=== PATIENT | male | born 1980 | race Caucasian/White ===

== ENCOUNTER 2016-08-11 19:24 | Emergency (ER) | payer OTHER ==
[~2016-08-11] VITALS: Ht 172.7 cm; Wt 64.4 kg
[~2016-08-11 19:24] MED LIST: CYM/30 PO; CYM/60 PO; LAMO100T16 PO; VST25HP PO
[2016-08-11] MEDS ORDERED: XYLOCAINE 1%/SOD BICARB 20 ML VIAL INFIL ONE ×2 (19:32→19:45)
--- NOTE | 2016-08-11 19:35 | EMERGENCY ROOM VISIT NOTE ---
History Report prepared by Massiel: Nelia Guzman Under the Supervision of: Dr. Niall Prado D.O. First contact with patient: 19:27 Stated Complaint: DEPRESSED, LACERATION TO L FOREARM, MENTAL HEALTH History of Present Illness The patient is a 35 year old male who presents to the Emergency Room for a mental health evaluation. The patient states that he is depressed and has a history of cutting himself. He reports that he was admitted to the hospital 1 month ago. He denies hearing any voices. Th patient notes that he has not been taking his Lamictal. Tonight he cut himself in the left arm just MECHANICAL INTERN. Source of History: patient Onset: just MECHANICAL INTERN Position: arm (left) Quality: other (laceration) Timing: constant Note: Left arm laceration, depression. Review of Systems See HPI for pertinent positives & negatives. A total of 10 systems reviewed and were otherwise negative. Past Medical & Surgical Medical Problems: (1) ANXIETY STATE NOS (2) Asthma (3) Auditory hallucinations (4) Depression (5) Dyspnea (6) Dyspnea (7) Exposure to chemical inhalation (8) Exposure to chemical inhalation (9) Seizure (10) Seizure disorder Family History Cancer FH: diabetes mellitus FH: hypertension FH: lupus FH: pneumonia FH: stroke High cholesterol Social History Smoking Status: Never Smoker Alcohol Use: occasionally Marital Status: single Housing Status: lives alone Occupation Status: disabled Current/Historical Medications Scheduled Duloxetine HCl (Cymbalta), 30 MG PO DAILY Duloxetine HCl (Cymbalta), 60 MG PO DAILY Lamotrigine (Lamictal), 200 MG PO QAM Allergies Coded Allergies: Amoxicillin (Verified Allergy, Severe, HIVES,SEIZURE ACTIVITY. N/V, ) Physical Exam Vital Signs Date Time Temp Pulse Resp B/P Pulse Ox O2 Delivery O2 Flow Rate FiO2 08/12/16 03:53 80 16 121/66 98 08/11/16 23:13 83 16 111/68 99 Room Air 08/11/16 21:00 89 18 98 Room Air 08/11/16 19:39 36.6 93 18 135/86 98 Room Air Physical Exam GENERAL: Patient is awake, alert, and somewhat anxious appearing but does not appear to be in pain. EYES: The conjunctivae are clear. The pupils are round and reactive. EARS, NOSE, MOUTH AND THROAT: The nose is without any evidence of any deformity. Mucous membranes are moist tongue is midline NECK: The neck is nontender and supple. RESPIRATORY: Normal respiratory effort is noted there is no evidence of wheezing rhonchi or rales CARDIOVASCULAR: Regular rate and rhythm noted there no murmurs rubs or gallops normal S1 normal S2 GASTROINTESTINAL: The abdomen is soft. Bowel sounds are present in all quadrants. Abdomen is nontender MUSCULOSKELETAL/EXTREMITIES: There is no evidence of gross deformity full range of motion is noted in the hips and shoulders SKIN: There is no obvious evidence of any rash. There are no petechiae, pallor or cyanosis noted. No edema noted, 3cm laceration noted on the ventral aspect of the left forearm, no active bleeding was noted. NEUROLOGIC: Patient is awake alert and oriented x3 strength is symmetric patellar reflexes are 2+ bilaterally PSYCH: Affect was very flat, patient makes poor eye contact. Admits to having suicidal ideation with plans to cut himself further. Medical Decision & Procedures Laboratory Results 08/11/16 20:33 Red Blood Count 5.06, Mean Corpuscular Volume 81.8, Mean Corpuscular Hemoglobin 29.2, Mean Corpuscular Hemoglobin Concent 35.7, Mean Platelet Volume 10.9, Neutrophils (%) (Auto) 54.2, Lymphocytes (%) (Auto) 38.1, Monocytes (%) (Auto) 6.5, Eosinophils (%) (Auto) 0.3, Basophils (%) (Auto) 0.7, Neutrophils # (Auto) 3.18, Lymphocytes # (Auto) 2.23, Monocytes # (Auto) 0.38, Eosinophils # (Auto) 0.02, Basophils # (Auto) 0.04 08/11/16 20:33 Test 08/11/16 20:33 08/11/16 21:47 White Blood Count 5.86 K/uL (4.8-10.8) Red Blood Count 5.06 M/uL (4.7-6.1) Hemoglobin 14.8 g/dL (14.0-18.0) Hematocrit 41.4 % (42-52) Mean Corpuscular Volume 81.8 fL (80-100) Mean Corpuscular Hemoglobin 29.2 pg (25-34) Mean Corpuscular Hemoglobin Concent 35.7 g/dl (32-36) Platelet Count 209 K/uL (130-400) Mean Platelet Volume 10.9 fL (7.4-10.4) Neutrophils (%) (Auto) 54.2 % Lymphocytes (%) (Auto) 38.1 % Monocytes (%) (Auto) 6.5 % Eosinophils (%) (Auto) 0.3 % Basophils (%) (Auto) 0.7 % Neutrophils # (Auto) 3.18 K/uL (1.4-6.5) Lymphocytes # (Auto) 2.23 K/uL (1.2-3.4) Monocytes # (Auto) 0.38 K/uL (0.11-0.59) Eosinophils # (Auto) 0.02 K/uL (0-0.5) Basophils # (Auto) 0.04 K/uL (0-0.2) RDW Standard Deviation 37.3 fL (36.4-46.3) RDW Coefficient of Variation 12.5 % (11.5-14.5) Immature Granulocyte % (Auto) 0.2 % Immature Granulocyte # (Auto) 0.01 K/uL (0.00-0.02) Anion Gap 11.0 mmol/L (3-11) Est Creatinine Clear Calc Drug Dose 92.1 ml/min Estimated GFR () 110.9 Estimated GFR (Non- 95.7 BUN/Creatinine Ratio 14.9 (10-20) Calcium Level 9.3 mg/dl (8.5-10.1) Total Bilirubin 0.8 mg/dl (0.2-1) Direct Bilirubin 0.1 mg/dl (0-0.2) Aspartate Amino Transf (AST/SGOT) 15 U/L (15-37) Alanine Aminotransferase (ALT/SGPT) 14 U/L (12-78) Alkaline Phosphatase 92 U/L (45-117) Total Protein 7.1 gm/dl (6.4-8.2) Albumin 4.1 gm/dl (3.4-5.0) Globulin 3.0 gm/dl (2.5-4.0) Albumin/Globulin Ratio 1.4 (0.9-2) Thyroid Stimulating Hormone (TSH) 1.590 uIu/ml (0.300-4.500) Ethyl Alcohol mg/dL < 3.0 mg/dl (0-3) Urine Color YELLOW Urine Appearance CLEAR (CLEAR) Urine pH 6.5 (4.5-7.5) Urine Specific [place] 1.000 (1.000-1.030) Urine Protein NEG (NEG) Urine Glucose (UA) NEG (NEG) Urine Ketones NEG (NEG) Urine Occult Blood NEG (NEG) Urine Nitrite NEG (NEG) Urine Bilirubin NEG (NEG) Urine Urobilinogen NEG (NEG) Urine Leukocyte Esterase NEG (NEG) Urine Opiates Screen NEG (NEG) Urine Methadone, Qualitative NEG (NEG) Urine Barbiturates NEG (NEG) Urine Phencyclidine (PCP) Level NEG (NEG) Ur Amphetamine/Methamphetamine NEG (NEG) MDMA (Ecstasy) Screen NEG (NEG) Urine Benzodiazepines Screen NEG (NEG) Urine Cocaine Metabolite NEG (NEG) Urine Marijuana (THC) NEG (NEG) Laboratory results per my review. Medications Administered Medications (Trade) Dose Ordered Sig/Darren Route Start Time Stop Time Status Last Admin Dose Admin Lorazepam (Ativan Tab) 1 mg NOW STAT SL 08/11/16 19:54 08/11/16 19:55 DC 08/11/16 20:12 1 MG Nicotine Polacrilex (Nicorette 2MG Gum) 1 piece PRN PRN MT 08/11/16 21:00 08/12/16 04:44 DC 08/12/16 02:01 1 PIECE Procedure Location: left forearm Total length: 3cm Complexity: low Verbal consent was obtained after the risks and benefits were explained, including but not limited to bleeding, scarring, infection, pain, and bone/joint /nerve damage. At this time, the risks of the procedure are less than the risks of NOT performing the procedure. A time out was taken and the correct patient and site identified. The skin was prepped with betadine. The target area was anesthetized with 5 ml of 1% lidocaine without epinephrine. Copious irrigation was performed using normal saline solution. The skin was re-prepped with betadine and a sterile field set. The wound was explored for foreign bodies and none found. Examination revealed no injury to deep structures such as tendons, bone, or significant blood vessels. Debridement was not performed. The wound edges were approximated using 9, 5-0 simple interrupted nylon sutures. 3 vertical mattress sutures were placed with 5-0 nylon sutures. Hemostasis and excellent approximation was achieved. Antibacterial ointment and a sterile dressing applied. Detailed wound care instructions and signs and symptoms of infection reviewed with the the patient. No complications and the patient tolerated the procedure well. ED Course 1926: The patient was evaluated in room A3. A complete history and physical examination were performed. 1931: Lidocaine HCl 5ml INFIL. 1953: Ativan Tab 1mg SL. 2099: Nicotine Polacrilex 1 piece PRN MT cravings. 2114: I reevaluated the patient. He is getting a bed search now. 2299: The patient was signed out to Dr. Keller. Medical Decision Differential diagnosis: Etiologies such as mood disorder, infection, hypoglycemia, electrolyte abnormalities, cardiac sources, intracerebral event, toxicologic, neurologic, as well as others were entertained. Nursing notes reviewed. The patient is a 35-year-old male who has a history of mental health disorder who presented to the emergency department for an evaluation of depression and self-harm. The patient cut his left forearm with a knife because he was feeling bad and wanted to hurt himself. He called the ambulance and wished to be evaluated for mental health admission. The patient was medically cleared in the emergency department. His laceration was repaired in the emergency department by myself. I discussed the patient's laboratory studies with him. I discussed his case with the [facility] delegate. They've agreed to evaluate the patient for possible inpatient placement. The patient is willing to be admitted and wishes to be admitted at this time. The patient states he ran out of his medications and did not have a chance to refill them. The patient was treated with Ativan in the emergency department. On subsequent reevaluation was feeling much better. Impression Primary Impression: Depression Additional Impressions: Suicidal ideation Laceration of forearm Self-harming behavior Scribe Attestation The scribe's documentation has been prepared under my direction and personally reviewed by me in its entirety. I confirm that the note above accurately reflects all work, treatment, procedures, and medical decision making performed by me. Departure Information Dispostion Still a Patient Referrals Walt Perez M.D. (PCP) Problem Qualifiers
[2016-08-11 19:39] VITALS: TEMP 36.6; Ht 172.7 cm; Wt 64.4 kg
[2016-08-11] MEDS ORDERED: LORAZEPAM 1 MG TAB SL STA (19:54)
[2016-08-11 20:53] LABS: BASO % 0.7 %; BASO ABS # 0.04 K/uL (0-0.2); COMPLETE YES; EOS % 0.3 %; HEMATOCRIT 41.4 % (42-52); IG% 0.2 %; LYMPH % 38.1 %; LYMPH ABS # 2.23 K/uL (1.2-3.4); MEAN CELL VOLUME 81.8 fL (80-100); MEAN CORPUSCULAR HEMOGLOBIN 29.2 pg (25-34); MEAN CORPUSCULAR HGB CONC 35.7 g/dl (32-36); MEAN PLATELET VOLUME 10.9 fL (7.4-10.4); MONO % 6.5 %; NEUT % 54.2 %; PLATELET COUNT 209 K/uL (130-400); RED BLOOD COUNT 5.06 M/uL (4.7-6.1); WHITE BLOOD COUNT 5.86 K/uL (4.8-10.8)
[2016-08-11] MEDS: NICOTINE POLACRILEX 2 MG GUM MT PRN (21:00)
[2016-08-11 21:19] LABS: BUN/CREATININE RATIO 14.9 (10-20); CALCIUM 9.3 mg/dl (8.5-10.1)
[2016-08-11 21:29] LABS: ALB/GLOB RATIO 1.4 (0.9-2); THYROID STIMULATING HORMONE 1.59 uIu/ml (0.300-4.500)
[2016-08-11 22:03] LABS: URINE APPEARANCE CLEAR (CLEAR); URINE BILIRUBIN NEG (NEG); URINE COLOR YELLOW; URINE NITRITE NEG (NEG); URINE PH 6.5 (4.5-7.5); UROBILINOGEN NEG (NEG)
[2016-08-11 22:06] LABS: MANUAL MICROSCOPIC REQUIRED? NO; REVIEW REQ? NO
[2016-08-11 22:20] LABS: BENZODIAZEPINE, URINE NEG (NEG); COCAINE,URINE NEG (NEG); PHENCYCLIDINE, URINE NEG (NEG)
--- NOTE | 2016-08-12 01:57 | EMERGENCY ROOM VISIT NOTE ---
ED Visit Note First contact with patient: 00:44 This case was signed out to me at change of shift awaiting a bed search. The patient has been accepted at [facility]. They will send staff here to pick him up. The patient will be transferred shortly. Paperwork was completed.
[2016-08-12] MEDS: NICOTINE POLACRILEX 2 MG GUM MT PRN (02:01)
[2016-08-12 03:53] VITALS: BP 121/66; PULSE 80; O2SAT 98
[2016-09-23] MEDS ORDERED: FLUO20CA36 PO (09:33)
[2016-09-23] MEDS ORDERED: ZYP10 PO (09:33)
[2017-04-25] MEDS ORDERED: LAMO200T38 PO (18:24)
== END 2016-08-12 03:54 ==
LOC: EDBD 19:24 → C.EDA 19:26
DX: F32.9 Major depressive disorder, single episode, unspecified (principal); R45.851 Suicidal ideations; S51.812A Laceration without foreign body of left forearm, initial encounter; X78.1XXA Intentional self-harm by knife, initial encounter; F41.1 Generalized anxiety disorder; J45.909 Unspecified asthma, uncomplicated; G40.909 Epilepsy, unspecified, not intractable, without status epilepticus; Z72.89 Other problems related to lifestyle; Z83.3 Family history of diabetes mellitus; Z82.49 Family history of ischemic heart disease and other diseases of the circulatory system; Z82.3 Family history of stroke; Z83.6 Family history of other diseases of the respiratory system; Z83.49 Family history of other endocrine, nutritional and metabolic diseases; Z84.0 Family history of diseases of the skin and subcutaneous tissue; Z79.899 Other long term (current) drug therapy

== ENCOUNTER 2016-08-27 01:38 | Emergency (ER) | payer OTHER ==
[~2016-08-27] VITALS: Ht 170.2 cm; Wt 65.0 kg
[~2016-08-27 01:38] MED LIST changes: -VST25HP PO
[2016-08-27 01:45] VITALS: Ht 170.2 cm; Wt 65.0 kg
--- NOTE | 2016-08-27 02:23 | EMERGENCY ROOM VISIT NOTE ---
History Report prepared by Massiel: Boogie Bowden Under the Supervision of: Dr. Claudia Keller D.O. First contact with patient: 01:41 Chief Complaint: MENTAL HEALTH EVALUATION Stated Complaint: MENTAL HEALTH EVALUATION History of Present Illness The patient is a 35 year old male who presents to the Emergency Room for a mental health evaluation. Per the ED nurse, the patient was discharged from [facility] a week ago. He was discharged with bipolar medication. However, when he tried to get his medication filled at the pharmacy, there was an issue with his health insurance, and he could not get the prescription filled. Three days ago, the patient also stopped taking his [place] medication. Tonight, he was out and about and started to feel unwell. He had thoughts of cutting himself again. Via the patient, he stopped taking his [place] medication because it makes him urinate frequently. He has been very stressed and frustrated lately. He has cut himself before, and he states that he did want to cut himself tonight. He is still taking his seizure medications. He also states that his alcohol use was yesterday, not tonight. He lives by himself and called [facility] to come to his house. They then called the EMS. He wishes to be admitted and feels safe in this room. He denies any abdominal pain. Source of History: patient Onset: tonight Position: other (global) Symptom Intensity: moderate Quality: other (mental health evaluation) Timing: constant Associated Symptoms: No abdominal pain Review of Systems See HPI for pertinent positives & negatives. A total of 10 systems reviewed and were otherwise negative. Past Medical & Surgical Medical Problems: (1) ANXIETY STATE NOS (2) Asthma (3) Auditory hallucinations (4) Depression (5) Dyspnea (6) Dyspnea (7) Exposure to chemical inhalation (8) Exposure to chemical inhalation (9) Seizure (10) Seizure disorder Family History Cancer FH: diabetes mellitus FH: hypertension FH: lupus FH: pneumonia FH: stroke High cholesterol Social History Smoking Status: Current Every Day Smoker Alcohol Use: occasionally Marital Status: single Housing Status: lives alone Occupation Status: disabled Current/Historical Medications Scheduled Lamotrigine (Lamictal), 200 MG PO QAM Allergies Coded Allergies: Amoxicillin (Verified Allergy, Severe, HIVES,SEIZURE ACTIVITY. N/V, ) Physical Exam Vital Signs Date Time Temp Pulse Resp B/P Pulse Ox O2 Delivery O2 Flow Rate FiO2 08/27/16 03:15 80 16 119/77 98 Room Air 08/27/16 01:45 36.7 99 16 140/90 97 Room Air Physical Exam HEENT: Head - normocephalic and atraumatic Pupils are equal, round, and reactive to light. Extraocular eye muscles are intact, and sclera are anicteric. Nose - moist nasal mucosa without discharge. Mouth - moist buccal mucosa. Oropharynx is nonerythematous and there is no tonsillar exudate or edema noted. Neck: Supple; no JVD, nuchal rigidity, cervical lymphadenopathy. Heart: Regular rate and rhythm. There is a normal S1 and S2 with no murmurs, clicks, or gallops appreciated. Lungs: Clear to auscultation bilaterally with no wheezes, rales, or rhonchi. Abdomen: Soft, completely nontender, nondistended, with good bowel sounds. There are no palpable pulsatile masses or hepatosplenomegaly. There is no guarding, rigidity, or rebound noted. Extremities: No evidence of cyanosis, clubbing, or edema. There are easily palpable peripheral pulses. Skin: warm and dry with good turgor and no rashes. Psych: Appears depressed with a flat affect. Having thoughts of cutting himself. Medical Decision & Procedures Laboratory Results 08/27/16 01:58 08/27/16 01:58 Test 08/27/16 01:58 08/27/16 02:19 Red Blood Count 4.93 M/uL (4.7-6.1) Mean Corpuscular Volume 83.8 fL (80-100) Mean Corpuscular Hemoglobin 29.2 pg (25-34) Mean Corpuscular Hemoglobin Concent 34.9 g/dl (32-36) RDW Standard Deviation 38.3 fL (36.4-46.3) RDW Coefficient of Variation 12.7 % (11.5-14.5) Mean Platelet Volume 10.2 fL (7.4-10.4) Anion Gap 10.0 mmol/L (3-11) Est Creatinine Clear Calc Drug Dose 116.2 ml/min Estimated GFR () 132.3 Estimated GFR (Non- 114.1 BUN/Creatinine Ratio 12.3 (10-20) Calcium Level 8.7 mg/dl (8.5-10.1) Total Bilirubin 0.4 mg/dl (0.2-1) Direct Bilirubin < 0.1 mg/dl (0-0.2) Aspartate Amino Transf (AST/SGOT) 11 U/L (15-37) Alanine Aminotransferase (ALT/SGPT) 21 U/L (12-78) Alkaline Phosphatase 84 U/L (45-117) Total Protein 6.7 gm/dl (6.4-8.2) Albumin 3.9 gm/dl (3.4-5.0) Thyroid Stimulating Hormone (TSH) 4.200 uIu/ml (0.300-4.500) Salicylates Level < 1.7 mg/dl (2.8-20) Acetaminophen Level < 2 ug/ml (10-30) [place] Level < 0.2 mMOL/L (0.6-1.2) Ethyl Alcohol mg/dL < 3.0 mg/dl (0-3) Urine Color YELLOW Urine Appearance CLEAR (CLEAR) Urine pH 6.0 (4.5-7.5) Urine Specific [place] 1.015 (1.000-1.030) Urine Protein NEG (NEG) Urine Glucose (UA) NEG (NEG) Urine Ketones NEG (NEG) Urine Occult Blood NEG (NEG) Urine Nitrite NEG (NEG) Urine Bilirubin NEG (NEG) Urine Urobilinogen NEG (NEG) Urine Leukocyte Esterase NEG (NEG) Urine Opiates Screen NEG (NEG) Urine Methadone, Qualitative NEG (NEG) Urine Barbiturates NEG (NEG) Urine Phencyclidine (PCP) Level NEG (NEG) Ur Amphetamine/Methamphetamine NEG (NEG) MDMA (Ecstasy) Screen NEG (NEG) Urine Benzodiazepines Screen NEG (NEG) Urine Cocaine Metabolite NEG (NEG) Urine Marijuana (THC) NEG (NEG) Laboratory results per my review. ED Course 0141: Past medical records reviewed. The patient was evaluated in room A8. A complete history and physical exam was performed. Labs were drawn as above. 0348: The patient is resting comfortably. He was felt to be medically cleared. I discussed the case with staff for mobile crisis. They will begin a bed search. 0538: The patient has been accepted to [facility]. He is willing to admit himself voluntarily. They will be sending transportation first thing in the morning. Medical Decision The patient is a 35 year old male who presents to the ED for a mental health evaluation. Differential diagnosis includes medication noncompliance, lithium toxicity, bipolar disorder, and self mutilation. Laboratory results showed: Normal WBC count, stable H&H, normal TSH and glucose , LFTs and renal function are normal, lithium level is less than 0.2, negative Tylenol alcohol and Aspirin, urine tox screen negative, urinalysis negative. The patient has a history of bipolar disorder. After recently being discharged from [facility] psychiatric unit, he did not fill the prescriptions as suggested. Also, approximately 3 days ago, he stopped taking his lithium. The patient began to have thoughts of self-harm and called [facility]. They evaluated him and sent him here for medical clearance. The patient is medically cleared and would like to admit himself voluntarily for further inpatient psychiatric care. He was accepted at [facility] Impression Primary Impression: Bipolar disorder Additional Impression: Noncompliance with medications Scribe Attestation The scribe's documentation has been prepared under my direction and personally reviewed by me in its entirety. I confirm that the note above accurately reflects all work, treatment, procedures, and medical decision making performed by me. Departure Information Dispostion Mental Health Acute Care Referrals Walt Perez M.D. (PCP) Patient Instructions My [facility] Problem Qualifiers
[2016-08-27 02:32] LABS: HEMATOCRIT 41.3 % (42-52); MEAN CELL VOLUME 83.8 fL (80-100); MEAN CORPUSCULAR HEMOGLOBIN 29.2 pg (25-34); MEAN CORPUSCULAR HGB CONC 34.9 g/dl (32-36); MEAN PLATELET VOLUME 10.2 fL (7.4-10.4); PLATELET COUNT 259 K/uL (130-400); RED BLOOD COUNT 4.93 M/uL (4.7-6.1); WHITE BLOOD COUNT 7.75 K/uL (4.8-10.8)
[2016-08-27 02:40] LABS: URINE APPEARANCE CLEAR (CLEAR); URINE BILIRUBIN NEG (NEG); URINE COLOR YELLOW; URINE NITRITE NEG (NEG); URINE SPECIFIC GRAVITY 1.015 (1.000-1.030); UROBILINOGEN NEG (NEG)
[2016-08-27 02:43] LABS: MANUAL MICROSCOPIC REQUIRED? NO; REVIEW REQ? NO
[2016-08-27 02:53] LABS: ALT/SGPT 21 U/L (12-78); AST/SGOT 11 U/L (15-37); BLOOD UREA NITROGEN 10 mg/dl (7-18); BUN/CREATININE RATIO 12.3 (10-20); CALCIUM 8.7 mg/dl (8.5-10.1); CARBON DIOXIDE 26 mmol/L (21-32); CHLORIDE 106 mmol/L (98-107); GLUCOSE 97 mg/dl (70-99); POTASSIUM 3.6 mmol/L (3.5-5.1); SODIUM 142 mmol/L (136-145)
[2016-08-27 02:57] LABS: ACETAMINOPHEN < 2 ug/ml (10-30); LITHIUM < 0.2 mMOL/L (0.6-1.2)
[2016-08-27 03:01] LABS: BENZODIAZEPINE, URINE NEG (NEG); COCAINE,URINE NEG (NEG); PHENCYCLIDINE, URINE NEG (NEG)
[2016-08-27 03:02] LABS: ALKALINE PHOSPHATASE 84 U/L (45-117)
[2016-08-27 07:10] VITALS: TEMP 36.6
[2016-08-27] MEDS ORDERED: NICOTINE POLACRILEX 2 MG GUM MT PRN (07:30)
[2016-08-27 08:27] VITALS: BP 119/77; PULSE 70; O2SAT 97
[2016-09-23] MEDS ORDERED: ZYP10 PO (09:33)
[2016-09-23] MEDS ORDERED: FLUO20CA36 PO (09:33)
[2017-04-25] MEDS ORDERED: LAMO200T38 PO (18:24)
== END 2016-08-27 08:28 ==
LOC: EDBD 01:38 → C.EDA 01:40
DX: F31.9 Bipolar disorder, unspecified (principal); Z91.14 Patient's other noncompliance with medication regimen; F41.9 Anxiety disorder, unspecified; J45.909 Unspecified asthma, uncomplicated; G40.909 Epilepsy, unspecified, not intractable, without status epilepticus; Z83.3 Family history of diabetes mellitus; Z82.49 Family history of ischemic heart disease and other diseases of the circulatory system; Z82.3 Family history of stroke; F17.210 Nicotine dependence, cigarettes, uncomplicated; Z79.899 Other long term (current) drug therapy

== ENCOUNTER 2016-09-17 16:48 | Inpatient (IN) | payer OTHER ==
[~2016-09-17] VITALS: Ht 170.2 cm; Wt 63.9 kg
[~2016-09-17 16:48] MED LIST changes: -CYM/30 PO; -CYM/60 PO
[2016-09-17] MEDS ORDERED: NICOTINE POLACRILEX 2 MG GUM MT PRN (17:15)
[2016-09-17 17:20] LABS: URINE APPEARANCE CLEAR (CLEAR); URINE BILIRUBIN NEG (NEG); URINE COLOR YELLOW; URINE NITRITE NEG (NEG); URINE SPECIFIC GRAVITY 1.001 (1.000-1.030); UROBILINOGEN NEG (NEG); ZZUR CULT IF INDIC CLEAN CATCH NO
--- NOTE | 2016-09-17 17:24 | EMERGENCY ROOM VISIT NOTE ---
History Report prepared by Massiel: Bautista Feldman Under the Supervision of: Dr. Mark Peace M.D. First contact with patient: 17:03 Chief Complaint: MENTAL HEALTH EVALUATION Stated Complaint: SUICIDAL THOUGHTS History of Present Illness The patient is a 35 year old male who presents to the Emergency Room with complaints of persistent suicidal thoughts for the past few days. The patient has a history of bipolar disorder, depression, and anxiety. He notes that he has not tried to hurt himself over the past few days, but he has a history of this in the past. He notes that he is on Lamictal and other medications which he has been taking. He has not taking his anxiety medication because this has been pretty well controlled on its own. He presented to the ED for medical clearance. He has a bed in [address] [place] [address] which was set up by [facility] prior to arrival. He notes that he was recently admitted in [place] for similar symptoms. He denies any recent events that have been stressing him out more than usual. Source of History: patient Onset: past few days Position: other (global) Timing: other (persistent) Note: Denies: trying to hurt himself recently, new/ worse stressors. Review of Systems See HPI for pertinent positives & negatives. A total of 10 systems reviewed and were otherwise negative. Past Medical & Surgical Medical Problems: (1) ANXIETY STATE NOS (2) Asthma (3) Auditory hallucinations (4) Depression (5) Dyspnea (6) Dyspnea (7) Exposure to chemical inhalation (8) Exposure to chemical inhalation (9) Seizure (10) Seizure disorder Family History Cancer FH: diabetes mellitus FH: hypertension FH: lupus FH: pneumonia FH: stroke High cholesterol Social History Smoking Status: Never Smoker Alcohol Use: occasionally Marital Status: single Housing Status: lives alone Occupation Status: disabled Current/Historical Medications Scheduled Fluoxetine HCl (Fluoxetine HCl), 20 MG PO DAILY Lamotrigine (Lamictal), 200 MG PO QAM Olanzapine (Olanzapine), 10 MG PO DAILY Propranolol (Inderal), 20 MG PO BID Trazodone Hcl (Desyrel), 50 MG PO HS Allergies Coded Allergies: Amoxicillin (Verified Allergy, Severe, HIVES,SEIZURE ACTIVITY. N/V, ) Bacitracin (Unverified Adverse Reaction, Mild, unknown, 09/17/16) Neomycin (Unverified Adverse Reaction, Mild, unknown, 09/17/16) Polymyxin B (Unverified Adverse Reaction, Mild, unknown, 09/17/16) Physical Exam Vital Signs Date Time Temp Pulse Resp B/P Pulse Ox O2 Delivery O2 Flow Rate FiO2 09/17/16 16:53 36.8 81 18 118/83 97 Room Air Physical Exam GENERAL: Patient is anxious appearing, in minimal distress. HEENT: No acute trauma, normocephalic atraumatic, mucous membranes moist, no nasal congestion, no scleral icterus. NECK: No stridor, no adenopathy, no meningismus, trachea is midline. LUNGS: No dyspnea. Clear to auscultation and equal bilaterally. No wheeze, no rhonchi. HEART: Regular rate and rhythm. No murmurs, rubs, gallops appreciated. ABDOMEN: Soft, nontender, bowel sounds positive, no masses appreciated, no peritonitis. BACK: No midline tenderness, no CVA tenderness EXTREMITIES: Normal motion all extremities, no cyanosis, no edema. NEUROLOGIC: Alert and oriented, no acute motor or sensory deficits, no focal weakness, cranial nerves grossly intact. SKIN: No rash, no jaundice, no diaphoresis. Tattoos on bilateral forearms and neck. PSYCH: Admits suicidal ideation with plan, denies hallucinations or homicidal ideation. Admits depression. Medical Decision & Procedures Laboratory Results 09/17/16 17:15 Red Blood Count 5.34, Mean Corpuscular Volume 83.9, Mean Corpuscular Hemoglobin 29.4, Mean Corpuscular Hemoglobin Concent 35.0, Mean Platelet Volume 10.5, Neutrophils (%) (Auto) 49.9, Lymphocytes (%) (Auto) 40.7, Monocytes (%) (Auto) 7.8, Eosinophils (%) (Auto) 0.7, Basophils (%) (Auto) 0.9, Neutrophils # (Auto) 2.67, Lymphocytes # (Auto) 2.18, Monocytes # (Auto) 0.42, Eosinophils # (Auto) 0.04, Basophils # (Auto) 0.05 09/17/16 17:15 Test 09/17/16 17:00 09/17/16 17:15 Urine Color YELLOW Urine Appearance CLEAR (CLEAR) Urine pH 6.0 (4.5-7.5) Urine Specific Orgas 1.001 (1.000-1.030) Urine Protein NEG (NEG) Urine Glucose (UA) NEG (NEG) Urine Ketones NEG (NEG) Urine Occult Blood NEG (NEG) Urine Nitrite NEG (NEG) Urine Bilirubin NEG (NEG) Urine Urobilinogen NEG (NEG) Urine Leukocyte Esterase NEG (NEG) Urine Opiates Screen NEG (NEG) Urine Methadone, Qualitative NEG (NEG) Urine Barbiturates NEG (NEG) Urine Phencyclidine (PCP) Level NEG (NEG) Ur Amphetamine/Methamphetamine NEG (NEG) MDMA (Ecstasy) Screen NEG (NEG) Urine Benzodiazepines Screen NEG (NEG) Urine Cocaine Metabolite NEG (NEG) Urine Marijuana (THC) NEG (NEG) White Blood Count 5.36 K/uL (4.8-10.8) Red Blood Count 5.34 M/uL (4.7-6.1) Hemoglobin 15.7 g/dL (14.0-18.0) Hematocrit 44.8 % (42-52) Mean Corpuscular Volume 83.9 fL (80-100) Mean Corpuscular Hemoglobin 29.4 pg (25-34) Mean Corpuscular Hemoglobin Concent 35.0 g/dl (32-36) Platelet Count 222 K/uL (130-400) Mean Platelet Volume 10.5 fL (7.4-10.4) Neutrophils (%) (Auto) 49.9 % Lymphocytes (%) (Auto) 40.7 % Monocytes (%) (Auto) 7.8 % Eosinophils (%) (Auto) 0.7 % Basophils (%) (Auto) 0.9 % Neutrophils # (Auto) 2.67 K/uL (1.4-6.5) Lymphocytes # (Auto) 2.18 K/uL (1.2-3.4) Monocytes # (Auto) 0.42 K/uL (0.11-0.59) Eosinophils # (Auto) 0.04 K/uL (0-0.5) Basophils # (Auto) 0.05 K/uL (0-0.2) RDW Standard Deviation 38.3 fL (36.4-46.3) RDW Coefficient of Variation 12.7 % (11.5-14.5) Immature Granulocyte % (Auto) 0.0 % Immature Granulocyte # (Auto) 0.00 K/uL (0.00-0.02) Anion Gap 7.0 mmol/L (3-11) Est Creatinine Clear Calc Drug Dose 84.0 ml/min Estimated GFR () 98.9 Estimated GFR (Non- 85.3 BUN/Creatinine Ratio 12.4 (10-20) Calcium Level 9.2 mg/dl (8.5-10.1) Total Bilirubin 1.1 mg/dl (0.2-1) Aspartate Amino Transf (AST/SGOT) 9 U/L (15-37) Alanine Aminotransferase (ALT/SGPT) 16 U/L (12-78) Alkaline Phosphatase 93 U/L (45-117) Total Protein 7.4 gm/dl (6.4-8.2) Albumin 4.5 gm/dl (3.4-5.0) Globulin 2.9 gm/dl (2.5-4.0) Albumin/Globulin Ratio 1.6 (0.9-2) Thyroid Stimulating Hormone (TSH) 1.750 uIu/ml (0.300-4.500) Salicylates Level < 1.7 mg/dl (2.8-20) Acetaminophen Level < 2 ug/ml (10-30) Ethyl Alcohol mg/dL < 3.0 mg/dl (0-3) Laboratory results as reviewed by me. Medications Administered Medications (Trade) Dose Ordered Sig/Darren Route Start Time Stop Time Status Last Admin Dose Admin Nicotine Polacrilex (Nicorette 2MG Gum) 1 piece Q1H PRN MT 09/17/16 17:15 09/17/16 19:55 DC 09/17/16 17:07 1 PIECE ED Course 1720: The patient was evaluated in room A6. A complete history and physical exam was performed. 1821: At this time, [address] [place] [address] evaluated the patient and accepted him. Medical Decision Differential: Mood Disorder, Overdose, Infectious, Electrolyte Abnormality, Cardiac, Hepatic, Endocrine, Toxicologic, Neurologic, amongst other pathologies entertained. 35 yr old male arrives stating he wishes to kill himself by stabbing. He has mildly bumped Bili with normal other labs, no abdominal pain, no jaundice and previous Bili in similar range thus I feel it is not medically issue currently. He is medically clear and no intoxicated. Admitted to [address] [place] [address] for further treatment. Impression Primary Impression: Suicidal ideation Scribe Attestation The scribe's documentation has been prepared under my direction and personally reviewed by me in its entirety. I confirm that the note above accurately reflects all work, treatment, procedures, and medical decision making performed by me. Departure Information [facility] ([address] [place] [address]) Referrals Walt Perez M.D. (PCP)
[2016-09-17 17:31] LABS: MANUAL MICROSCOPIC REQUIRED? NO; REVIEW REQ? NO
[2016-09-17 17:32] LABS: BASO % 0.9 %; BASO ABS # 0.05 K/uL (0-0.2); COMPLETE YES; EOS % 0.7 %; HEMATOCRIT 44.8 % (42-52); LYMPH % 40.7 %; LYMPH ABS # 2.18 K/uL (1.2-3.4); MEAN CELL VOLUME 83.9 fL (80-100); MEAN CORPUSCULAR HEMOGLOBIN 29.4 pg (25-34); MEAN PLATELET VOLUME 10.5 fL (7.4-10.4); MONO % 7.8 %; NEUT % 49.9 %; PLATELET COUNT 222 K/uL (130-400); RED BLOOD COUNT 5.34 M/uL (4.7-6.1); WHITE BLOOD COUNT 5.36 K/uL (4.8-10.8)
[2016-09-17 17:39] LABS: BENZODIAZEPINE, URINE NEG (NEG); COCAINE,URINE NEG (NEG); PHENCYCLIDINE, URINE NEG (NEG)
[2016-09-17 17:59] LABS: BUN/CREATININE RATIO 12.4 (10-20); CALCIUM 9.2 mg/dl (8.5-10.1); CREATININE 1.1 mg/dl (0.60-1.40); POTASSIUM 4.1 mmol/L (3.5-5.1)
[2016-09-17 18:03] LABS: ACETAMINOPHEN < 2 ug/ml (10-30)
[2016-09-17 18:09] LABS: ALB/GLOB RATIO 1.6 (0.9-2); THYROID STIMULATING HORMONE 1.75 uIu/ml (0.300-4.500)
[2016-09-17] MEDS ORDERED: ZYP10 PO (18:24)
[2016-09-17] MEDS ORDERED: FLUO20CA36 PO (18:24)
[2016-09-17] MEDS ORDERED: TRAZ1TAB5 PO (18:24)
[2016-09-17] MEDS ORDERED: PROP20TA67 PO (18:24)
[2016-09-17] MEDS ORDERED: NURSING VERBAL MED ORDER ONE (19:15)
[2016-09-17 19:32] VITALS: O2SAT 97
[2016-09-17 19:56] VITALS: BP 113/78; PULSE 79; TEMP 37.3; Ht 170.2 cm; Wt 63.9 kg
[2016-09-17] MEDS ORDERED: SODIUM CHLORIDE 0.65% NA SOLN 45 ML (OCEAN) PRN (20:00)
[2016-09-17] MEDS ORDERED: BISMUTH SUBSALICYLATE PER ML OMNICELL CHARGE PO PRN (20:00)
[2016-09-17] MEDS ORDERED: ALUMINUM/MAGNESIUM SUSP 30 ML UDC PO PRN (20:00)
[2016-09-17] MEDS ORDERED: hydrOXYzine HCL 25 MG TAB PO PRN ×2 (20:00)
[2016-09-17] MEDS ORDERED: MAGNESIUM HYDROXIDE SUSP 30 ML UDC PO PRN (20:00)
[2016-09-17] MEDS ORDERED: ACETAMINOPHEN 325 MG TAB PO PRN (20:00)
[2016-09-17] MEDS: TRAZODONE HCL 50 MG TAB PO SCH (21:19)
[2016-09-17] MEDS: OLANZAPINE 10 MG TAB PO SCH (21:19)
[2016-09-17] MEDS: NICOTINE POLACRILEX 2 MG GUM MT PRN (21:22)
[2016-09-18 06:55] VITALS: BP_SYST 97; BP_DIAS 62; BP_DIAS 64; PULSE 76; TEMP 36.3
[2016-09-18] MEDS ORDERED: PNEUMOCOCCAL ADMINISTRATION CHARGE ONE (08:00)
[2016-09-18] MEDS ORDERED: PNEUMOCOCCAL POLYSACCHARIDES 25 MCG/0.5 ML VIAL/SYR IM. ONE (08:00)
[2016-09-18] MEDS ORDERED: FLUOXETINE HCL 20 MG CAP PO SCH (09:00)
[2016-09-18] MEDS: NICOTINE POLACRILEX 2 MG GUM MT PRN ×4 (09:59→20:31)
[2016-09-18] MEDS ORDERED: FLUOXETINE HCL 20 MG CAP PO ONE (11:45)
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
[2016-09-18] MEDS: OLANZAPINE 10 MG TAB PO SCH (21:05)
[2016-09-18] MEDS: TRAZODONE HCL 50 MG TAB PO SCH (21:05)
[2016-09-19 07:08] VITALS: BP_SYST 100; BP_SYST 104; BP_DIAS 66; BP_DIAS 68; PULSE 71; PULSE 82; TEMP 36.8
[2016-09-19 07:54] LABS: CHOLESTEROL/HDL RATIO 3.9
[2016-09-19] MEDS: FLUOXETINE HCL 20 MG CAP PO SCH (08:43)
[2016-09-19] MEDS: NICOTINE POLACRILEX 2 MG GUM MT PRN ×5 (09:00→21:38)
--- NOTE | 2016-09-19 10:48 | Psychiatric Progress Notes ---
Progress Note Date of Service Sep 19, 2016. Interval History 35 yo male from [place], admitted voluntarily 09/18/16 with severe depression and suicidality. The patient denied specific stressors, but said that he was bored, and has been having thoughts to stab himself. Chief Complaint "OK". Subjective Patient was seen & assessed interval progress reviewed with Treatment Team. The patient says that he is doing "OK" today, but is still having "a little bit " of suicidal thinking. I review the information received from his correctional case manager Zachery Neri, including their considering a penitentiary state hospitalization in view of patient's frequent inpatient stays. Boni does not want to go to the replaced by [facility]. He says that his stress is that he doesn't like his apartment, "I don't feel safe there". He lives across from a bar and its noisy at night. He says that he needs to move and has been looking into an apartment at [facility] and needs to walk there to spanish moss picker an application. He is currently on a month to month lease and could move given the right notice. He says that he is sleeping too much with the trazodone. He denies aud/vis hallucinations. Review of Systems Constitutional: + fatigue ENT: No dental problems, No hearing loss, No nasal symptoms, No problem reported, No sore throat, No tinnitus, No trouble swallowing, No unusual epistaxis Respiratory: No cough, No dyspnea at rest, No dyspnea on exertion, No hemoptysis, No problem reported, No shortness of breath, No sputum, No wheezing Cardiovascular: No PND, No chest pain, No claudication, No edema, No orthopnea , No palpitations, No problem reported Abdomen: No GI bleeding, No constipation, No diarrhea, No nausea, No pain, No problem reported, No vomiting Musculoskeletal: No calf pain, No joint pain, No muscle pain, No problem reported, No swelling Neurologic: No balance problems, No memory loss, No numbness/tingling, No paralysis, No problem reported, No vertigo, No weakness Psychiatric: + depression symptoms (with SI) Sleep Information Total Hours of Sleep: 6.50 Meal Information Percent of Breakfast Consumed: 100 Percent of Lunch Consumed: 10 Percent of Dinner Consumed: 100 Mental Status Exam During interview pt is: alert and oriented, cooperative Appearance: appropriately dressed, appropriately groomed Eye contact is: good Motor behavior is: steady gait & station, no abnormal motor movements Speech: normal in rate, rhythm & volume Affect: flat Mood is: depressed Thought process: goal directed Thought content: reality based without delusions Suicidal thought are: present, Plan: denied, Intent: denied Homicidal thoughts are: denied Hallucinations: denies auditory, denies visual Cognition: memory grossly intact, attention grossly intact Intelligence estimated to be: average Insight: impaired Judgement: impaired Impression Adjusting well to the unit, with fewer SI. reimbursement manager indicates that he is spending a lot of time inpatient and they have begun to talk about the state hospital. They have also placed him on the wait list for the [facility], but there are multiple people in line in front of him. We will call the [facility] to explore, in the event he can be moved up on the list based on his frequent failures to live alone. Will make trazodone prn since he is complaining of AM tiredness. Continue current meds. Continued Inpatient Care Requires inpatient care due to the severity of his condition and the risk for self harm if discharged. Plan (1) Schizoaffective disorder 09/19 - Prozac increased to 40 mg. yesterday - Will make trazodone prn - Q 15 min checks for safety - Encourage participation in group and individual counseling - Coordinate care with current providers - reimbursement manager Zachery He has place Boni on the [facility] wait list. Explore possibility of moving patient up on the list - Assist the patient to learn and utilize healthy coping strategies (2) Seizure disorder 09/19 - Continue home dose of lamictal (3) Alcohol abuse 09/19 - Encourage patient to abstain Discharge / Aftercare Planning Psychiatrist: Name: Dr. Rutledge Mud Temperer: Name: Zachery eH Visit Code E&M Code: 85141 Inventory Assets Strengths: Good outpatient support Needs: To avoid alcohol Risk Factors Assessment Male: Yes : Yes /single/: Yes Higher / Fall in social status: No Access to guns: No Health problems: Yes Mental Health Diagnoses: Yes Substance use disorders: Yes Previous attempt: Yes Previous psychiatric stay: Yes Smoker: Yes (chews tobacco) Protective Factors Assessment Temple beliefs: No : No Responsible for young children: No Employed: No Stable relationships: No Supportive family: No Good rapport with provider: Yes Data Vital Signs Last 24 Hrs: Date Time Temp Pulse Resp B/P Pulse Ox O2 Delivery O2 Flow Rate FiO2 09/19/16 07:08 36.8 82 16 104/66 71 100/68 Meds Administered Last 24 Hrs: Meds Administered (Past 24Hrs) Medications (Trade) Dose Ordered Sig/Darren Route Start Time Stop Time Status Last Admin Dose Admin Nicotine Polacrilex (Nicorette 2MG Gum) 1 piece Q1H PRN MT 09/17/16 17:15 09/17/16 19:55 DC 09/17/16 17:07 1 PIECE Lamotrigine (Lamictal Tab) 200 mg DAILY PO 09/18/16 09:00 10/18/16 08:59 09/19/16 08:42 200 MG Olanzapine (Zyprexa Tab) 10 mg HS PO 09/17/16 22:00 10/17/16 21:59 09/18/16 21:05 10 MG Trazodone HCl (Desyrel Tab) 50 mg HS PO 09/17/16 22:00 10/17/16 21:59 09/18/16 21:05 50 MG Fluoxetine HCl (Prozac Cap) 20 mg DAILY PO 09/18/16 09:00 09/18/16 11:22 DC 09/18/16 08:50 20 MG Nicotine Polacrilex (Nicorette 2MG Gum) 1-2 PEICES Q 2 HRS PRN ... Q2HWA PRN MT 09/17/16 20:00 10/17/16 19:59 09/19/16 09:00 2 PIECE Fluoxetine HCl (Prozac Cap) 40 mg QAM PO 09/19/16 09:00 10/19/16 08:59 09/19/16 08:43 40 MG Fluoxetine HCl (Prozac Cap) 20 mg 1145 ONCE PO 09/18/16 11:45 09/18/16 11:46 DC 09/18/16 12:25 20 MG Lab Results Last 24 Hrs: Last 24 Hours Test 09/19/16 07:00 Fasting Glucose 84 mg/dl Triglycerides Level 71 mg/dl Cholesterol Level 190 mg/dl HDL Cholesterol 49 mg/dl LDL Cholesterol, Calculated 127 mg/dl VLDL Cholesterol, Calculated 14 mg/dl Cholesterol/HDL Ratio 3.9 Problem Qualifiers (1) Schizoaffective disorder: Schizoaffective disorder type: bipolar Qualified Codes: F25.0 - Schizoaffective disorder, bipolar type
[2016-09-19] MEDS: OLANZAPINE 10 MG TAB PO SCH (21:36)
[2016-09-19] MEDS ORDERED: TRAZODONE HCL 50 MG TAB PO PRN (22:00)
[2016-09-20 07:10] VITALS: BP_SYST 102; BP_SYST 115; BP_DIAS 71; BP_DIAS 72; PULSE 82; PULSE 85; TEMP 36.6
[2016-09-20] MEDS: FLUOXETINE HCL 20 MG CAP PO SCH (09:08)
[2016-09-20] MEDS: NICOTINE POLACRILEX 2 MG GUM MT PRN ×5 (09:11→21:13)
--- NOTE | 2016-09-20 11:30 | Psychiatric Progress Notes ---
Progress Note Date of Service Sep 20, 2016. Interval History 35 yo male from [place], admitted voluntarily 09/18/16 with severe depression and suicidality. The patient denied specific stressors, but said that he was bored, and has been having thoughts to stab himself. Chief Complaint "some suicidal thoughts yesterday". Subjective Patient was seen & assessed interval progress reviewed with Treatment Team. Confirmed patient does have a history of MR. He appears flat and concrete in staff interactions, attended a few groups during day. Reiterated his SI was related to boredom and nonspecific angst about his apartment. He is requesting an increase in Zyprexa stating that it helps him stay calm/less racing or paranoid thoughts at night. Denies paranoia here. Review of Systems Psych: denies symptoms other than stated above Constitutional: describes dry mouth and nasal congestion/sinus pressure Cardiovascular: denied GI: denied Neurologic: denied Remainder of 10 body systems also reviewed and denied other than noted above. Sleep Information Total Hours of Sleep: 8.00 Meal Information Percent of Breakfast Consumed: 25 Percent of Lunch Consumed: 100 Percent of Dinner Consumed: 100 Mental Status Exam During interview pt is: alert and oriented, cooperative Appearance: appropriately dressed, appropriately groomed Eye contact is: good Motor behavior is: steady gait & station, no abnormal motor movements Speech: normal in rate, rhythm & volume Affect: flat Mood is: depressed Thought process: goal directed Thought content: reality based without delusions Suicidal thought are: denied, Plan: denied, Intent: denied Homicidal thoughts are: denied Hallucinations: denies auditory, denies visual Cognition: memory grossly intact, attention grossly intact Intelligence estimated to be: average Insight: impaired Judgement: impaired Impression 09/19--Adjusting well to the unit, with fewer SI. telephonic case manager indicates that he is spending a lot of time inpatient and they have begun to talk about [facility]. They have also placed him on the wait list for the CRR, but there are multiple people in line in front of him. We will call the CRR to explore, in the event he can be moved up on the list based on his frequent failures to live alone. Will make trazodone prn since he is complaining of AM tiredness. Continue current meds. Continued Inpatient Care Requires inpatient care due to the severity of his condition and the risk for self harm if discharged. Plan (1) Schizoaffective disorder 09/19 - Prozac increased to 40 mg. yesterday - Will make trazodone prn - Q 15 min checks for safety - Encourage participation in group and individual counseling - Coordinate care with current providers - telephonic case manager Zachery He has place Boni on the CRR wait list. Explore possibility of moving patient up on the list - Assist the patient to learn and utilize healthy coping strategies 09/20 --titrate Zyprexa to 15 mg po qhs with hopes to avoid trazodone. (2) Seizure disorder 09/19 - Continue home dose of lamictal (3) Alcohol abuse 09/19 - Encourage patient to abstain Discharge / Aftercare Planning Psychiatrist: Name: Dr. Rutledge Hopper Filler: Name: Zachery He Visit Code E&M Code: 67738 Inventory Assets Strengths: Good outpatient support Needs: To avoid alcohol Risk Factors Assessment Male: Yes : Yes /single/: Yes Higher / Fall in social status: No Access to guns: No Health problems: Yes Mental Health Diagnoses: Yes Substance use disorders: Yes Previous attempt: Yes Previous psychiatric stay: Yes Smoker: Yes (chews tobacco) Protective Factors Assessment Scientologist beliefs: No : No Responsible for young children: No Employed: No Stable relationships: No Supportive family: No Good rapport with provider: Yes Data Vital Signs Last 24 Hrs: Date Time Temp Pulse Resp B/P Pulse Ox O2 Delivery O2 Flow Rate FiO2 09/20/16 07:10 36.6 82 16 115/72 85 102/71 Meds Administered Last 24 Hrs: Meds Administered (Past 24Hrs) Medications (Trade) Dose Ordered Sig/Darren Route Start Time Stop Time Status Last Admin Dose Admin Fluoxetine HCl (Prozac Cap) 40 mg QAM PO 09/19/16 09:00 10/19/16 08:59 09/20/16 09:08 40 MG Fluoxetine HCl (Prozac Cap) 20 mg 1145 ONCE PO 09/18/16 11:45 09/18/16 11:46 DC 09/18/16 12:25 20 MG Problem Qualifiers (1) Schizoaffective disorder: Schizoaffective disorder type: bipolar Qualified Codes: F25.0 - Schizoaffective disorder, bipolar type
[2016-09-20] MEDS ORDERED: PSEUDOEPHEDRINE HCL 30 MG TAB PO PRN (11:45)
[2016-09-20] MEDS: OLANZAPINE 10 MG TAB PO SCH (21:12)
[2016-09-21 06:46] VITALS: BP_SYST 120; BP_SYST 123; BP_DIAS 72; BP_DIAS 83; PULSE 65; PULSE 72; TEMP 36.7
[2016-09-21] MEDS: FLUOXETINE HCL 20 MG CAP PO SCH (09:01)
[2016-09-21] MEDS: NICOTINE POLACRILEX 2 MG GUM MT PRN ×4 (09:01→21:09)
--- NOTE | 2016-09-21 11:44 | Psychiatric Progress Notes ---
Progress Note Date of Service Sep 21, 2016. Interval History 35 yo male from [place], admitted voluntarily 09/18/16 with severe depression and suicidality. The patient denied specific stressors, but said that he was bored, and has been having thoughts to stab himself. Chief Complaint "I got concern about my safety at home at times". Subjective Patient was seen & assessed interval progress reviewed with nurses. Pt shared how his medication adjustment that has occurred since admitted has been helping him. He feels less tired in the morning then previous did. he denied paranoid thinking in the hospital while describing paranoid thinking prior to the admission. He is interested in CRR placement and thinks that would be quite helpful for him. He is aware that he is further up on the wait list then was previous indicated. He is concerned about being prematurely discharged but is feeling that as he feels better at the unit he is getting closer to feeling ready. He is wondering about discharge on Friday if he continues to feeling improved. He denied s/e to his mediations. He is denying Suicidal ideation today. He endorsed nasal congestion and discomfort by his sinuses. He stated that he has not used the saline nasal spray as of yet. Sleep Information Total Hours of Sleep: 5.50 Meal Information Percent of Breakfast Consumed: 100 Percent of Lunch Consumed: 50 Percent of Dinner Consumed: 100 Mental Status Exam During interview pt is: alert and oriented, cooperative Appearance: appropriately dressed, appropriately groomed Eye contact is: good Motor behavior is: steady gait & station, no abnormal motor movements Speech: normal in rate, rhythm & volume Affect: flat Mood is: depressed Thought process: goal directed Thought content: reality based without delusions Suicidal thought are: denied, Plan: denied, Intent: denied Homicidal thoughts are: denied Hallucinations: denies auditory, denies visual Cognition: memory grossly intact, attention grossly intact Intelligence estimated to be: average Insight: impaired Judgement: impaired Impression 09/19--Adjusting well to the unit, with fewer SI. plastic manager indicates that he is spending a lot of time inpatient and they have begun to talk about the state hospital. They have also placed him on the wait list for the CRR, but there are multiple people in line in front of him. We will call the CRR to explore, in the event he can be moved up on the list based on his frequent failures to live alone. Will make trazodone prn since he is complaining of AM tiredness. Continue current meds. Continued Inpatient Care Requires inpatient care due to the severity of his condition and the risk for self harm if discharged. Plan (1) Schizoaffective disorder 09/19 - Prozac increased to 40 mg. yesterday - Will make trazodone prn - Q 15 min checks for safety - Encourage participation in group and individual counseling - Coordinate care with current providers - plastic manager Zachery He has place Boni on the CRR wait list. Explore possibility of moving patient up on the list - Assist the patient to learn and utilize healthy coping strategies 09/20 --titrate Zyprexa to 15 mg po qhs with hopes to avoid trazodone. 09/21 -do not need trazodone last night and not as fatigued in the morning (2) Seizure disorder 09/19 - Continue home dose of lamictal (3) Alcohol abuse 09/19 - Encourage patient to abstain Discharge / Aftercare Planning Primary Care Physician: Name: Dr. Perez Psychiatrist: Name: Dr. Farfan Deputy Court Clerk: Name: Zachery He Visit Code E&M Code: 62643 Inventory Assets Strengths: Good outpatient support Needs: To avoid alcohol Risk Factors Assessment Male: Yes : Yes /single/: Yes Higher / Fall in social status: No Access to guns: No Health problems: Yes Mental Health Diagnoses: Yes Substance use disorders: Yes Previous attempt: Yes Previous psychiatric stay: Yes Smoker: Yes (chews tobacco) Protective Factors Assessment Voodoo beliefs: No : No Responsible for young children: No Employed: No Stable relationships: No Supportive family: No Good rapport with provider: Yes Data Vital Signs Last 24 Hrs: Date Time Temp Pulse Resp B/P Pulse Ox O2 Delivery O2 Flow Rate FiO2 09/21/16 06:46 36.7 72 17 120/83 65 123/72 Meds Administered Last 24 Hrs: Meds Administered (Past 24Hrs) Medications (Trade) Dose Ordered Sig/Darren Route Start Time Stop Time Status Last Admin Dose Admin Olanzapine (Zyprexa Tab) 15 mg HS PO 09/20/16 22:00 10/20/16 21:59 09/20/16 21:12 15 MG Problem Qualifiers (1) Schizoaffective disorder: Schizoaffective disorder type: bipolar Qualified Codes: F25.0 - Schizoaffective disorder, bipolar type
[2016-09-21] MEDS: OLANZAPINE 10 MG TAB PO SCH (21:09)
[2016-09-21] MEDS: IBUPROFEN 600 MG TAB PO PRN (22:33)
[2016-09-22 06:54] VITALS: BP_SYST 121; BP_SYST 123; BP_DIAS 81; BP_DIAS 85; PULSE 82; PULSE 92; TEMP 36.3
[2016-09-22] MEDS: NICOTINE POLACRILEX 2 MG GUM MT PRN ×5 (08:49→21:08)
[2016-09-22] MEDS: FLUOXETINE HCL 20 MG CAP PO SCH (09:11)
--- NOTE | 2016-09-22 10:36 | Psychiatric Progress Notes ---
Progress Note Date of Service Sep 22, 2016. Interval History 35 yo male from [place], admitted voluntarily 09/18/16 with severe depression and suicidality. The patient denied specific stressors, but said that he was bored, and has been having thoughts to stab himself. Chief Complaint "feeling better". Subjective Patient was seen & assessed interval progress reviewed with nursing. Pt states how feeling better and then wonders if he meds could use adjustment since he is finding his concentration is not as good as would want it to be. he complains of ongoing nasal congestion and some sinus congestion and wondering about "z-pack." Pt slept fine last night. He is noted to be pleasant with peers , attending groups and participating. He denied any SI. He has some fatigue in the mornings including this morning but stated it was less then earlier in the hospital course and less am fatigue then prior to admission. He denied HI, AH or VH. Review of Systems Constitutional: + fatigue, No chills, No fever, No problem reported, No sweats , No weakness, No weight loss ENT: + nasal symptoms, + problem reported (some discomfort by maxillary sinuses ) Respiratory: No cough, No dyspnea at rest, No dyspnea on exertion, No hemoptysis, No problem reported, No shortness of breath, No sputum, No wheezing Cardiovascular: No PND, No chest pain, No claudication, No edema, No orthopnea , No palpitations, No problem reported Abdomen: No GI bleeding, No constipation, No diarrhea, No nausea, No pain, No problem reported, No vomiting Neurologic: No balance problems, No memory loss, No numbness/tingling, No paralysis, No problem reported, No vertigo, No weakness Psychiatric: + problem reported (as per hpi denied other ) Sleep Information Total Hours of Sleep: 6.25 Meal Information Percent of Breakfast Consumed: 100 Percent of Lunch Consumed: 25 Percent of Dinner Consumed: 100 Mental Status Exam During interview pt is: alert and oriented, cooperative Appearance: appropriately dressed, appropriately groomed Eye contact is: good Motor behavior is: steady gait & station, no abnormal motor movements Speech: normal in rate, rhythm & volume Affect: blunted Mood is: depressed Thought process: goal directed Thought content: reality based without delusions Suicidal thought are: denied, Plan: denied, Intent: denied Homicidal thoughts are: denied Hallucinations: denies auditory, denies visual Cognition: memory grossly intact, attention grossly intact Intelligence estimated to be: average Insight: impaired Judgement: impaired Impression 09/19--Adjusting well to the unit, with fewer SI. auto leasing manager indicates that he is spending a lot of time inpatient and they have begun to talk about the state hospital. They have also placed him on the wait list for the CRR, but there are multiple people in line in front of him. We will call the CRR to explore, in the event he can be moved up on the list based on his frequent failures to live alone. Will make trazodone prn since he is complaining of AM tiredness. Continue current meds. Continued Inpatient Care Requires inpatient care due to the severity of his condition and the risk for self harm if discharged. Plan (1) Schizoaffective disorder 09/19 - Prozac increased to 40 mg. yesterday - Will make trazodone prn - Q 15 min checks for safety - Encourage participation in group and individual counseling - Coordinate care with current providers - auto leasing manager Zachery He has place Boni on the CRR wait list. Explore possibility of moving patient up on the list - Assist the patient to learn and utilize healthy coping strategies 09/20 --titrate Zyprexa to 15 mg po qhs with hopes to avoid trazodone. 09/21 -do not need trazodone last night and not as fatigued in the morning (2) Seizure disorder 09/19 - Continue home dose of lamictal (3) Alcohol abuse 09/19 - Encourage patient to abstain Discharge / Aftercare Planning Primary Care Physician: Name: Dr. Perez Psychiatrist: Name: Dr. Farfan Vessel Manager: Name: Zachery He Visit Code E&M Code: 39101 Inventory Assets Strengths: Good outpatient support Needs: To avoid alcohol Risk Factors Assessment Male: Yes : Yes /single/: Yes Higher / Fall in social status: No Access to guns: No Health problems: Yes Mental Health Diagnoses: Yes Substance use disorders: Yes Previous attempt: Yes Previous psychiatric stay: Yes Smoker: Yes (chews tobacco) Protective Factors Assessment Mormon beliefs: No : No Responsible for young children: No Employed: No Stable relationships: No Supportive family: No Good rapport with provider: Yes Data Vital Signs Last 24 Hrs: Date Time Temp Pulse Resp B/P Pulse Ox O2 Delivery O2 Flow Rate FiO2 09/22/16 06:54 36.3 82 17 121/81 92 123/85 Meds Administered Last 24 Hrs: Meds Administered (Past 24Hrs) Medications (Trade) Dose Ordered Sig/Darren Route Start Time Stop Time Status Last Admin Dose Admin Olanzapine (Zyprexa Tab) 15 mg HS PO 09/20/16 22:00 10/20/16 21:59 09/21/16 21:09 15 MG Ibuprofen (Motrin Tab) 600 mg QID PRN PO 09/20/16 12:00 10/20/16 11:59 09/21/16 22:33 600 MG Problem Qualifiers (1) Schizoaffective disorder: Schizoaffective disorder type: bipolar Qualified Codes: F25.0 - Schizoaffective disorder, bipolar type
[2016-09-22] MEDS: IBUPROFEN 600 MG TAB PO PRN ×2 (11:45→16:21)
[2016-09-22 13:30] LABS: SYNTHETIC CANNABINOIDS QL URIN NEGATIVE (Negative)
[2016-09-22] MEDS: OLANZAPINE 10 MG TAB PO SCH (21:08)
[2016-09-23 06:49] VITALS: BP_SYST 115; BP_SYST 121; BP_DIAS 76; BP_DIAS 87; PULSE 86; PULSE 92; TEMP 36.5
[2016-09-23] MEDS: FLUOXETINE HCL 20 MG CAP PO SCH (09:01)
[2016-09-23] MEDS: NICOTINE POLACRILEX 2 MG GUM MT PRN (09:02)
[2016-09-23] MEDS ORDERED: ZYP10 PO (09:33)
[2016-09-23] MEDS ORDERED: FLUO20CA36 PO (09:33)
--- NOTE | 2016-09-23 09:42 | Discharge Instructions ---
Discharge Information Report Includes Report will include the: Discharge Instructions & Summary Admission Admission Date / Time: Sep 17, 2016 at 19:17 Reason for Admission: Major Depression Recurrent Discharge Discharge Diagnosis / Problem: Schizoaffective disorder, bipolar type Condition at Discharge: Fair Discharge Goals Goal(s): Improve function, Improve disease control, Learn about illness, Therapeutic intervention Activity Recommendations Activity Limitations: resume your previous activity . Instructions / Follow-Up Instructions / Follow-Up . SPECIAL CARE INSTRUCTIONS: 1. Follow through with your scheduled aftercare appointments. If unable to keep an appointment, please call to reschedule. 2. Take your medication only as prescribed. Medication should not be changed or stopped without the approval of your doctor. In the event of worsening symptoms or concerns about side effects, contact your doctor immediately. 3. Utilize new healthy coping skills, anger management skills, and stress management skills learned during your hospitalization. Journal feelings and process them with a support person. Identify stressors or situations that may result in relapse, deterioration or inappropriate behaviors and develop a plan to deal with those issues. 4. If your coping skills are ineffective and you are in crisis, contact your outpatient providers for direction. If unable to reach your providers, please call the CAN HELP LINE AT or go to the closest Emergency Room. 5. Avoid alcohol and un-prescribed drugs. 6. You have been provided with the Mental Health Advance Directives Pamphlet for your review. AFTERCARE APPOINTMENTS: * Please call your insurance company prior to your scheduled appointment to confirm your aftercare providers are covered. Take your insurance information to your appointments. . Discharge / Aftercare Planning Primary Care Physician: Name: Dr. Perez Psychiatrist: Name: Dr. Farfan Furniture Polisher: Name: Zachery He . Follow-Up Care Plan for Follow-Up Care: see above Current Hospital Diet Patient's current hospital diet: Regular Diet Discharge Diet Recommended Diet: Regular Diet Procedures Procedures Performed: No Pending Studies Pending Studies at Discharge: No Medical Emergencies . Who to Call and When: Medical Emergencies: For questions or emergencies related to your hospital stay, please contact the Inpatient Behavioral Health Unit at [phone]. A room designer is on-call 17/02 for the Behavioral Health Unit for emergencies At any time you feel your situation is an emergency, you may also call 911 immediately. . Non-Emergent Contact Non-Emergency issues call your: Psychiatrist, Furniture Polisher Advance Directives Existing Advance Directive: No Do You Have an Existing Mental: No Existing Living Will: No Existing Power of Head Lineman: No Advance Directives Info Given: To Pt/S.O. Discharge Summary Admission HPI Per the Admitting provider: Please see admission H&P. Admission Exam Per the Admitting provider: Please see admission H&P. Hospital Course (1) Schizoaffective disorder 09/19 - Prozac increased to 40 mg. yesterday - Will make trazodone prn - Q 15 min checks for safety - Encourage participation in group and individual counseling - Coordinate care with current providers - manager environmental services Zachery He has place Boni on the CRR wait list. Explore possibility of moving patient up on the list - Assist the patient to learn and utilize healthy coping strategies 09/20 Increase olanzapine to 15 mg po qhs with hopes to avoid trazodone. 09/21 - Did not need trazodone last night and not as fatigued in the morning. Will discontinue it. (2) Seizure disorder 09/19 - Continue home dose of lamictal (3) Alcohol abuse 09/19 - Encourage patient to abstain Risk Factors Assessment Male: Yes : Yes /single/: Yes Higher / Fall in social status: No Access to guns: No Health problems: Yes Mental Health Diagnoses: Yes Substance use disorders: Yes Previous attempt: Yes Previous psychiatric stay: Yes Smoker: Yes (chews tobacco) Protective Factors Assessment Druze beliefs: No : No Responsible for young children: No Employed: No Stable relationships: No Supportive family: No Good rapport with provider: Yes Absence of risk factors above: Yes (the patient's medications were adjusted to target mood and sleep. His mood and suicidal thoughts improved. He participated in groups, and his affect improved. His case worker was contacted and ways to increase outpatient supports were explored. He was noted to be taking medications as prescribed, was eating and sleeping well, and consistently denied thoughts of harming himself. He is requesting discharge, and as he is no longer at acute risk of harm to himself, can be managed as an outpatient at this time.) Day of Discharge Assessment Hospital course: On admission the patient's fluoxetine was increased to target depression, and later his olanzapine was increased. Propranolol was discontinued due to low blood pressure on admission. Trazodone was discontinued as it was causing morning sedation. His outpatient case worker, Zachery He, was contacted and reported that the patient has had frequent inpatient stays recently. When the patient was asked about this, he said he did not like his apartment, and has been looking at other apartments, and is also on the CRR wait list. He stated that he was bored at home, which contributed to his suicidal thoughts and wanting to be hospitalized. He reported racing and paranoid thoughts at night, so olanzapine was increased. He denied paranoia in the hospital. His landlady , Cassie, was contacted. He lives above her salon, and frequently visits her shop, where she gives him tasks to do. [facility] service unit was contacted, and confirmed that the patient is on the wait list for both CRR's, but there is no immediate opening. The patient took his medications without difficulty in the hospital, was eating and sleeping well, and attended to his ADLs. Day of discharge assessment: Patient reports that his mood is "good." He denies feeling paranoid, denies hallucinations, thoughts of harming himself, or thoughts of harming anyone else. He would like to go home, and states he plans to follow-up with his outpatient providers and with skills. He thinks his medication changes are helping, and denies side effects. He reports good appetite and sleep. Well nourished, well developed WM appearing stated age. Casually dressed and adequately groomed. Calm and cooperative. Seated in NAD, with fair eye contact and no abnormal movements. Speech is normal rate, volume, and tone. Mood is "good," and affect is stable and congruent. Thoughts are linear, logical and goal directed. The patient denied suicidal and homicidal ideation and was able to safety plan. No paranoia, delusions, or hallucinations, and did not appear to be responding to internal stimuli. Cognition is concrete, below average intelligence. Alert and oriented to person, place and time. Insight and and judgment are fair. Laboratory Refer to printed laboratory reports Total Time Total Time Spent (min): Greater than 30 minutes Total Time Included: examination of the patient, discharge planning, medication reconciliation Tobacco Cessation at Discharge FDA approved Prescription: non-smoker Problem Qualifiers (1) Schizoaffective disorder: Schizoaffective disorder type: bipolar Qualified Codes: F25.0 - Schizoaffective disorder, bipolar type
[2017-04-25] MEDS ORDERED: LAMO200T38 PO (18:24)
== END 2016-09-23 10:23 | disposition home or self-care (01) | DRG 885 ==
LOC: ENRESERVTM → ENRESERVDT → C.EDB 16:48 → C.MHU 19:17
PROVIDERS: ADMIT Psychiatry & Neurology Psychiatry; ATTEND Psychiatry & Neurology Psychiatry
DX: F25.0 Schizoaffective disorder, bipolar type (principal); F32.2 Major depressive disorder, single episode, severe without psychotic features; R45.851 Suicidal ideations; G40.909 Epilepsy, unspecified, not intractable, without status epilepticus; F17.220 Nicotine dependence, chewing tobacco, uncomplicated; Z81.8 Family history of other mental and behavioral disorders; Z81.1 Family history of alcohol abuse and dependence; Z82.49 Family history of ischemic heart disease and other diseases of the circulatory system; F10.10 Alcohol abuse, uncomplicated; Z83.3 Family history of diabetes mellitus; Z82.3 Family history of stroke; J45.909 Unspecified asthma, uncomplicated

== ENCOUNTER 2016-10-05 15:52 | Inpatient (IN) | payer OTHER ==
[~2016-10-05] VITALS: Ht 170.2 cm; Wt 66.0 kg
[~2016-10-05 15:52] MED LIST changes: +FLUO20CA36 PO; -LAMO100T16 PO; +ZYP10 PO
--- NOTE | 2016-10-05 16:12 | EMERGENCY ROOM VISIT NOTE ---
History Report prepared by Massiel: Martine Mar Under the Supervision of: Dr. Eriberto Sotelo M.D. First contact with patient: 15:57 Chief Complaint: MENTAL HEALTH EVALUATION Stated Complaint: MENTAL HEALTH EVAL History of Present Illness The patient is a 36 year old male who presents to the Emergency Room for a mental health evaluation due to worsening depression since last night. The patient admits that he has suicidal thoughts. He thought about harming himself last night with a knife, but did not make an attempt. He has a history of psychiatric problems, including bipolar. He was admitted to [address] [place] [address] on September 17 for inpatient psychiatric care and was doing well until yesterday. He has been compliant with his psychiatric medications and has not missed a dose. He has not been feeling manic - he feels that he has had less energy than usual. He denies taking aspirin, Tylenol, or any extra medications. He has been sleeping alright recently. He notes some weight gain. Denies chest pain, shortness of breath, abdominal pain, or other physical complaints. Denies homicidal ideation. He follows with a psychiatrist. Source of History: patient Onset: yesterday Position: other (psych) Quality: other (depression) Timing: worsening Associated Symptoms: No SOB, No chest pain Note: Other symptoms: suicidal thoughts Review of Systems See HPI for pertinent positives & negatives. A total of 10 systems reviewed and were otherwise negative. Past Medical & Surgical Medical Problems: (1) ANXIETY STATE NOS (2) Asthma (3) Auditory hallucinations (4) Depression (5) Dyspnea (6) Dyspnea (7) Exposure to chemical inhalation (8) Exposure to chemical inhalation (9) Schizoaffective disorder (10) Seizure (11) Seizure disorder Social History Problems: (1) Alcohol abuse Old medical records were reviewed. Nurse's notes were reviewed and I agree with. Family History Cancer FH: diabetes mellitus FH: hypertension FH: lupus FH: pneumonia FH: stroke High cholesterol Social History Smoking Status: Current Every Day Smoker Alcohol Use: occasionally Marital Status: single Housing Status: lives alone Occupation Status: disabled Current/Historical Medications Scheduled Fluoxetine (Prozac), 40 MG PO DAILY Lamotrigine (Lamictal), 200 MG PO QAM Olanzapine (Olanzapine), 15 MG PO DAILY Allergies Coded Allergies: Amoxicillin (Verified Allergy, Severe, HIVES,SEIZURE ACTIVITY. N/V, ) Bacitracin (Verified Adverse Reaction, Mild, unknown, 10/05/16) Neomycin (Verified Adverse Reaction, Mild, unknown, 10/05/16) Polymyxin B (Verified Adverse Reaction, Mild, unknown, 10/05/16) Physical Exam Vital Signs Date Time Temp Pulse Resp B/P Pulse Ox O2 Delivery O2 Flow Rate FiO2 10/05/16 18:10 86 18 122/86 98 10/05/16 15:56 36.4 80 18 129/87 98 Room Air Physical Exam General: Non-ill appearing young male. Well developed well nourished in no acute distress, breathing comfortably on room air. Normal speech HEENT: Normal cephalic atraumatic. Pupils are equal round and reactive to light. Extraocular movements are intact. Oropharynx is pink with moist mucous membranes. No swelling of the mouth lips or tongue. Neck: Supple with a midline trachea. No meningeal signs or stiffness, no JVD or bruits. No Stridor. Chest: Clear to auscultation bilaterally. No wheezes or rhonchi. No increased work of breathing. Heart: regular rate and rhythm. Abdomen: Soft nontender, nondistended without rebound guarding or rigidity. Extremities: No cyanosis clubbing or edema. No calf tenderness or assymetry Spine/Back. Non tender to palpation. No CVA tenderness Skin: Good turgor without rashes. Neurologic exam: Cranial nerves two through 12 are intact. Motor and sensation are intact and symmetrical throughout. Psych: Normal thought process and affect. Complains of suicidal ideation. Denies homicidal ideation. Medical Decision & Procedures Laboratory Results 10/05/16 16:37 Red Blood Count 5.00, Mean Corpuscular Volume 81.8, Mean Corpuscular Hemoglobin 28.8, Mean Corpuscular Hemoglobin Concent 35.2, Mean Platelet Volume 9.5, Neutrophils (%) (Auto) 54.0, Lymphocytes (%) (Auto) 34.1, Monocytes (%) (Auto) 10.8, Eosinophils (%) (Auto) 0.0, Basophils (%) (Auto) 0.5, Neutrophils # (Auto ) 3.34, Lymphocytes # (Auto) 2.11, Monocytes # (Auto) 0.67, Eosinophils # (Auto ) 0.00, Basophils # (Auto) 0.03 10/05/16 16:37 Test 10/05/16 16:05 10/05/16 16:37 Urine Opiates Screen NEG (NEG) Urine Methadone, Qualitative NEG (NEG) Urine Barbiturates NEG (NEG) Urine Phencyclidine (PCP) Level NEG (NEG) Ur Amphetamine/Methamphetamine NEG (NEG) MDMA (Ecstasy) Screen NEG (NEG) Urine Benzodiazepines Screen NEG (NEG) Urine Cocaine Metabolite NEG (NEG) Urine Marijuana (THC) NEG (NEG) White Blood Count 6.19 K/uL (4.8-10.8) Red Blood Count 5.00 M/uL (4.7-6.1) Hemoglobin 14.4 g/dL (14.0-18.0) Hematocrit 40.9 % (42-52) Mean Corpuscular Volume 81.8 fL (80-100) Mean Corpuscular Hemoglobin 28.8 pg (25-34) Mean Corpuscular Hemoglobin Concent 35.2 g/dl (32-36) Platelet Count 218 K/uL (130-400) Mean Platelet Volume 9.5 fL (7.4-10.4) Neutrophils (%) (Auto) 54.0 % Lymphocytes (%) (Auto) 34.1 % Monocytes (%) (Auto) 10.8 % Eosinophils (%) (Auto) 0.0 % Basophils (%) (Auto) 0.5 % Neutrophils # (Auto) 3.34 K/uL (1.4-6.5) Lymphocytes # (Auto) 2.11 K/uL (1.2-3.4) Monocytes # (Auto) 0.67 K/uL (0.11-0.59) Eosinophils # (Auto) 0.00 K/uL (0-0.5) Basophils # (Auto) 0.03 K/uL (0-0.2) RDW Standard Deviation 38.0 fL (36.4-46.3) RDW Coefficient of Variation 12.8 % (11.5-14.5) Immature Granulocyte % (Auto) 0.6 % Immature Granulocyte # (Auto) 0.04 K/uL (0.00-0.02) Anion Gap 9.0 mmol/L (3-11) Est Creatinine Clear Calc Drug Dose 112.7 ml/min Estimated GFR () 129.4 Estimated GFR (Non- 111.6 BUN/Creatinine Ratio 8.9 (10-20) Calcium Level 9.0 mg/dl (8.5-10.1) Total Bilirubin 0.3 mg/dl (0.2-1) Direct Bilirubin < 0.1 mg/dl (0-0.2) Aspartate Amino Transf (AST/SGOT) 28 U/L (15-37) Alanine Aminotransferase (ALT/SGPT) 48 U/L (12-78) Alkaline Phosphatase 89 U/L (45-117) Total Protein 7.0 gm/dl (6.4-8.2) Albumin 3.9 gm/dl (3.4-5.0) Lipase 186 U/L (73-393) Salicylates Level < 1.7 mg/dl (2.8-20) Acetaminophen Level < 2 ug/ml (10-30) Ethyl Alcohol mg/dL < 3.0 mg/dl (0-3) Laboratory studies as stated above per my review. Medications Administered Medications (Trade) Dose Ordered Sig/Darren Route Start Time Stop Time Status Last Admin Dose Admin Nicotine Polacrilex (Nicorette 2MG Gum) 1 piece NOW ONCE MT 10/05/16 16:15 10/05/16 16:16 DC 10/05/16 16:17 1 PIECE ED Course 1600: Per psychiatric pillowcase cutter, the patient has been accepted at [address] [place] [address] and needs to be medically cleared. 1602: Past medical records reviewed. The patient was evaluated in room A7, and a complete history and physical examination were performed. 1615: Ordered Nicotine Polacrilex 1 piece MT. 1731: The patient is being taken up to [address] [place] [address]. Medical Decision Differential diagnosis includes depression, anxiety, bipolar, toxicologic process, electrolyte or metabolic abnormality. This patient comes in as described above. He was placed in room A6. He is here for treatment and evaluation of depression with suicidal ideations. She is cooperative. Apparently [facility] has accepted the patient and he was sent to the ER for medical clearance and he was recently admitted to [facility]. Blood work was obtained. He has no electrolyte or metabolic abnormalities. He has nothing to suggest acute toxicologic or infectious process. He was medically cleared and seen by [facility] They are going to admit him voluntarily for further inpatient treatment and evaluation. Impression Primary Impression: Depression Additional Impression: Suicidal ideation Scribe Attestation The scribe's documentation has been prepared under my direction and personally reviewed by me in its entirety. I confirm that the note above accurately reflects all work, treatment, procedures, and medical decision making performed by me. Departure Information Dispostion Mental Health Acute Care Referrals Walt Perez M.D. (PCP) Patient Instructions My [facility] Problem Qualifiers
[2016-10-05] MEDS ORDERED: NICOTINE POLACRILEX 2 MG GUM MT ONE (16:15)
[2016-10-05] MEDS ORDERED: ZYP15 PO (16:21)
[2016-10-05] MEDS ORDERED: TRAZ1TAB5 PO (16:21)
[2016-10-05] MEDS ORDERED: FLUO40CA8 PO (16:27)
[2016-10-05 16:52] LABS: BASO % 0.5 %; BASO ABS # 0.03 K/uL (0-0.2); COMPLETE YES; HEMATOCRIT 40.9 % (42-52); IG% 0.6 %; LYMPH % 34.1 %; LYMPH ABS # 2.11 K/uL (1.2-3.4); MEAN CELL VOLUME 81.8 fL (80-100); MEAN CORPUSCULAR HEMOGLOBIN 28.8 pg (25-34); MEAN CORPUSCULAR HGB CONC 35.2 g/dl (32-36); MEAN PLATELET VOLUME 9.5 fL (7.4-10.4); MONO % 10.8 %; PLATELET COUNT 218 K/uL (130-400); WHITE BLOOD COUNT 6.19 K/uL (4.8-10.8)
[2016-10-05 16:54] LABS: BENZODIAZEPINE, URINE NEG (NEG); COCAINE,URINE NEG (NEG); PHENCYCLIDINE, URINE NEG (NEG)
[2016-10-05 17:18] LABS: ALT/SGPT 48 U/L (12-78); BLOOD UREA NITROGEN 7 mg/dl (7-18); BUN/CREATININE RATIO 8.9 (10-20); CARBON DIOXIDE 27 mmol/L (21-32); CHLORIDE 105 mmol/L (98-107); CREATININE 0.83 mg/dl (0.60-1.40); GLUCOSE 90 mg/dl (70-99); POTASSIUM 3.9 mmol/L (3.5-5.1); SODIUM 141 mmol/L (136-145)
[2016-10-05 17:21] LABS: ALKALINE PHOSPHATASE 89 U/L (45-117); AST/SGOT 28 U/L (15-37)
[2016-10-05 17:22] LABS: ACETAMINOPHEN < 2 ug/ml (10-30)
[2016-10-05 18:10] VITALS: O2SAT 98
[2016-10-05] MEDS ORDERED: NURSING VERBAL MED ORDER ONE (18:15)
[2016-10-05 18:40] VITALS: BP 122/86; PULSE 86; TEMP 36.4; Ht 170.2 cm; Wt 66.0 kg
[2016-10-05] MEDS ORDERED: ALUMINUM/MAGNESIUM SUSP 30 ML UDC PO PRN (18:45)
[2016-10-05] MEDS ORDERED: BISMUTH SUBSALICYLATE PER ML OMNICELL CHARGE PO PRN (18:45)
[2016-10-05] MEDS ORDERED: ACETAMINOPHEN 325 MG TAB PO PRN (18:45)
[2016-10-05] MEDS ORDERED: MAGNESIUM HYDROXIDE SUSP 30 ML UDC PO PRN (18:45)
[2016-10-05] MEDS ORDERED: SODIUM CHLORIDE 0.65% NA SOLN 45 ML (OCEAN) PRN (18:45)
[2016-10-05] MEDS ORDERED: hydrOXYzine HCL 25 MG TAB PO PRN (18:45)
[2016-10-05] MEDS: NICOTINE POLACRILEX 2 MG GUM MT PRN ×2 (19:22→22:00)
[2016-10-05] MEDS: OLANZAPINE 5 MG TAB PO SCH (21:55)
[2016-10-06 06:57] VITALS: BP_SYST 102; BP_SYST 123; BP_DIAS 71; BP_DIAS 88; PULSE 91; PULSE 92; TEMP 36.6
[2016-10-06] MEDS ORDERED: FLUOXETINE HCL 20 MG CAP PO SCH (09:00)
[2016-10-06] MEDS: NICOTINE POLACRILEX 2 MG GUM MT PRN ×5 (09:56→21:58)
[2016-10-06] MEDS ORDERED: FLUOXETINE HCL 20 MG CAP PO ONE (12:45)
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
[2016-10-06] MEDS: OLANZAPINE 5 MG TAB PO SCH (22:05)
[2016-10-07 06:50] VITALS: BP_SYST 108; BP_SYST 109; BP_DIAS 72; BP_DIAS 73; PULSE 100; PULSE 98; TEMP 36.4
[2016-10-07] MEDS: FLUOXETINE HCL 20 MG CAP PO SCH (08:21)
[2016-10-07] MEDS: NICOTINE POLACRILEX 2 MG GUM MT PRN ×5 (08:35→21:05)
--- NOTE | 2016-10-07 12:01 | Psychiatric Progress Notes ---
Progress Note Date of Service Oct 07, 2016. Interval History 36-year-old gentleman who is well known to the psychiatry service, recently discharged from the behavioral health unit on 09/23/2016 following an approximate 1 week hospitalization for schizoaffective disorder with suicidal ideation. He presents as a referral from [facility] for SI. Chief Complaint "Had a headache, feeling better". Subjective Patient was seen & assessed interval progress reviewed with Treatment Team. Staff report he has been withdrawn, appearing flat and depressed. He is not going to groups. He was seen in his room today, during group therapy which he is missing. He says he had a headache and nausea this morning, so went back to bed, but is now feeling better. Mood is "ok," and he denies SI here, but continues to report he doesn't feel safe outside the hospital, saying he is "paranoid," thinking that "people are gonna get me." He denies that any specific people are out to get him, but says he doesn't feel safe "walking long distance" because he worries someone will try to hurt him. He also mentions concerns about people in the bar across the street from where he lives. He reports good sleep last night, and is eating some of each meal. Sleep Information Total Hours of Sleep: 8.00 Meal Information Percent of Breakfast Consumed: 75 Percent of Lunch Consumed: 50 Percent of Dinner Consumed: 100 Mental Status Exam During interview pt is: alert and oriented, cooperative Appearance: appropriately dressed Eye contact is: fair Motor behavior is: no abnormal motor movements Speech: other (minimal) Affect: depressed, constricted Mood is: depressed Thought process: concrete Thought content: paranoid Suicidal thought are: denied Homicidal thoughts are: denied Hallucinations: denies auditory, denies visual Intelligence estimated to be: below average Insight: impaired Judgement: impaired Impression RISK ASSESSMENT: Factors increasing risks include gender, race, single, chronic mental illness, substance use, prior suicide attempts and hospitalizations. Protectively, he is help seeking and appears to be compliant with treatment recommendations. ASSESSMENT: This is a 36-year-old gentleman with a history of schizoaffective disorder who was readmitted within 1 month of recent hospitalization for the same, again expressing suicidal ideation with a plan to stab himself with a knife and impulses to cut. He has many outpatient resources in place. He apparently is on a wait list for CRR placement which is certainly a limited resource in this state. At his last psychiatric hospitalization Prozac and olanzapine were increased slightly. He is not demonstrating obvious symptoms of hypomania or dorothy and may benefit from further titration of both the mood stabilizer for impulse control and mood stability as well as the antidepressant. DIAGNOSES: 1. Schizoaffective disorder, bipolar type, depressed, severe, without psychosis. 2. Alcohol abuse by history. 3. Seizure disorder. 4. Learning disability. Plan (1) Schizoaffective disorder 10/06 - increase Prozac from 40 to 60 mg daily, watching for any evidence of excessive activation or increased mood cycling. - We will increase Lamictal by 50 mg at bedtime with a plan to titrate to target dose of 200 in the morning and 100 at bedtime over the next few weeks for additional mood stabilization and impulse control. We did review the risks and benefits and he was agreeable to this dose escalation. I also reviewed the need for regular compliance and risk for Levy-Vicente syndrome with lapses in compliance. - Will coordinate with his outpatient providers. It sounds that he is in transition to a new provider at [place] for psychiatric outpatient care. Zachery He is his case packer and sealer and sounds to be a good resource. (2) Suicidal ideation q. 15 minute safety checks and participate in the therapeutic milieu and individual and group programming as appropriate. (3) Seizure disorder Treated with Lamictal. Dose escalating as above for additional mood benefit. (4) Alcohol abuse recently minimal and reports only 2 beers in the past month. Abstinence from alcohol is encouraged. Discharge / Aftercare Planning Primary Care Physician: Name: Dr Hankins Psychiatrist: Name: Leena Kelly with [facility] Photographic Reproduction Technician: Name: Zachery He Visit Code E&M Code: 13739 Data Vital Signs Last 24 Hrs: Date Time Temp Pulse Resp B/P Pulse Ox O2 Delivery O2 Flow Rate FiO2 10/07/16 06:50 36.4 98 16 108/72 100 109/73 Meds Administered Last 24 Hrs: Meds Administered (Past 24Hrs) Medications (Trade) Dose Ordered Sig/Darren Route Start Time Stop Time Status Last Admin Dose Admin Nicotine Polacrilex (Nicorette 2MG Gum) 1 piece NOW ONCE MT 10/05/16 16:15 10/05/16 16:16 DC 10/05/16 16:17 1 PIECE Acetaminophen (Tylenol Tab) 650 mg Q4H PRN PO 10/05/16 18:45 11/04/16 18:44 10/07/16 10:25 650 MG Fluoxetine HCl (Prozac Cap) 40 mg DAILY PO 10/06/16 09:00 10/06/16 12:43 DC 10/06/16 09:47 40 MG Lamotrigine (Lamictal Tab) 200 mg DAILY PO 10/06/16 09:00 11/05/16 08:59 10/07/16 08:20 200 MG Olanzapine (Zyprexa Tab) 15 mg HS PO 10/05/16 22:00 11/04/16 21:59 10/06/16 22:05 15 MG Nicotine Polacrilex (Nicorette 2MG Gum) 1-2 PIECES Q2H PRN MT 10/05/16 18:45 11/04/16 18:44 10/07/16 08:35 2 PIECE Fluoxetine HCl (Prozac Cap) 60 mg DAILY PO 10/07/16 09:00 11/06/16 08:59 10/07/16 08:21 60 MG Lamotrigine (Lamictal Tab) 50 mg HS PO 10/06/16 22:00 11/05/16 21:59 10/06/16 22:05 50 MG Fluoxetine HCl (Prozac Cap) 20 mg NOW ONCE PO 10/06/16 12:45 10/06/16 13:17 DC 10/06/16 13:38 20 MG
[2016-10-07] MEDS: OLANZAPINE 5 MG TAB PO SCH (22:02)
[2016-10-08 06:51] VITALS: BP_SYST 108; BP_SYST 111; BP_DIAS 76; BP_DIAS 82; PULSE 98; PULSE 99; TEMP 36.6
[2016-10-08] MEDS: FLUOXETINE HCL 20 MG CAP PO SCH (08:34)
[2016-10-08] MEDS: NICOTINE POLACRILEX 2 MG GUM MT PRN ×5 (09:06→20:59)
--- NOTE | 2016-10-08 10:47 | Psychiatric Progress Notes ---
Progress Note Date of Service Oct 08, 2016. Interval History 36-year-old gentleman who is well known to the psychiatry service, recently discharged from the behavioral health unit on 09/23/2016 following an approximate 1 week hospitalization for schizoaffective disorder with suicidal ideation. He presents as a [facility] from [facility]. Chief Complaint "Sleepy.". Subjective Patient was seen & assessed interval progress reviewed with Treatment Team. The patient says that he has been struggling to stay awake and wonders if its his meds. He missed several groups yesterday as he was sleeping. He reports improved mood, today rated 7/10, and no SI today, but did have some last night. He says that he stopped looking at other apartments because he is [facility] the [facility], and is hopeful to get in there soon, although says that he is 10th on the list. . He says that he was no better after he was discharged last time , and that his depression has continued. He denies aud/vis hallucinations and denies side effects to meds. Review of Systems Constitutional: + fatigue ENT: No dental problems, No hearing loss, No nasal symptoms, No problem reported, No sore throat, No tinnitus, No trouble swallowing, No unusual epistaxis Respiratory: No cough, No dyspnea at rest, No dyspnea on exertion, No hemoptysis, No problem reported, No shortness of breath, No sputum, No wheezing Cardiovascular: No PND, No chest pain, No claudication, No edema, No orthopnea , No palpitations, No problem reported Abdomen: No GI bleeding, No constipation, No diarrhea, No nausea, No pain, No problem reported, No vomiting Musculoskeletal: No calf pain, No joint pain, No muscle pain, No problem reported, No swelling Neurologic: No balance problems, No memory loss, No numbness/tingling, No paralysis, No problem reported, No vertigo, No weakness Psychiatric: + anxiety, + depression symptoms Integumentary: No bleeding, No color change, No itch, No new/changing skin lesions, No problem reported, No rash Sleep Information Total Hours of Sleep: 6.50 Meal Information Percent of Breakfast Consumed: 50 Percent of Lunch Consumed: 100 Percent of Dinner Consumed: 100 Mental Status Exam During interview pt is: alert and oriented, cooperative Appearance: appropriately dressed (many visible tattoos on neck and arms) Eye contact is: good Motor behavior is: steady gait & station, no abnormal motor movements Speech: normal in rate, rhythm & volume, other (minimal) Affect: depressed, flat, constricted Mood is: depressed Thought process: goal directed, concrete Thought content: reality based without delusions Suicidal thought are: denied Homicidal thoughts are: denied Hallucinations: denies auditory, denies visual Intelligence estimated to be: below average Insight: impaired Judgement: impaired Impression Patient reports slightly improved mood but still with SI last night. He cannot identify any specific stressors or triggers to SI, simply saying that his depression never got better. He has had multiple hospitalizations over the last several months, and is clearly not thriving living independently and with good OP support. There is no telling how long it will take to get him into the [facility], but this would be the best disposition given his many hospitalizations. Will continue current meds. manager of patient, Zachery He, will meet with the patient tomorrow. Plan (1) Schizoaffective disorder 10/06 - increase Prozac from 40 to 60 mg daily, watching for any evidence of excessive activation or increased mood cycling. - We will increase Lamictal by 50 mg at bedtime with a plan to titrate to target dose of 200 in the morning and 100 at bedtime over the next few weeks for additional mood stabilization and impulse control. We did review the risks and benefits and he was agreeable to this dose escalation. I also reviewed the need for regular compliance and risk for Levy-Vicente syndrome with lapses in compliance. - Will coordinate with his outpatient providers. It sounds that he is in transition to a new provider at [facility] for psychiatric outpatient care. Zachery He is his major case detective and sounds to be a good resource. 10/08 - Continue current meds - Meeting with major case detective tomorrow (2) Suicidal ideation q. 15 minute safety checks and participate in the therapeutic milieu and individual and group programming as appropriate. (3) Seizure disorder Treated with Lamictal. Dose escalating as above for additional mood benefit. (4) Alcohol abuse recently minimal and reports only 2 beers in the past month. Abstinence from alcohol is encouraged. Discharge / Aftercare Planning Primary Care Physician: Name: Dr Hankins Psychiatrist: Name: Leena Kelly with [facility] Weight Yardage Checker: Name: Zachery He Visit Code E&M Code: 17408 Risk Factors Assessment Male: Yes : Yes /single/: Yes Higher / Fall in social status: No Access to guns: No Health problems: No Mental Health Diagnoses: Yes Substance use disorders: Yes Previous psychiatric stay: Yes Smoker: Yes Protective Factors Assessment : No Responsible for young children: No Employed: No Stable relationships: No Supportive family: No Data Vital Signs Last 24 Hrs: Date Time Temp Pulse Resp B/P Pulse Ox O2 Delivery O2 Flow Rate FiO2 10/08/16 06:51 36.6 98 16 111/76 99 108/82 Meds Administered Last 24 Hrs: Meds Administered (Past 24Hrs) Medications (Trade) Dose Ordered Sig/Darren Route Start Time Stop Time Status Last Admin Dose Admin Fluoxetine HCl (Prozac Cap) 60 mg DAILY PO 10/07/16 09:00 11/06/16 08:59 10/08/16 08:34 60 MG Lamotrigine (Lamictal Tab) 50 mg HS PO 10/06/16 22:00 11/05/16 21:59 10/07/16 22:02 50 MG Fluoxetine HCl (Prozac Cap) 20 mg NOW ONCE PO 10/06/16 12:45 10/06/16 13:17 DC 10/06/16 13:38 20 MG Lab Results Last 24 Hrs: Test 10/05/16 16:05 10/05/16 16:37 Range/Units Urine Opiates Screen NEG NEG Urine Methadone, Qualitative NEG NEG Urine Barbiturates NEG NEG Urine Phencyclidine (PCP) Level NEG NEG Ur Amphetamine/Methamphetamine NEG NEG MDMA (Ecstasy) Screen NEG NEG Urine Benzodiazepines Screen NEG NEG Urine Cocaine Metabolite NEG NEG Urine Marijuana (THC) NEG NEG White Blood Count 6.19 4.8-10.8 K/uL Red Blood Count 5.00 4.7-6.1 M/uL Hemoglobin 14.4 14.0-18.0 g/dL Hematocrit 40.9 42-52 % Mean Corpuscular Volume 81.8 80-100 fL Mean Corpuscular Hemoglobin 28.8 25-34 pg Mean Corpuscular Hemoglobin Concent 35.2 32-36 g/dl Platelet Count 218 130-400 K/uL Mean Platelet Volume 9.5 7.4-10.4 fL Neutrophils (%) (Auto) 54.0 % Lymphocytes (%) (Auto) 34.1 % Monocytes (%) (Auto) 10.8 % Eosinophils (%) (Auto) 0.0 % Basophils (%) (Auto) 0.5 % Neutrophils # (Auto) 3.34 1.4-6.5 K/uL Lymphocytes # (Auto) 2.11 1.2-3.4 K/uL Monocytes # (Auto) 0.67 0.11-0.59 K/uL Eosinophils # (Auto) 0.00 0-0.5 K/uL Basophils # (Auto) 0.03 0-0.2 K/uL RDW Standard Deviation 38.0 36.4-46.3 fL RDW Coefficient of Variation 12.8 11.5-14.5 % Immature Granulocyte % (Auto) 0.6 % Immature Granulocyte # (Auto) 0.04 0.00-0.02 K/uL Sodium Level 141 136-145 mmol/L Potassium Level 3.9 3.5-5.1 mmol/L Chloride Level 105 98-107 mmol/L Carbon Dioxide Level 27 21-32 mmol/L Anion Gap 9.0 3-11 mmol/L Blood Urea Nitrogen 7 7-18 mg/dl Creatinine 0.83 0.60-1.40 mg/dl Est Creatinine Clear Calc Drug Dose 112.7 ml/min Estimated GFR () 129.4 Estimated GFR (Non- 111.6 BUN/Creatinine Ratio 8.9 10-20 Random Glucose 90 70-99 mg/dl Calcium Level 9.0 8.5-10.1 mg/dl Total Bilirubin 0.3 0.2-1 mg/dl Direct Bilirubin < 0.1 0-0.2 mg/dl Aspartate Amino Transf (AST/SGOT) 28 15-37 U/L Alanine Aminotransferase (ALT/SGPT) 48 12-78 U/L Alkaline Phosphatase 89 45-117 U/L Total Protein 7.0 6.4-8.2 gm/dl Albumin 3.9 3.4-5.0 gm/dl Lipase 186 73-393 U/L Salicylates Level < 1.7 2.8-20 mg/dl Acetaminophen Level < 2 10-30 ug/ml Ethyl Alcohol mg/dL < 3.0 0-3 mg/dl
[2016-10-08] MEDS ORDERED: NURSING VERBAL MED ORDER ONE (20:45)
[2016-10-08] MEDS: NICOTINE 21 MG/24 HR TDSY TD SCH (20:59)
[2016-10-08] MEDS: OLANZAPINE 5 MG TAB PO SCH (20:59)
[2016-10-09 06:43] VITALS: BP_SYST 110; BP_SYST 113; BP_DIAS 74; BP_DIAS 76; PULSE 93; PULSE 98; TEMP 36.6
[2016-10-09] MEDS: NICOTINE 21 MG/24 HR TDSY TD SCH (08:31)
[2016-10-09] MEDS: FLUOXETINE HCL 20 MG CAP PO SCH (08:31)
[2016-10-09] MEDS: NICOTINE POLACRILEX 2 MG GUM MT PRN ×5 (08:33→21:06)
--- NOTE | 2016-10-09 11:31 | Psychiatric Progress Notes ---
Progress Note Date of Service Oct 09, 2016. Interval History 36-year-old gentleman who is well known to the psychiatry service, recently discharged from the behavioral health unit on 09/23/2016 following an approximate 1 week hospitalization for schizoaffective disorder with suicidal ideation. He presents as a referral from [facility]. Chief Complaint "Good.". Subjective Patient was seen & assessed interval progress reviewed with Treatment Team. Boni says that he is feeling less tired during the day, although still lays down a lot between groups. His mood has been "good" and without SI so far today. We discuss his safety plan which includes talking to the Psych Rehab workers and his friend if he is feeling depressed or suicidal. POLICE ARTIST he had been talking with the Psych Rehab workers, but not his friend. He denies aud/vis hallucinations. Nursing describes him as flat and in his room a lot. Review of Systems Constitutional: + fatigue ENT: No dental problems, No hearing loss, No nasal symptoms, No problem reported, No sore throat, No tinnitus, No trouble swallowing, No unusual epistaxis Respiratory: No cough, No dyspnea at rest, No dyspnea on exertion, No hemoptysis, No problem reported, No shortness of breath, No sputum, No wheezing Cardiovascular: No PND, No chest pain, No claudication, No edema, No orthopnea , No palpitations, No problem reported Abdomen: No GI bleeding, No constipation, No diarrhea, No nausea, No pain, No problem reported, No vomiting Musculoskeletal: No calf pain, No joint pain, No muscle pain, No problem reported, No swelling Neurologic: No balance problems, No memory loss, No numbness/tingling, No paralysis, No problem reported, No vertigo Psychiatric: + depression symptoms (improving) Integumentary: No bleeding, No color change, No itch, No new/changing skin lesions, No problem reported, No rash Sleep Information Total Hours of Sleep: 6.00 Meal Information Percent of Breakfast Consumed: 100 Percent of Lunch Consumed: 100 Percent of Dinner Consumed: 95 Mental Status Exam During interview pt is: alert and oriented, cooperative Appearance: appropriately dressed (many visible tattoos on neck and arms) Eye contact is: good Motor behavior is: steady gait & station, no abnormal motor movements Speech: normal in rate, rhythm & volume, other (minimal) Affect: depressed, blunted Mood is: depressed Thought process: goal directed, concrete Thought content: reality based without delusions Suicidal thought are: denied Homicidal thoughts are: denied Hallucinations: denies auditory, denies visual Intelligence estimated to be: below average Insight: impaired Judgement: impaired Impression Boni continues to improve under the structure and support of the milieu. He has demonstrated over multiple hospitalizations that he is not thriving living alone in his apartment, and is able to maintain better stability when around other people. He is wait listed for the [facility], with uncertain timeline. assistant store manager sales Zachery He may be able to meet with him today, and his Skills Canceling And Cutting Control Clerk is scheduled to take him to hi [facility] appt on Friday. He has no transportation home, and so will contact his Skills Canceling And Cutting Control Clerk to see if she would be able to cigar packer and picker from the hospital on Friday, take to his appt, and transport home afterward. Plan (1) Schizoaffective disorder 10/06 - increase Prozac from 40 to 60 mg daily, watching for any evidence of excessive activation or increased mood cycling. - We will increase Lamictal by 50 mg at bedtime with a plan to titrate to target dose of 200 in the morning and 100 at bedtime over the next few weeks for additional mood stabilization and impulse control. We did review the risks and benefits and he was agreeable to this dose escalation. I also reviewed the need for regular compliance and risk for Levy-Vicente syndrome with lapses in compliance. - Will coordinate with his outpatient providers. It sounds that he is in transition to a new provider at [facility] for psychiatric outpatient care. Zachery He is his mattress spring encaser and sounds to be a good resource. 10/08 - Continue current meds - Meeting with mattress spring encaser tomorrow (2) Suicidal ideation q. 15 minute safety checks and participate in the therapeutic milieu and individual and group programming as appropriate. (3) Seizure disorder Treated with Lamictal. Dose escalating as above for additional mood benefit. (4) Alcohol abuse recently minimal and reports only 2 beers in the past month. Abstinence from alcohol is encouraged. (5) Intellectual disability 10/09/16 IQ reported to be 68 Discharge / Aftercare Planning Primary Care Physician: Name: Dr English Psychiatrist: Name: CASSIE Dunn Canceling And Cutting Control Clerk: Name: Zachery He Partial or Psych Rehab: Name: [facility] Visit Code E&M Code: 25196 Risk Factors Assessment Male: Yes : Yes /single/: Yes Higher / Fall in social status: No Access to guns: No Health problems: No Mental Health Diagnoses: Yes Substance use disorders: Yes Previous psychiatric stay: Yes Smoker: Yes Protective Factors Assessment : No Responsible for young children: No Employed: No Stable relationships: No Supportive family: No Data Vital Signs Last 24 Hrs: Date Time Temp Pulse Resp B/P Pulse Ox O2 Delivery O2 Flow Rate FiO2 10/09/16 06:43 36.6 93 16 110/76 98 113/74 Meds Administered Last 24 Hrs: Meds Administered (Past 24Hrs) Medications (Trade) Dose Ordered Sig/Darren Route Start Time Stop Time Status Last Admin Dose Admin Nicotine (Nicoderm Cq 21MG Patch) 1 patch QAM TD 10/08/16 21:00 11/07/16 20:59 10/09/16 08:31 1 PATCH Lab Results Last 24 Hrs: 10/05/16 16:37 Red Blood Count 5.00, Mean Corpuscular Volume 81.8, Mean Corpuscular Hemoglobin 28.8, Mean Corpuscular Hemoglobin Concent 35.2, Mean Platelet Volume 9.5, Neutrophils (%) (Auto) 54.0, Lymphocytes (%) (Auto) 34.1, Monocytes (%) (Auto) 10.8, Eosinophils (%) (Auto) 0.0, Basophils (%) (Auto) 0.5, Neutrophils # (Auto ) 3.34, Lymphocytes # (Auto) 2.11, Monocytes # (Auto) 0.67, Eosinophils # (Auto ) 0.00, Basophils # (Auto) 0.03 10/05/16 16:37 Test 10/05/16 16:05 10/05/16 16:37 Urine Opiates Screen NEG (NEG) Urine Methadone, Qualitative NEG (NEG) Urine Barbiturates NEG (NEG) Urine Phencyclidine (PCP) Level NEG (NEG) Ur Amphetamine/Methamphetamine NEG (NEG) MDMA (Ecstasy) Screen NEG (NEG) Urine Benzodiazepines Screen NEG (NEG) Urine Cocaine Metabolite NEG (NEG) Urine Marijuana (THC) NEG (NEG) White Blood Count 6.19 K/uL (4.8-10.8) Red Blood Count 5.00 M/uL (4.7-6.1) Hemoglobin 14.4 g/dL (14.0-18.0) Hematocrit 40.9 % (42-52) Mean Corpuscular Volume 81.8 fL (80-100) Mean Corpuscular Hemoglobin 28.8 pg (25-34) Mean Corpuscular Hemoglobin Concent 35.2 g/dl (32-36) Platelet Count 218 K/uL (130-400) Mean Platelet Volume 9.5 fL (7.4-10.4) Neutrophils (%) (Auto) 54.0 % Lymphocytes (%) (Auto) 34.1 % Monocytes (%) (Auto) 10.8 % Eosinophils (%) (Auto) 0.0 % Basophils (%) (Auto) 0.5 % Neutrophils # (Auto) 3.34 K/uL (1.4-6.5) Lymphocytes # (Auto) 2.11 K/uL (1.2-3.4) Monocytes # (Auto) 0.67 K/uL (0.11-0.59) Eosinophils # (Auto) 0.00 K/uL (0-0.5) Basophils # (Auto) 0.03 K/uL (0-0.2) RDW Standard Deviation 38.0 fL (36.4-46.3) RDW Coefficient of Variation 12.8 % (11.5-14.5) Immature Granulocyte % (Auto) 0.6 % Immature Granulocyte # (Auto) 0.04 K/uL (0.00-0.02) Anion Gap 9.0 mmol/L (3-11) Est Creatinine Clear Calc Drug Dose 112.7 ml/min Estimated GFR () 129.4 Estimated GFR (Non- 111.6 BUN/Creatinine Ratio 8.9 (10-20) Calcium Level 9.0 mg/dl (8.5-10.1) Total Bilirubin 0.3 mg/dl (0.2-1) Direct Bilirubin < 0.1 mg/dl (0-0.2) Aspartate Amino Transf (AST/SGOT) 28 U/L (15-37) Alanine Aminotransferase (ALT/SGPT) 48 U/L (12-78) Alkaline Phosphatase 89 U/L (45-117) Total Protein 7.0 gm/dl (6.4-8.2) Albumin 3.9 gm/dl (3.4-5.0) Lipase 186 U/L (73-393) Salicylates Level < 1.7 mg/dl (2.8-20) Acetaminophen Level < 2 ug/ml (10-30) Ethyl Alcohol mg/dL < 3.0 mg/dl (0-3)
[2016-10-09] MEDS: OLANZAPINE 5 MG TAB PO SCH (21:05)
[2016-10-09] MEDS: hydrOXYzine HCL 25 MG TAB PO PRN ×2 (21:07→22:55)
[2016-10-10 06:40] VITALS: BP_SYST 109; BP_SYST 114; BP_DIAS 64; BP_DIAS 73; PULSE 81; PULSE 88; TEMP 36.4
[2016-10-10] MEDS: FLUOXETINE HCL 20 MG CAP PO SCH (08:28)
[2016-10-10] MEDS: NICOTINE 21 MG/24 HR TDSY TD SCH (08:28)
[2016-10-10] MEDS: NICOTINE POLACRILEX 2 MG GUM MT PRN ×5 (08:41→21:59)
--- NOTE | 2016-10-10 13:11 | Psychiatric Progress Notes ---
Progress Note Date of Service Oct 10, 2016. Interval History 36-year-old gentleman who is well known to the psychiatry service, recently discharged from the behavioral health unit on 09/23/2016 following an approximate 1 week hospitalization for schizoaffective disorder with suicidal ideation. He presents as a referral from [facility]. Chief Complaint "Good". Subjective Patient was seen & assessed interval progress reviewed. The patient states his mood is "good, still tired." He denies SI. He is trying to stay out of bed during the day, and although he still feels tired, is not napping. He reports good sleep at night, good appetite, and denies side effects to meds. He denies SI. He is going to groups and thinks talking helps. He thinks his biggest issue is "trying to stay out of the hospital." Sleep Information Total Hours of Sleep: 6.75 Meal Information Percent of Breakfast Consumed: 100 Percent of Lunch Consumed: 100 Percent of Dinner Consumed: 50 Mental Status Exam During interview pt is: alert and oriented, cooperative Appearance: appropriately dressed Eye contact is: good Motor behavior is: steady gait & station, no abnormal motor movements Speech: normal in rate, rhythm & volume, other (minimal) Affect: blunted Mood is: other ("good") Thought process: goal directed, concrete Thought content: reality based without delusions Suicidal thought are: denied Homicidal thoughts are: denied Hallucinations: denies auditory, denies visual Intelligence estimated to be: below average Insight: impaired Judgement: impaired Impression Boni continues to improve in the structure and support of the milieu. He has demonstrated over multiple hospitalizations that he is not thriving living alone in his apartment, and is able to maintain better stability when around other people. He is wait listed for the [facility], with uncertain timeline. airport manager Zachery He has been involved. Plan (1) Schizoaffective disorder 10/06 - increase Prozac from 40 to 60 mg daily, watching for any evidence of excessive activation or increased mood cycling. - We will increase Lamictal by 50 mg at bedtime with a plan to titrate to target dose of 200 in the morning and 100 at bedtime over the next few weeks for additional mood stabilization and impulse control. We did review the risks and benefits and he was agreeable to this dose escalation. I also reviewed the need for regular compliance and risk for Levy-Vicente syndrome with lapses in compliance. - Will coordinate with his outpatient providers. It sounds that he is in transition to a new provider at [facility] for psychiatric outpatient care. Zachery He is his case planner and sounds to be a good resource. 10/08 - Continue current meds - Meeting with case planner tomorrow 10/09 - Recommend maximization of outpatient services, and move to the [facility] once a bed opens. (2) Suicidal ideation q. 15 minute safety checks and participate in the therapeutic milieu and individual and group programming as appropriate. (3) Seizure disorder Treated with Lamictal. Dose escalating as above for additional mood benefit. (4) Alcohol abuse recently minimal and reports only 2 beers in the past month. Abstinence from alcohol is encouraged. (5) Intellectual disability 10/09/16 IQ reported to be 68 Discharge / Aftercare Planning Primary Care Physician: Name: Dr English Psychiatrist: Name: CASSIE Dunn Date of Appointment: Oct 31, 2016 Time of Appointment: 9:45 Commercial Teller: Name: Zachery He Phone Number: [phone] or Psych Rehab: Name: [facility] Appointment Notes: return M-F as before Visit Code E&M Code: 46329 Risk Factors Assessment Male: Yes : Yes /single/: Yes Higher / Fall in social status: No Access to guns: No Health problems: No Mental Health Diagnoses: Yes Substance use disorders: Yes Previous psychiatric stay: Yes Smoker: Yes Protective Factors Assessment : No Responsible for young children: No Employed: No Stable relationships: No Supportive family: No Data Vital Signs Last 24 Hrs: Date Time Temp Pulse Resp B/P Pulse Ox O2 Delivery O2 Flow Rate FiO2 10/10/16 06:40 36.4 81 14 114/73 88 109/64 Meds Administered Last 24 Hrs: Meds Administered (Past 24Hrs) Medications (Trade) Dose Ordered Sig/Darren Route Start Time Stop Time Status Last Admin Dose Admin Nicotine (Nicoderm Cq 21MG Patch) 1 patch QAM TD 10/08/16 21:00 11/07/16 20:59 10/10/16 08:28 1 PATCH
[2016-10-10] MEDS: OLANZAPINE 5 MG TAB PO SCH (21:11)
[2016-10-10] MEDS: hydrOXYzine HCL 25 MG TAB PO PRN (22:48)
[2016-10-11 06:47] VITALS: BP_SYST 117; BP_SYST 118; BP_DIAS 73; BP_DIAS 75; PULSE 90; PULSE 93; TEMP 36.6
[2016-10-11] MEDS: FLUOXETINE HCL 20 MG CAP PO SCH (08:27)
[2016-10-11] MEDS: NICOTINE 21 MG/24 HR TDSY TD SCH (08:27)
[2016-10-11] MEDS: NICOTINE POLACRILEX 2 MG GUM MT PRN (08:37)
[2016-10-11] MEDS ORDERED: LMC25 PO (09:09)
[2016-10-11] MEDS ORDERED: FLUO40CA8 PO (09:09)
[2016-10-11] MEDS ORDERED: FLUO20CA36 PO (09:09)
--- NOTE | 2016-10-11 09:41 | Discharge Instructions ---
Discharge Information Report Includes Report will include the: Discharge Instructions & Summary Admission Admission Date / Time: Oct 05, 2016 at 18:15 Reason for Admission: Dx Major Depressive Dis Recurrent Discharge Discharge Diagnosis / Problem: Schizoaffective disorder Condition at Discharge: Good Discharge Goals Goal(s): Decrease discomfort, Improve disease control, Prevent Disease Progression Activity Recommendations Activity Limitations: resume your previous activity . Instructions / Follow-Up Instructions / Follow-Up . SPECIAL CARE INSTRUCTIONS: 1. Follow through with your scheduled aftercare appointments. If unable to keep an appointment, please call to reschedule. 2. Take your medication only as prescribed. Medication should not be changed or stopped without the approval of your doctor. In the event of worsening symptoms or concerns about side effects, contact your doctor immediately. 3. Utilize new healthy coping skills, anger management skills, and stress management skills learned during your hospitalization. Journal feelings and process them with a support person. Identify stressors or situations that may result in relapse, deterioration or inappropriate behaviors and develop a plan to deal with those issues. 4. If your coping skills are ineffective and you are in crisis, contact your outpatient providers for direction. If unable to reach your providers, please call the CAN HELP LINE AT or go to the closest Emergency Room. 5. Avoid alcohol and un-prescribed drugs. 6. You have been provided with the Mental Health Advance Directives Pamphlet for your review. AFTERCARE APPOINTMENTS: * Please call your insurance company prior to your scheduled appointment to confirm your aftercare providers are covered. Take your insurance information to your appointments. . Discharge / Aftercare Planning Primary Care Physician: Name: Dr English Psychiatrist: Name: CASSIE Dunn Date of Appointment: Oct 31, 2016 Time of Appointment: 9:45 Regional Engagement Consultant: Name: Zachery He Phone Number: [phone] or Psych Rehab: Name: [facility] Appointment Comments: return M-F as before . Follow-Up Care Plan for Follow-Up Care: The patient has prompt follow up with psychiatric providers Current Hospital Diet Patient's current hospital diet: Regular Diet Discharge Diet Recommended Diet: Regular Diet Procedures Procedures Performed: No Pending Studies Pending Studies at Discharge: No Medical Emergencies . Who to Call and When: Medical Emergencies: For questions or emergencies related to your hospital stay, please contact the Inpatient Behavioral Health Unit at [phone]. A animal pathology teacher is on-call 17/02 for the Behavioral Health Unit for emergencies At any time you feel your situation is an emergency, you may also call 911 immediately. . Non-Emergent Contact Non-Emergency issues call your: Psychiatrist, Therapist, Regional Engagement Consultant Advance Directives Existing Advance Directive: No Do You Have an Existing Mental: No Existing Living Will: No Existing Power of Accelerator Technician: No Advance Directives Info Given: To Pt/S.O. Discharge Summary Admission HPI Per the Admitting provider: Please see attached H&P Hospital Course (1) Schizoaffective disorder 10/06 - increase Prozac from 40 to 60 mg daily, watching for any evidence of excessive activation or increased mood cycling. - We will increase Lamictal by 50 mg at bedtime with a plan to titrate to target dose of 200 in the morning and 100 at bedtime over the next few weeks for additional mood stabilization and impulse control. We did review the risks and benefits and he was agreeable to this dose escalation. I also reviewed the need for regular compliance and risk for Levy-Vicente syndrome with lapses in compliance. - Will coordinate with his outpatient providers. It sounds that he is in transition to a new provider at [facility] for psychiatric outpatient care. Zachery He is his correctional casework specialist and sounds to be a good resource. 10/08 - Continue current meds - Meeting with correctional casework specialist tomorrow 10/09 - Recommend maximization of outpatient services, and move to the [facility] once a bed opens. (2) Suicidal ideation q. 15 minute safety checks and participate in the therapeutic milieu and individual and group programming as appropriate. (3) Seizure disorder Treated with Lamictal. Dose escalating as above for additional mood benefit. (4) Alcohol abuse recently minimal and reports only 2 beers in the past month. Abstinence from alcohol is encouraged. (5) Intellectual disability 10/09/16 IQ reported to be 68 Risk Factors Assessment Male: Yes : Yes /single/: Yes Higher / Fall in social status: No Access to guns: No Health problems: No Mental Health Diagnoses: Yes Substance use disorders: Yes Previous psychiatric stay: Yes Smoker: Yes Protective Factors Assessment : No Responsible for young children: No Employed: No Stable relationships: No Supportive family: No Day of Discharge Assessment COURSE OF HOSPITALIZATION: During the patient's 6 day stay, Lamictal was increased to 15 mg at bedtime dose in addition to his 200 mg a.m., to target mood stabilization. Prozac was also increased from 40 mg to 60 mg daily. He tolerated these changes without side effect. The patient had continued to have suicidal thoughts through the first portion of his stay but these abated by discharge. The focus of his depression remained that he was unhappy with his living situation. He feels lonely at home, lives across from a bar and does not necessarily feel safe. His correctional casework specialist, Zachery He, has placed him on the [facility] wait list and we are hopeful that he will get a bed soon. He is looking forward to this. We did further clarify his diagnoses during this hospitalization as he does have intellectual disabilities with a documented IQ of 68. He was a good group participant although remained somewhat concrete in his participation. He was scheduled to see Leena GRISSOM at [facility] on October 11 however somehow that appointment got canceled. It was rescheduled for the following week. He will return to [facility] and continue with his correctional casework specialist. DAY OF DISCHARGE ASSESSMENT: Today the patient is requesting discharge. He feels ready to go home, and denies any suicidal or homicidal thinking. He remains hopeful to get a bed at the [facility] and will work with his outpatient team toward this goal. Today he is casually and appropriately dressed and groomed. Gait and station are within normal limits. Eye contact is good. Affect is restricted. Speech is of normal rate volume and tone. Thoughts are organized, goal directed, and without evidence of thought disorder. Recent and remote memory are intact per conversation. Intelligence is estimated to be below average. Insight and judgment are improved over admission. Laboratory 10/05/16 16:37 Red Blood Count 5.00, Mean Corpuscular Volume 81.8, Mean Corpuscular Hemoglobin 28.8, Mean Corpuscular Hemoglobin Concent 35.2, Mean Platelet Volume 9.5, Neutrophils (%) (Auto) 54.0, Lymphocytes (%) (Auto) 34.1, Monocytes (%) (Auto) 10.8, Eosinophils (%) (Auto) 0.0, Basophils (%) (Auto) 0.5, Neutrophils # (Auto ) 3.34, Lymphocytes # (Auto) 2.11, Monocytes # (Auto) 0.67, Eosinophils # (Auto ) 0.00, Basophils # (Auto) 0.03 10/05/16 16:37 Test 10/05/16 16:05 10/05/16 16:37 Urine Opiates Screen NEG (NEG) Urine Methadone, Qualitative NEG (NEG) Urine Barbiturates NEG (NEG) Urine Phencyclidine (PCP) Level NEG (NEG) Ur Amphetamine/Methamphetamine NEG (NEG) MDMA (Ecstasy) Screen NEG (NEG) Urine Benzodiazepines Screen NEG (NEG) Urine Cocaine Metabolite NEG (NEG) Urine Marijuana (THC) NEG (NEG) White Blood Count 6.19 K/uL (4.8-10.8) Red Blood Count 5.00 M/uL (4.7-6.1) Hemoglobin 14.4 g/dL (14.0-18.0) Hematocrit 40.9 % (42-52) Mean Corpuscular Volume 81.8 fL (80-100) Mean Corpuscular Hemoglobin 28.8 pg (25-34) Mean Corpuscular Hemoglobin Concent 35.2 g/dl (32-36) Platelet Count 218 K/uL (130-400) Mean Platelet Volume 9.5 fL (7.4-10.4) Neutrophils (%) (Auto) 54.0 % Lymphocytes (%) (Auto) 34.1 % Monocytes (%) (Auto) 10.8 % Eosinophils (%) (Auto) 0.0 % Basophils (%) (Auto) 0.5 % Neutrophils # (Auto) 3.34 K/uL (1.4-6.5) Lymphocytes # (Auto) 2.11 K/uL (1.2-3.4) Monocytes # (Auto) 0.67 K/uL (0.11-0.59) Eosinophils # (Auto) 0.00 K/uL (0-0.5) Basophils # (Auto) 0.03 K/uL (0-0.2) RDW Standard Deviation 38.0 fL (36.4-46.3) RDW Coefficient of Variation 12.8 % (11.5-14.5) Immature Granulocyte % (Auto) 0.6 % Immature Granulocyte # (Auto) 0.04 K/uL (0.00-0.02) Anion Gap 9.0 mmol/L (3-11) Est Creatinine Clear Calc Drug Dose 112.7 ml/min Estimated GFR () 129.4 Estimated GFR (Non- 111.6 BUN/Creatinine Ratio 8.9 (10-20) Calcium Level 9.0 mg/dl (8.5-10.1) Total Bilirubin 0.3 mg/dl (0.2-1) Direct Bilirubin < 0.1 mg/dl (0-0.2) Aspartate Amino Transf (AST/SGOT) 28 U/L (15-37) Alanine Aminotransferase (ALT/SGPT) 48 U/L (12-78) Alkaline Phosphatase 89 U/L (45-117) Total Protein 7.0 gm/dl (6.4-8.2) Albumin 3.9 gm/dl (3.4-5.0) Lipase 186 U/L (73-393) Salicylates Level < 1.7 mg/dl (2.8-20) Acetaminophen Level < 2 ug/ml (10-30) Ethyl Alcohol mg/dL < 3.0 mg/dl (0-3) Total Time Total Time Spent (min): Greater than 30 minutes Total Time Included: examination of the patient, discharge planning, medication reconciliation, communication with other providers Tobacco Cessation at Discharge FDA approved Prescription: patient refused
[2016-10-11] MEDS ORDERED: ONDA4TAB46 PO (19:18)
[2017-04-25] MEDS ORDERED: LAMO200T38 PO (18:24)
== END 2016-10-11 09:47 | disposition home or self-care (01) | DRG 885 ==
LOC: EDBD 15:52 → C.EDA 15:53 → C.MHU 18:15
PROVIDERS: ADMIT Student in an Organized Health Care Education/Training Program; ATTEND Student in an Organized Health Care Education/Training Program
DX: F25.9 Schizoaffective disorder, unspecified (principal); R45.851 Suicidal ideations; F70 Mild intellectual disabilities; F10.10 Alcohol abuse, uncomplicated; G40.909 Epilepsy, unspecified, not intractable, without status epilepticus; Z79.899 Other long term (current) drug therapy; F17.220 Nicotine dependence, chewing tobacco, uncomplicated; Z81.8 Family history of other mental and behavioral disorders

== ENCOUNTER 2016-10-11 15:39 | Emergency (ER) | payer OTHER ==
[~2016-10-11] VITALS: Ht 170.2 cm; Wt 69.3 kg
[~2016-10-11 15:39] MED LIST changes: +FLUO40CA8 PO; +LMC25 PO; -ZYP10 PO; +ZYP15 PO
[2016-10-11 15:51] VITALS: TEMP 36.8; Ht 170.2 cm; Wt 69.3 kg
[2016-10-11] MEDS ORDERED: OPTIRAY 320 IV PRN (16:45)
[2016-10-11 16:46] LABS: BASO % 0.6 %; BASO ABS # 0.03 K/uL (0-0.2); COMPLETE YES; HEMATOCRIT 43.3 % (42-52); IG% 0.4 %; LYMPH % 27.4 %; LYMPH ABS # 1.48 K/uL (1.2-3.4); MEAN CELL VOLUME 82.8 fL (80-100); MEAN CORPUSCULAR HEMOGLOBIN 29.8 pg (25-34); MEAN PLATELET VOLUME 9.8 fL (7.4-10.4); MONO % 7.2 %; NEUT % 64.4 %; PLATELET COUNT 242 K/uL (130-400); RED BLOOD COUNT 5.23 M/uL (4.7-6.1); WHITE BLOOD COUNT 5.41 K/uL (4.8-10.8)
[2016-10-11 16:53] LABS: URINE APPEARANCE CLEAR (CLEAR); URINE BILIRUBIN NEG (NEG); URINE COLOR YELLOW; URINE EPITHELIAL CELL AUTO 0-5 /lpf (0-5); URINE NITRITE NEG (NEG); URINE SPECIFIC GRAVITY 1.002 (1.000-1.030); UROBILINOGEN NEG (NEG); ZZUR CULT IF INDIC CLEAN CATCH NO
[2016-10-11 16:54] LABS: MANUAL MICROSCOPIC REQUIRED? NO; REVIEW REQ? NO
--- NOTE | 2016-10-11 16:59 | DIAGNOSTIC IMAGING REPORT ---
CHEST ONE VIEW PORTABLE CLINICAL HISTORY: cp dyspnea COMPARISON STUDY: 10/22/2015 FINDINGS: The bones soft tissues and hemidiaphragms are normal. The cardiomediastinal silhouette is normal. The lungs are clear. The pulmonary vasculature is normal. IMPRESSION: Negative chest. Electronically signed by: Zhen Alfredo M.D. 10/11/2016 4:58 PM Dictated Date/Time: 10/11/2016 4:57 PM
[2016-10-11 17:01] LABS: ALT/SGPT 29 U/L (12-78); BLOOD UREA NITROGEN 14 mg/dl (7-18); BUN/CREATININE RATIO 14.1 (10-20); CALCIUM 9.9 mg/dl (8.5-10.1); CARBON DIOXIDE 30 mmol/L (21-32); CHLORIDE 102 mmol/L (98-107); CREATININE 0.97 mg/dl (0.60-1.40); GLUCOSE 100 mg/dl (70-99); POTASSIUM 3.9 mmol/L (3.5-5.1); SODIUM 139 mmol/L (136-145)
[2016-10-11 17:06] LABS: ALKALINE PHOSPHATASE 103 U/L (45-117); AST/SGOT 13 U/L (15-37)
--- NOTE | 2016-10-11 17:51 | DIAGNOSTIC IMAGING REPORT ---
ABDOMEN AND PELVIS CT WITH IV CONTRAST CT DOSE: 310.67 mGy.cm HISTORY: Pain abd pain TECHNIQUE: Multiaxial CT images of the abdomen and pelvis were performed following the use of intravenous contrast. COMPARISON STUDY: 04/08/2012 FINDINGS: Lung bases are clear. Liver is uniform. Gallbladder is negative for distention. Anchors is unremarkable. Spleen enhances uniformly. Kidneys negative for hydronephrosis. Bowel pattern is nonobstructive. The appendix is normal. Bladder is midline. IMPRESSION: No acute process of the abdomen or pelvis Electronically signed by: Zhen Alfredo M.D. 10/11/2016 5:49 PM Dictated Date/Time: 10/11/2016 5:47 PM
[2016-10-11] MEDS ORDERED: ONDA4TAB46 PO (19:18)
[2016-10-11 19:31] VITALS: BP 141/90; PULSE 98; O2SAT 99
--- NOTE | 2016-10-11 20:06 | EMERGENCY ROOM VISIT NOTE ---
History Report prepared by Massiel: Ariadna Lopez Under the Supervision of: Dr. Gaston Clarke D.O. First contact with patient: 16:06 Chief Complaint: NAUSEA Stated Complaint: NAUSEA/SHAKES, [facility] Nursing Triage Summary: Patient arrived by ambulance [facility] with c/o nausea and dizziness with some chest pain earlier today. Per [facility] states that he was here for thoughts of self harm. Patient currently denies any thoughts of self harm at present time. History of Present Illness The patient is a 36 year old male who presents to the Emergency Room with complaints of an episode of shaking of his arms earlier today. He has a history of seizure for which he is on Lamictal and believed that he might have had a seizure. He experienced shaking of both arms, but not the legs. He reports that he can remember the occurrence which he states lasted about 10 minutes. He also experienced a sharp pain in his chest at 1430 today which lasted for about 1 second. He is currently experiencing nausea. He reports that he is constipated and his last bowel movement was yesterday. He is not experiencing any gas. He denies any shortness of breath, abdominal pain or dysuria. He denies any history of abdominal surgeries. He denies having any hallucinations or thoughts of harming himself or others. Source of History: patient Onset: earlier today Position: arm (bilateral) Quality: other (shaking) Timing: other (episodic) Associated Symptoms: + chest pain, + nausea, No SOB, No abdominal pain, No urinary symptoms Note: Pt reports constipation. Review of Systems See HPI for pertinent positives & negatives. A total of 10 systems reviewed and were otherwise negative. Past Medical & Surgical Medical Problems: (1) ANXIETY STATE NOS (2) Asthma (3) Auditory hallucinations (4) Depression (5) Dyspnea (6) Dyspnea (7) Exposure to chemical inhalation (8) Exposure to chemical inhalation (9) Intellectual disability (10) Schizoaffective disorder (11) Seizure (12) Seizure disorder Social History Problems: (1) Alcohol abuse (2) Alcohol abuse Family History Cancer FH: diabetes mellitus FH: hypertension FH: lupus FH: pneumonia FH: stroke High cholesterol Social History Smoking Status: Former Smoker Alcohol Use: occasionally Marital Status: single Housing Status: lives alone Occupation Status: disabled Current/Historical Medications Scheduled Fluoxetine (Prozac), 40 MG PO DAILY Fluoxetine HCl (Fluoxetine HCl), 20 MG PO DAILY Lamotrigine (Lamictal), 200 MG PO QAM Lamotrigine (Lamotrigine), 50 MG PO HS Olanzapine (Olanzapine), 15 MG PO DAILY Scheduled PRN Ondansetron Hcl (Zofran), 4 MG PO TID PRN for Nausea Allergies Coded Allergies: Amoxicillin (Verified Allergy, Severe, HIVES,SEIZURE ACTIVITY. N/V, ) Bacitracin (Verified Adverse Reaction, Mild, unknown, 10/11/16) Neomycin (Verified Adverse Reaction, Mild, unknown, 10/11/16) Polymyxin B (Verified Adverse Reaction, Mild, unknown, 10/11/16) Physical Exam Vital Signs Date Time Temp Pulse Resp B/P Pulse Ox O2 Delivery O2 Flow Rate FiO2 10/11/16 19:31 98 18 141/90 99 10/11/16 17:45 92 18 132/83 99 Room Air 10/11/16 16:23 96 128/80 96 144/92 100 156/90 10/11/16 15:55 97 10/11/16 15:51 36.8 102 20 156/90 96 Room Air Physical Exam GENERAL: Sitting up in bed with flat affect, no distress, non-toxic EYE EXAM: normal conjunctiva OROPHARYNX: no exudate, no erythema, lips, buccal mucosa, and tongue normal and mucous membranes are moist NECK: supple, no nuchal rigidity, no adenopathy, non-tender LUNGS: Clear to auscultation. Normal chest wall mechanics HEART: no murmurs, S1 normal and S2 normal ABDOMEN: mild fullness to the lower abdomen, abdomen soft, non-tender, normo- active bowel sounds, no masses, no rebound or guarding. BACK: Back is symmetrical on inspection and there is no deformity, no midline tenderness, no CVA tenderness. SKIN: no rashes and no bruising UPPER EXTREMITIES: upper extremities are grossly normal. LOWER EXTREMITIES: No pitting edema. NEURO EXAM: Normal sensorium, cranial nerves II-XII grossly intact, normal speech, no gross weakness of arms, no gross weakness of legs. PSYCH: flat affect, denies suicidal or homicidal ideations. Medical Decision & Procedures ER Provider Diagnostic Interpretation: Xray results per the radiologist and my interpretation. Other results have been interpreted by the radiologist and reviewed by me. ABDOMEN AND PELVIS CT WITH IV CONTRAST CT DOSE: 310.67 mGy.cm HISTORY: Pain abd pain TECHNIQUE: Multiaxial CT images of the abdomen and pelvis were performed following the use of intravenous contrast. COMPARISON STUDY: 04/08/2012 FINDINGS: Lung bases are clear. Liver is uniform. Gallbladder is negative for distention. Anchors is unremarkable. Spleen enhances uniformly. Kidneys negative for hydronephrosis. Bowel pattern is nonobstructive. The appendix is normal. Bladder is midline. IMPRESSION: No acute process of the abdomen or pelvis Electronically signed by: Zhen Alfredo M.D. 10/11/2016 5:49 PM Dictated Date/Time: 10/11/2016 5:47 PM CHEST ONE VIEW PORTABLE CLINICAL HISTORY: cp dyspnea COMPARISON STUDY: 10/22/2015 FINDINGS: The bones soft tissues and hemidiaphragms are normal. The cardiomediastinal silhouette is normal. The lungs are clear. The pulmonary vasculature is normal. IMPRESSION: Negative chest. Electronically signed by: Zhen Alfredo M.D. 10/11/2016 4:58 PM Dictated Date/Time: 10/11/2016 4:57 PM Laboratory Results 10/11/16 16:28 Red Blood Count 5.23, Mean Corpuscular Volume 82.8, Mean Corpuscular Hemoglobin 29.8, Mean Corpuscular Hemoglobin Concent 36.0, Mean Platelet Volume 9.8, Neutrophils (%) (Auto) 64.4, Lymphocytes (%) (Auto) 27.4, Monocytes (%) (Auto) 7.2, Eosinophils (%) (Auto) 0.0, Basophils (%) (Auto) 0.6, Neutrophils # (Auto) 3.49, Lymphocytes # (Auto) 1.48, Monocytes # (Auto) 0.39, Eosinophils # (Auto) 0.00, Basophils # (Auto) 0.03 10/11/16 16:28 Test 10/11/16 16:28 10/11/16 18:27 White Blood Count 5.41 K/uL (4.8-10.8) Red Blood Count 5.23 M/uL (4.7-6.1) Hemoglobin 15.6 g/dL (14.0-18.0) Hematocrit 43.3 % (42-52) Mean Corpuscular Volume 82.8 fL (80-100) Mean Corpuscular Hemoglobin 29.8 pg (25-34) Mean Corpuscular Hemoglobin Concent 36.0 g/dl (32-36) Platelet Count 242 K/uL (130-400) Mean Platelet Volume 9.8 fL (7.4-10.4) Neutrophils (%) (Auto) 64.4 % Lymphocytes (%) (Auto) 27.4 % Monocytes (%) (Auto) 7.2 % Eosinophils (%) (Auto) 0.0 % Basophils (%) (Auto) 0.6 % Neutrophils # (Auto) 3.49 K/uL (1.4-6.5) Lymphocytes # (Auto) 1.48 K/uL (1.2-3.4) Monocytes # (Auto) 0.39 K/uL (0.11-0.59) Eosinophils # (Auto) 0.00 K/uL (0-0.5) Basophils # (Auto) 0.03 K/uL (0-0.2) RDW Standard Deviation 38.0 fL (36.4-46.3) RDW Coefficient of Variation 12.8 % (11.5-14.5) Immature Granulocyte % (Auto) 0.4 % Immature Granulocyte # (Auto) 0.02 K/uL (0.00-0.02) D-Dimer < 190 ug/L FEU (0-500) Urine Color YELLOW Urine Appearance CLEAR (CLEAR) Urine pH 7.0 (4.5-7.5) Urine Specific [place] 1.002 (1.000-1.030) Urine Protein NEG (NEG) Urine Glucose (UA) NEG (NEG) Urine Ketones NEG (NEG) Urine Occult Blood NEG (NEG) Urine Nitrite NEG (NEG) Urine Bilirubin NEG (NEG) Urine Urobilinogen NEG (NEG) Urine Leukocyte Esterase NEG (NEG) Urine WBC (Auto) 0 /hpf (0-5) Urine RBC (Auto) 0-4 /hpf (0-4) Urine Hyaline Casts (Auto) 0 /lpf (0-5) Urine Epithelial Cells (Auto) 0-5 /lpf (0-5) Urine Bacteria (Auto) NEG (NEG) Anion Gap 7.0 mmol/L (3-11) Est Creatinine Clear Calc Drug Dose 96.6 ml/min Estimated GFR () 114.3 Estimated GFR (Non- 98.6 BUN/Creatinine Ratio 14.1 (10-20) Calcium Level 9.9 mg/dl (8.5-10.1) Total Bilirubin 0.5 mg/dl (0.2-1) Direct Bilirubin < 0.1 mg/dl (0-0.2) Aspartate Amino Transf (AST/SGOT) 13 U/L (15-37) Alanine Aminotransferase (ALT/SGPT) 29 U/L (12-78) Alkaline Phosphatase 103 U/L (45-117) Total Protein 8.5 gm/dl (6.4-8.2) Albumin 5.0 gm/dl (3.4-5.0) Lipase 158 U/L (73-393) Troponin I < 0.015 ng/ml (0-0.045) Laboratory results per my review. ECG Indication: nausea Rate (beats per minute): 97 Rhythm: sinus rhythm Findings: no ectopy, other (normal axis) ED Course ED COURSE: Vital signs were reviewed and showed tachycardia. The patients medical record was reviewed The above diagnostic studies were performed and reviewed. ED treatments and interventions as stated above. 1614: The patient was evaluated in room A10. A complete history and physical examination was performed. 1817: I reevaluated the patient. He is resting comfortably. I updated him on the results. 1921: Upon reevaluation, the patient is doing well.I discussed my findings with the patient and he understands and agrees with the treatment plan. Based on the patients age, coexisting illnesses, exam and lab findings the decision to treat as an outpatient was made. The patient remained stable while under my care. The patient appeared well at the time of discharge. Medical Decision Differential diagnoses includes but is not limited to acute coronary syndrome, myocardial infarction, pericarditis, pulmonary embolus, aortic dissection, pneumonia, pneumothorax, musculoskeletal, shingles, esophageal. Patient is a 28-year-old male who was recently admitted and discharged from [facility]. He presents today for nausea associated with shaking of his upper extremities. He remembers shaking and was upper extremities. He does have a seizure disorder was concerned that he may have possibly had a seizure. He is also concerned nausea. He denies any abdominal pain. Patient put neurologically intact on my exam. CBC along with BMP, LFTs, bilirubin and lipase are unremarkable. Troponins were negative 2. EKG was unremarkable. Chest pain was only present for 1 second. His d-dimer was negative. UA was unremarkable. Based on his symptoms he was updated bedside and is discharged following denying any suicidal or homicidal ideations to follow-up with his primary care doctor. Impression Primary Impression: Nausea Additional Impressions: Precordial chest pain Tremors of nervous system Scribe Attestation The scribe's documentation has been prepared under my direction and personally reviewed by me in its entirety. I confirm that the note above accurately reflects all work, treatment, procedures, and medical decision making performed by me. Departure Information Dispostion Home / Self-Care Prescriptions Ondansetron Hcl (ZOFRAN) 4 Mg Tab 4 MG PO TID Y for Nausea, #20 TAB Prov: Gaston Clarke, 10/11/16 Referrals Walt Perez M.D. (PCP) Forms HOME CARE DOCUMENTATION FORM, IMPORTANT VISIT INFORMATION Patient Instructions Chest Pain - [facility], ED Nausea Vomiting, My [facility] Additional Instructions Please follow up with your primary care doctor with in the next 24 hours. Any worsening of your symptoms, please return to the ED immediately. This includes recurrence of chest pain, passing out, shortness of breath, persistent nausea vomiting, or any other concerning signs or symptoms from your standpoint. Please take Zofran as needed for nausea. Problem Qualifiers
[2017-04-25] MEDS ORDERED: LAMO200T38 PO (18:24)
== END 2016-10-11 19:31 | disposition home or self-care (01) ==
LOC: EDBD 15:39 → C.EDA 15:41
DX: R07.2 Precordial pain (principal); R25.1 Tremor, unspecified; R11.0 Nausea; G40.909 Epilepsy, unspecified, not intractable, without status epilepticus; J45.909 Unspecified asthma, uncomplicated; F41.9 Anxiety disorder, unspecified; F32.9 Major depressive disorder, single episode, unspecified; F20.9 Schizophrenia, unspecified; F79 Unspecified intellectual disabilities; Z87.891 Personal history of nicotine dependence; Z79.899 Other long term (current) drug therapy; Z88.1 Allergy status to other antibiotic agents; Z88.8 Allergy status to other drugs, medicaments and biological substances; Z80.9 Family history of malignant neoplasm, unspecified; Z83.3 Family history of diabetes mellitus; Z82.3 Family history of stroke

== ENCOUNTER 2016-10-15 22:22 | Emergency (ER) | payer OTHER ==
[~2016-10-15] VITALS: Ht 170.2 cm; Wt 69.0 kg
[~2016-10-15 22:22] MED LIST changes: +ONDA4TAB46 PO
[2016-10-15 22:42] VITALS: TEMP 36.8; Ht 170.2 cm; Wt 69.0 kg
[2016-10-15] MEDS ORDERED: FLUO20CA35 PO (22:43)
[2016-10-15] MEDS ORDERED: ONDA4TAB46 PO (22:43)
[2016-10-15] MEDS ORDERED: FLUO40CA8 PO (22:43)
[2016-10-15 22:50] LABS: BASO % 0.6 %; BASO ABS # 0.04 K/uL (0-0.2); COMPLETE YES; HEMATOCRIT 42.1 % (42-52); IG% 0.4 %; LYMPH % 40.2 %; LYMPH ABS # 2.84 K/uL (1.2-3.4); MEAN CELL VOLUME 83.2 fL (80-100); MEAN CORPUSCULAR HEMOGLOBIN 29.4 pg (25-34); MEAN CORPUSCULAR HGB CONC 35.4 g/dl (32-36); MEAN PLATELET VOLUME 10.1 fL (7.4-10.4); MONO % 9.5 %; NEUT % 49.3 %; PLATELET COUNT 259 K/uL (130-400); RED BLOOD COUNT 5.06 M/uL (4.7-6.1); WHITE BLOOD COUNT 7.06 K/uL (4.8-10.8)
[2016-10-15 22:59] LABS: URINE APPEARANCE CLEAR (CLEAR); URINE BILIRUBIN NEG (NEG); URINE COLOR YELLOW; URINE NITRITE NEG (NEG); URINE SPECIFIC GRAVITY 1.026 (1.000-1.030); UROBILINOGEN NEG (NEG); ZZUR CULT IF INDIC CLEAN CATCH NO
[2016-10-15 23:07] LABS: MANUAL MICROSCOPIC REQUIRED? NO; REVIEW REQ? NO
[2016-10-15 23:16] LABS: ACETAMINOPHEN < 2 ug/ml (10-30); BUN/CREATININE RATIO 11.9 (10-20); CALCIUM 9.4 mg/dl (8.5-10.1)
[2016-10-15 23:22] LABS: BENZODIAZEPINE, URINE NEG (NEG); COCAINE,URINE NEG (NEG); PHENCYCLIDINE, URINE NEG (NEG)
[2016-10-15 23:26] LABS: ALB/GLOB RATIO 1.3 (0.9-2); THYROID STIMULATING HORMONE 8.39 uIu/ml (0.300-4.500)
--- NOTE | 2016-10-15 23:49 | EMERGENCY ROOM VISIT NOTE ---
History Report prepared by Massiel: Gaston Reyes Under the Supervision of: Dr. Gaston Clarke D.O. First contact with patient: 22:53 Chief Complaint: MENTAL HEALTH EVALUATION Stated Complaint: MENTAL HEALTH EVAL History of Present Illness The patient is a 36 year old male who presents to the Emergency Room with complaints of persistent suicidal thoughts beginning tonight. She states that she has been struggling with depression lately. He states that he has a plan to kill himself by cutting his wrists. The patient has attempted suicide before in the past. His suicide attempt occurred 5 years ago. He was evaluated by [facility] in the field and was recommended to present to the ED. The patient states that he feels depressed about money issues, but that things are starting to look up now. He denies any actual attempts to harm himself today. Nothing improves his symptoms. Pt denies headache, change in vision, fevers, chest pain , shortness of breath, nausea, vomiting, diarrhea, pain with urination, and melena. Source of History: patient Onset: Tonight Quality: other (suicidal thoughts) Timing: other (persistent) Modifying Factors (Relieving): other (none) Review of Systems See HPI for pertinent positives & negatives. A total of 10 systems reviewed and were otherwise negative. Past Medical & Surgical Medical Problems: (1) ANXIETY STATE NOS (2) Asthma (3) Auditory hallucinations (4) Depression (5) Dyspnea (6) Dyspnea (7) Exposure to chemical inhalation (8) Exposure to chemical inhalation (9) Intellectual disability (10) Schizoaffective disorder (11) Seizure (12) Seizure disorder Social History Problems: (1) Alcohol abuse (2) Alcohol abuse Family History Cancer FH: diabetes mellitus FH: hypertension FH: lupus FH: pneumonia FH: stroke High cholesterol Social History Smoking Status: Never Smoker Alcohol Use: occasionally Marital Status: single Housing Status: lives alone Occupation Status: disabled Current/Historical Medications Scheduled Fluoxetine (Prozac), 20 MG PO DAILY Fluoxetine (Prozac), 40 MG PO DAILY Lamotrigine (Lamictal), 200 MG PO QAM Lamotrigine (Lamictal), 50 MG PO HS Olanzapine (Olanzapine), 15 MG PO DAILY Scheduled PRN Ondansetron Hcl (Zofran), 4 MG PO TID PRN for Nausea or Vomiting Allergies Coded Allergies: Amoxicillin (Verified Allergy, Severe, HIVES,SEIZURE ACTIVITY. N/V, ) Bacitracin (Verified Adverse Reaction, Mild, unknown, 10/15/16) Neomycin (Verified Adverse Reaction, Mild, unknown, 10/15/16) Polymyxin B (Verified Adverse Reaction, Mild, unknown, 10/15/16) Physical Exam Vital Signs Date Time Temp Pulse Resp B/P Pulse Ox O2 Delivery O2 Flow Rate FiO2 10/15/16 22:42 36.8 91 18 141/89 98 Room Air Physical Exam GENERAL: sitting up in bed, disheveled, no acute distress, nontoxic EYE EXAM: normal conjunctiva OROPHARYNX: no exudate, no erythema, lips, buccal mucosa, and tongue normal and mucous membranes are dry. Cracked lower lip. NECK: supple, no nuchal rigidity, no adenopathy, non-tender LUNGS: Clear to auscultation. Normal chest wall mechanics HEART: no murmurs, S1 normal and S2 normal ABDOMEN: abdomen soft, non-tender, normo-active bowel sounds, no masses, no rebound or guarding. BACK: Back is symmetrical on inspection and there is no deformity, no midline tenderness, no CVA tenderness. SKIN: no rashes and no bruising UPPER EXTREMITIES: upper extremities are grossly normal. LOWER EXTREMITIES: No pitting edema. NEURO EXAM: Normal sensorium, cranial nerves II-XII grossly intact, normal speech, no gross weakness of arms, no gross weakness of legs. PSYCH: Admits to suicidal ideations with a plan to cut wrist. Denies auditory or visual hallucinations Medical Decision & Procedures Laboratory Results 10/15/16 22:31 Red Blood Count 5.06, Mean Corpuscular Volume 83.2, Mean Corpuscular Hemoglobin 29.4, Mean Corpuscular Hemoglobin Concent 35.4, Mean Platelet Volume 10.1, Neutrophils (%) (Auto) 49.3, Lymphocytes (%) (Auto) 40.2, Monocytes (%) (Auto) 9.5, Eosinophils (%) (Auto) 0.0, Basophils (%) (Auto) 0.6, Neutrophils # (Auto) 3.48, Lymphocytes # (Auto) 2.84, Monocytes # (Auto) 0.67, Eosinophils # (Auto) 0.00, Basophils # (Auto) 0.04 10/15/16 22:31 Test 10/15/16 22:31 10/15/16 22:35 White Blood Count 7.06 K/uL (4.8-10.8) Red Blood Count 5.06 M/uL (4.7-6.1) Hemoglobin 14.9 g/dL (14.0-18.0) Hematocrit 42.1 % (42-52) Mean Corpuscular Volume 83.2 fL (80-100) Mean Corpuscular Hemoglobin 29.4 pg (25-34) Mean Corpuscular Hemoglobin Concent 35.4 g/dl (32-36) Platelet Count 259 K/uL (130-400) Mean Platelet Volume 10.1 fL (7.4-10.4) Neutrophils (%) (Auto) 49.3 % Lymphocytes (%) (Auto) 40.2 % Monocytes (%) (Auto) 9.5 % Eosinophils (%) (Auto) 0.0 % Basophils (%) (Auto) 0.6 % Neutrophils # (Auto) 3.48 K/uL (1.4-6.5) Lymphocytes # (Auto) 2.84 K/uL (1.2-3.4) Monocytes # (Auto) 0.67 K/uL (0.11-0.59) Eosinophils # (Auto) 0.00 K/uL (0-0.5) Basophils # (Auto) 0.04 K/uL (0-0.2) RDW Standard Deviation 38.5 fL (36.4-46.3) RDW Coefficient of Variation 12.9 % (11.5-14.5) Immature Granulocyte % (Auto) 0.4 % Immature Granulocyte # (Auto) 0.03 K/uL (0.00-0.02) Anion Gap 4.0 mmol/L (3-11) Est Creatinine Clear Calc Drug Dose 93.7 ml/min Estimated GFR () 110.2 Estimated GFR (Non- 95.1 BUN/Creatinine Ratio 11.9 (10-20) Calcium Level 9.4 mg/dl (8.5-10.1) Total Bilirubin 0.3 mg/dl (0.2-1) Aspartate Amino Transf (AST/SGOT) 14 U/L (15-37) Alanine Aminotransferase (ALT/SGPT) 24 U/L (12-78) Alkaline Phosphatase 98 U/L (45-117) Total Protein 7.5 gm/dl (6.4-8.2) Albumin 4.2 gm/dl (3.4-5.0) Globulin 3.3 gm/dl (2.5-4.0) Albumin/Globulin Ratio 1.3 (0.9-2) Thyroid Stimulating Hormone (TSH) 8.390 uIu/ml (0.300-4.500) Salicylates Level < 1.7 mg/dl (2.8-20) Acetaminophen Level < 2 ug/ml (10-30) Ethyl Alcohol mg/dL < 3.0 mg/dl (0-3) Urine Color YELLOW Urine Appearance CLEAR (CLEAR) Urine pH 6.0 (4.5-7.5) Urine Specific [place] 1.026 (1.000-1.030) Urine Protein NEG (NEG) Urine Glucose (UA) NEG (NEG) Urine Ketones NEG (NEG) Urine Occult Blood NEG (NEG) Urine Nitrite NEG (NEG) Urine Bilirubin NEG (NEG) Urine Urobilinogen NEG (NEG) Urine Leukocyte Esterase NEG (NEG) Urine Opiates Screen NEG (NEG) Urine Methadone, Qualitative NEG (NEG) Urine Barbiturates NEG (NEG) Urine Phencyclidine (PCP) Level NEG (NEG) Ur Amphetamine/Methamphetamine NEG (NEG) MDMA (Ecstasy) Screen NEG (NEG) Urine Benzodiazepines Screen NEG (NEG) Urine Cocaine Metabolite NEG (NEG) Urine Marijuana (THC) NEG (NEG) Laboratory results per my review. Medications Administered Medications (Trade) Dose Ordered Sig/Darren Route Start Time Stop Time Status Last Admin Dose Admin Nicotine Polacrilex (Nicorette 2MG Gum) 1 piece PRN PRN MT 10/15/16 23:45 11/14/16 23:44 10/15/16 23:52 1 PIECE ED Course ED COURSE: Vital signs were reviewed and appeared normal. The patients medical record was reviewed The above diagnostic studies were performed and reviewed. ED treatments and interventions as stated above. 2300: The patient was evaluated in room A8. A complete history and physical examination was performed. 2345: Ordered Nicorette 2 mg Gum 1 piece MT. 0044: I spoke with the sales representative facility services from [facility]. They believe that the patient should likely receive inpatient care. There is currently a bed-search underway for the patient. 0230: Upon reevaluation, the patient is resting comfortably. I discussed my findings with the patient. The patient was signed out to Dr. Sotelo at the change of shift. Medical Decision Differential diagnosis: Etiologies such as mood disorder, infection, hypoglycemia, electrolyte abnormalities, cardiac sources, intracerebral event, toxicologic, neurologic, as well as others were entertained. Patient is a 28-year-old male with a history of bipolar who presents the ER for depression with suicidal ideations with a plan to cut his wrists. He notes that this started tonight. He has had this before in the past. It started secondary to money issues. Patient currently has no other complaints at this time. CBC along with BMP, LFTs, bilirubin, salicylates and acetaminophen are all negative. Urine tox was negative. Alcohol was negative. TSH is slightly elevated. Patient was initially evaluated by [facility] in the field who recommended admission. He is currently medically cleared. He is agreeable to come in on a 201. Patient was signed out to Dr. Sotelo awaiting a bed search at 2:30 AM. Impression Primary Impression: Mood disorder Additional Impression: Suicidal ideation Scribe Attestation The scribe's documentation has been prepared under my direction and personally reviewed by me in its entirety. I confirm that the note above accurately reflects all work, treatment, procedures, and medical decision making performed by me. Departure Information Dispostion Still a Patient (Signed out to Dr. Sotelo) Referrals Walt Perez M.D. (PCP) Patient Instructions My [facility] Problem Qualifiers
[2016-10-15] MEDS: NICOTINE POLACRILEX 2 MG GUM MT PRN (23:52)
[2016-10-16] MEDS: NICOTINE POLACRILEX 2 MG GUM MT PRN ×2 (03:11→09:01)
--- NOTE | 2016-10-16 04:24 | EMERGENCY ROOM VISIT NOTE ---
ED Visit Note This patient was signed out to be Dr. Clarke at shift change. The patient had been medically cleared and was voluntarily awaiting psychiatric placement. The patient was seen by the [facility] mental health worker. The patient is resting comfortably when I checked him. He was seen and will be sent [facility] voluntarily for further inpatient treatment and evaluation.
[2016-10-16 07:47] VITALS: BP 122/79; PULSE 79; O2SAT 99
[2016-10-21 17:40] LABS: SYNTHETIC CANNABINOIDS QL URIN NEGATIVE (Negative)
[2017-04-25] MEDS ORDERED: LAMO200T38 PO (18:24)
== END 2016-10-16 09:03 ==
LOC: EDBD 22:22 → C.EDA 22:24
DX: F39 Unspecified mood [affective] disorder (principal); R45.851 Suicidal ideations; Z91.5 Personal history of self-harm; J45.909 Unspecified asthma, uncomplicated; G40.909 Epilepsy, unspecified, not intractable, without status epilepticus; Z83.3 Family history of diabetes mellitus; Z82.49 Family history of ischemic heart disease and other diseases of the circulatory system; Z82.3 Family history of stroke; Z83.49 Family history of other endocrine, nutritional and metabolic diseases; Z83.6 Family history of other diseases of the respiratory system; Z84.89 Family history of other specified conditions; Z79.899 Other long term (current) drug therapy

== ENCOUNTER 2016-11-03 01:10 | Emergency (ER) | payer OTHER ==
[~2016-11-03] VITALS: Ht 167.6 cm; Wt 69.1 kg
[~2016-11-03 01:10] MED LIST changes: +FLUO20CA35 PO; -FLUO20CA36 PO; -LMC25 PO
[2016-11-03 01:11] VITALS: Ht 167.6 cm; Wt 69.1 kg
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
[2016-11-03 01:51] LABS: HEMATOCRIT 41.9 % (42-52); MEAN CELL VOLUME 83.6 fL (80-100); MEAN CORPUSCULAR HEMOGLOBIN 29.5 pg (25-34); MEAN CORPUSCULAR HGB CONC 35.3 g/dl (32-36); MEAN PLATELET VOLUME 9.8 fL (7.4-10.4); PLATELET COUNT 237 K/uL (130-400); RED BLOOD COUNT 5.01 M/uL (4.7-6.1); WHITE BLOOD COUNT 7.27 K/uL (4.8-10.8)
[2016-11-03 02:08] LABS: ALT/SGPT 30 U/L (12-78); AST/SGOT 12 U/L (15-37); BLOOD UREA NITROGEN 15 mg/dl (7-18); BUN/CREATININE RATIO 15.4 (10-20); CALCIUM 8.9 mg/dl (8.5-10.1); CARBON DIOXIDE 30 mmol/L (21-32); CHLORIDE 104 mmol/L (98-107); CREATININE 0.96 mg/dl (0.60-1.40); GLUCOSE 104 mg/dl (70-99); SODIUM 139 mmol/L (136-145)
[2016-11-03 02:14] LABS: ACETAMINOPHEN < 2 ug/ml (10-30)
[2016-11-03 02:17] LABS: URINE APPEARANCE CLEAR (CLEAR); URINE BILIRUBIN NEG (NEG); URINE COLOR DK YELLOW; URINE NITRITE NEG (NEG); URINE PH 5.5 (4.5-7.5); URINE SPECIFIC GRAVITY 1.034 (1.000-1.030); UROBILINOGEN NEG (NEG)
[2016-11-03 02:19] LABS: ALKALINE PHOSPHATASE 91 U/L (45-117)
[2016-11-03 02:24] LABS: MANUAL MICROSCOPIC REQUIRED? NO; REVIEW REQ? NO
[2016-11-03 02:46] LABS: BENZODIAZEPINE, URINE NEG (NEG); COCAINE,URINE NEG (NEG); PHENCYCLIDINE, URINE NEG (NEG)
[2016-11-03] MEDS ORDERED: NICOTINE POLACRILEX 2 MG GUM ONE ×3 (03:04→09:59)
[2016-11-03] MEDS ORDERED: OLANZAPINE 10 MG TAB PO ONE (09:15)
[2016-11-03] MEDS ORDERED: FLUOXETINE HCL 20 MG CAP PO ONE (09:15)
[2016-11-03 10:28] VITALS: BP 122/75; PULSE 96; O2SAT 99
[2017-02-20] MEDS ORDERED: TRAZ-120 PO (21:59)
[2017-04-25] MEDS ORDERED: LAMO200T38 PO (18:24)
== END 2016-11-03 10:20 ==
LOC: EDBD 01:10 → C.EDA 01:11
DX: Z00.8 Encounter for other general examination (principal); R45.851 Suicidal ideations; F20.9 Schizophrenia, unspecified; F41.9 Anxiety disorder, unspecified; G40.909 Epilepsy, unspecified, not intractable, without status epilepticus

== ENCOUNTER 2017-02-20 21:45 | Emergency (ER) | payer OTHER ==
[~2017-02-20] VITALS: Ht 170.2 cm; Wt 75.0 kg
[2017-02-20 21:45] VITALS: TEMP 36.7; Ht 170.2 cm; Wt 75.0 kg
[2017-02-20] MEDS ORDERED: TRAZ1TAB5 PO (21:59)
[2017-02-20 22:12] LABS: URINE APPEARANCE CLEAR (CLEAR); URINE BILIRUBIN NEG (NEG); URINE COLOR YELLOW; URINE NITRITE NEG (NEG); URINE PH 6.5 (4.5-7.5); URINE SPECIFIC GRAVITY 1.024 (1.000-1.030); UROBILINOGEN NEG (NEG); ZZUR CULT IF INDIC CLEAN CATCH NO
[2017-02-20 22:16] LABS: MANUAL MICROSCOPIC REQUIRED? NO; REVIEW REQ? NO
[2017-02-20 22:26] LABS: BASO % 0.3 %; BASO ABS # 0.02 K/uL (0-0.2); COMPLETE YES; HEMATOCRIT 41.8 % (42-52); IG% 0.2 %; LYMPH % 41.7 %; LYMPH ABS # 2.68 K/uL (1.2-3.4); MEAN CELL VOLUME 82.9 fL (80-100); MEAN CORPUSCULAR HEMOGLOBIN 29.2 pg (25-34); MEAN CORPUSCULAR HGB CONC 35.2 g/dl (32-36); MEAN PLATELET VOLUME 10.1 fL (7.4-10.4); MONO % 7.2 %; NEUT % 50.6 %; PLATELET COUNT 239 K/uL (130-400); RED BLOOD COUNT 5.04 M/uL (4.7-6.1); WHITE BLOOD COUNT 6.42 K/uL (4.8-10.8)
[2017-02-20 22:43] LABS: BENZODIAZEPINE, URINE NEG (NEG); COCAINE,URINE NEG (NEG); PHENCYCLIDINE, URINE NEG (NEG)
[2017-02-20 22:54] LABS: ALT/SGPT 64 U/L (12-78); BLOOD UREA NITROGEN 16 mg/dl (7-18); BUN/CREATININE RATIO 14.9 (10-20); CALCIUM 9.4 mg/dl (8.5-10.1); CARBON DIOXIDE 30 mmol/L (21-32); CHLORIDE 104 mmol/L (98-107); GLUCOSE 93 mg/dl (70-99); POTASSIUM 4.2 mmol/L (3.5-5.1); SODIUM 139 mmol/L (136-145)
[2017-02-20 23:00] LABS: ACETAMINOPHEN < 2 ug/ml (10-30)
[2017-02-20 23:05] LABS: ALKALINE PHOSPHATASE 98 U/L (45-117); AST/SGOT 50 U/L (15-37)
--- NOTE | 2017-02-20 23:29 | EMERGENCY ROOM VISIT NOTE ---
History Report prepared by Massiel: Nelia Guzman Under the Supervision of: Dr. Patricia Barrow M.D. First contact with patient: 21:52 Chief Complaint: MENTAL HEALTH EVALUATION Stated Complaint: MENTAL HEALTH History of Present Illness The patient is a 36 year old male who presents to the Emergency Room for a mental health evaluation after having constant suicidal thoughts beginning 4 days ago. The patient states that he has a history of depression and suicide attempt. He reports that he wants to cut his wrists and hang himself and he notes that these thoughts have been brought on by "life in general". He complains of some abdominal pain. The patient denies any suicide attempt and notes that the staff at his facility would make it difficult to hurt himself. He states that he has not taken any extra pills today. Source of History: patient Onset: 4 days ago Position: other (mental health) Quality: other (suicidal ideation) Timing: constant Note: Pt denies taking extra pills and suicide attempt. Review of Systems See HPI for pertinent positives & negatives. A total of 10 systems reviewed and were otherwise negative. Past Medical & Surgical Medical Problems: (1) ANXIETY STATE NOS (2) Asthma (3) Auditory hallucinations (4) Depression (5) Dyspnea (6) Dyspnea (7) Exposure to chemical inhalation (8) Exposure to chemical inhalation (9) Intellectual disability (10) Schizoaffective disorder (11) Seizure (12) Seizure disorder Social History Problems: (1) Alcohol abuse (2) Alcohol abuse Family History Cancer FH: diabetes mellitus FH: hypertension FH: lupus FH: pneumonia FH: stroke High cholesterol Social History Smoking Status: Never Smoker Smokeless Tobacco Use: No Alcohol Use: occasionally Drug Use: marijuana Marital Status: single Housing Status: lives alone Occupation Status: disabled Current/Historical Medications Scheduled Lamotrigine (Lamictal), 200 MG PO QAM Lamotrigine (Lamictal), 25 MG PO HS Olanzapine (Olanzapine), 5 MG PO QAM Trazodone Hcl (Desyrel), 50 MG PO HS Allergies Coded Allergies: Amoxicillin (Verified Allergy, Severe, HIVES,SEIZURE ACTIVITY. N/V, ) Bacitracin (Verified Adverse Reaction, Mild, unknown, 02/20/17) Neomycin (Verified Adverse Reaction, Mild, unknown, 02/20/17) Polymyxin B (Verified Adverse Reaction, Mild, unknown, 02/20/17) Physical Exam Vital Signs Date Time Temp Pulse Resp B/P (MAP) Pulse Ox O2 Delivery O2 Flow Rate FiO2 02/21/17 09:59 102 16 121/84 97 02/21/17 09:58 102 16 121/84 97 02/21/17 02:01 76 16 126/78 97 Room Air 02/20/17 23:54 81 16 125/76 98 Room Air 02/20/17 22:42 79 18 122/76 98 Room Air 02/20/17 21:45 36.7 80 18 124/87 95 Room Air Physical Exam Vital signs reviewed. General: Well-appearing male, in no significant distress. HEENT: No scleral icterus, PERRLA, neck supple. Atraumatic. Cardiovascular: Regular rate and rhythm, no extra sounds. Pulmonary: Clear to auscultation bilaterally, normal work of breathing. Abdomen: Soft, nontender, nondistended, positive bowel sounds. Musculoskeletal: Atraumatic, no peripheral edema. Neurologic: Patient awake alert and oriented x 3 Skin: Warm, dry, no rash Psych: Positive suicidal ideation negative homicidal ideation. Medical Decision & Procedures Laboratory Results 02/20/17 22:17 Red Blood Count 5.04, Mean Corpuscular Volume 82.9, Mean Corpuscular Hemoglobin 29.2, Mean Corpuscular Hemoglobin Concent 35.2, Mean Platelet Volume 10.1, Neutrophils (%) (Auto) 50.6, Lymphocytes (%) (Auto) 41.7, Monocytes (%) (Auto) 7.2, Eosinophils (%) (Auto) 0.0, Basophils (%) (Auto) 0.3, Neutrophils # (Auto) 3.25, Lymphocytes # (Auto) 2.68, Monocytes # (Auto) 0.46, Eosinophils # (Auto) 0.00, Basophils # (Auto) 0.02 02/20/17 22:17 Test 02/20/17 21:55 02/20/17 22:17 Urine Color YELLOW Urine Appearance CLEAR (CLEAR) Urine pH 6.5 (4.5-7.5) Urine Specific [place] 1.024 (1.000-1.030) Urine Protein NEG (NEG) Urine Glucose (UA) NEG (NEG) Urine Ketones NEG (NEG) Urine Occult Blood NEG (NEG) Urine Nitrite NEG (NEG) Urine Bilirubin NEG (NEG) Urine Urobilinogen NEG (NEG) Urine Leukocyte Esterase NEG (NEG) Urine Opiates Screen NEG (NEG) Urine Methadone, Qualitative NEG (NEG) Urine Barbiturates NEG (NEG) Urine Phencyclidine (PCP) Level NEG (NEG) Ur Amphetamine/Methamphetamine NEG (NEG) MDMA (Ecstasy) Screen NEG (NEG) Urine Benzodiazepines Screen NEG (NEG) Urine Cocaine Metabolite NEG (NEG) Urine Marijuana (THC) NEG (NEG) White Blood Count 6.42 K/uL (4.8-10.8) Red Blood Count 5.04 M/uL (4.7-6.1) Hemoglobin 14.7 g/dL (14.0-18.0) Hematocrit 41.8 % (42-52) Mean Corpuscular Volume 82.9 fL (80-100) Mean Corpuscular Hemoglobin 29.2 pg (25-34) Mean Corpuscular Hemoglobin Concent 35.2 g/dl (32-36) Platelet Count 239 K/uL (130-400) Mean Platelet Volume 10.1 fL (7.4-10.4) Neutrophils (%) (Auto) 50.6 % Lymphocytes (%) (Auto) 41.7 % Monocytes (%) (Auto) 7.2 % Eosinophils (%) (Auto) 0.0 % Basophils (%) (Auto) 0.3 % Neutrophils # (Auto) 3.25 K/uL (1.4-6.5) Lymphocytes # (Auto) 2.68 K/uL (1.2-3.4) Monocytes # (Auto) 0.46 K/uL (0.11-0.59) Eosinophils # (Auto) 0.00 K/uL (0-0.5) Basophils # (Auto) 0.02 K/uL (0-0.2) RDW Standard Deviation 37.3 fL (36.4-46.3) RDW Coefficient of Variation 12.4 % (11.5-14.5) Immature Granulocyte % (Auto) 0.2 % Immature Granulocyte # (Auto) 0.01 K/uL (0.00-0.02) Anion Gap 5.0 mmol/L (3-11) Est Creatinine Clear Calc Drug Dose 85.1 ml/min Estimated GFR () 98.2 Estimated GFR (Non- 84.7 BUN/Creatinine Ratio 14.9 (10-20) Calcium Level 9.4 mg/dl (8.5-10.1) Total Bilirubin 0.3 mg/dl (0.2-1) Direct Bilirubin < 0.1 mg/dl (0-0.2) Aspartate Amino Transf (AST/SGOT) 50 U/L (15-37) Alanine Aminotransferase (ALT/SGPT) 64 U/L (12-78) Alkaline Phosphatase 98 U/L (45-117) Total Protein 7.4 gm/dl (6.4-8.2) Albumin 3.9 gm/dl (3.4-5.0) Thyroid Stimulating Hormone (TSH) 5.600 uIu/ml (0.300-4.500) Salicylates Level < 1.7 mg/dl (2.8-20) Acetaminophen Level < 2 ug/ml (10-30) Ethyl Alcohol mg/dL < 3.0 mg/dl (0-3) Laboratory results per my review. Medications Administered Medications (Trade) Dose Ordered Sig/Darren Route Start Time Stop Time Status Last Admin Dose Admin Nicotine Polacrilex (Nicorette 2MG Gum) 1 piece PRN PRN MT 02/21/17 00:00 02/21/17 10:59 DC 02/21/17 07:32 1 PIECE Lamotrigine (Lamictal Tab) 200 mg QAM PO 02/21/17 09:00 02/21/17 10:59 DC 02/21/17 07:02 200 MG Olanzapine (Zyprexa Tab) 5 mg QAM PO 02/21/17 09:00 02/21/17 10:59 DC 02/21/17 07:02 5 MG ED Course 2152: Past medical records reviewed. The patient was evaluated in room A7. A complete history and physical examination was performed. 0000: Nicotine Polacrilex 1 piece PRN MT Anxiety/Agitation. 0130: The patient was signed out to Dr. Marks at change of shift. Medical Decision Differential diagnosis: Etiologies such as mood disorder, infection, hypoglycemia, electrolyte abnormalities, cardiac sources, intracerebral event, toxicologic, neurologic, as well as others were entertained. This pt was evaluated and appeared to be in no distress. Patient was medically cleared and mental health was consulted. He was given Nicorette gum at his request. Bed search is currently underway. Case was signed out to Dr. Marks at the change of shift. Please see his notes for further details. Medication Reconcilliation Current Medication List: was personally reviewed by me Blood Pressure Screening Patient's blood pressure: Normal blood pressure Blood pressure disposition: Did not require urgent referral Impression Primary Impression: Suicidal ideation Scribe Attestation The scribe's documentation has been prepared under my direction and personally reviewed by me in its entirety. I confirm that the note above accurately reflects all work, treatment, procedures, and medical decision making performed by me. Departure Information Dispostion Still a Patient Referrals Walt Perez M.D. (PCP) Forms HOME CARE DOCUMENTATION FORM, IMPORTANT VISIT INFORMATION Patient Instructions My [facility]
[2017-02-20] MEDS: NICOTINE POLACRILEX 2 MG GUM MT PRN (23:54)
[2017-02-21] MEDS: NICOTINE POLACRILEX 2 MG GUM MT PRN ×3 (02:02→07:32)
--- NOTE | 2017-02-21 04:44 | EMERGENCY ROOM VISIT NOTE ---
ED Visit Note Pt remained in stable condition throughout night; accepted at [facility] at 10am Problem List Medical Problems: (1) ANXIETY STATE NOS Status: Chronic (2) Asthma Status: Chronic (3) Auditory hallucinations Status: Resolved (4) Depression Status: Chronic (5) Dyspnea Status: Resolved (6) Dyspnea Status: Resolved (7) Exposure to chemical inhalation Status: Resolved (8) Exposure to chemical inhalation Status: Resolved (9) Intellectual disability Status: Chronic (10) Schizoaffective disorder Status: Chronic (11) Seizure Status: Chronic (12) Seizure disorder Status: Chronic Current/Historical Medications Scheduled Lamotrigine (Lamictal), 200 MG PO QAM Lamotrigine (Lamictal), 25 MG PO HS Olanzapine (Olanzapine), 5 MG PO QAM Trazodone Hcl (Desyrel), 50 MG PO HS Allergies Coded Allergies: Amoxicillin (Verified Allergy, Severe, HIVES,SEIZURE ACTIVITY. N/V, ) Bacitracin (Verified Adverse Reaction, Mild, unknown, 02/20/17) Neomycin (Verified Adverse Reaction, Mild, unknown, 02/20/17) Polymyxin B (Verified Adverse Reaction, Mild, unknown, 02/20/17) Vital Signs Date Time Temp Pulse Resp B/P (MAP) Pulse Ox O2 Delivery O2 Flow Rate FiO2 02/21/17 02:01 76 16 126/78 97 Room Air 02/20/17 23:54 81 16 125/76 98 Room Air 02/20/17 22:42 79 18 122/76 98 Room Air 02/20/17 21:45 36.7 80 18 124/87 95 Room Air Laboratory Results 02/20/17 22:17 Red Blood Count 5.04, Mean Corpuscular Volume 82.9, Mean Corpuscular Hemoglobin 29.2, Mean Corpuscular Hemoglobin Concent 35.2, Mean Platelet Volume 10.1, Neutrophils (%) (Auto) 50.6, Lymphocytes (%) (Auto) 41.7, Monocytes (%) (Auto) 7.2, Eosinophils (%) (Auto) 0.0, Basophils (%) (Auto) 0.3, Neutrophils # (Auto) 3.25, Lymphocytes # (Auto) 2.68, Monocytes # (Auto) 0.46, Eosinophils # (Auto) 0.00, Basophils # (Auto) 0.02 02/20/17 22:17 Test 02/20/17 21:55 02/20/17 22:17 Urine Color YELLOW Urine Appearance CLEAR (CLEAR) Urine pH 6.5 (4.5-7.5) Urine Specific [place] 1.024 (1.000-1.030) Urine Protein NEG (NEG) Urine Glucose (UA) NEG (NEG) Urine Ketones NEG (NEG) Urine Occult Blood NEG (NEG) Urine Nitrite NEG (NEG) Urine Bilirubin NEG (NEG) Urine Urobilinogen NEG (NEG) Urine Leukocyte Esterase NEG (NEG) Urine Opiates Screen NEG (NEG) Urine Methadone, Qualitative NEG (NEG) Urine Barbiturates NEG (NEG) Urine Phencyclidine (PCP) Level NEG (NEG) Ur Amphetamine/Methamphetamine NEG (NEG) MDMA (Ecstasy) Screen NEG (NEG) Urine Benzodiazepines Screen NEG (NEG) Urine Cocaine Metabolite NEG (NEG) Urine Marijuana (THC) NEG (NEG) White Blood Count 6.42 K/uL (4.8-10.8) Red Blood Count 5.04 M/uL (4.7-6.1) Hemoglobin 14.7 g/dL (14.0-18.0) Hematocrit 41.8 % (42-52) Mean Corpuscular Volume 82.9 fL (80-100) Mean Corpuscular Hemoglobin 29.2 pg (25-34) Mean Corpuscular Hemoglobin Concent 35.2 g/dl (32-36) Platelet Count 239 K/uL (130-400) Mean Platelet Volume 10.1 fL (7.4-10.4) Neutrophils (%) (Auto) 50.6 % Lymphocytes (%) (Auto) 41.7 % Monocytes (%) (Auto) 7.2 % Eosinophils (%) (Auto) 0.0 % Basophils (%) (Auto) 0.3 % Neutrophils # (Auto) 3.25 K/uL (1.4-6.5) Lymphocytes # (Auto) 2.68 K/uL (1.2-3.4) Monocytes # (Auto) 0.46 K/uL (0.11-0.59) Eosinophils # (Auto) 0.00 K/uL (0-0.5) Basophils # (Auto) 0.02 K/uL (0-0.2) RDW Standard Deviation 37.3 fL (36.4-46.3) RDW Coefficient of Variation 12.4 % (11.5-14.5) Immature Granulocyte % (Auto) 0.2 % Immature Granulocyte # (Auto) 0.01 K/uL (0.00-0.02) Anion Gap 5.0 mmol/L (3-11) Est Creatinine Clear Calc Drug Dose 85.1 ml/min Estimated GFR () 98.2 Estimated GFR (Non- 84.7 BUN/Creatinine Ratio 14.9 (10-20) Calcium Level 9.4 mg/dl (8.5-10.1) Total Bilirubin 0.3 mg/dl (0.2-1) Direct Bilirubin < 0.1 mg/dl (0-0.2) Aspartate Amino Transf (AST/SGOT) 50 U/L (15-37) Alanine Aminotransferase (ALT/SGPT) 64 U/L (12-78) Alkaline Phosphatase 98 U/L (45-117) Total Protein 7.4 gm/dl (6.4-8.2) Albumin 3.9 gm/dl (3.4-5.0) Thyroid Stimulating Hormone (TSH) 5.600 uIu/ml (0.300-4.500) Salicylates Level < 1.7 mg/dl (2.8-20) Acetaminophen Level < 2 ug/ml (10-30) Ethyl Alcohol mg/dL < 3.0 mg/dl (0-3) Medications Administered Medications (Trade) Dose Ordered Sig/Darren Route Start Time Stop Time Status Last Admin Dose Admin Nicotine Polacrilex (Nicorette 2MG Gum) 1 piece PRN PRN MT 02/21/17 00:00 03/23/17 00:00 02/21/17 02:02 1 PIECE Departure Information Impression Primary Impression: Suicidal ideation Dispostion Still a Patient Referrals Walt Perez M.D. Forms HOME CARE DOCUMENTATION FORM, IMPORTANT VISIT INFORMATION Patient Instructions [facility]
--- NOTE | 2017-02-21 07:00 | EMERGENCY ROOM VISIT NOTE ---
ED Visit Note First contact with patient: 06:27 Patient is a 28-year-old male signed out to me by Dr. Marks awaiting transport to the [facility]. He's been accepted. He is resting comfortably at 6:50 PM. Patient has no other complaints. Patient will be transferred to the [facility].
[2017-02-21] MEDS ORDERED: OLANZAPINE 5 MG TAB PO SCH (09:00)
[2017-02-21 09:59] VITALS: BP 121/84; PULSE 102; O2SAT 97
[2017-04-25] MEDS ORDERED: LAMO200T38 PO (18:24)
== END 2017-02-21 09:59 ==
LOC: EDBD 21:45 → C.EDA 21:50
DX: R45.851 Suicidal ideations (principal); G40.909 Epilepsy, unspecified, not intractable, without status epilepticus; J45.909 Unspecified asthma, uncomplicated; F32.9 Major depressive disorder, single episode, unspecified; F20.9 Schizophrenia, unspecified; Z79.899 Other long term (current) drug therapy; Z88.1 Allergy status to other antibiotic agents; Z88.8 Allergy status to other drugs, medicaments and biological substances; Z80.9 Family history of malignant neoplasm, unspecified; Z83.3 Family history of diabetes mellitus; Z82.49 Family history of ischemic heart disease and other diseases of the circulatory system; Z82.3 Family history of stroke

== ENCOUNTER 2017-04-25 19:05 | Emergency (ER) | payer OTHER ==
[~2017-04-25] VITALS: Ht 170.2 cm; Wt 68.2 kg
[~2017-04-25 19:05] MED LIST changes: -FLUO20CA35 PO; -FLUO40CA8 PO; +LAMO200T38 PO; -ONDA4TAB46 PO; +TRAZ1TAB5 PO; -ZYP15 PO
[2017-04-25 19:08] VITALS: TEMP 36.7; Ht 170.2 cm; Wt 68.2 kg
[2017-04-25] MEDS ORDERED: QUET1TAB10 PO (19:25)
[2017-04-25] MEDS ORDERED: PROP20TA67 PO (19:26)
--- NOTE | 2017-04-25 19:30 | EMERGENCY ROOM VISIT NOTE ---
History Report prepared by Massiel: Tammy Dawson Under the Supervision of: Dr. Andrew Toussaint M.D. First contact with patient: 19:18 Chief Complaint: MENTAL HEALTH EVALUATION Stated Complaint: DEPRESSION, MILD ANGER ISSUES, HARD TIME SLEEPING History of Present Illness The patient is a 36 year old male who presents to the Emergency Room with complaints of a mental health evaluation today. The patient states that he feels depressed, fatigued and that he has mild anger issues. He denies suicidal and homicidal ideation. The patient reports that he has been hospitalized in the past for these feelings, and that the last time he was hospitalized his symptoms were worse. The patient states that his symptoms have been worsening over the last 3 days. . He reports that he started taking a new medication 2 weeks ago which he believes is causing his symptoms. He denies nausea, vomiting , headaches, fever, chills, and dizziness Source of History: patient Onset: today Position: other (global) Quality: other (mental health evaluation) Timing: worsening Associated Symptoms: No fevers, No chills, No headache, No nausea, No vomiting Review of Systems See HPI for pertinent positives and negatives. A total of ten systems were reviewed and were otherwise negative. Past Medical & Surgical Medical Problems: (1) ANXIETY STATE NOS (2) Asthma (3) Auditory hallucinations (4) Depression (5) Dyspnea (6) Dyspnea (7) Exposure to chemical inhalation (8) Exposure to chemical inhalation (9) Intellectual disability (10) Schizoaffective disorder (11) Seizure (12) Seizure disorder Social History Problems: (1) Alcohol abuse (2) Alcohol abuse Family History Cancer FH: diabetes mellitus FH: hypertension FH: lupus FH: pneumonia FH: stroke High cholesterol Social History Smoking Status: Never Smoker Alcohol Use: occasionally Drug Use: marijuana Marital Status: single Housing Status: lives alone Occupation Status: disabled Current/Historical Medications Scheduled Lamotrigine (Lamictal), 200 MG PO QAM Lamotrigine (Lamictal), 25 MG PO HS Propranolol (Inderal), 20 MG PO BID Quetiapine Fumarate (Seroquel), 200 MG PO DAILY Allergies Coded Allergies: Amoxicillin (Verified Allergy, Severe, HIVES,SEIZURE ACTIVITY. N/V, ) Bacitracin (Verified Adverse Reaction, Mild, unknown, 02/20/17) Neomycin (Verified Adverse Reaction, Mild, unknown, 02/20/17) Polymyxin B (Verified Adverse Reaction, Mild, unknown, 02/20/17) Physical Exam Vital Signs Date Time Temp Pulse Resp B/P (MAP) Pulse Ox O2 Delivery O2 Flow Rate FiO2 04/25/17 20:52 90 18 132/89 99 04/25/17 19:08 36.7 89 18 126/93 99 Room Air Physical Exam GENERAL: Awake, alert, well-appearing, in no distress. Flat affect. HENT: Normocephalic, atraumatic. Oropharynx unremarkable. Dry mucous membranes. EYES: Normal conjunctiva. Sclera non-icteric. NECK: Supple. No nuchal rigidity. FROM. No JVD. RESPIRATORY: Clear to auscultation. CARDIAC: Regular rate, normal rhythm. Extremities warm and well perfused. Pulses equal. ABDOMEN: Soft, non-distended. No tenderness to palpation. No rebound or guarding. No masses. RECTAL: Deferred. MUSCULOSKELETAL: Chest examination reveals no tenderness. The back is symmetrical on inspection without obvious abnormality. There is no CVA tenderness to palpation. No joint edema. LOWER EXTREMITIES: Calves are equal size bilaterally and non-tender. No edema. No discoloration. NEURO: Normal sensorium. No sensory or motor deficits noted. PSYCH: Denies SI, HI. Reports depression and generalized aggressive thoughts. SKIN: No rash or jaundice noted. Medical Decision & Procedures Laboratory Results 04/25/17 19:53 Red Blood Count 5.25, Mean Corpuscular Volume 83.8, Mean Corpuscular Hemoglobin 29.0, Mean Corpuscular Hemoglobin Concent 34.5, Mean Platelet Volume 11.2, Neutrophils (%) (Auto) 61.6, Lymphocytes (%) (Auto) 31.8, Monocytes (%) (Auto) 5.7, Eosinophils (%) (Auto) 0.2, Basophils (%) (Auto) 0.5, Neutrophils # (Auto) 3.49, Lymphocytes # (Auto) 1.80, Monocytes # (Auto) 0.32, Eosinophils # (Auto) 0.01, Basophils # (Auto) 0.03 04/25/17 19:53 Test 04/25/17 19:40 04/25/17 19:53 Urine Color YELLOW Urine Appearance CLEAR (CLEAR) Urine pH 7.0 (4.5-7.5) Urine Specific [place] 1.010 (1.000-1.030) Urine Protein NEG (NEG) Urine Glucose (UA) NEG (NEG) Urine Ketones NEG (NEG) Urine Occult Blood NEG (NEG) Urine Nitrite NEG (NEG) Urine Bilirubin NEG (NEG) Urine Urobilinogen NEG (NEG) Urine Leukocyte Esterase NEG (NEG) Urine Opiates Screen NEG (NEG) Urine Methadone, Qualitative NEG (NEG) Urine Barbiturates NEG (NEG) Urine Phencyclidine (PCP) Level NEG (NEG) Ur Amphetamine/Methamphetamine NEG (NEG) MDMA (Ecstasy) Screen NEG (NEG) Urine Benzodiazepines Screen NEG (NEG) Urine Cocaine Metabolite NEG (NEG) Urine Marijuana (THC) NEG (NEG) White Blood Count 5.66 K/uL (4.8-10.8) Red Blood Count 5.25 M/uL (4.7-6.1) Hemoglobin 15.2 g/dL (14.0-18.0) Hematocrit 44.0 % (42-52) Mean Corpuscular Volume 83.8 fL (80-100) Mean Corpuscular Hemoglobin 29.0 pg (25-34) Mean Corpuscular Hemoglobin Concent 34.5 g/dl (32-36) Platelet Count 192 K/uL (130-400) Mean Platelet Volume 11.2 fL (7.4-10.4) Neutrophils (%) (Auto) 61.6 % Lymphocytes (%) (Auto) 31.8 % Monocytes (%) (Auto) 5.7 % Eosinophils (%) (Auto) 0.2 % Basophils (%) (Auto) 0.5 % Neutrophils # (Auto) 3.49 K/uL (1.4-6.5) Lymphocytes # (Auto) 1.80 K/uL (1.2-3.4) Monocytes # (Auto) 0.32 K/uL (0.11-0.59) Eosinophils # (Auto) 0.01 K/uL (0-0.5) Basophils # (Auto) 0.03 K/uL (0-0.2) RDW Standard Deviation 37.6 fL (36.4-46.3) RDW Coefficient of Variation 12.5 % (11.5-14.5) Immature Granulocyte % (Auto) 0.2 % Immature Granulocyte # (Auto) 0.01 K/uL (0.00-0.02) Anion Gap 4.0 mmol/L (3-11) Est Creatinine Clear Calc Drug Dose 85.1 ml/min Estimated GFR () 98.2 Estimated GFR (Non- 84.7 BUN/Creatinine Ratio 10.8 (10-20) Calcium Level 9.3 mg/dl (8.5-10.1) Total Bilirubin 0.7 mg/dl (0.2-1) Direct Bilirubin 0.1 mg/dl (0-0.2) Aspartate Amino Transf (AST/SGOT) 9 U/L (15-37) Alanine Aminotransferase (ALT/SGPT) 14 U/L (12-78) Alkaline Phosphatase 114 U/L (45-117) Total Protein 7.6 gm/dl (6.4-8.2) Albumin 4.4 gm/dl (3.4-5.0) Globulin 3.2 gm/dl (2.5-4.0) Albumin/Globulin Ratio 1.4 (0.9-2) Thyroid Stimulating Hormone (TSH) 0.987 uIu/ml (0.300-4.500) Ethyl Alcohol mg/dL < 3.0 mg/dl (0-3) Laboratory results reviewed by id ED Course 1922: The patient was evaluated in room A7. A complete history and physical exam was performed. 1999: I checked on the patient. 2044: I reevaluated the patient. Discussed results and discharge instructions: He verbalized understanding and agreement. The patient is ready for discharge. Medical Decision I reviewed the patient's past medical history, medications, and the nursing notes as described above. Differentials include: worsening depression, aggression, psychosis, electrolyte abnormality, and dehydration. The patient is a 36-year-old gentleman with a past medical history of anxiety and depression resist emergency department with worsening depression and aggressive thoughts although denies SI or HI per history of present illness. Arrival patient is in no acute distress, afebrile with stable vital signs. Patient has a flat affect but otherwise denies SI or HI. Exam otherwise unremarkable. Patient is medically cleared and evaluated by psychiatric liaison who confirms that the patient has substantial community resources, including living in a intermediate with psychiatric support. Thus, considering there are no concerns for self harm to self or others it is reasonable to discharge the patient with close follow-up with his providers. Medication Reconcilliation Current Medication List: was personally reviewed by me Blood Pressure Screening Patient's blood pressure: Normal blood pressure Impression Primary Impression: Depression Additional Impression: Aggression Scribe Attestation The scribe's documentation has been prepared under my direction and personally reviewed by me in its entirety. I confirm that the note above accurately reflects all work, treatment, procedures, and medical decision making performed by me. Departure Information Dispostion Home / Self-Care Referrals No Doctor, Assigned (PCP) Forms HOME CARE DOCUMENTATION FORM, IMPORTANT VISIT INFORMATION Patient Instructions Depression Help Tips, My [facility] Additional Instructions Please follow up with your psychiatrist on Friday for re-evaluation. Our psychiatry team did not think he needed admission at this time given you have ample community resources. Your exam and lab results did not show signs of an emergent condition at this time. Return to the emergency department for worsening symptoms as described in the accompanying instructions. Problem Qualifiers
[2017-04-25 20:04] LABS: MANUAL MICROSCOPIC REQUIRED? NO; REVIEW REQ? NO; URINE APPEARANCE CLEAR (CLEAR); URINE BILIRUBIN NEG (NEG); URINE COLOR YELLOW; URINE NITRITE NEG (NEG); UROBILINOGEN NEG (NEG)
[2017-04-25 20:12] LABS: BASO % 0.5 %; BASO ABS # 0.03 K/uL (0-0.2); COMPLETE YES; EOS % 0.2 %; IG% 0.2 %; LYMPH % 31.8 %; MEAN CELL VOLUME 83.8 fL (80-100); MEAN CORPUSCULAR HGB CONC 34.5 g/dl (32-36); MEAN PLATELET VOLUME 11.2 fL (7.4-10.4); MONO % 5.7 %; NEUT % 61.6 %; PLATELET COUNT 192 K/uL (130-400); RED BLOOD COUNT 5.25 M/uL (4.7-6.1); WHITE BLOOD COUNT 5.66 K/uL (4.8-10.8)
[2017-04-25 20:32] LABS: BENZODIAZEPINE, URINE NEG (NEG); COCAINE,URINE NEG (NEG); PHENCYCLIDINE, URINE NEG (NEG)
[2017-04-25 20:34] LABS: BUN/CREATININE RATIO 10.8 (10-20); CALCIUM 9.3 mg/dl (8.5-10.1); CREATININE 1.1 mg/dl (0.60-1.40)
[2017-04-25 20:44] LABS: ALB/GLOB RATIO 1.4 (0.9-2); THYROID STIMULATING HORMONE 0.987 uIu/ml (0.300-4.500)
[2017-04-25 20:52] VITALS: BP 132/89; PULSE 90; O2SAT 99
[2017-04-25] MEDS ORDERED: ZYP5 PO (21:59)
[2017-04-25] MEDS ORDERED: LAMO25TA PO (22:43)
== END 2017-04-25 20:53 | disposition home or self-care (01) ==
LOC: C.EDB 19:07 → C.EDA 20:53
DX: F32.9 Major depressive disorder, single episode, unspecified (principal); F91.8 Other conduct disorders; F41.9 Anxiety disorder, unspecified; J45.909 Unspecified asthma, uncomplicated; F79 Unspecified intellectual disabilities; F25.9 Schizoaffective disorder, unspecified; G40.909 Epilepsy, unspecified, not intractable, without status epilepticus; F10.10 Alcohol abuse, uncomplicated; F12.90 Cannabis use, unspecified, uncomplicated; Z83.3 Family history of diabetes mellitus; Z82.49 Family history of ischemic heart disease and other diseases of the circulatory system; Z82.3 Family history of stroke; Z83.49 Family history of other endocrine, nutritional and metabolic diseases

== ENCOUNTER 2017-05-08 18:22 | Emergency (ER) | payer OTHER ==
[~2017-05-08] VITALS: Ht 172.7 cm; Wt 65.8 kg
[~2017-05-08 18:22] MED LIST changes: +LAMO25TA PO; +PROP20TA67 PO; +QUET1TAB10 PO; -TRAZ1TAB5 PO
[2017-05-08 18:23] VITALS: TEMP 36.3; Ht 172.7 cm; Wt 65.8 kg
[2017-05-08] MEDS ORDERED: PROPRANOLOL HCL 10 MG TAB PO ONE (18:45)
[2017-05-08 19:02] LABS: MANUAL MICROSCOPIC REQUIRED? NO; REVIEW REQ? NO; URINE APPEARANCE CLEAR (CLEAR); URINE COLOR DK YELLOW; URINE NITRITE NEG (NEG); URINE SPECIFIC GRAVITY 1.029 (1.000-1.030); UROBILINOGEN NEG (NEG)
[2017-05-08 19:03] LABS: URINE BILIRUBIN NEG (NEG)
[2017-05-08 19:04] LABS: BASO % 0.6 %; BASO ABS # 0.03 K/uL (0-0.2); COMPLETE YES; HEMATOCRIT 44.1 % (42-52); LYMPH % 37.5 %; MEAN CELL VOLUME 83.2 fL (80-100); MEAN CORPUSCULAR HEMOGLOBIN 29.1 pg (25-34); MEAN CORPUSCULAR HGB CONC 34.9 g/dl (32-36); MONO % 7.3 %; NEUT % 54.6 %; PLATELET COUNT 168 K/uL (130-400); WHITE BLOOD COUNT 5.07 K/uL (4.8-10.8)
[2017-05-08 19:23] LABS: BUN/CREATININE RATIO 11.2 (10-20); CALCIUM 9.2 mg/dl (8.5-10.1)
[2017-05-08 19:34] LABS: THYROID STIMULATING HORMONE 1.97 uIu/ml (0.300-4.500)
[2017-05-08 19:55] LABS: BENZODIAZEPINE, URINE NEG (NEG); COCAINE,URINE NEG (NEG); PHENCYCLIDINE, URINE NEG (NEG)
--- NOTE | 2017-05-08 23:16 | EMERGENCY ROOM VISIT NOTE ---
History Report prepared by Massiel: Boogie Bowden Under the Supervision of: Dr. Gaston Clarke D.O. First contact with patient: 18:28 Chief Complaint: MENTAL HEALTH EVALUATION Stated Complaint: SUICIDAL,DEPRESSION History of Present Illness The patient is a 36 year old male who presents to the Emergency Room for a mental health evaluation. He has a past medical history of anxiety and depression. He states that recently he has been feeling unstable. He is currently on Propranolol, but notes that he does not want to take it anymore. He says he just wants to "be normal again." He has been having suicidal thoughts without a plan. He states that he "just wants to ." He did take his morning dose of medication, but not his evening. He denies any physical symptoms. She denies any headaches, chest pain, shortness breath, nausea vomiting and diarrhea. Source of History: patient Onset: recently Position: other (Mental Health) Symptom Intensity: moderate Quality: other (SI) Timing: constant Note: He denies any physical symptoms. He denies any plan. Review of Systems See HPI for pertinent positives & negatives. A total of 10 systems reviewed and were otherwise negative. Past Medical & Surgical Medical Problems: (1) ANXIETY STATE NOS (2) Asthma (3) Auditory hallucinations (4) Depression (5) Dyspnea (6) Dyspnea (7) Exposure to chemical inhalation (8) Exposure to chemical inhalation (9) Intellectual disability (10) Schizoaffective disorder (11) Seizure (12) Seizure disorder Social History Problems: (1) Alcohol abuse (2) Alcohol abuse Family History Cancer FH: diabetes mellitus FH: hypertension FH: lupus FH: pneumonia FH: stroke High cholesterol Social History Smoking Status: Never Smoker Alcohol Use: occasionally Drug Use: marijuana Marital Status: single Housing Status: lives alone Occupation Status: disabled Current/Historical Medications Scheduled Lamotrigine (Lamictal), 200 MG PO QAM Lamotrigine (Lamictal), 25 MG PO HS Propranolol (Inderal), 20 MG PO BID Allergies Coded Allergies: Amoxicillin (Verified Allergy, Severe, HIVES,SEIZURE ACTIVITY. N/V, ) Bacitracin (Verified Adverse Reaction, Mild, unknown, 05/08/17) Neomycin (Verified Adverse Reaction, Mild, unknown, 05/08/17) Polymyxin B (Verified Adverse Reaction, Mild, unknown, 05/08/17) Physical Exam Vital Signs Date Time Temp Pulse Resp B/P (MAP) Pulse Ox O2 Delivery O2 Flow Rate FiO2 05/08/17 21:49 78 18 114/64 100 Room Air 05/08/17 18:23 36.3 88 18 134/87 98 Room Air Physical Exam GENERAL: Sitting up in bed, alert, cachectic appearing, malnourished, no distress, non-toxic EYE EXAM: normal conjunctiva OROPHARYNX: no exudate, no erythema, lips, buccal mucosa, and tongue normal and mucous membranes are moist NECK: supple, no nuchal rigidity, no adenopathy, non-tender LUNGS: Clear to auscultation. Normal chest wall mechanics HEART: no murmurs, S1 normal and S2 normal ABDOMEN: abdomen soft, non-tender, normo-active bowel sounds, no masses, no rebound or guarding. BACK: Back is symmetrical on inspection and there is no deformity, no midline tenderness, no CVA tenderness. SKIN: no rashes and no bruising UPPER EXTREMITIES: upper extremities are grossly normal. LOWER EXTREMITIES: No pitting edema. NEURO EXAM: Normal sensorium, cranial nerves II-XII grossly intact, normal speech, no gross weakness of arms, no gross weakness of legs. PSYCH EXAM: Depressed affect. Admits wanting to and having thoughts of killing himself. Medical Decision & Procedures Laboratory Results 05/08/17 18:42 Red Blood Count 5.30, Mean Corpuscular Volume 83.2, Mean Corpuscular Hemoglobin 29.1, Mean Corpuscular Hemoglobin Concent 34.9, Mean Platelet Volume 12.0, Neutrophils (%) (Auto) 54.6, Lymphocytes (%) (Auto) 37.5, Monocytes (%) (Auto) 7.3, Eosinophils (%) (Auto) 0.0, Basophils (%) (Auto) 0.6, Neutrophils # (Auto) 2.77, Lymphocytes # (Auto) 1.90, Monocytes # (Auto) 0.37, Eosinophils # (Auto) 0.00, Basophils # (Auto) 0.03 05/08/17 18:42 Test 05/08/17 18:36 05/08/17 18:42 05/08/17 19:20 Urine Color DK YELLOW Urine Appearance CLEAR (CLEAR) Urine pH 6.0 (4.5-7.5) Urine Specific [place] 1.029 (1.000-1.030) Urine Protein 1+ (NEG) Urine Glucose (UA) NEG (NEG) Urine Ketones TRACE (NEG) Urine Occult Blood NEG (NEG) Urine Nitrite NEG (NEG) Urine Bilirubin NEG (NEG) Urine Urobilinogen NEG (NEG) Urine Leukocyte Esterase NEG (NEG) Urine WBC (Auto) 1-5 /hpf (0-5) Urine RBC (Auto) 0-4 /hpf (0-4) Urine Hyaline Casts (Auto) 5-10 /lpf (0-5) Urine Epithelial Cells (Auto) 10-20 /lpf (0-5) Urine Bacteria (Auto) NEG (NEG) White Blood Count 5.07 K/uL (4.8-10.8) Red Blood Count 5.30 M/uL (4.7-6.1) Hemoglobin 15.4 g/dL (14.0-18.0) Hematocrit 44.1 % (42-52) Mean Corpuscular Volume 83.2 fL (80-100) Mean Corpuscular Hemoglobin 29.1 pg (25-34) Mean Corpuscular Hemoglobin Concent 34.9 g/dl (32-36) Platelet Count 168 K/uL (130-400) Mean Platelet Volume 12.0 fL (7.4-10.4) Neutrophils (%) (Auto) 54.6 % Lymphocytes (%) (Auto) 37.5 % Monocytes (%) (Auto) 7.3 % Eosinophils (%) (Auto) 0.0 % Basophils (%) (Auto) 0.6 % Neutrophils # (Auto) 2.77 K/uL (1.4-6.5) Lymphocytes # (Auto) 1.90 K/uL (1.2-3.4) Monocytes # (Auto) 0.37 K/uL (0.11-0.59) Eosinophils # (Auto) 0.00 K/uL (0-0.5) Basophils # (Auto) 0.03 K/uL (0-0.2) RDW Standard Deviation 37.9 fL (36.4-46.3) RDW Coefficient of Variation 12.7 % (11.5-14.5) Immature Granulocyte % (Auto) 0.0 % Immature Granulocyte # (Auto) 0.00 K/uL (0.00-0.02) Anion Gap 4.0 mmol/L (3-11) Est Creatinine Clear Calc Drug Dose 93.2 ml/min Estimated GFR () 110.2 Estimated GFR (Non- 95.1 BUN/Creatinine Ratio 11.2 (10-20) Calcium Level 9.2 mg/dl (8.5-10.1) Total Bilirubin 0.8 mg/dl (0.2-1) Direct Bilirubin 0.2 mg/dl (0-0.2) Aspartate Amino Transf (AST/SGOT) 11 U/L (15-37) Alanine Aminotransferase (ALT/SGPT) 18 U/L (12-78) Alkaline Phosphatase 108 U/L (45-117) Total Protein 7.4 gm/dl (6.4-8.2) Albumin 4.4 gm/dl (3.4-5.0) Thyroid Stimulating Hormone (TSH) 1.970 uIu/ml (0.300-4.500) Ethyl Alcohol mg/dL < 3.0 mg/dl (0-3) Urine Opiates Screen NEG (NEG) Urine Methadone, Qualitative NEG (NEG) Urine Barbiturates NEG (NEG) Urine Phencyclidine (PCP) Level NEG (NEG) Ur Amphetamine/Methamphetamine NEG (NEG) MDMA (Ecstasy) Screen NEG (NEG) Urine Benzodiazepines Screen NEG (NEG) Urine Cocaine Metabolite NEG (NEG) Urine Marijuana (THC) NEG (NEG) Laboratory results per my review. Medications Administered Medications (Trade) Dose Ordered Sig/Darren Route Start Time Stop Time Status Last Admin Dose Admin Propranolol HCl (Inderal Tab) 20 mg NOW ONCE PO 05/08/17 18:45 05/08/17 18:46 DC 05/08/17 18:55 20 MG ED Course ED COURSE: Vital signs were reviewed and showed normal vitals. The patients medical record was reviewed The above diagnostic studies were performed and reviewed. ED treatments and interventions as stated above. 1827: The patient was evaluated in room A7. A complete history and physical examination was performed. 1844: Ordered Inderal Tab 20 mg PO 5: I updated the patient at this time. His placement is pending. 0: The patient was signed out to Dr. Keller at the change in shifts. Medical Decision Differential diagnosis: Etiologies such as mood disorder, infection, hypoglycemia, electrolyte abnormalities, cardiac sources, intracerebral event, toxicologic, neurologic, as well as others were entertained. Patient is a 36-year-old male who presents to the ER as he no longer wants to live and wants to . He does not currently have a plan on how he would kill himself but is having suicidal thoughts. He stopped taking his propranolol earlier today because he did not want to take it anymore. CBC all BMP, LFTs, bilirubin and TSH were unremarkable. Tox including alcohol and UA were unremarkable. Patient resting comfortably in the ER. He did take his propranolol as it is previously prescribed. He is agreeable to come in on 201. Feel this is very reasonable as he is having thoughts of wanting to end his life and has no desire left to live. He does have a history of depression and schizoaffective disorder. He also has a history of seizures and was agreeable to taking his Lamictal as he requested it tonight. Patient will be evaluated by our 3 S. liaison. Patient was signed out to Dr. Keller awaiting evaluation. Medication Reconcilliation Current Medication List: was personally reviewed by me Blood Pressure Screening Patient's blood pressure: Normal blood pressure Blood pressure disposition: Did not require urgent referral Impression Primary Impression: Suicidal ideation Additional Impression: Mood disorder Scribe Attestation The scribe's documentation has been prepared under my direction and personally reviewed by me in its entirety. I confirm that the note above accurately reflects all work, treatment, procedures, and medical decision making performed by me. Departure Information Dispostion Still a Patient Referrals No Doctor, Assigned (PCP) Forms HOME CARE DOCUMENTATION FORM, IMPORTANT VISIT INFORMATION Patient Instructions My [facility] Problem Qualifiers
[2017-05-08] MEDS ORDERED: NICOTINE POLACRILEX 2 MG GUM ONE (23:19)
[2017-05-09] MEDS: NICOTINE POLACRILEX 2 MG GUM MT PRN ×2 (00:01→01:42)
[2017-05-09 01:43] VITALS: BP 134/88; PULSE 73; O2SAT 99
--- NOTE | 2017-05-09 01:48 | EMERGENCY ROOM VISIT NOTE ---
ED Visit Note First contact with patient: 01:43 This patient was signed out to me at change of shift awaiting inpatient voluntary admission to a psychiatric facility. The patient has been accepted at the [facility] and will be transported there shortly. He is signing himself in voluntarily.
== END 2017-05-09 02:25 ==
LOC: C.EDB 18:23 → C.EDA 05-09 02:25
DX: R45.851 Suicidal ideations (principal); F39 Unspecified mood [affective] disorder; J45.909 Unspecified asthma, uncomplicated; G40.909 Epilepsy, unspecified, not intractable, without status epilepticus; Z83.3 Family history of diabetes mellitus; Z82.49 Family history of ischemic heart disease and other diseases of the circulatory system; Z82.3 Family history of stroke; Z83.49 Family history of other endocrine, nutritional and metabolic diseases; Z83.6 Family history of other diseases of the respiratory system; Z82.69 Family history of other diseases of the musculoskeletal system and connective tissue; Z79.899 Other long term (current) drug therapy

== ENCOUNTER → 2017-06-18 | Outpatient (CLI) | payer OTHER ==
[~2017-06-18] MED LIST changes: -QUET1TAB10 PO
[2017-06-18 16:38] LABS: BASO % 0.4 %; BASO ABS # 0.02 K/uL (0-0.2); COMPLETE YES; EOS % 0.2 %; HEMATOCRIT 41.5 % (42-52); LYMPH % 40.3 %; LYMPH ABS # 1.92 K/uL (1.2-3.4); MEAN CELL VOLUME 83.5 fL (80-100); MEAN CORPUSCULAR HEMOGLOBIN 28.2 pg (25-34); MEAN CORPUSCULAR HGB CONC 33.7 g/dl (32-36); MEAN PLATELET VOLUME 11.6 fL (7.4-10.4); MONO % 7.3 %; NEUT % 51.8 %; PLATELET COUNT 200 K/uL (130-400); RED BLOOD COUNT 4.97 M/uL (4.7-6.1); WHITE BLOOD COUNT 4.77 K/uL (4.8-10.8)
[2017-06-18 16:56] LABS: ALT/SGPT 15 U/L (12-78); BLOOD UREA NITROGEN 12 mg/dl (7-18); BUN/CREATININE RATIO 11.5 (10-20); CALCIUM 9.1 mg/dl (8.5-10.1); CARBON DIOXIDE 27 mmol/L (21-32); CHLORIDE 106 mmol/L (98-107); CREATININE 1.08 mg/dl (0.60-1.40); GLUCOSE 122 mg/dl (70-99); SODIUM 139 mmol/L (136-145)
[2017-06-18 16:59] LABS: ALB/GLOB RATIO 1.5 (0.9-2); ALKALINE PHOSPHATASE 92 U/L (45-117); AST/SGOT 8 U/L (15-37)
== END | disposition home or self-care (01) ==
LOC: C.LAB 15:12
PROVIDERS: ATTEND Physician Assistant
DX: Z79.899 Other long term (current) drug therapy (principal)

== ENCOUNTER 2017-06-26 12:47 | Emergency (ER) | payer OTHER ==
[~2017-06-26] VITALS: Ht 167.6 cm; Wt 63.6 kg
[2017-06-26 12:54] VITALS: TEMP 36.3; Ht 167.6 cm; Wt 63.6 kg
[2017-06-26] MEDS ORDERED: NICOTINE POLACRILEX 2 MG GUM MT STA (13:16)
[2017-06-26 13:23] LABS: URINE APPEARANCE CLEAR (CLEAR); URINE BILIRUBIN NEG (NEG); URINE COLOR YELLOW; URINE NITRITE NEG (NEG); URINE SPECIFIC GRAVITY 1.009 (1.000-1.030); UROBILINOGEN NEG (NEG); ZZUR CULT IF INDIC CLEAN CATCH NO
--- NOTE | 2017-06-26 13:24 | EMERGENCY ROOM VISIT NOTE ---
History Report prepared by Massiel: Meredith Bowden Under the Supervision of: Dr. Odell Cardona M.D. First contact with patient: 13:08 Chief Complaint: MENTAL HEALTH EVALUATION Stated Complaint: HAVING THOUGHTS OF WANTING TO , MED CHANGE History of Present Illness The patient is a 36 year old male who presents to the Emergency Room for a mental health evaluation. He has a history of suicidal ideations in the past with associated self cutting. Since yesterday, he has had thoughts of wanting to harm himself by cutting and is seeking help. When he was an inpatient at [place] last month, he had a medication change. His new medication was supposed to help him gain weight, but he has been experiencing weight loss instead. This has caused him a moderate amount of stress, which brought on these feelings. He denies any history of trying to hurt himself in any other way. He notes that he saw a primary care physician this morning for his abdominal pains and weight loss. He denies any homicidal ideation or hallucinations. Source of History: patient Onset: Yesterday Position: other (Mental Health) Symptom Intensity: moderate Quality: other (SI) Timing: constant Note: He has a suicidal ideation with a plan to self-cut. He denies any homicidal ideation or hallucinations. Review of Systems See HPI for pertinent positives & negatives. A total of 10 systems reviewed and were otherwise negative. Past Medical & Surgical Medical Problems: (1) ANXIETY STATE NOS (2) Asthma (3) Auditory hallucinations (4) Depression (5) Dyspnea (6) Dyspnea (7) Exposure to chemical inhalation (8) Exposure to chemical inhalation (9) Intellectual disability (10) Schizoaffective disorder (11) Seizure (12) Seizure disorder Social History Problems: (1) Alcohol abuse (2) Alcohol abuse Family History Cancer FH: diabetes mellitus FH: hypertension FH: lupus FH: pneumonia FH: stroke High cholesterol Social History Smoking Status: Never Smoker Alcohol Use: occasionally Drug Use: marijuana Marital Status: single Housing Status: lives alone Occupation Status: disabled Current/Historical Medications Scheduled Lamotrigine (Lamictal), 200 MG PO QAM Lamotrigine (Lamictal), 25 MG PO HS Perphenazine (Trilafon), 4 MG PO BID Propranolol (Inderal), 20 MG PO BID Allergies Coded Allergies: Amoxicillin (Verified Allergy, Severe, HIVES,SEIZURE ACTIVITY. N/V, ) Bacitracin (Verified Adverse Reaction, Mild, unknown, 06/26/17) Neomycin (Verified Adverse Reaction, Mild, unknown, 06/26/17) Polymyxin B (Verified Adverse Reaction, Mild, unknown, 06/26/17) Physical Exam Vital Signs Date Time Temp Pulse Resp B/P (MAP) Pulse Ox O2 Delivery O2 Flow Rate FiO2 06/26/17 14:27 83 14 129/81 100 Room Air 06/26/17 12:54 36.3 85 18 139/84 99 Room Air Physical Exam GENERAL: Patient is in no acute distress. HEENT: No acute trauma, normocephalic atraumatic, mucous membranes dry, no nasal congestion, no scleral icterus. NECK: No stridor, no adenopathy, no meningismus, trachea is midline. LUNGS: Clear to auscultation bilaterally, no wheeze, no rhonchi, breath sounds equal. HEART: Without murmurs gallops or rubs, regular rate and rhythm. ABDOMEN: Soft, nontender, bowel sounds positive, no hernias, no peritonitis. EXTREMITIES: No cyanosis or edema, full range of motion of all the joints without pain or difficulty, no signs for acute trauma. NEUROLOGIC: Oriented x 3, no acute motor or sensory deficits, no focal weakness. SKIN: No rash, no jaundice, no diaphoresis. PSYCHOLOGIC: Cooperative and voluntary. Admits to suicidal ideation and the urge to self-cut. Medical Decision & Procedures Laboratory Results 06/26/17 13:41 06/26/17 13:41 Test 06/26/17 13:08 06/26/17 13:41 Urine Color YELLOW Urine Appearance CLEAR (CLEAR) Urine pH 6.0 (4.5-7.5) Urine Specific [place] 1.009 (1.000-1.030) Urine Protein NEG (NEG) Urine Glucose (UA) NEG (NEG) Urine Ketones NEG (NEG) Urine Occult Blood NEG (NEG) Urine Nitrite NEG (NEG) Urine Bilirubin NEG (NEG) Urine Urobilinogen NEG (NEG) Urine Leukocyte Esterase NEG (NEG) Urine Opiates Screen NEG (NEG) Urine Methadone, Qualitative NEG (NEG) Urine Barbiturates NEG (NEG) Urine Phencyclidine (PCP) Level NEG (NEG) Ur Amphetamine/Methamphetamine NEG (NEG) MDMA (Ecstasy) Screen NEG (NEG) Urine Benzodiazepines Screen NEG (NEG) Urine Cocaine Metabolite NEG (NEG) Urine Marijuana (THC) NEG (NEG) Red Blood Count 5.10 M/uL (4.7-6.1) Mean Corpuscular Volume 85.3 fL (80-100) Mean Corpuscular Hemoglobin 29.4 pg (25-34) Mean Corpuscular Hemoglobin Concent 34.5 g/dl (32-36) RDW Standard Deviation 39.2 fL (36.4-46.3) RDW Coefficient of Variation 12.7 % (11.5-14.5) Mean Platelet Volume 11.1 fL (7.4-10.4) Anion Gap 7.0 mmol/L (3-11) Est Creatinine Clear Calc Drug Dose 85.8 ml/min Estimated GFR () 103.9 Estimated GFR (Non- 89.6 BUN/Creatinine Ratio 10.6 (10-20) Calcium Level 9.8 mg/dl (8.5-10.1) Total Bilirubin 0.8 mg/dl (0.2-1) Aspartate Amino Transf (AST/SGOT) 12 U/L (15-37) Alanine Aminotransferase (ALT/SGPT) 20 U/L (12-78) Alkaline Phosphatase 104 U/L (45-117) Total Protein 7.9 gm/dl (6.4-8.2) Albumin 4.6 gm/dl (3.4-5.0) Globulin 3.3 gm/dl (2.5-4.0) Albumin/Globulin Ratio 1.4 (0.9-2) Thyroid Stimulating Hormone (TSH) 1.980 uIu/ml (0.300-4.500) Salicylates Level < 1.7 mg/dl (2.8-20) Acetaminophen Level < 2 ug/ml (10-30) Ethyl Alcohol mg/dL < 3.0 mg/dl (0-3) Laboratory results reviewed by me. Medications Administered Medications (Trade) Dose Ordered Sig/Darren Route Start Time Stop Time Status Last Admin Dose Admin Nicotine Polacrilex (Nicorette 2MG Gum) 1 piece NOW STAT MT 06/26/17 13:16 06/26/17 13:21 DC 06/26/17 13:47 1 PIECE ED Course 1308: The patient was evaluated in room A7. A complete history and physical exam was performed. 1316: Ordered Nicotine Polacrilex 1 piece MT 1458: Reevaluated the patient. He does not meet criteria for further inpatient mental health treatment. He currently has a supervised living situation and will be followed up closely by his patient case coordinator. Discussed results and discharge instructions: He verbalized understanding and agreement. The patient is ready for discharge. Medical Decision Differential diagnosis includes but is not limited to drug and alcohol abuse, medication noncompliance, suicidal ideation, thyroid disorder, and electrolyte abnormality. There is no leukocytosis or concerning anemia. No significant electrolyte abnormality, kidney failure or hepatitis. The patient appears to be in a euthyroid state. Urinalysis does not show infection. Urine tox is unremarkable. Aspirin, Tylenol and alcohol levels are undetectable. The patient presents with some suicidal ideation. He states that he does not really have access to knives as he is in a assisted. He does have thoughts though about wanting to cut himself. The patient was felt medically clear. He was seen by psychiatry case management. The patient's personal patient case coordinator was also involved. At this point, the patient does not meet criteria for an inpatient psychiatric stay. It was felt that this could be managed as an outpatient through the assisted. The patient was agreeable. He was discharged and encouraged to return if feeling worse. Medication Reconcilliation Current Medication List: was personally reviewed by me Blood Pressure Screening Patient's blood pressure: Elevated blood pressure Blood pressure disposition: Elevated BP felt to be situational Impression Primary Impression: Suicidal ideation Scribe Attestation The scribe's documentation has been prepared under my direction and personally reviewed by me in its entirety. I confirm that the note above accurately reflects all work, treatment, procedures, and medical decision making performed by me. Departure Information Dispostion Home / Self-Care Referrals Aranza Go M.D. Forms HOME CARE DOCUMENTATION FORM, IMPORTANT VISIT INFORMATION Patient Instructions My [facility] Additional Instructions all meds the same for now return for worsening symptoms or if feeling more suicidal follow the instructions of the staff at your [facility]
[2017-06-26 13:29] LABS: MANUAL MICROSCOPIC REQUIRED? NO; REVIEW REQ? NO
[2017-06-26 14:03] LABS: BENZODIAZEPINE, URINE NEG (NEG); COCAINE,URINE NEG (NEG); PHENCYCLIDINE, URINE NEG (NEG)
[2017-06-26 14:07] LABS: HEMATOCRIT 43.5 % (42-52); MEAN CELL VOLUME 85.3 fL (80-100); MEAN CORPUSCULAR HEMOGLOBIN 29.4 pg (25-34); MEAN CORPUSCULAR HGB CONC 34.5 g/dl (32-36); MEAN PLATELET VOLUME 11.1 fL (7.4-10.4); PLATELET COUNT 192 K/uL (130-400); WHITE BLOOD COUNT 5.12 K/uL (4.8-10.8)
[2017-06-26] MEDS ORDERED: PERP4TAB37 PO (14:12)
[2017-06-26 14:25] LABS: BUN/CREATININE RATIO 10.6 (10-20); CALCIUM 9.8 mg/dl (8.5-10.1); CREATININE 1.05 mg/dl (0.60-1.40); POTASSIUM 4.7 mmol/L (3.5-5.1)
[2017-06-26 14:27] VITALS: BP 129/81; PULSE 83; O2SAT 100
[2017-06-26 14:30] LABS: ACETAMINOPHEN < 2 ug/ml (10-30)
[2017-06-26 14:36] LABS: ALB/GLOB RATIO 1.4 (0.9-2); THYROID STIMULATING HORMONE 1.98 uIu/ml (0.300-4.500)
== END 2017-06-26 15:08 | disposition home or self-care (01) ==
LOC: C.EDB 12:49 → C.EDA 15:08
DX: R45.851 Suicidal ideations (principal); F41.9 Anxiety disorder, unspecified; F32.9 Major depressive disorder, single episode, unspecified; J45.909 Unspecified asthma, uncomplicated; F79 Unspecified intellectual disabilities; F25.9 Schizoaffective disorder, unspecified; G40.909 Epilepsy, unspecified, not intractable, without status epilepticus; F10.10 Alcohol abuse, uncomplicated; F12.10 Cannabis abuse, uncomplicated; Z91.5 Personal history of self-harm; Z83.3 Family history of diabetes mellitus; Z82.49 Family history of ischemic heart disease and other diseases of the circulatory system; Z83.49 Family history of other endocrine, nutritional and metabolic diseases; Z82.3 Family history of stroke

== ENCOUNTER → 2017-09-19 | Outpatient (CLI) | payer OTHER ==
[~2017-09-19] MED LIST changes: +LAMO200T35 PO; -LAMO200T38 PO; +PERP4TAB37 PO
[2017-09-19 12:25] LABS: BASO % 0.6 %; BASO ABS # 0.03 K/uL (0-0.2); EOS % 0.4 %; EOS ABS # 0.02 K/uL (0-0.5); HEMATOCRIT 42.9 % (42-52); HEMOGLOBIN 14.8 g/dL (14.0-18.0); IG# 0.01 K/uL (0.00-0.02); LYMPH % 39.4 %; LYMPH ABS # 1.95 K/uL (1.2-3.4); MEAN CELL VOLUME 84.8 fL (80-100); MEAN CORPUSCULAR HEMOGLOBIN 29.2 pg (25-34); MEAN CORPUSCULAR HGB CONC 34.5 g/dl (32-36); MEAN PLATELET VOLUME 10.9 fL (7.4-10.4); MONO % 8.3 %; MONO ABS # 0.41 K/uL (0.11-0.59); NEUT % 51.1 %; NEUT ABS # 2.53 K/uL (1.4-6.5); PLATELET COUNT 216 K/uL (130-400); RED CELL DISTRIBUTION WIDTH CV 12.6 % (11.5-14.5); RED CELL DISTRIBUTION WIDTH SD 37.8 fL (36.4-46.3); WHITE BLOOD COUNT 4.95 K/uL (4.8-10.8)
[2017-09-19 12:57] LABS: HEMOGLOBIN A1C 5.1 % (4.5-5.6)
[2017-09-19 13:00] LABS: ALBUMIN 4.2 gm/dl (3.4-5.0); ALT/SGPT 17 U/L (12-78); AST/SGOT 10 U/L (15-37); BLOOD UREA NITROGEN 14 mg/dl (7-18); CALCIUM 9.3 mg/dl (8.5-10.1); CARBON DIOXIDE 30 mmol/L (21-32); CREATININE 1.03 mg/dl (0.60-1.40); GLUCOSE 107 mg/dl (70-99); POTASSIUM 4.4 mmol/L (3.5-5.1); SODIUM 137 mmol/L (136-145)
[2017-09-19 13:08] LABS: ALKALINE PHOSPHATASE 93 U/L (45-117); CHOLESTEROL 173 mg/dl (0-200); LDL CHOLESTEROL CALCULATED 109 mg/dl; TOTAL PROTEIN 7.3 gm/dl (6.4-8.2)
== END | disposition home or self-care (01) ==
LOC: C.LAB 11:51
PROVIDERS: ATTEND Physician Assistant
DX: Z51.81 Encounter for therapeutic drug level monitoring (principal); Z79.899 Other long term (current) drug therapy

== ENCOUNTER 2017-11-12 13:11 | Emergency (ER) | payer OTHER ==
[~2017-11-12] VITALS: Ht 170.2 cm; Wt 60.0 kg
[2017-11-12 13:25] VITALS: TEMP 36.5; Ht 170.2 cm; Wt 60.0 kg
--- NOTE | 2017-11-12 13:30 | EMERGENCY ROOM VISIT NOTE ---
History Report prepared by Massiel: Vj Hines Under the Supervision of: Dr. Odell Cardona M.D. First contact with patient: 13:20 History of Present Illness The patient is a 37 year old male with a history of schizo-affective disorder, depression, and anxiety who presents to the Emergency Room with complaints of worsening depression over the past 3 days. He has a history of cutting himself, and today he cut himself with a pocket knife on the left forearm. The patient states that his depression "fluctuates", and there have not been any recent stressors that would have caused this worsening depression. He says that he takes medications for depression, and has been taking them as he should be. The patient notes that he has been hospitalized for mental health in the past, and he wants to be kept in the hospital currently for his worsening depression. He says that he is not homicidal or truly suicidal, and denies hearing voices. He states that he does want to hurt himself however. The patient notes that his tetanus shot is up-to-date. He adds that his disease case manager rn suggested that he come here today. Source of History: patient, nursing staff Onset: Over past 3 days Position: other (global) Symptom Intensity: cut himself on left forearm Quality: other (depression) Timing: worsening Note: Associated symptoms: Denies true suicidality or homicidal ideations. No recent stressors. Review of Systems See HPI for pertinent positives & negatives. A total of 10 systems reviewed and were otherwise negative. Past Medical & Surgical Medical Problems: (1) ANXIETY STATE NOS (2) Asthma (3) Auditory hallucinations (4) Depression (5) Dyspnea (6) Dyspnea (7) Exposure to chemical inhalation (8) Exposure to chemical inhalation (9) Intellectual disability (10) Schizoaffective disorder (11) Seizure (12) Seizure disorder Social History Problems: (1) Alcohol abuse (2) Alcohol abuse Family History Cancer FH: diabetes mellitus FH: hypertension FH: lupus FH: pneumonia FH: stroke High cholesterol Social History Smoking Status: Never Smoker Alcohol Use: occasionally Drug Use: marijuana Marital Status: single Housing Status: lives alone Occupation Status: disabled Current/Historical Medications Scheduled Lamotrigine (Lamictal), 200 MG PO QAM Lamotrigine (Lamictal), 25 MG PO HS Perphenazine (Trilafon), 8 MG PO QAM Propranolol (Inderal), 10 MG PO BID Allergies Coded Allergies: Amoxicillin (Verified Allergy, Severe, HIVES,SEIZURE ACTIVITY. N/V, ) Bacitracin (Verified Adverse Reaction, Mild, unknown, 06/26/17) Neomycin (Verified Adverse Reaction, Mild, unknown, 06/26/17) Polymyxin B (Verified Adverse Reaction, Mild, unknown, 06/26/17) Physical Exam Vital Signs Date Time Temp Pulse Resp B/P (MAP) Pulse Ox O2 Delivery O2 Flow Rate FiO2 11/12/17 18:30 82 14 111/73 100 Room Air 11/12/17 15:33 70 14 118/88 99 Room Air 11/12/17 14:58 63 20 111/78 98 11/12/17 13:25 36.5 84 20 129/88 100 Room Air Physical Exam GENERAL: Patient is in no acute distress. HEENT: No acute trauma, normocephalic atraumatic, mucous membranes moist, no nasal congestion, no scleral icterus. NECK: No stridor, no adenopathy, no meningismus, trachea is midline. LUNGS: Clear to auscultation bilaterally, no wheeze, no rhonchi, breath sounds equal. HEART: Without murmurs gallops or rubs, regular rate and rhythm. ABDOMEN: Soft, nontender, bowel sounds positive, no hernias, no peritonitis. EXTREMITIES: No edema. Several superficial laceration to the left volar wrist. No signs of infection. No suturing required. NEUROLOGIC: Oriented x 3, no acute motor or sensory deficits, no focal weakness. SKIN: No rash, no jaundice, no diaphoresis. PSYCH: Flat affect. Denies suicidal ideation, but admits to wanting to hurt himself. He is voluntary. Medical Decision & Procedures Laboratory Results 11/12/17 13:54 11/12/17 13:54 Test 11/12/17 13:34 11/12/17 13:54 Urine Color YELLOW Urine Appearance CLEAR (CLEAR) Urine pH 6.0 (4.5-7.5) Urine Specific Kenneth >= 1.030 (1.000-1.030) Urine Protein NEG (NEG) Urine Glucose (UA) NEG (NEG) Urine Ketones NEG (NEG) Urine Occult Blood NEG (NEG) Urine Nitrite NEG (NEG) Urine Bilirubin NEG (NEG) Urine Urobilinogen NEG (NEG) Urine Leukocyte Esterase NEG (NEG) Urine Opiates Screen NEG (NEG) Urine Methadone, Qualitative NEG (NEG) Urine Barbiturates NEG (NEG) Urine Phencyclidine (PCP) Level NEG (NEG) Ur Amphetamine/Methamphetamine NEG (NEG) MDMA (Ecstasy) Screen NEG (NEG) Urine Benzodiazepines Screen NEG (NEG) Urine Cocaine Metabolite NEG (NEG) Urine Marijuana (THC) NEG (NEG) Red Blood Count 5.08 M/uL (4.7-6.1) Mean Corpuscular Volume 84.3 fL (80-100) Mean Corpuscular Hemoglobin 29.5 pg (25-34) Mean Corpuscular Hemoglobin Concent 35.0 g/dl (32-36) RDW Standard Deviation 37.9 fL (36.4-46.3) RDW Coefficient of Variation 12.3 % (11.5-14.5) Mean Platelet Volume 10.6 fL (7.4-10.4) Anion Gap 3.0 mmol/L (3-11) Est Creatinine Clear Calc Drug Dose 77.9 ml/min Estimated GFR () 99.7 Estimated GFR (Non- 86.0 BUN/Creatinine Ratio 8.1 (10-20) Calcium Level 9.2 mg/dl (8.5-10.1) Total Bilirubin 0.8 mg/dl (0.2-1) Aspartate Amino Transf (AST/SGOT) 9 U/L (15-37) Alanine Aminotransferase (ALT/SGPT) 15 U/L (12-78) Alkaline Phosphatase 94 U/L (45-117) Total Protein 7.2 gm/dl (6.4-8.2) Albumin 4.2 gm/dl (3.4-5.0) Globulin 3.0 gm/dl (2.5-4.0) Albumin/Globulin Ratio 1.4 (0.9-2) Thyroid Stimulating Hormone (TSH) 1.110 uIu/ml (0.300-4.500) Salicylates Level < 1.7 mg/dl (2.8-20) Acetaminophen Level < 2 ug/ml (10-30) Ethyl Alcohol mg/dL < 3.0 mg/dl (0-3) Laboratory results reviewed by me. Medications Administered Medications (Trade) Dose Ordered Sig/Darren Route Start Time Stop Time Status Last Admin Dose Admin Nicotine (Nicoderm Cq 21MG Patch) 1 patch NOW STAT EXT 11/12/17 14:40 11/12/17 14:41 DC 11/12/17 14:59 1 PATCH Nicotine Polacrilex (Nicorette 2MG Gum) 1 piece STK-MED ONCE .ROUTE 11/12/17 16:20 11/12/17 16:21 DC 11/12/17 16:22 1 PIECE ED Course 1322: The patient was evaluated in room A6. A complete history and physical exam was performed. 1750: I was notified by the psych disease case manager rn that the patient is going to the [facility]. The patient is agreeable with this plan. Medical Decision Differential diagnosis includes but is not limited to medication noncompliance, alcohol or drug abuse, thyroid disorder, electrolyte imbalance, suicidal ideation. There is no leukocytosis or concerning anemia. No significant electrolyte abnormality, kidney failure or hepatitis. The patient appears to be in a euthyroid state. Urinalysis does not show infection. Urine tox in is negative. Aspirin and Tylenol levels are undetectable, alcohol level is undetectable. The patient presents with self cutting. He does feel depressed. He wants to harm himself but is not truly suicidal. The patient was felt medically clear, he was seen by psychiatry case management. The patient is being transferred to the [facility] for an inpatient voluntary stay. The paperwork for transfer was signed. The patient has been cooperative during his stay. He required a nicotine patch and some nicotine gum. Medication Reconcilliation Current Medication List: was personally reviewed by me Blood Pressure Screening Patient's blood pressure: Normal blood pressure Impression Primary Impression: Depression Additional Impression: Self-mutilation Scribe Attestation The scribe's documentation has been prepared under my direction and personally reviewed by me in its entirety. I confirm that the note above accurately reflects all work, treatment, procedures, and medical decision making performed by me. Departure Information Dispostion Mental Health Acute Care (to [facility]) Referrals Aranza Go M.D. (PCP) Problem Qualifiers Primary Impression: Depression Depression Type: unspecified Qualified Codes: F32.9 - Major depressive disorder, single episode, unspecified
[2017-11-12 14:07] LABS: HEMATOCRIT 42.8 % (42-52); MEAN CELL VOLUME 84.3 fL (80-100); MEAN CORPUSCULAR HEMOGLOBIN 29.5 pg (25-34); MEAN PLATELET VOLUME 10.6 fL (7.4-10.4); PLATELET COUNT 182 K/uL (130-400); RED CELL DISTRIBUTION WIDTH CV 12.3 % (11.5-14.5); RED CELL DISTRIBUTION WIDTH SD 37.9 fL (36.4-46.3); WHITE BLOOD COUNT 4.78 K/uL (4.8-10.8)
[2017-11-12 14:28] LABS: ALBUMIN 4.2 gm/dl (3.4-5.0); CALCIUM 9.2 mg/dl (8.5-10.1); CREATININE 1.08 mg/dl (0.60-1.40); POTASSIUM 4.1 mmol/L (3.5-5.1)
[2017-11-12 14:38] LABS: TOTAL PROTEIN 7.2 gm/dl (6.4-8.2)
[2017-11-12] MEDS ORDERED: NICOTINE 21 MG/24 HR TDSY EXT STA (14:40)
[2017-11-12] MEDS ORDERED: NICOTINE POLACRILEX 2 MG GUM ONE (16:20)
[2017-11-12 18:30] VITALS: BP 111/73; PULSE 82; O2SAT 100
== END 2017-11-12 18:40 ==
LOC: EDBD 13:11 → C.EDA 13:12
DX: F32.9 Major depressive disorder, single episode, unspecified (principal); Z91.5 Personal history of self-harm; J45.909 Unspecified asthma, uncomplicated; Z88.1 Allergy status to other antibiotic agents; Z88.8 Allergy status to other drugs, medicaments and biological substances

== ENCOUNTER 2017-11-29 23:12 | Emergency (ER) | payer OTHER ==
[~2017-11-29] VITALS: Ht 167.6 cm; Wt 61.0 kg
[2017-11-29 23:17] VITALS: TEMP 36.6; Ht 167.6 cm; Wt 61.0 kg
[2017-11-29] MEDS ORDERED: LIDOCAINE/EPINEPHRINE 1% 20 ML VIAL INFIL ONE (23:45)
--- NOTE | 2017-11-29 23:47 | EMERGENCY ROOM VISIT NOTE ---
History Report prepared by Massiel: Manolo Schmidt Under the Supervision of: Dr. Mark Peace M.D. First contact with patient: 23:36 Chief Complaint: MENTAL HEALTH EVALUATION Stated Complaint: LACERATION TO LEFT FOREARM History of Present Illness The patient is a 37 year old male who presents to the Emergency Room with complaints of a cut to the left forearm that occurred prior to arrival. The patient states he just got out of the [facility] five days ago. He reports she was feeling suicidal today at home, cut his forearm with a knife, and came into the ED. The patient notes he currently is not suicidal, but he cannot guarantee he will remain this way if he goes home. He states he is not taking his medication as prescribed. The patient reports he lives in an apartment by himself. He notes he did not eat today because he forgot to. The patient states his tetanus shot is up to date. He denies alcohol use, drug use, homicidal ideation, and hallucinations. Source of History: patient Onset: [employer] Position: arm (left forearm) Quality: other (cut) Note: Associated symptoms: suicidal ideations at the time of the cut Denies: HI, current SI, hallucinations, alcohol use, drug use Review of Systems See HPI for pertinent positives & negatives. A total of 10 systems reviewed and were otherwise negative. Past Medical & Surgical Medical Problems: (1) ANXIETY STATE NOS (2) Asthma (3) Auditory hallucinations (4) Depression (5) Dyspnea (6) Dyspnea (7) Exposure to chemical inhalation (8) Exposure to chemical inhalation (9) Intellectual disability (10) Schizoaffective disorder (11) Seizure (12) Seizure disorder Social History Problems: (1) Alcohol abuse (2) Alcohol abuse Family History Cancer FH: diabetes mellitus FH: hypertension FH: lupus FH: pneumonia FH: stroke High cholesterol Social History Smoking Status: Never Smoker Alcohol Use: occasionally Drug Use: marijuana Marital Status: single Housing Status: lives alone Occupation Status: disabled Current/Historical Medications Scheduled Lamotrigine (Lamictal), 200 MG PO QAM Lamotrigine (Lamictal), 25 MG PO HS Perphenazine (Trilafon), 8 MG PO QAM Propranolol (Inderal), 10 MG PO BID Allergies Coded Allergies: Amoxicillin (Verified Allergy, Severe, HIVES,SEIZURE ACTIVITY. N/V, 11/29/17 ) Bacitracin (Verified Adverse Reaction, Mild, unknown, 11/29/17) Neomycin (Verified Adverse Reaction, Mild, unknown, 11/29/17) Polymyxin B (Verified Adverse Reaction, Mild, unknown, 11/29/17) Physical Exam Vital Signs Date Time Temp Pulse Resp B/P (MAP) Pulse Ox O2 Delivery O2 Flow Rate FiO2 11/30/17 01:01 82 17 127/82 98 Room Air 11/29/17 23:17 36.6 106 18 127/88 97 Room Air Physical Exam GENERAL: Patient is depressed appearing and in minimal distress. Mildly anxious. EYES: No scleral icterus, unremarkable pupils. ENT: Mucous membranes moist, no nasal congestion. NECK: No masses appreciated, no meningismus, trachea is midline. RESPIRATORY: No dyspnea. Clear to auscultation and equal bilaterally. No wheeze , no rhonchi. CARDIOVASCULAR: Regular rate and rhythm. No murmurs, rubs, gallops appreciated. GASTROINTESTINAL: Abdomen soft, nontender, no peritonitis. Bowel sounds positive. No masses appreciated. BACK: No midline tenderness, no CVA tenderness EXTREMITIES: Normal motion all extremities, no cyanosis, no edema. 4cm horizontal laceration to the mid-forearm down to the fascia. No deep tissue injury. NVI distally. Movement intact. NEUROLOGIC: Alert and oriented, no acute motor or sensory deficits, no focal weakness, cranial nerves grossly intact. SKIN: No rash, no jaundice, no diaphoresis. Heavily tattooed. PSYCH: Admits to SI. Denies HI, hallucinations. Flat affect. Depressed appearing. Medical Decision & Procedures Laboratory Results 11/29/17 23:52 Red Blood Count 4.43, Mean Corpuscular Volume 83.7, Mean Corpuscular Hemoglobin 29.6, Mean Corpuscular Hemoglobin Concent 35.3, Mean Platelet Volume 10.1, Neutrophils (%) (Auto) 58.9, Lymphocytes (%) (Auto) 31.8, Monocytes (%) (Auto) 8.0, Eosinophils (%) (Auto) 0.8, Basophils (%) (Auto) 0.3, Neutrophils # (Auto) 3.67, Lymphocytes # (Auto) 1.98, Monocytes # (Auto) 0.50, Eosinophils # (Auto) 0.05, Basophils # (Auto) 0.02 11/29/17 23:52 Test 11/29/17 23:30 11/29/17 23:52 Urine Color DK YELLOW Urine Appearance CLEAR (CLEAR) Urine pH 5.5 (4.5-7.5) Urine Specific [place] 1.032 (1.000-1.030) Urine Protein NEG (NEG) Urine Glucose (UA) NEG (NEG) Urine Ketones NEG (NEG) Urine Occult Blood NEG (NEG) Urine Nitrite NEG (NEG) Urine Bilirubin NEG (NEG) Urine Urobilinogen NEG (NEG) Urine Leukocyte Esterase NEG (NEG) Urine Opiates Screen NEG (NEG) Urine Methadone, Qualitative NEG (NEG) Urine Barbiturates NEG (NEG) Urine Phencyclidine (PCP) Level NEG (NEG) Ur Amphetamine/Methamphetamine NEG (NEG) MDMA (Ecstasy) Screen NEG (NEG) Urine Benzodiazepines Screen NEG (NEG) Urine Cocaine Metabolite NEG (NEG) Urine Marijuana (THC) NEG (NEG) White Blood Count 6.23 K/uL (4.8-10.8) Red Blood Count 4.43 M/uL (4.7-6.1) Hemoglobin 13.1 g/dL (14.0-18.0) Hematocrit 37.1 % (42-52) Mean Corpuscular Volume 83.7 fL (80-100) Mean Corpuscular Hemoglobin 29.6 pg (25-34) Mean Corpuscular Hemoglobin Concent 35.3 g/dl (32-36) Platelet Count 194 K/uL (130-400) Mean Platelet Volume 10.1 fL (7.4-10.4) Neutrophils (%) (Auto) 58.9 % Lymphocytes (%) (Auto) 31.8 % Monocytes (%) (Auto) 8.0 % Eosinophils (%) (Auto) 0.8 % Basophils (%) (Auto) 0.3 % Neutrophils # (Auto) 3.67 K/uL (1.4-6.5) Lymphocytes # (Auto) 1.98 K/uL (1.2-3.4) Monocytes # (Auto) 0.50 K/uL (0.11-0.59) Eosinophils # (Auto) 0.05 K/uL (0-0.5) Basophils # (Auto) 0.02 K/uL (0-0.2) RDW Standard Deviation 37.7 fL (36.4-46.3) RDW Coefficient of Variation 12.3 % (11.5-14.5) Immature Granulocyte % (Auto) 0.2 % Immature Granulocyte # (Auto) 0.01 K/uL (0.00-0.02) Anion Gap 4.0 mmol/L (3-11) Est Creatinine Clear Calc Drug Dose 87.3 ml/min Estimated GFR () 112.1 Estimated GFR (Non- 96.7 BUN/Creatinine Ratio 10.9 (10-20) Calcium Level 8.6 mg/dl (8.5-10.1) Total Bilirubin 0.6 mg/dl (0.2-1) Aspartate Amino Transf (AST/SGOT) 12 U/L (15-37) Alanine Aminotransferase (ALT/SGPT) 19 U/L (12-78) Alkaline Phosphatase 85 U/L (45-117) Total Protein 7.0 gm/dl (6.4-8.2) Albumin 3.8 gm/dl (3.4-5.0) Globulin 3.2 gm/dl (2.5-4.0) Albumin/Globulin Ratio 1.2 (0.9-2) Thyroid Stimulating Hormone (TSH) 3.360 uIu/ml (0.300-4.500) Salicylates Level < 1.7 mg/dl (2.8-20) Acetaminophen Level < 2 ug/ml (10-30) Ethyl Alcohol mg/dL < 3.0 mg/dl (0-3) Laboratory results as reviewed by me. Medications Administered Medications (Trade) Dose Ordered Sig/Darren Route Start Time Stop Time Status Last Admin Dose Admin Nicotine Polacrilex (Nicorette 2MG Gum) 1 piece Q1H PRN MT 11/30/17 00:30 11/30/17 03:32 DC 11/30/17 01:47 1 PIECE Potassium Chloride (Klor-Con M10) 20 meq STK-MED ONCE .ROUTE 11/30/17 02:16 11/30/17 02:17 DC 11/30/17 02:26 20 MEQ Procedure Location: Left forearm Total length: 4cm Complexity: Simple Verbal consent was obtained after the risks and benefits were explained, including but not limited to bleeding, scarring, infection, pain, and bone/joint /nerve damage. At this time, the risks of the procedure are less than the risks of NOT performing the procedure. A time out was taken and the correct patient and site identified. The skin was prepped with betadine. The target area was anesthetized with 3 ml of 1% lidocaine without epinephrine. Copious irrigation was performed using betadine and normal saline. The skin was re-prepped with betadine and a sterile field set. The wound was explored for foreign bodies and none found. Examination revealed no injury to deep structures such as tendons, bone, or significant blood vessels. Debridement was not performed. The wound edges were approximated using 10, 4-0 simple interrupted nylon sutures. Hemostasis and excellent approximation was achieved. Antibacterial ointment and a sterile dressing applied. Detailed wound care instructions and signs and symptoms of infection reviewed with the patient. No complications and the patient tolerated the procedure well. ED Course 2339: The patient was evaluated in room A06. A complete history and physical exam was performed. 0034: I reevaluated the patient and performed a laceration repair. Please refer to the procedure note for more information. 0055: The psychiatric counseling case manager is attempting to make referrals. 0114: The patient was accepted at [facility]. 0217: [facility] requested the patient receive potassium before transfer. Medical Decision Differential: Mood Disorder, Overdose, Infectious, Electrolyte Abnormality, Cardiac, Hepatic, Endocrine, Toxicologic, Neurologic, amongst other pathologies entertained. Well known 37 yr old male with long history of psychiatric illness arrives with worsening thoughts of harm to self with self-inflicted laceration left forearm. No deep structures nor neuro vascular injured. Sutured by me. Wound care explained and need for sutures out in 7-10 days explained. Patient makes clear he can no contract for safety and feels he is at high risk of harming self if he goes home. Medically clear. Accepted to [place] and will be transferred there for further treatment. Medication Reconcilliation Current Medication List: was personally reviewed by me Blood Pressure Screening Patient's blood pressure: Normal blood pressure Blood pressure disposition: Did not require urgent referral Impression Primary Impression: Suicidal ideation Additional Impressions: Self-mutilation Deliberate self-cutting Scribe Attestation The scribe's documentation has been prepared under my direction and personally reviewed by me in its entirety. I confirm that the note above accurately reflects all work, treatment, procedures, and medical decision making performed by me. Departure Information Dispostion Mental Health Acute Care Referrals Jamel Louis M.D. (PCP) Patient Instructions My [facility] Problem Qualifiers
[2017-11-30 00:12] LABS: BASO % 0.3 %; BASO ABS # 0.02 K/uL (0-0.2); EOS % 0.8 %; EOS ABS # 0.05 K/uL (0-0.5); HEMATOCRIT 37.1 % (42-52); HEMOGLOBIN 13.1 g/dL (14.0-18.0); IG# 0.01 K/uL (0.00-0.02); LYMPH % 31.8 %; LYMPH ABS # 1.98 K/uL (1.2-3.4); MEAN CELL VOLUME 83.7 fL (80-100); MEAN CORPUSCULAR HEMOGLOBIN 29.6 pg (25-34); MEAN CORPUSCULAR HGB CONC 35.3 g/dl (32-36); MEAN PLATELET VOLUME 10.1 fL (7.4-10.4); NEUT % 58.9 %; NEUT ABS # 3.67 K/uL (1.4-6.5); PLATELET COUNT 194 K/uL (130-400); RED CELL DISTRIBUTION WIDTH CV 12.3 % (11.5-14.5); RED CELL DISTRIBUTION WIDTH SD 37.7 fL (36.4-46.3); WHITE BLOOD COUNT 6.23 K/uL (4.8-10.8)
[2017-11-30 00:30] LABS: ALBUMIN 3.8 gm/dl (3.4-5.0); CALCIUM 8.6 mg/dl (8.5-10.1); CREATININE 0.98 mg/dl (0.60-1.40); POTASSIUM 3.2 mmol/L (3.5-5.1)
[2017-11-30] MEDS: NICOTINE POLACRILEX 2 MG GUM MT PRN ×2 (00:31→01:47)
[2017-11-30 01:01] VITALS: BP 127/82; PULSE 82; O2SAT 98
[2017-11-30] MEDS ORDERED: POTASSIUM CHLORIDE 20 MEQ TABCR PO STA (02:13)
[2017-11-30] MEDS ORDERED: POTASSIUM CHLORIDE 10 MEQ TABCR ONE (02:16)
== END 2017-11-30 03:19 ==
LOC: C.EDB 23:14 → C.EDA 11-30 03:19
DX: S51.812A Laceration without foreign body of left forearm, initial encounter (principal); R45.851 Suicidal ideations; G40.909 Epilepsy, unspecified, not intractable, without status epilepticus; J45.909 Unspecified asthma, uncomplicated; Z79.899 Other long term (current) drug therapy; Z88.1 Allergy status to other antibiotic agents; Z88.8 Allergy status to other drugs, medicaments and biological substances; X78.1XXA Intentional self-harm by knife, initial encounter

== ENCOUNTER 2019-10-09 00:34 | Inpatient (IN) ==
[2019-10-09 01:03] LABS: Appearance Urine Clear (Clear); Bilirubin Urine Negative (Negative); Blood Urine Negative (Negative); Color Urine Yellow; Glucose Urine UA Negative (Negative); Ketones Urine Negative (Negative); Leukocyte Esterase Urine Negative (Negative); Nitrite Urine Negative (Negative); Protein Urine Negative (Negative); Specific Gravity Urine 1.031 (1.000-1.030); Urobilinogen Urine Negative (Negative); pH Urine 5.5 (4.5-7.5)
[2019-10-09 01:21] LABS: Amphetamines+Metham, Urine Neg (Neg); Barbiturates, Urine Neg (Neg); Benzodiazepine, Urine Neg (Neg); Cocaine, Urine Neg (Neg); MDMA (Ecstacy), Urine Neg (Neg); Methadone, Urine Neg (Neg); Opiate, Urine Neg (Neg); Phencyclidine, Urine Neg (Neg)
[2019-10-09 01:34] LABS: Basophils # (auto) 0.03 K/uL (0-0.2); Basophils % (auto) 0.5 %; Eosinophils # (auto) 0.05 K/uL (0-0.5); Eosinophils % (auto) 0.9 %; Hematocrit (blood only) 40.6 % (42-52); Hemoglobin 13.7 g/dL (14.0-18.0); Immature Granulocytes # (auto) 0.02 K/uL (0.00-0.02); Immature Granulocytes % (auto) 0.3 %; Lymphocytes % (auto) 39.2 %; Mean Corpuscular Hemoglobin 29.7 pg (25-34); Mean Corpuscular Hgb Conc 33.7 g/dL (32-36); Mean Corpuscular Volume 88.1 fL (80-100); Mean Platelet Volume 10.8 fL (7.4-10.4); Monocytes % (auto) 6.8 %; Neutrophils # (auto) 3.06 K/uL (1.4-6.5); Neutrophils % (auto) 52.3 %; Platelet Count 201 K/uL (130-400); RDW Coefficient of Variation 12.7 % (11.5-14.5); RDW Standard Deviation 40.6 fL (36.4-46.3); Red Blood Count 4.61 M/uL (4.7-6.1); White Blood Count 5.86 K/uL (4.8-10.8)
--- NOTE | 2019-10-09 01:39 | Emergency Department Note ---
ED Provider Note NAME: ALBAN DHILLON AGE: 39 SEX: M ARRIVES VIA: Walk-In INFORMANT: [Patient] ED PROVIDER(S): [Claudia Keller, ] CHIEF COMPLAINT: Thoughts of self-harm IMPRESSION: Suicidal PLAN: Disposition: [Admitted to [facility].] Condition: [Good] MEDICAL DECISION MAKING: This is a 39-year-old male patient with a history of schizoaffective disorder and depression who presents to the emergency department of thoughts of wanting to cut himself. The patient has recently become homeless and is living at the senior care. He has had increased thoughts of wanting to cut himself. He shared these thoughts with friends and they encouraged him to seek treatment. The patient was medically cleared here in the emergency department. He was evalu ated by the ED psychiatric therapeutic case manager. He explained that he gave his pocket knife away to a friend for safekeeping because he was afraid that he was going to use it to cut himself. The patient was evaluated by staff from [facility]. and he was accepted onto their unit. Triage Nursing notes reviewed and agree them. [Prior medical records reviewed Vital Signs: reviewed and were unremarkable Differential diagnosis: Mood disorder, thought disorder, suicidal ideation, thoughts of self-harm, Diagnostics interpreted by me: ECG: [none] Cardiac Monitoring: [none] Laboratory studies: [See below] Consultation(s): ED psychiatric therapeutic case manager HPI:This is a 39 year old male patient who presents to the emergency department tonight having thoughts of wanting to cut himself. The patient states that he feels hopeless. He states that "he is about to crack." He describes feeling very depressed because he recently became homeless. He was living with a friend but was told that he had to leave because he was not on the lease. He gave his knife to a friend because he was afraid that he was going to use it to cut himself. He is currently living in a senior care. He complains of a headache for which she is requesting ibuprofen. He has recently increased his use of marijuana to self medicate. ROS: See above HPI for pertinent positives & negatives. A total of [10] systems reviewed and were otherwise negative. PAST MEDICAL HISTORY:[See Below] PAST SURGICAL HISTORY:[See Below] FAMILY HISTORY:[See Below] SOCIAL HISTORY:[See Below] HOME MEDICATIONS:[See Below] ALLERGIES:[See Below] VITALS:[See Below] PHYSICAL EXAMINATION: HEENT: Head - normocephalic and atraumatic Pupils are equal, round, and reactive to light. Extraocular eye muscles are intact, and sclera are anicteric. Nose - moist nasal mucosa without discharge. Mouth - moist buccal mucosa. Oropharynx is nonerythematous and there is no tonsillar exudate or edema noted. Neck: Supple; no cervical lymphadenopathy Heart: Regular rate and rhythm. There is a normal S1 and S2 with no murmurs, clicks, or gallops appreciated. Lungs: Clear to auscultation bilaterally with no wheezes, rales, or rhonchi. Abdomen: Soft, completely nontender, nondistended, with good bowel sounds. There are no palpable pulsatile masses or hepatosplenomegaly. There is no guarding, rigidity, or rebound noted. Extremities: No evidence of cyanosis, clubbing, or edema. There are easily pal pable peripheral pulses. Skin: Multiple tattoos; no obvious signs of self-mutilation Psych: The patient appears to be depressed. He has an extremely flat affect. He does describe thoughts of wanting to cut himself. ED COURSE: 1:22 the patient was evaluated in room A5. A complete history and physical was performed. Labs were drawn as above. 1:35 the patient was evaluated by the ED psychiatric therapeutic case manager. 2:45: The patient was thought to be medically cleared 3:05: a referral was made to [facility]. Procedures: [none] Impression & Plan Thoughts of self harm Past Med/Surg History Social History Preferred Language: Bolivian Communication Ability: Effective Visual Impairment: No Limitations Hearing Ability: Normal Beliefs That Will Affect Care: None marital status: Single Current Living Situation: Alone current occupational status: disabled Feels Safe at Home: Yes Smoking Status: Never smoker Tobacco Type: smokeless tobacco ; Hx Alcohol Use: Yes Hx Substance Use: No Childhood Exposure to Second-Hand Smoke: Yes Dental Care, Regularly: No Physical Activity Frequency: Daily Seatbelt Use: always Sunscreen Use: No Results & Data Vital Signs Vital Signs - 24 hr 10/09/19 00:38 10/09/19 03:36 Temperature 36.4 C L Temperature Source Oral Pulse Rate 91 H Pulse Rate [Finger] 75 Respiratory Rate 18 18 Respiratory Depth Normal Blood Pressure 132/86 Blood Pressure [Left Arm] 116/71 Blood Pressure Mean 101 Blood Pressure Mean [Left Arm] 86 Pulse Oximetry 100 98 Oxygen Delivery Method Room Air Room Air Sepsis Recent Fever Within 48 Hours No Sepsis New/Unexplained Change in Mental Status No Sepsis Action Taken by Nursing No Action Required Laboratory Data Result diagrams: 10/09/19 01:17 10/09/19 01:17 Lab Results 10/09/19 10/09/19 10/09/19 Range/Units 00:55 00:55 01:17 WBC 5.86 (4.8-10.8) K/uL RBC 4.61 L (4.7-6.1) M/uL Hgb 13.7 L (14.0-18.0) g/dL Hct 40.6 L (42-52) % MCV 88.1 (80-100) fL MCH 29.7 (25-34) pg MCHC 33.7 (32-36) g/dL RDW Std Deviation 40.6 (36.4-46.3) fL RDW Coeff of Izzy 12.7 (11.5-14.5) % Plt Count 201 (130-400) K/uL MPV 10.8 H (7.4-10.4) fL Immature Gran % (Auto) 0.3 % Neut % (Auto) 52.3 % Lymph % (Auto) 39.2 % [place] % (Auto) 6.8 % Eos % (Auto) 0.9 % Baso % (Auto) 0.5 % Immature Gran # (Auto) 0.02 (0.00-0.02) K/uL Neut # (Auto) 3.06 (1.4-6.5) K/uL Lymph # (Auto) 2.30 (1.2-3.4) K/uL [place] # (Auto) 0.40 (0.11-0.59) K/uL Eos # (Auto) 0.05 (0-0.5) K/uL Baso # (Auto) 0.03 (0-0.2) K/uL Sodium (136-145) mmol/L Potassium (3.5-5.1) mmol/L Chloride (98-107) mmol/L Carbon Dioxide (21-32) mmol/L Anion Gap (3-11) BUN (7-18) mg/dl Creatinine (0.6-1.4) mg/dl Est Cr Clr Drug Dosing ml/min Est GFR ( Amer) Est GFR (Non-Af Amer) BUN/Creatinine Ratio (10-20) Glucose (70-99) mg/dl Calcium (8.5-10.1) mg/dl Total Bilirubin (0.2-1) mg/dl AST (15-37) U/L ALT (12-78) U/L Alkaline Phosphatase (45-117) U/L Total Protein (6.4-8.2) gm/dl Albumin (3.4-5.0) gm/dl Globulin (2.5-4.0) gm/dl Albumin/Globulin Ratio (0.9-2) TSH (0.300-4.500) uIu/ml Urine Color Yellow Urine Appearance Clear (Clear) Urine pH 5.5 (4.5-7.5) Ur Specific [place] 1.031 H (1.000-1.030) Urine Protein Negative (Negative) Urine Glucose (UA) Negative (Negative) Urine Ketones Negative (Negative) Urine Blood Negative (Negative) Urine Nitrite Negative (Negative) Urine Bilirubin Negative (Negative) Urine Urobilinogen Negative (Negative) Ur Leukocyte Esterase Negative (Negative) Salicylates (2.8-20) mg/dl Urine Opiates Screen Neg (Neg) Ur Methadone, Qual Neg (Neg) Acetaminophen (10-30) ug/ml Urine Barbiturates Neg (Neg) Ur Phencyclidine (PCP) Neg (Neg) U Amphetamin/Meth Scrn Neg (Neg) MDMA (Ecstasy) Screen Neg (Neg) U Benzodiazepines Scrn Neg (Neg) Ur Cocaine Metabolite Neg (Neg) U Marijuana (THC) Screen Neg (Neg) Ethyl Alcohol mg/dL (0-3) mg/dl 10/09/19 10/09/19 10/09/19 Range/Units 01:17 01:17 01:17 WBC (4.8-10.8) K/uL RBC (4.7-6.1) M/uL Hgb (14.0-18.0) g/dL Hct (42-52) % MCV (80-100) fL MCH (25-34) pg MCHC (32-36) g/dL RDW Std Deviation (36.4-46.3) fL RDW Coeff of Izzy (11.5-14.5) % Plt Count (130-400) K/uL MPV (7.4-10.4) fL Immature Gran % (Auto) % Neut % (Auto) % Lymph % (Auto) % [place] % (Auto) % Eos % (Auto) % Baso % (Auto) % Immature Gran # (Auto) (0.00-0.02) K/uL Neut # (Auto) (1.4-6.5) K/uL Lymph # (Auto) (1.2-3.4) K/uL [place] # (Auto) (0.11-0.59) K/uL Eos # (Auto) (0-0.5) K/uL Baso # (Auto) (0-0.2) K/uL Sodium 140 (136-145) mmol/L Potassium 3.6 (3.5-5.1) mmol/L Chloride 106 (98-107) mmol/L Carbon Dioxide 31 (21-32) mmol/L Anion Gap 3.0 (3-11) BUN 18 (7-18) mg/dl Creatinine 0.92 (0.6-1.4) mg/dl Est Cr Clr Drug Dosing 84.0 ml/min Est GFR ( Amer) 119.3 Est GFR (Non-Af Amer) 102.9 BUN/Creatinine Ratio 20.1 H (10-20) Glucose 71 (70-99) mg/dl Calcium 9.0 (8.5-10.1) mg/dl Total Bilirubin 0.7 (0.2-1) mg/dl AST 7 L (15-37) U/L ALT 20 (12-78) U/L Alkaline Phosphatase 67 (45-117) U/L Total Protein 6.8 (6.4-8.2) gm/dl Albumin 4.1 (3.4-5.0) gm/dl Globulin 2.7 (2.5-4.0) gm/dl Albumin/Globulin Ratio 1.5 (0.9-2) TSH 2.520 (0.300-4.500) uIu/ml Urine Color Urine Appearance (Clear) Urine pH (4.5-7.5) Ur Specific [place] (1.000-1.030) Urine Protein (Negative) Urine Glucose (UA) (Negative) Urine Ketones (Negative) Urine Blood (Negative) Urine Nitrite (Negative) Urine Bilirubin (Negative) Urine Urobilinogen (Negative) Ur Leukocyte Esterase (Negative) Salicylates < 1.7 L (2.8-20) mg/dl Urine Opiates Screen (Neg) Ur Methadone, Qual (Neg) Acetaminophen < 2 L (10-30) ug/ml Urine Barbiturates (Neg) Ur Phencyclidine (PCP) (Neg) U Amphetamin/Meth Scrn (Neg) MDMA (Ecstasy) Screen (Neg) U Benzodiazepines Scrn (Neg) Ur Cocaine Metabolite (Neg) U Marijuana (THC) Screen (Neg) Ethyl Alcohol mg/dL < 3.0 (0-3) mg/dl Administered Medications Discontinued Medications Ibuprofen (Motrin) 600 mg PO NOW STA Stop: 10/09/19 01:46 Last Admin: 10/09/19 02:01 Dose: 600 mg Documented by: [id number] Nicotine Polacrilex (Nicorette 2mg) Confirm Administered Dose 1 piece MT .STK- MED ONE Stop: 10/09/19 02:10 Last Admin: 10/09/19 02:12 Dose: 1 piece Documented by: [id number] Nicotine Polacrilex (Nicorette 2mg) Confirm Administered Dose 1 piece MT .STK- MED ONE Stop: 10/09/19 04:01 Last Admin: 10/09/19 04:02 Dose: 1 piece Documented by: [id number] Discharge Plan Visit Data *Final* Discharge Date/Time: 10/09/19 04:24 Chief Complaint: Mental Health Evaluation Stated Complaint: MHE ED Provider: Claudia Keller Discharge Problem: Thoughts of self harm Patient Disposition: Admitted As Inpatient Discharge Instructions Interventions: ED Discharge Assessment Last Done: 10/09/19 04:24
[2019-10-09] MEDS ORDERED: IBUPROFEN 600 MG TAB PO STA (01:45)
[2019-10-09 01:54] LABS: Albumin Level 4.1 gm/dl (3.4-5.0); BUN Creatinine Ratio 20.1 (10-20); Est GFR (African American) 119.3; Est GFR (Non-African American) 102.9; Potassium 3.6 mmol/L (3.5-5.1)
[2019-10-09 02:04] LABS: Albumin Globulin Ratio 1.5 (0.9-2); Bilirubin,Total 0.7 mg/dl (0.2-1); Globulin 2.7 gm/dl (2.5-4.0); Thyroid Stimulating Hormone 2.52 uIu/ml (0.300-4.500); Total Protein 6.8 gm/dl (6.4-8.2)
[2019-10-09] MEDS ORDERED: NICOTINE POLACRILEX 2 MG GUM MT ONE ×2 (02:09→04:00)
[2019-10-09 02:19] LABS: Acetaminophen < 2 ug/ml (10-30); Salicylate < 1.7 mg/dl (2.8-20)
[2019-10-09] MEDS ORDERED: MAGNESIUM HYDROXIDE SUSP 30 ML UDC PO PRN (04:59)
[2019-10-09] MEDS ORDERED: ALUMINUM/MAGNESIUM SUSP 30 ML UDC PO PRN (04:59)
[2019-10-09] MEDS ORDERED: BISMUTH SUBSALICYLATE PER ML OMNICELL CHARGE PO PRN (04:59)
[2019-10-09] MEDS ORDERED: SODIUM CHLORIDE 0.65% NA SOLN 45 ML (OCEAN) PRN ×2 (04:59→15:45)
[2019-10-09] MEDS ORDERED: ACETAMINOPHEN 325 MG TAB PO PRN (04:59)
[2019-10-09] MEDS: lamoTRIgine 100 MG TAB PO SCH (08:54)
[2019-10-09] MEDS: NICOTINE POLACRILEX 2 MG GUM MT PRN ×3 (15:52→20:13)
--- NOTE | 2019-10-09 17:39 | Psychiatric Consultation ---
Date of Consultation October 09, 2019 Impression / Recommendations Impression schizoaaffecitve d/o and Intecullual disability excerbation of symptoms tied to acute homelessness q15 minute safety checks maintained lamictal 200mg am consider med adjsutment if approapite but reports stability prior to recent homelessness boost supplments added ot diet nicootinue gum added given daily heavy chewing of tobacco ocean nasal spray for nasal congestion family meeting with gf and/or peers support pt not open to psychotherapy referral coordinate with Leena Kelly Pa-C explore housing options (1) Schizoaffective disorder: Schizoaffective disorder type: unspecified Qualified Code(s): F25.9 - Schizoaffective disorder, unspecified Risk Factors Assessment Male: Yes Do You Have Access To A Gun?: No Mental Health Diagnoses: Yes Psych History Chief Complaint "I had thoughts about killing myself with being homeless". History of Present Illness 39 yr old male with schizoaffective disorder and intellecutal disability well known to [facility]. insurance underwriter sales saw him on admission in January 2018. pt reprots one additional admission after that in Spring 2018. Pt has past h/o mutiple admisiso n years past though. Pt was doing quite well per his reprot but became homeles 2 days ago as was living with a peer but not truly on the lease and had to leave that living arragneemnt 2 days ago. He has stayed at a intermediate the one night and has been having SI and thoughts of self cutting to deal with his emotiona tension. HE was also considering cutting his wrist in a suicide attempt and instead gave his knife to people at [facility] and they helped him get to the ER by Taxi. He reprots that his gf is talking to him about exploring options for finding a place to stay in [place]. He has limited money beeween now and the 3rd having spent money on a game system thinking he did not need the money for rent. He chew tobacco about 3 cans a day. He is underwt and limited eating and this is chronic concern and has a provider he sees to try to help him wiht his nutrition. he is open to boost supplementation. He did not eat brekfast nor lunch today per pt but was seen eating crackers immediately after this assessment. He takes lamictal 200mg each morning rx'd by Leena Enrique Pa-C his psychiatric med management provider. He has been on this medicaiton for many years as was dx'd with a sz' disorder with last sz in 1997. He denied manic symptoms or AH or VH or paranoid thinking. pt drinks alcohol a few times a year. he uses cannabis a few times a month. Past Psychiatric History Current Psychiatric Diagnosis: Schizoaffective; Intellectual Disability Outpatient Services: Leena Kelly at [facility] for med management no therapist does have patient case coordinator and peer support Previous Psych Admissions: many over the years, past 2 were 01/2018 at [facility] and Spring 2018 [place] Do You Have Access To A Gun?: No History of Previous Suicide Attempt: No Describe Attempts in the Past: denies prior attempts Past Medication Trials: paxil prozac, zoloft remeron, celexa, cymbalta, seroquel, abilify, zyprexa, risperdal, among others Allergies Allergy/AdvReac Type Severity Reaction Status Date / Time amoxicillin Allergy Severe HIVES,SEIZURE Verified 10/09/19 01:37 ACTIVITY. N/V guaifenesin [From Entex [place]] Allergy Unknown Verified 10/09/19 01:37 phenylephrine [From Entex LA] Allergy Unknown Verified 10/09/19 01:37 phenylpropanolamine Allergy Unknown Verified 10/09/19 01:37 [From Entex LA] bacitracin AdvReac Mild ITCHY Verified 10/09/19 01:37 neomycin AdvReac Mild ITCHY Verified 10/09/19 01:37 polymyxin B AdvReac Mild ITCHY Verified 10/09/19 01:37 Home Medications Home Medications Medication Instructions Recorded Confirmed Type lamotrigine [Lamictal] 200 mg PO DAILY 01/22/19 10/09/19 History sildenafil 25 mg PO DIRECTED PRN MDD 1 tab 10/09/19 10/09/19 History Personal History Living Arrangements: Homeless Beliefs That Will Affect Care: None Additional Comments: gf with notable psychiatric condition who lives with her mother and her child, Patient History Medical History Asthma (Chronic) Depression (Chronic) Intellectual disability (Chronic) Schizoaffective disorder (Chronic) Seizure disorder (Chronic) Surgical History No pertinent past surgical history Family History Father Pancreatic cancer Other Cancer Diabetes Hypertension Stroke Denies family history of Ovarian cancer Prostate cancer Myocardial infarction Breast cancer Social History Preferred Language: Frisian Communication Ability: Effective Visual Impairment: No Limitations Hearing Ability: Normal Beliefs That Will Affect Care: None marital status: Single Current Living Situation: Alone current occupational status: disabled Feels Safe at Home: Yes Smoking Status: Never smoker Tobacco Type: smokeless tobacco ; Hx Alcohol Use: Yes Hx Substance Use: No Childhood Exposure to Second-Hand Smoke: Yes Dental Care, Regularly: No Physical Activity Frequency: Daily Seatbelt Use: always Sunscreen Use: No Physical Exam Vital Signs (Past 24 Hours): Last Vital Signs Temp 36.5 C 10/09/19 05:02 Pulse 80 10/09/19 05:02 Resp 16 10/09/19 05:02 BP 124/76 10/09/19 05:02 Pulse Ox 98 10/09/19 03:36 Review of Systems Constitutional: no fever and no body aches limited sleep once became homeless so slept during today, in general denied fatigue or insomnia Ear, Nose, Mouth, Throat: + nasal congestion and + sinus pain/pressure z pack for 5 days about 2 weeks with symptoms not fully resolved Respiratory: no cough and no dyspnea Cardiovascular: no chest pain and no palpitations Gastrointestinal: no abdominal pain, no heartburn, no vomiting and no change in stools Genitourinary (Male): + erectile dysfunction Musculoskeletal: no problem reported Integumentary: no rash h/o sz d/o last sz 1997 Psychiatric: as per Subjective / HPI low wt chronic , nl tsh, (and h/o nl free t4) Results & Data (PSY) Medications Administered Lamotrigine (Lamictal) 200 mg PO QAM LEONIE Stop: 11/08/19 08:59 Last Admin: 10/09/19 08:54 Dose: 200 mg Documented by: [id number] Nicotine Polacrilex (Nicorette 2mg) 2 piece MT PRN PRN PRN Reason: nicotine craving Stop: 11/08/19 15:45 Last Admin: 10/09/19 15:52 Dose: 2 piece Documented by: [id number] Sodium Chloride ([place] Nasal) 2 sprays NA PRN PRN PRN Reason: Nasal Congestion Stop: 11/08/19 15:44 Last Admin: 10/09/19 16:05 Dose: 2 sprays Documented by: [id number] Coding Diagnoses Schizoaffective disorder F25.9 Schizoaffective disorder type: unspecified
[2019-10-10] MEDS: lamoTRIgine 100 MG TAB PO SCH (08:41)
[2019-10-10] MEDS: NICOTINE POLACRILEX 2 MG GUM MT PRN ×5 (09:00→19:26)
[2019-10-10] MEDS ORDERED: FLUOXETINE HCL 10 MG CAP PO STA (12:13)
--- NOTE | 2019-10-10 15:14 | History & Physical ---
Date of Service October 09, 2019 documentation done on October 09 2019 but title of documentation was accidently psych consult and changed to psych h and p and it cleared out the data entered, had copied data as was concerned this might happened and pasted into correct sections Impression / Recommendations Impression schizoaffective disorder in context of pt with intellectual disorder who is on lamictal for his schizoaffective d/o and for his sz d/o who reprots being stable till neewly homeless few days ago. has a gf and peer support and case maangement and outpt psychiatric provider, not open to psychotherapy appts, and having finicial limitations (1) Schizoaffective disorder: 10/08 q15 minute safety checks with admission to on 201 commitment continue outpt Lamictal dose at 200mg daily pt not open to adjustment to medication or additional antidepressant medication at this time pt not open to psychotherapy referall at this time inpt therapy group and individual miluei therapy coordination with outpt provider family meeting perhaps with gf or with peer support addressing homelessness and his plans for finding a place to live Schizoaffective disorder type: unspecified Qualified Code(s): F25.9 - Schizoaffective disorder, unspecified Present on Admission?: Yes Risk Factors Assessment Male: Yes : Yes Do You Have Access To A Gun?: No Health Problems: Yes Mental Health Diagnoses: Yes Previous Psychiatric Hospitalization: Yes Smoker: No Protective Factors Assessment : No Responsible for Young Children: No Employed: No Psychiatric History Identifying Data ALBAN DHILLON is a 39-year-old M who is currently homeless wihh a h/o schizoaffective disorder and ID,and was admitted on 10/09/19 04:19 on a 201 volu ntary commitment for SI with plans of cutting his wrist Chief Complaint Results & Data (PSY) Medications Administered Lamotrigine (Lamictal) 200 mg PO QAM LEON[facility] Stop: 11/08/19 08:59 Last Admin: 10/09/19 08:54 Dose: 200 mg Documented by: [id number] Nicotine Polacrilex (Nicorette 2mg) 2 piece MT PRN PRN PRN Reason: nicotine craving Stop: 11/08/19 15:45 Last Admin: 10/09/19 15:52 Dose: 2 piece Documented by: [id number] Sodium Chloride ([place] Nasal) 2 sprays NA PRN PRN PRN Reason: Nasal Congestion Stop: 11/08/19 15:44 Last Admin: 10/09/19 16:05 Dose: 2 sprays Documented by: [id number] History of Present Illness 39 yr old male with schizoaffective disorder and intellectual disability well known to [facility]. keno writer / runner saw him on admission in January 2018. pt reports one additional admission after that in Spring 2018. Pt has past h/o multiple admission years past though. Pt was doing quite well per his report but became homeless 2 days ago as was living with a peer but not truly on the lease and had to leave that living arrangement 2 days ago. He has stayed at a fpc the one night and has been having SI and thoughts of self cutting to deal with his emotional tension. HE was also considering cutting his wrist in a suicide attempt and instead gave his knife to people at the [facility] and they helped him get to the ER by Taxi. He reports that his gf is talking to him about exploring options for finding a place to stay in [place]. He has limited money between now and the 3rd having spent money on a game system thinking he did not need the money for rent. He chew tobacco about 3 cans a day. He is under wt and limited eating and this is chronic concern and has a provider he sees to try to help him with his nutrition. he is open to boost supplementation. He did not eat breakfast nor lunch today per pt but was seen eating crackers immediately after this assessment. He takes Lamictal 200mg each morning rx'd by Leena Enrique Pa-C his psychiatric med management provider. He has been on this medication for many years as was dx'd with a sz' disorder with last sz in 1997. He denied manic symptoms or AH or VH or paranoid thinking. pt drinks alcohol a few times a year. he uses cannabis a few times a month. Past Psychiatric History Previous Psych History: Current Psychiatric Diagnosis: Schizoaffective; Intellectual Disability Outpatient Services: Leena Kelly at [facility] for med management no therapist does have case operator and peer support Previous Psych Admissions: many over the years, past 2 were 01/2018 at [facility] and Spring 2018 [place] Do You Have Access To A Gun?: No History of Previous Suicide Attempt: No Describe Attempts in the Past: denies prior attempts Past Medication Trials: paxil prozac, zoloft remeron, celexa, cymbalta, seroquel, abilify, zyprexa, risperdal, among others Allergies Current Psychiatric Diagnosis: Schizoaffective; Intellectual Disability Do You Have Access To A Gun?: No History of Previous Suicide Attempt: No Describe Attempts in the Past: denies prior attempts Past Head Trauma/Neuro History History of Concussion/Seizure: Yes last sz 1997 takes lamictal to help prevent sz Allergies Allergy/AdvReac Type Severity Reaction Status Date / Time amoxicillin Allergy Severe HIVES,SEIZURE Verified 10/09/19 01:37 ACTIVITY. N/V guaifenesin [From Entex LA] Allergy Unknown Verified 10/09/19 01:37 phenylephrine [From Entex LA] Allergy Unknown Verified 10/09/19 01:37 phenylpropanolamine Allergy Unknown Verified 10/09/19 01:37 [From Entex LA] bacitracin AdvReac Mild ITCHY Verified 10/09/19 01:37 neomycin AdvReac Mild ITCHY Verified 10/09/19 01:37 polymyxin B AdvReac Mild ITCHY Verified 10/09/19 01:37 Home Medications Home Medications Medication Instructions Recorded Confirmed Type lamotrigine [Lamictal] 200 mg PO DAILY 01/22/19 10/09/19 History sildenafil 25 mg PO DIRECTED PRN MDD 1 tab 10/09/19 10/09/19 History Family History Family History of: Doesn't Know Family Mental Health History Comment: Father Pancreatic cancer Other Cancer Diabetes Hypertension Stroke Denies family history of Ovarian cancer Prostate cancer Myocardial infarction Breast cancer Alcohol History Hx of Alcohol Use Over the Past 12 Months: No AUDIT Total Score: 0 Smoking Use Have You Smoked or Used Tobacco Products in the Last 30 Days: Yes tobacco type: smokeless tobacco Smoking Status: Never smoker Substance History Hx of Prescription Med Misuse Over the Past 12 Months: No Hx of Over the Counter Med Misuse Over the Past 12 Months: No Hx of Inhalent Misuse Over the Past 12 Months: No Hx of Organic Substance Use Over the Past 12 Months: Yes (Marijuana - occassional - last use 4 days ago) Hx of Illegal Substances/Street Drug Use Over Past 12 Months: No Problems as a Result of Past Substance Use: None Identified Personal History Living Arrangements: Homeless Employment Status: Disabled Beliefs That Will Affect Care: None Current Legal Problems: No Patient History Medical History Asthma (Chronic) Depression (Chronic) Intellectual disability (Chronic) Schizoaffective disorder (Chronic) Seizure disorder (Chronic) Surgical History No pertinent past surgical history Family History Father Pancreatic cancer Other Cancer Diabetes Hypertension Stroke Denies family history of Ovarian cancer Prostate cancer Myocardial infarction Breast cancer Social History Preferred Language: American Communication Ability: Effective Visual Impairment: No Limitations Hearing Ability: Normal Beliefs That Will Affect Care: None marital status: Single Current Living Situation: Alone current occupational status: disabled Feels Safe at Home: Yes Smoking Status: Never smoker Tobacco Type: smokeless tobacco ; Hx Alcohol Use: Yes Hx Substance Use: No Childhood Exposure to Second-Hand Smoke: Yes Dental Care, Regularly: No Physical Activity Frequency: Daily Seatbelt Use: always Sunscreen Use: No Review of Systems Review of Systems: Review of Systems Constitutional: no fever and no body aches limited sleep once became homeless so slept during today, in general denied fatigue or insomnia Ear, Nose, Mouth, Throat: + nasal congestion and + sinus pain/pressure z pack for 5 days about 2 weeks with symptoms not fully resolved Respiratory: no cough and no dyspnea Cardiovascular: no chest pain and no palpitations Gastrointestinal: no abdominal pain, no heartburn, no vomiting and no change in stools Genitourinary (Male): + erectile dysfunction Musculoskeletal: no problem reported Integumentary: no rash h/o sz d/o last 1997 Psychiatric: as per Subjective / HPI low wt chronic , nl tsh, (and h/o nl free t4) Physical Exam Mental Examination: A physical exam was performed in the ER prior to admission to the unit by Dr Keller. I accept that physical as correct/medical clearance for the inpatient physical exam. Psychiatric: Orientation: alert and oriented x 3 Apperance: appropriately dressed and appropriately groomed Eye Contact: good eye contact Motor Behavior: steady gait and station and no abnormal motor movements Speech: normal rate/rhythm/volume of speech Affect: + constricted affect Mood: + depressed mood Thought Process: goal directed thought process, linear/logical thought process and clear/coherent thought process Thought Content: reality based without delusions Suicidal Thoughts: + reports suicidal thoughts and + reports suicidal plan Homicidal Thoughts: denies homicidal thoughts Hallucinations: no auditory hallucinations and no visual hallucinations Cognition: recent memory grossly intact, remote memory grossly intact, attention grossly intact and language grossly intact Estimated Intelligence: + below average estimated intelligence Insight: + fair insight Judgement: + fair judgement Vital Signs (Past 24 Hours): Last Vital Signs Temp 36.6 C 10/10/19 06:35 Pulse 84 10/10/19 06:36 Resp 18 10/10/19 06:35 BP 92/60 L 10/10/19 06:36 Pulse Ox 98 10/09/19 03:36 Results & Data ([facility]) Current Inpatient Medications Current Inpatient Medications: Current Inpatient Medications Acetaminophen (Tylenol) 650 mg PO Q4H PRN PRN Reason: Headache or Minor Fever Stop: 11/08/19 04:58 Al Hydrox/Mg Hydrox/Simethicone (Maalox) 30 ml PO Q4H PRN PRN Reason: GI Upset Stop: 11/08/19 04:58 Bismuth Subsalicylate (Kaopectate) 15 ml PO PRN PRN PRN Reason: Loose Stool Stop: 11/08/19 04:58 Fluoxetine HCl (Prozac) 20 mg PO QAM [facility] Stop: 11/10/19 08:59 Hydroxyzine HCl (Vistaril) 50 mg PO HSZ PRN PRN Reason: Insomnia Stop: 11/08/19 04:58 Hydroxyzine HCl (Vistaril) 25 mg PO Q4H PRN PRN Reason: Anxiety Stop: 11/08/19 04:58 Lamotrigine (Lamictal) 200 mg PO QAM [facility] Stop: 11/08/19 08:59 Last Admin: 10/10/19 08:41 Dose: 200 mg Documented by: Magnesium Hydroxide (Milk Of Magnesia) 30 ml PO DAILY PRN PRN Reason: Constipation Stop: 11/08/19 04:58 Nicotine Polacrilex (Nicorette 2mg) 2 piece MT PRN PRN PRN Reason: nicotine craving Stop: 11/08/19 15:45 Last Admin: 10/10/19 14:09 Dose: 2 piece Documented by: Sodium Chloride ([place] Nasal) 2 sprays NA PRN PRN PRN Reason: Nasal Congestion Stop: 11/08/19 15:44 Last Admin: 10/09/19 16:05 Dose: 2 sprays Documented by:
--- NOTE | 2019-10-10 15:28 | Psychiatric Progress Note ---
Date of Service October 10, 2019 Impression / Recommendations Impression schizoaffective disorder in context of pt with intellectual disorder who is on lamictal for his schizoaffective d/o and for his sz d/o who reprots being stable till neewly homeless few days ago. has a gf and peer support and case maangement and outpt psychiatric provider, not open to psychotherapy appts, and having finicial limitations (1) Schizoaffective disorder: 10/08 q15 minute safety checks with admission to on 201 commitment continue outpt Lamictal dose at 200mg daily pt not open to adjustment to medication or additional antidepressant medication at this time pt not open to psychotherapy referral at this time inpt therapy group and individual milieu therapy coordination with outpt provider family meeting perhaps with gf or with peer support addressing homelessness and his plans for finding a place to live 10/09 added Prozac 10mg dose for today, increasing to 20mg daily dose as of 10/10 aiming for family meeting with peer support coordinating with outpt provider Leena Kelly. Risk Factors Assessment Male: Yes : Yes Do You Have Access To A Gun?: No Health Problems: Yes Mental Health Diagnoses: Yes Previous Psychiatric Hospitalization: Yes Smoker: No Protective Factors Assessment : No Responsible for Young Children: No Employed: No Interval History Chief Complaint "[]". Review of Systems Sleep Information Total Hours of Sleep: 5.5 Sleep Comments: watched TV and talked with peers prior to going to bed around midnight Meal Information Percent Meal Consumed - Breakfast: 100 Percent Meal Consumed - Lunch: 100 Percent Meal Consumed - Dinner: 5 Nutrition Comment: 100 percent-2 bananas with peanut butter and other drinks/foods for evening snacks Subjective Subjective Patient was seen & assessed and interval progress reviewed with nrusing and social work. Pt seeking to resume an antidepressant medication out of realizing that depression is something he tends to deal with and that he is likely to worsen in his presentation if not on such a medication. He denied SI and reports his mood is fine today. He shared how he tolerated prozac in past trials and would stop it a month or so into taking it due to feeling that did not need it anymore and prehaps that is from it being helpful. He is feeling okay about staying in a detention till able to find housing with aims to find housing in [place] once he obtains he next disability check. Physical Exam Psychiatric Orientation: alert and oriented x 3 Apperance: appropriately dressed and appropriately groomed Eye Contact: good eye contact Motor Behavior: steady gait and station and no abnormal motor movements Speech: normal rate/rhythm/volume of speech Affect: + constricted affect Mood: no depressed mood and no anxious mood Thought Process: goal directed thought process, linear/logical thought process and clear/coherent thought process Thought Content: reality based without delusions Suicidal Thoughts: denies suicidal thoughts and denies suicidal plan Homicidal Thoughts: denies homicidal thoughts Hallucinations: no auditory hallucinations and no visual hallucinations Cognition: recent memory grossly intact, remote memory grossly intact, attention grossly intact and language grossly intact Estimated Intelligence: + below average estimated intelligence Insight: + fair insight Judgement: + fair judgement Vital Signs (Past 24 Hours) Last Vital Signs Temp 36.6 C 10/10/19 06:35 Pulse 84 10/10/19 06:36 Resp 18 10/10/19 06:35 BP 92/60 L 10/10/19 06:36 Pulse Ox 98 10/09/19 03:36 Results & Data ([facility]) Current Inpatient Medications Current Inpatient Medications: Current Inpatient Medications Acetaminophen (Tylenol) 650 mg PO Q4H PRN PRN Reason: Headache or Minor Fever Stop: 11/08/19 04:58 Al Hydrox/Mg Hydrox/Simethicone (Maalox) 30 ml PO Q4H PRN PRN Reason: GI Upset Stop: 11/08/19 04:58 Bismuth Subsalicylate (Kaopectate) 15 ml PO PRN PRN PRN Reason: Loose Stool Stop: 11/08/19 04:58 Fluoxetine HCl (Prozac) 20 mg PO QAM LEONIE Stop: 11/10/19 08:59 Hydroxyzine HCl (Vistaril) 50 mg PO HSZ PRN PRN Reason: Insomnia Stop: 11/08/19 04:58 Hydroxyzine HCl (Vistaril) 25 mg PO Q4H PRN PRN Reason: Anxiety Stop: 11/08/19 04:58 Lamotrigine (Lamictal) 200 mg PO QAM LEONIE Stop: 11/08/19 08:59 Last Admin: 10/10/19 08:41 Dose: 200 mg Documented by: Magnesium Hydroxide (Milk Of Magnesia) 30 ml PO DAILY PRN PRN Reason: Constipation Stop: 11/08/19 04:58 Nicotine Polacrilex (Nicorette 2mg) 2 piece MT PRN PRN PRN Reason: nicotine craving Stop: 11/08/19 15:45 Last Admin: 10/10/19 14:09 Dose: 2 piece Documented by: Sodium Chloride ([place] Nasal) 2 sprays NA PRN PRN PRN Reason: Nasal Congestion Stop: 11/08/19 15:44 Last Admin: 10/09/19 16:05 Dose: 2 sprays Documented by: Mental Health & Subst Abuse Tx Therapist Name of Therapist: None - "I dont' want one" Six Pack Loader Operator Name of Six Pack Loader Operator: Zhen John (1) Schizoaffective disorder Schizoaffective disorder type: unspecified Qualified Code(s): F25.9 - Schizoaffective disorder, unspecified
[2019-10-11] MEDS: lamoTRIgine 100 MG TAB PO SCH (08:15)
[2019-10-11] MEDS: FLUOXETINE HCL 20 MG CAP PO SCH (08:15)
[2019-10-11] MEDS: NICOTINE POLACRILEX 2 MG GUM MT PRN ×5 (08:16→19:50)
--- NOTE | 2019-10-11 10:15 | Psychiatric Progress Note ---
Date of Service October 11, 2019 Impression / Recommendations Impression 39-year-old male admitted voluntarily for inpatient psychiatric treatment on 10/09/2019 after experiencing a acute stress of losing his housing option. Patient had spent several days at a homeless senior living, where his anxiety increased to the point of developing suicidal ideation and thoughts to self-harm by cutting. Patient has a reported history of schizoaffective disorder and an intellectual disability. He was admitted with home regimen of lamotrigine 200mg qHS. Due to reported anxiety and depressive symptoms, patient requested retrial of fluoxetine - which was previously favorable. He is being maintained on 20mg daily without incident at this time. Pt is working with social work and is supported by his girlfriend to explore alterative housing options. He is requesting discharge tomorrow after a family meeting with his girlfriend. He requires ongoing inpatient psychiatric treatment until discharge and safety planning can be completed and outpatient psychiatric appointments can be confirmed. (1) Schizoaffective disorder: 10/08 q15 minute safety checks with admission to on 201 commitment continue outpt Lamictal dose at 200mg daily pt not open to adjustment to medication or additional antidepressant medication at this time pt not open to psychotherapy referral at this time inpt therapy group and individual milieu therapy coordination with outpt provider family meeting perhaps with gf or with peer support addressing homelessness and his plans for finding a place to live 10/09 added Prozac 10mg dose for today, increasing to 20mg daily dose as of 10/10 aiming for family meeting with peer support coordinating with outpt provider Leena Kelly. 10/10 - Continue fluoxetine 20mg qAM - patient remains on lamotrigine 200mg daily - Coordinate with outpatient psychiatric supports - Pt interested in having a meeting with his girlfriend prior to discharge tomorrow - Working with girlfriend on possible housing options, short-term plan is to return to [facility] - Denies SI presently, feels discharge tomorrow may be appropriate Risk Factors Assessment Male: Yes : Yes Do You Have Access To A Gun?: No Health Problems: Yes Mental Health Diagnoses: Yes Previous Psychiatric Hospitalization: Yes Smoker: No Protective Factors Assessment : No Responsible for Young Children: No Employed: No Interval History Identifying Information ALBAN DHILLON is a 39-year-old M who is currently homeless with a h/o schizoaffective disorder and ID,and was admitted on 10/09/19 04:19 on a 201 voluntary commitment for SI with plans of cutting his wrist. Chief Complaint "Stressed, depression, I wanted to cut." Review of Systems Notes Constitutional: denied Cardiovascular: denied Respiratory: denied Gastrointestinal: denied Neurological: denied Psychiatric: denies symptoms other than stated above Total of at least 10 systems reviewed, pertinent positives as above and in HPI. Sleep Information Total Hours of Sleep: 7.25 Sleep Comments: pt on q-15 minute checks Meal Information Percent Meal Consumed - Breakfast: 100 Percent Meal Consumed - Lunch: 100 Percent Meal Consumed - Dinner: 10 Nutrition Comment: 100 percent-2 bananas with peanut butter and other drinks/foods for evening snacks Subjective Subjective Patient was seen & assessed and interval progress reviewed with treatment team. Staff reports the patient has been actively exploring his discharge and housing options. He has been in contact with his girlfriend, and is hopeful she will be able to participate in a support meeting tomorrow. Patient states she is also available to provide transportation should he be discharged tomorrow, which is his request at this time. Patient was seen today to assess progress since admission. When asked what brought him to the emergency room, the patient states he was "stressed, depression, I wanted to cut." Patient does state that when his urges to self-harm for started, he requested that one of the volunteers at [facility] hold onto his pocket knife until he could contract for safety. Patient states that these urges escalated to the point he no longer felt safe outside of the hospital. Patient states that since his admission, he has not continued to experience suicidal ideation or urges to self-harm. He continues to be concerned about his long-term housing options, but is agreeable with returning to [facility], until other options can be arranged. Patient states that his girlfriend has also been looking into possibilities for him, and he is appreciative of her support. Patient continues to feel ready for discharge tomorrow, stating this is his only opportunity to coordinate with outpatient supports and receive a ride. Patient denies having any additional treatment goals at this time. He denies any needs or concerns presently. Physical Exam Psychiatric Orientation: alert, oriented x 3 and cooperative Apperance: appropriately dressed, appropriately groomed (Bald head, level of hygiene appearing adequate) and appeared stated age Eye Contact: good eye contact Motor Behavior: steady gait and station and no abnormal motor movements Speech: normal rate/rhythm/volume of speech Affect: + blunted affect (Appearing subdued, not overtly depressed) Mood: no depressed mood ("I feel pretty good") and no anxious mood Thought Process: goal directed thought process and + concrete thought process Thought Content: reality based without delusions; no hopelessness Suicidal Thoughts: denies suicidal thoughts, denies suicidal plan and denies suicidal intent Homicidal Thoughts: denies homicidal thoughts Hallucinations: no auditory hallucinations and no visual hallucinations Cognition: attention grossly intact and language grossly intact Insight: + limited insight Judgement: + limited judgement Vital Signs (Past 24 Hours) Last Vital Signs Temp 36.3 C L 10/11/19 06:44 Pulse 77 10/11/19 06:44 Resp 18 10/11/19 06:44 BP 108/69 10/11/19 06:44 Pulse Ox 98 10/09/19 03:36 Results & Data ([facility]) Current Inpatient Medications Current Inpatient Medications: Current Inpatient Medications Acetaminophen (Tylenol) 650 mg PO Q4H PRN PRN Reason: Headache or Minor Fever Stop: 11/08/19 04:58 Al Hydrox/Mg Hydrox/Simethicone (Maalox) 30 ml PO Q4H PRN PRN Reason: GI Upset Stop: 11/08/19 04:58 Bismuth Subsalicylate (Kaopectate) 15 ml PO PRN PRN PRN Reason: Loose Stool Stop: 11/08/19 04:58 Fluoxetine HCl (Prozac) 20 mg PO QAM [facility] Stop: 11/10/19 08:59 Last Admin: 10/11/19 08:15 Dose: 20 mg Documented by: Hydroxyzine HCl (Vistaril) 50 mg PO HSZ PRN PRN Reason: Insomnia Stop: 11/08/19 04:58 Hydroxyzine HCl (Vistaril) 25 mg PO Q4H PRN PRN Reason: Anxiety Stop: 11/08/19 04:58 Lamotrigine (Lamictal) 200 mg PO QAM LEONIE Stop: 11/08/19 08:59 Last Admin: 10/11/19 08:15 Dose: 200 mg Documented by: Magnesium Hydroxide (Milk Of Magnesia) 30 ml PO DAILY PRN PRN Reason: Constipation Stop: 11/08/19 04:58 Nicotine Polacrilex (Nicorette 2mg) 2 piece MT PRN PRN PRN Reason: nicotine craving Stop: 11/08/19 15:45 Last Admin: 10/11/19 08:16 Dose: 2 piece Documented by: Sodium Chloride ([place] Nasal) 2 sprays NA PRN PRN PRN Reason: Nasal Congestion Stop: 11/08/19 15:44 Last Admin: 10/09/19 16:05 Dose: 2 sprays Documented by: Mental Health & Subst Abuse Tx Therapist Name of Therapist: None - "I dont' want one" Reclamation Kettle Tender Name of Reclamation Kettle Tender: Zhen John (1) Schizoaffective disorder Schizoaffective disorder type: unspecified Qualified Code(s): F25.9 - Schizoaffective disorder, unspecified
[2019-10-12] MEDS: lamoTRIgine 100 MG TAB PO SCH (07:39)
[2019-10-12] MEDS: FLUOXETINE HCL 20 MG CAP PO SCH (07:40)
[2019-10-12] MEDS: NICOTINE POLACRILEX 2 MG GUM MT PRN ×2 (07:40→10:38)
--- NOTE | 2019-10-12 09:54 | Discharge Summary ---
Date of Service October 12, 2019 History of Present Illness 39 yr old male with schizoaffective disorder and intellectual disability well known to [facility]. designer writer saw him on admission in January 2018. pt reports one additional admission after that in Spring 2018. Pt has past h/o multiple admission years past though. Pt was doing quite well per his report but became homeless 2 days ago as was living with a peer but not truly on the lease and had to leave that living arrangement 2 days ago. He has stayed at a nursing home the one night and has been having SI and thoughts of self cutting to deal with his emotional tension. HE was also considering cutting his wrist in a suicide attempt and instead gave his knife to people at the [facility] was at and they helped him get to the ER by Taxi. He reports that his gf is talking to him about exploring options for finding a place to stay in [place]. He has limited money between now and the 3rd having spent money on a game system thinking he did not need the money for rent. He chew tobacco about 3 cans a day. He is under wt and limited eating and this is chronic concern and has a provider he sees to try to help him with his nutrition. he is open to boost supplementation. He did not eat breakfast nor lunch today per pt but was seen eating crackers immediately after this assessment. He takes Lamictal 200mg each morning rx'd by Leena Enrique Pa-C his psychiatric med management provider. He has been on this medication for many years as was dx'd with a sz' disorder with last sz in 1997. He denied manic symptoms or AH or VH or paranoid thinking. pt drinks alcohol a few times a year. he uses cannabis a few times a month. Physical Exam Psychiatric Orientation: alert and cooperative Apperance: appropriately dressed, appropriately groomed and appeared stated age Thin, casually dressed Eye Contact: good eye contact Motor Behavior: steady gait and station and no abnormal motor movements Speech: normal rate/rhythm/volume of speech Affect: + blunted affect Mood: no depressed mood and no anxious mood "Good." Thought Process: goal directed thought process, linear/logical thought process and + concrete thought process Thought Content: reality based without delusions Suicidal Thoughts: denies suicidal thoughts Homicidal Thoughts: denies homicidal thoughts Hallucinations: no auditory hallucinations and no visual hallucinations Cognition: recent memory grossly intact, attention grossly intact and language grossly intact Insight: + fair insight Judgement: + fair judgement Vital Signs (Past 24 Hours) Last Vital Signs Temp 36.3 C L 10/12/19 06:44 Pulse 81 10/12/19 06:44 Resp 18 10/12/19 06:44 BP 108/73 10/12/19 06:44 Pulse Ox 98 10/09/19 03:36 Principal Diagnosis Schizoaffective disorder unspecified Intellectual disability Psychiatric Data The patient was hospitalized for 3 days. On admission, he refused any medication adjustments, and was continued on his home dose of lamotrigine (for seizure disorder and schizoaffective disorder). He also refused recommendations for outpatient therapy, which was recommended as his primary stressors are psychosocial in nature. He later agreed to a trial of an antidepressant and was started on fluoxetine to target mood symptoms, as he reported previous good response to the medication and said he had stopped it in the past because he was feeling better. He attended and participated in groups and therapy, and felt it was helpful to process his stressors and talk to others. He was able to work on healthy coping skills, and requested a meeting to be held with his girlfriend, which was scheduled for the day of discharge. His housing options were dis cussed, and he made a plan to stay in the [facility] while working on permanent housing in [place]. He was observed to have good sleep and appetite, was performing ADLs independently, and was socializing with peers. He reported improved mood and resolution of suicidal thoughts/thoughts to cut himself. He continued to decline recommendations for a psychotherapist, but reported good support from multiple service providers in the community, including his girlfriend, ID wrapper caser, PA at [place], and irrigation installation specialist. Day of Discharge Assessment Staff report patient has been attending and participating in groups, interacting appropriately with staff and peers, and has been pleasant and appropriate. He rated his mood 10/10, and described it as "great," stating he was excited about being discharged from the hospital and spending time with friends. On my assessment, patient reports mood has improved and is "good." He denies SI and HI, AVH and paranoia. He reports improved appetite and good sleep. He denies safety concerns and is able to review his safety plan, and reports good support from his girlfriend, peer support, and wrapper caser. He denies side effects to the fluoxetine. Transition of Care Transition Of Care Record: was reviewed with the patient Advance Directives Advance Directives Information Provided: Yes Advance Directives: No Mental Health Advance Directive: No Advance Directives on File: No Living Will: No Power of Arts Manager: No Advance Directives Reason:: Declines as Mental Health Visit. Risk Factors Assessment Risk factors were mitigated by admission to the inpatient unit, use of medications to target mood symptoms, review of recommendations for increased outpatient services (psychotherapy) which patient declined, involving him in groups and therapy, working on healthy coping skills and discharge safety plan, processing stressors and exploring housing options, and a family meeting with his girlfriend whom he identifies as a primary support. He has demonstrated im provement in mood, reports resolution of thoughts to harm himself, has not engaged in self-injurious behavior here, is performing ADLs independently, eating and sleeping well, and interacting appropriately with peers. He is making plans for the future and affect is improved. He is requesting discharge, and is he is no longer at acute risk of harm to himself, can be managed as an outpatient at this time. Male: Yes : Yes Do You Have Access To A Gun?: No Health Problems: Yes Mental Health Diagnoses: Yes Substance Use Disorders: No Previous Attempt: No Family History of Suicide: No Previous Psychiatric Hospitalization: Yes Hopelessness: No Smoker: No Protective Factors Assessment : No Responsible for Young Children: No Employed: No Stable Relationships: Yes Good Rapport with Provider: Yes Tobacco Cessation at Discharge Tobacco Cessation Medication Prescribed at Discharge: Not Applicable/Non-Smoker Total Time Total Time Spent: Greater Than 30 Minutes Total Time Includes: Examination of the patient, Discharge Planning and Medicat ion Reconciliation Discharge Data Lab Results 10/09/19 10/09/19 10/09/19 00:55 00:55 01:17 WBC 5.86 RBC 4.61 L Hgb 13.7 L Hct 40.6 L MCV 88.1 MCH 29.7 MCHC 33.7 RDW Std Deviation 40.6 RDW Coeff of Izzy 12.7 Plt Count 201 MPV 10.8 H Immature Gran % (Auto) 0.3 Neut % (Auto) 52.3 Lymph % (Auto) 39.2 [place] % (Auto) 6.8 Eos % (Auto) 0.9 Baso % (Auto) 0.5 Immature Gran # (Auto) 0.02 Neut # (Auto) 3.06 Lymph # (Auto) 2.30 [place] # (Auto) 0.40 Eos # (Auto) 0.05 Baso # (Auto) 0.03 Sodium Potassium Chloride Carbon Dioxide Anion Gap BUN Creatinine Est Cr Clr Drug Dosing Est GFR ( Amer) Est GFR (Non-Af Amer) BUN/Creatinine Ratio Glucose Calcium Total Bilirubin AST ALT Alkaline Phosphatase Total Protein Albumin Globulin Albumin/Globulin Ratio TSH Urine Color Yellow Urine Appearance Clear Urine pH 5.5 Ur Specific [place] 1.031 H Urine Protein Negative Urine Glucose (UA) Negative Urine Ketones Negative Urine Blood Negative Urine Nitrite Negative Urine Bilirubin Negative Urine Urobilinogen Negative Ur Leukocyte Esterase Negative Salicylates Urine Opiates Screen Neg Ur Methadone, Qual Neg Acetaminophen Urine Barbiturates Neg Ur Phencyclidine (PCP) Neg U Amphetamin/Meth Scrn Neg MDMA (Ecstasy) Screen Neg U Benzodiazepines Scrn Neg Ur Cocaine Metabolite Neg U Marijuana (THC) Screen Neg Ethyl Alcohol mg/dL 10/09/19 10/09/19 10/09/19 01:17 01:17 01:17 WBC RBC Hgb Hct MCV MCH MCHC RDW Std Deviation RDW Coeff of Izzy Plt Count MPV Immature Gran % (Auto) Neut % (Auto) Lymph % (Auto) [place] % (Auto) Eos % (Auto) Baso % (Auto) Immature Gran # (Auto) Neut # (Auto) Lymph # (Auto) [place] # (Auto) Eos # (Auto) Baso # (Auto) Sodium 140 Potassium 3.6 Chloride 106 Carbon Dioxide 31 Anion Gap 3.0 BUN 18 Creatinine 0.92 Est Cr Clr Drug Dosing 84.0 Est GFR ( Amer) 119.3 Est GFR (Non-Af Amer) 102.9 BUN/Creatinine Ratio 20.1 H Glucose 71 Calcium 9.0 Total Bilirubin 0.7 AST 7 L ALT 20 Alkaline Phosphatase 67 Total Protein 6.8 Albumin 4.1 Globulin 2.7 Albumin/Globulin Ratio 1.5 TSH 2.520 Urine Color Urine Appearance Urine pH Ur Specific [place] Urine Protein Urine Glucose (UA) Urine Ketones Urine Blood Urine Nitrite Urine Bilirubin Urine Urobilinogen Ur Leukocyte Esterase Salicylates < 1.7 L Urine Opiates Screen Ur Methadone, Qual Acetaminophen < 2 L Urine Barbiturates Ur Phencyclidine (PCP) U Amphetamin/Meth Scrn MDMA (Ecstasy) Screen U Benzodiazepines Scrn Ur Cocaine Metabolite U Marijuana (THC) Screen Ethyl Alcohol mg/dL < 3.0 Hospital Course (1) Schizoaffective disorder: 10/08 q15 minute safety checks with admission to on 201 commitment continue outpt Lamictal dose at 200mg daily pt not open to adjustment to medication or additional antidepressant medication at this time pt not open to psychotherapy referral at this time inpt therapy group and individual milieu therapy coordination with outpt provider family meeting perhaps with gf or with peer support addressing homelessness and his plans for finding a place to live 10/09 added Prozac 10mg dose for today, increasing to 20mg daily dose as of 10/10 aiming for family meeting with peer support coordinating with outpt provider Leena Kelly. 10/10 - Continue fluoxetine 20mg qAM - patient remains on lamotrigine 200mg daily - Coordinate with outpatient psychiatric supports - Pt interested in having a meeting with his girlfriend prior to discharge tomorrow - Working with girlfriend on possible housing options, short-term plan is to [facility] to [facility] - Denies SI presently, feels discharge tomorrow may be appropriate (2) Seizure disorder: Home dose of lamotrigine continued. Follow-up with outpatient physician. (3) Intellectual disability: Per past records, IQ was reported to be 68. Mental Health & Subst Abuse Tx Psychiatrist Name of Psychiatrist: Jalen Kelly Psychiatrist's Psychiatric Appointment Comment: [address] [place] [address] Therapist Name of Therapist: . Director Of Veterans Affairs Name of Director Of Veterans Affairs: BSU ID Director Of Veterans Affairs - Zhen John Phone Number for Director Of Veterans Affairs: [phone] Case Management Appointment Comment: Phone follow ups - please call as needed Post Discharge Appointments Smoking Cessation Counseling Tobacco Cessation Medication Prescribed at Discharge: Not Applicable/Non-Smoker Contact Information Discharge Discharge Address: [address] [address], [place] [address] Contact Information Comment: [facility] as needed Discharge Plan Discharge Items Patient Disposition: Home - Self-Care Reason For Visit: SCHIZOAFFECTIVE D/O Discharge Diagnosis: Schizoaffective disorder unspecified Activity: Per Instructions section Non-emergency contact: Primary Care Provider, Psychiatrist and Evidence Custodian Call non-emergency contact if: you have any medication questions and your symptoms worsen Follow-up/Referrals: Marguerite Sosa CRNP [Primary Care Provider] - Diet: Regular Addtl Attending Provider Instructions: SPECIAL CARE INSTRUCTIONS: 1. Follow through with your scheduled aftercare appointments. If unable to keep an appointment, please call to reschedule. 2. Take your medication only as prescribed. Medication should not be changed or stopped without the approval of your doctor. In the event of worsening symptoms or concerns about side effects, contact your doctor immediately. 3. Utilize new healthy coping skills, anger management skills, and stress management skills learned during your hospitalization. Journal feelings and process them with a support person. Identify stressors or situations that may result in relapse, deterioration or inappropriate behaviors and develop a plan to deal with those issues. 4. If your coping skills are ineffective and you are in crisis, contact your outpatient providers for direction. If unable to reach your providers, please call the CAN HELP LINE AT or go to the closest Emergency Room. 5. Avoid alcohol and un-prescribed drugs. 6. You have been provided with the Mental Health Advance Directives Pamphlet for your review. AFTERCARE APPOINTMENTS: * Please call your insurance company prior to your scheduled appointment to confirm your aftercare providers are covered. Take your insurance information to your appointments. WHO TO CALL AND WHEN: Medical Emergencies: For questions or emergencies related to your hospital stay, please contact the Inpatient Behavioral Health Unit at [phone]. A ancient art curator is on-call 17/02 for the Behavioral Health Unit for emergencies At any time you feel your situation is an emergency, you may also call 911 immediately. Your Doctors Instructions noted above were prepared by provider Scarlett Tomlinson MD. Pending Studies at Discharge: No Stand-Alone Forms: My [facility] [employer], Smoking Cessation, Suicide Prevention Resources Medications and DC Order Prescriptions: New fluoxetine 20 mg Capsule 20 mg PO QAM Qty: 30 RF: 0 Continued sildenafil 25 mg Tablet 25 mg PO DIRECTED MDD 1 tab PRN (Reason: Erectile Dysfunction) RF: 0 lamotrigine [Lamictal] 200 mg Tablet 200 mg PO DAILY RF: 0 Discharge Orders: Discharge Order (Routine); Ordered 10/12/19 Ordered By: Scarlett Tomlinson Admission Data Admit Date/Time: 10/09/19 04:19 Attending Provider: Rui Callejas I. Admit Provider: Rui Callejas I. Primary Care Provider: Marguerite Sosa Other Interventions: DIANA Interdisciplinary Discharge Planning Last Done: 10/11/19 15:08 Coding Level of Care Code 34812 D/C day mgmt > 30 min Diagnoses Schizoaffective disorder F25.9 Schizoaffective disorder type: unspecified Seizure disorder G40.909 Intellectual disability F79
== END 2019-10-12 12:20 | disposition home or self-care (01) | DRG 885 ==
LOC: ED 00:34 → 3S 04:19

== ENCOUNTER 2020-01-10 16:39 | Inpatient (IN) ==
--- NOTE | 2020-01-10 17:24 | Emergency Department Note ---
Impression & Plan Lower abdominal pain, Suicidal ideation, Paranoia ED Provider Note NAME: ALBAN DHILLON AGE: 39 SEX: M : 1980 ARRIVES VIA: Walk-In INFORMANT: [Patient][staff] ED PROVIDER(S): [Odell Cardona MD] CHIEF COMPLAINT: Suicidality HISTORY OF PRESENT ILLNESS: The patient is a 39-year-old male who presents to the ER with suicidal thoughts since yesterday. He is planning on cutting himself. The patient states that he has had increasing paranoia as well. Patient is paranoid that people are following him. The patient states he has not yet tried to harm himself. The patient was at [facility] earlier, he was referred to the ER for psychiatric placement. The patient is voluntary. The patient is taking all his medications as prescribed. He has not had cough, cold or congestion. He has had about 3 days or so of some lower abdominal pain, he states that he is actually set up for an outpatient CT scan for the pain. The pain is moderate in severity and worse with palpation. The pain is constant and bilateral. No pain radiation. There has been no fever though. No urinary complaints, no diarrhea, no vomiting. He does think eating sometimes makes the pain worse. REVIEW OF SYSTEMS: See HPI for pertinent positives and negatives. A total of ten systems were reviewed and were otherwise negative. PMHx/PSHx: See Below SOCIAL HISTORY: See Below. PHYSICAL EXAM: GENERAL: Patient is in no acute distress. HEENT: No acute trauma, normocephalic atraumatic, mucous membranes moist, no nasal congestion, no scleral icterus. NECK: No stridor, no adenopathy, no meningismus, trachea is midline. LUNGS: Clear to auscultation bilaterally, no wheeze, no rhonchi, breath sounds equal. HEART: Without murmurs gallops or rubs, regular rate and rhythm. ABDOMEN: Soft, mildly tender in the lower abdomen bilaterally--slightly worse on the right, bowel sounds positive, no hernias, no peritonitis. EXTREMITIES: No cyanosis or edema, full range of motion of all the joints without pain or difficulty, no signs for acute trauma. NEUROLOGIC: Oriented x 3, no acute motor or sensory deficits, no focal weakness. SKIN: No rash, no jaundice, no diaphoresis. Psych: The patient is cooperative, he admits to paranoia and thoughts of self cutting. He is voluntary. DIFFERENTIAL DIAGNOSIS: Mood disorder, infection, hypoglycemia, electrolyte abnormalities, cardiac sources, diverticulitis, appendicitis, intracerebral event, toxicologic, trauma, neurologic, as well as other pathologies. EMERGENCY DEPARTMENT COURSE/PROCEDURES: MEDICAL DECISION MAKING: There is no leukocytosis or concerning anemia. No significant electrolyte abnormality or kidney failure. No evidence for hepatitis. No evidence for pancreatitis. The patient appeared to be in a euthyroid state. Urinalysis did not show any evidence for infection. Aspirin, Tylenol and alcohol levels were undetectable. Urine tox was negative. Abdominal and pelvis CT does not show any evidence for appendicitis or diverticulitis. The CT was read as unremarkable. The patient presents with suicidal ideation and some paranoia. In addition, he complained of some lower abdominal pain. Work-up here is reassuring and benign. The patient was felt medically clear for a psychiatric evaluation. The patient was seen by psychiatry case management. He has been accepted at our [facility] psychiatric facility, [facility] [address]. He is soon to be transferred upstairs. He was given some nicotine gum during his stay, he has been cooperative. Past Med/Surg History Medical History Asthma (Chronic) Depression (Chronic) Intellectual disability (Chronic) Schizoaffective disorder (Chronic) Surgical History History of tonsillectomy and adenoidectomy Hx of inguinal hernia repair Family History Father Pancreatic cancer Mother , passed in her 60's Lupus Sister Lupus Other Cancer Diabetes Hypertension Stroke Denies family history of Ovarian cancer Prostate cancer Myocardial infarction Breast cancer Social History Preferred Language: Romanian Communication Ability: Effective Visual Impairment: No Limitations Hearing Ability: Normal Beliefs That Will Affect Care: None marital status: Single Current Living Situation: Alone current occupational status: disabled Feels Safe at Home: Yes Smoking Status: Current every day smoker Tobacco Type: cigarettes ; Hx Alcohol Use: Yes Hx Substance Use: No Childhood Exposure to Second-Hand Smoke: Yes Dental Care, Regularly: No Physical Activity Frequency: Daily Seatbelt Use: always Sunscreen Use: No Allergies Allergies Allergy/AdvReac Type Severity Reaction Status Date / Time amoxicillin Allergy Severe HIVES,SEIZURE Verified 01/10/20 17:27 ACTIVITY. N/V guaifenesin [From Entex [place]] Allergy Unknown Verified 01/10/20 17:27 phenylephrine [From Entex LA] Allergy Unknown Verified 01/10/20 17:27 phenylpropanolamine Allergy Unknown Verified 01/10/20 17:27 [From Entex LA] bacitracin AdvReac Mild ITCHY Verified 01/10/20 17:27 neomycin AdvReac Mild ITCHY Verified 01/10/20 17:27 polymyxin B AdvReac Mild ITCHY Verified 01/10/20 17:27 Home Meds Home Medications Medication Instructions Recorded Confirmed lamotrigine [Lamictal] 200 mg PO DAILY 01/22/19 01/10/20 sildenafil See Rx Instructions PO DAILY PRN 01/05/20 01/10/20 propranolol 10 mg PO DAILY PRN 01/10/20 01/10/20 Previous Rx's Medication Instructions Recorded lansoprazole 15 mg capsule,delayed 15 mg PO DAILY #30 cap 01/05/20 release Results & Data (ED) Vital Signs Vital Signs - 24 hr 01/10/20 16:46 01/10/20 18:40 Temperature 36.8 C Temperature Source Oral Pulse Rate 105 H Pulse Rate [Finger] 88 Pulse Rhythm [Finger] Regular Pulse Strength [Finger] Normal Respiratory Rate 16 18 Respiratory Effort / Characteristics Non-Labored Spontaneous Non-Labored Spontaneous Respiratory Depth Normal Normal Respiratory Pattern Regular Regular Blood Pressure 121/76 Blood Pressure [Left Arm] 116/88 Blood Pressure Mean 91 Blood Pressure Mean [Left Arm] 97 Blood Pressure Position [Left Arm] Lying Pulse Oximetry 99 100 Oxygen Delivery Method Room Air Room Air Sepsis Recent Fever Within 48 Hours No Sepsis New/Unexplained Change in Mental Status No Sepsis Action Taken by Nursing No Action Required Home Medications Current Medication List: was personally reviewed by me Laboratory Data Attestation: I reviewed the patient's lab results. Result diagrams: 01/10/20 17:44 01/10/20 17:44 Lab Results 01/10/20 01/10/20 01/10/20 Range/Units 17:00 17:00 17:44 WBC 5.81 (4.8-10.8) K/uL RBC 4.97 (4.7-6.1) M/uL Hgb 15.0 (14.0-18.0) g/dL Hct 42.2 (42-52) % MCV 84.9 (80-100) fL MCH 30.2 (25-34) pg MCHC 35.5 (32-36) g/dL RDW Std Deviation 37.5 (36.4-46.3) fL RDW Coeff of Izzy 12.4 (11.5-14.5) % Plt Count 182 (130-400) K/uL MPV 11.2 H (7.4-10.4) fL Immature Gran % (Auto) 0.2 % Neut % (Auto) 63.9 % Lymph % (Auto) 28.4 % [place] % (Auto) 6.9 % Eos % (Auto) 0.3 % Baso % (Auto) 0.3 % Immature Gran # (Auto) 0.01 (0.00-0.02) K/uL Neut # (Auto) 3.71 (1.4-6.5) K/uL Lymph # (Auto) 1.65 (1.2-3.4) K/uL [place] # (Auto) 0.40 (0.11-0.59) K/uL Eos # (Auto) 0.02 (0-0.5) K/uL Baso # (Auto) 0.02 (0-0.2) K/uL Sodium (136-145) mmol/L Potassium (3.5-5.1) mmol/L Chloride (98-107) mmol/L Carbon Dioxide (21-32) mmol/L Anion Gap (3-11) BUN (7-18) mg/dl Creatinine (0.6-1.4) mg/dl Est Cr Clr Drug Dosing ml/min Est GFR ( Amer) Est GFR (Non-Af Amer) BUN/Creatinine Ratio (10-20) Glucose (70-99) mg/dl Calcium (8.5-10.1) mg/dl Total Bilirubin (0.2-1) mg/dl AST (15-37) U/L ALT (12-78) U/L Alkaline Phosphatase (45-117) U/L Total Protein (6.4-8.2) gm/dl Albumin (3.4-5.0) gm/dl Globulin (2.5-4.0) gm/dl Albumin/Globulin Ratio (0.9-2) Lipase (73-393) U/L TSH (0.300-4.500) uIu/ml Urine Color Yellow Urine Appearance Clear (Clear) Urine pH 5.0 (4.5-7.5) Ur Specific [place] 1.020 (1.000-1.030) Urine Protein Negative (Negative) Urine Glucose (UA) Negative (Negative) Urine Ketones Negative (Negative) Urine Blood Negative (Negative) Urine Nitrite Negative (Negative) Urine Bilirubin Negative (Negative) Urine Urobilinogen Negative (Negative) Ur Leukocyte Esterase Negative (Negative) Salicylates (2.8-20) mg/dl Urine Opiates Screen Neg (Neg) Ur Methadone, Qual Neg (Neg) Acetaminophen (10-30) ug/ml Urine Barbiturates Neg (Neg) Ur Phencyclidine (PCP) Neg (Neg) U Amphetamin/Meth Scrn Neg (Neg) MDMA (Ecstasy) Screen Neg (Neg) U Benzodiazepines Scrn Neg (Neg) Ur Cocaine Metabolite Neg (Neg) U Marijuana (THC) Screen Neg (Neg) Ethyl Alcohol mg/dL (0-3) mg/dl 01/10/20 01/10/20 01/10/20 Range/Units 17:44 17:44 17:44 WBC (4.8-10.8) K/uL RBC (4.7-6.1) M/uL Hgb (14.0-18.0) g/dL Hct (42-52) % MCV (80-100) fL MCH (25-34) pg MCHC (32-36) g/dL RDW Std Deviation (36.4-46.3) fL RDW Coeff of Izzy (11.5-14.5) % Plt Count (130-400) K/uL MPV (7.4-10.4) fL Immature Gran % (Auto) % Neut % (Auto) % Lymph % (Auto) % [place] % (Auto) % Eos % (Auto) % Baso % (Auto) % Immature Gran # (Auto) (0.00-0.02) K/uL Neut # (Auto) (1.4-6.5) K/uL Lymph # (Auto) (1.2-3.4) K/uL [place] # (Auto) (0.11-0.59) K/uL Eos # (Auto) (0-0.5) K/uL Baso # (Auto) (0-0.2) K/uL Sodium 138 (136-145) mmol/L Potassium 3.8 (3.5-5.1) mmol/L Chloride 104 (98-107) mmol/L Carbon Dioxide 26 (21-32) mmol/L Anion Gap 8.0 (3-11) BUN 17 (7-18) mg/dl Creatinine 0.90 (0.6-1.4) mg/dl Est Cr Clr Drug Dosing 84.2 ml/min Est GFR ( Amer) 122.5 Est GFR (Non-Af Amer) 105.7 BUN/Creatinine Ratio 18.4 (10-20) Glucose 92 (70-99) mg/dl Calcium 9.3 (8.5-10.1) mg/dl Total Bilirubin 0.8 (0.2-1) mg/dl AST 8 L (15-37) U/L ALT 16 (12-78) U/L Alkaline Phosphatase 71 (45-117) U/L Total Protein 7.2 (6.4-8.2) gm/dl Albumin 4.2 (3.4-5.0) gm/dl Globulin 3.0 (2.5-4.0) gm/dl Albumin/Globulin Ratio 1.4 (0.9-2) Lipase 92 (73-393) U/L TSH 1.500 (0.300-4.500) uIu/ml Urine Color Urine Appearance (Clear) Urine pH (4.5-7.5) Ur Specific [place] (1.000-1.030) Urine Protein (Negative) Urine Glucose (UA) (Negative) Urine Ketones (Negative) Urine Blood (Negative) Urine Nitrite (Negative) Urine Bilirubin (Negative) Urine Urobilinogen (Negative) Ur Leukocyte Esterase (Negative) Salicylates < 1.7 L (2.8-20) mg/dl Urine Opiates Screen (Neg) Ur Methadone, Qual (Neg) Acetaminophen < 2 L (10-30) ug/ml Urine Barbiturates (Neg) Ur Phencyclidine (PCP) (Neg) U Amphetamin/Meth Scrn (Neg) MDMA (Ecstasy) Screen (Neg) U Benzodiazepines Scrn (Neg) Ur Cocaine Metabolite (Neg) U Marijuana (THC) Screen (Neg) Ethyl Alcohol mg/dL < 3.0 (0-3) mg/dl Administered Medications Ioversol (Optiray 320 100ml) 95 ml IV ONCE PRN PRN Reason: Interaction Checking Stop: 01/14/20 19:08 Last Admin: 01/10/20 19:09 Dose: 95 ml Documented by: [id number] Nicotine Polacrilex (Nicorette 2mg) 1 piece MT PRN PRN PRN Reason: Anxiety/Agitation Stop: 02/09/20 19:29 Last Admin: 01/10/20 19:51 Dose: 1 piece Documented by: [id number] Imaging Data Radiologist's Impression: CT SCAN OF THE ABDOMEN AND PELVIS WITH IV CONTRAST CLINICAL HISTORY: Lower abdominal pain. COMPARISON STUDY: Abdominal CT dated 10/11/2016. TECHNIQUE: Following the IV administration of 95 cc of Optiray 320, CT scan of the abdomen and pelvis is performed from the lung bases to the proximal femora. Images are reviewed in the axial, sagittal, and coronal planes. IV contrast was administered without complication. A dose lowering technique was utilized adhering to the principles of ALARA. CT DOSE: 280.08 mGy.cm FINDINGS: Lung bases: The heart is normal in size and without pericardial effusion. The lung bases are clear. Liver: The contrast-enhanced liver is normal in size, contour, and attenuation. There is no intrahepatic biliary ductal dilatation. The hepatic veins and portal veins are patent. Gallbladder: Unremarkable. Spleen: Normal in size and attenuation. Pancreas: Unremarkable. Adrenal glands: Unremarkable. Kidneys: The contrast enhanced kidneys are normal in size and without hydronephrosis. The kidneys enhance symmetrically. Abdominal vasculature: The abdominal aorta is normal in course and caliber. Scattered foci of atherosclerotic calcification are noted in the iliac arteries. Bowel: The cecum is located in the pelvis. No bowel obstruction is identified. Mild fecal retention is noted in the colon. The appendix is well-visualized and normal. Peritoneum: There is no intraperitoneal free air or abdominal ascites. There is a small fat-containing umbilical hernia. Lymphadenopathy: None. Pelvic viscera: The bladder, prostate, and seminal vesicles are normal as visualized. Skeletal structures: No lytic or blastic lesions are seen. A hemitransitional right lumbosacral segment is incidentally noted. IMPRESSION: There are no acute infectious or inflammatory findings in the abdomen or pelvis. Blood Pressure Blood Pressure Findings: Normal blood pressure Discharge Plan Visit Data Chief Complaint: Mental Health Evaluation Stated Complaint: MENTAL HEALTH EVAL ED Provider: Odell Cardona Discharge Problem: Lower abdominal pain, Suicidal ideation, Paranoia Patient Disposition: Still a Patient Condition: Good Forms Stand Alone Forms: [facility] [employer], Suicide Prevention Resources Prescriptions Prescriptions: No Action sildenafil See Rx Instructions PO DAILY PRN (Reason: intercourse) RF: 0 lansoprazole 15 mg capsule,delayed release(DR/EC) 15 mg PO DAILY Qty: 30 RF: 0 propranolol 10 mg tablet 10 mg PO DAILY PRN (Reason: BP) RF: 0 lamotrigine [Lamictal] 200 mg Tablet 200 mg PO DAILY RF: 0 Referrals Referrals: Marguerite Sosa CRNP [Primary Care Provider] -
[2020-01-10 17:37] LABS: Appearance Urine Clear (Clear); Bilirubin Urine Negative (Negative); Blood Urine Negative (Negative); Color Urine Yellow; Glucose Urine UA Negative (Negative); Ketones Urine Negative (Negative); Leukocyte Esterase Urine Negative (Negative); Nitrite Urine Negative (Negative); Protein Urine Negative (Negative); Urobilinogen Urine Negative (Negative)
[2020-01-10 18:03] LABS: Amphetamines+Metham, Urine Neg (Neg); Barbiturates, Urine Neg (Neg); Benzodiazepine, Urine Neg (Neg); Cocaine, Urine Neg (Neg); MDMA (Ecstacy), Urine Neg (Neg); Methadone, Urine Neg (Neg); Opiate, Urine Neg (Neg); Phencyclidine, Urine Neg (Neg)
[2020-01-10 18:14] LABS: Basophils # (auto) 0.02 K/uL (0-0.2); Basophils % (auto) 0.3 %; Eosinophils # (auto) 0.02 K/uL (0-0.5); Eosinophils % (auto) 0.3 %; Hematocrit (blood only) 42.2 % (42-52); Immature Granulocytes # (auto) 0.01 K/uL (0.00-0.02); Immature Granulocytes % (auto) 0.2 %; Lymphocytes # (auto) 1.65 K/uL (1.2-3.4); Lymphocytes % (auto) 28.4 %; Mean Corpuscular Hemoglobin 30.2 pg (25-34); Mean Corpuscular Hgb Conc 35.5 g/dL (32-36); Mean Corpuscular Volume 84.9 fL (80-100); Mean Platelet Volume 11.2 fL (7.4-10.4); Monocytes % (auto) 6.9 %; Neutrophils # (auto) 3.71 K/uL (1.4-6.5); Neutrophils % (auto) 63.9 %; Platelet Count 182 K/uL (130-400); RDW Coefficient of Variation 12.4 % (11.5-14.5); RDW Standard Deviation 37.5 fL (36.4-46.3); Red Blood Count 4.97 M/uL (4.7-6.1); White Blood Count 5.81 K/uL (4.8-10.8)
[2020-01-10 18:33] LABS: Albumin Level 4.2 gm/dl (3.4-5.0); BUN Creatinine Ratio 18.4 (10-20); Calcium 9.3 mg/dl (8.5-10.1); Creatinine Clr Calc Pharmacy 84.2 ml/min; Est GFR (African American) 122.5; Est GFR (Non-African American) 105.7; Potassium 3.8 mmol/L (3.5-5.1)
[2020-01-10 18:35] LABS: Acetaminophen < 2 ug/ml (10-30); Salicylate < 1.7 mg/dl (2.8-20)
[2020-01-10 18:43] LABS: Albumin Globulin Ratio 1.4 (0.9-2); Bilirubin,Total 0.8 mg/dl (0.2-1); Thyroid Stimulating Hormone 1.5 uIu/ml (0.300-4.500); Total Protein 7.2 gm/dl (6.4-8.2)
[2020-01-10] MEDS ORDERED: IOVERSOL 100ml IV PRN (19:09)
--- NOTE | 2020-01-10 19:22 | CT Scan Report ---
CT SCAN OF THE ABDOMEN AND PELVIS WITH IV CONTRAST CLINICAL HISTORY: Lower abdominal pain. COMPARISON STUDY: Abdominal CT dated 10/11/2016. TECHNIQUE: Following the IV administration of 95 cc of Optiray 320, CT scan of the abdomen and pelvi s is performed from the lung bases to the proximal femora. Images are reviewed in the axial, sagittal , and coronal planes. IV contrast was administered without complication. A dose lowering technique wa s utilized adhering to the principles of ALARA. CT DOSE: 280.08 mGy.cm FINDINGS: Lung bases: The heart is normal in size and without pericardial effusion. The lung bases are clear. Liver: The contrast-enhanced liver is normal in size, contour, and attenuation. There is no intrahepa tic biliary ductal dilatation. The hepatic veins and portal veins are patent. Gallbladder: Unremarkable. Spleen: Normal in size and attenuation. Pancreas: Unremarkable. Adrenal glands: Unremarkable. Kidneys: The contrast enhanced kidneys are normal in size and without hydronephrosis. The kidneys enh ance symmetrically. Abdominal vasculature: The abdominal aorta is normal in course and caliber. Scattered foci of atheros clerotic calcification are noted in the iliac arteries. Bowel: The cecum is located in the pelvis. No bowel obstruction is identified. Mild fecal retention i s noted in the colon. The appendix is well-visualized and normal. Peritoneum: There is no intraperitoneal free air or abdominal ascites. There is a small fat-containin g umbilical hernia. Lymphadenopathy: None. Pelvic viscera: The bladder, prostate, and seminal vesicles are normal as visualized. Skeletal structures: No lytic or blastic lesions are seen. A hemitransitional right lumbosacral segme nt is incidentally noted. IMPRESSION: There are no acute infectious or inflammatory findings in the abdomen or pelvis. ACT 112: Negative or not required by law. Electronically signed by: Odell Devine M.D. 01/10/2020 7:21 PM
[2020-01-10] MEDS ORDERED: NICOTINE POLACRILEX 2 MG GUM MT PRN (19:30)
[2020-01-10] MEDS ORDERED: ALUMINUM/MAGNESIUM SUSP 30 ML UDC PO PRN (20:48)
[2020-01-10] MEDS ORDERED: MAGNESIUM HYDROXIDE SUSP 30 ML UDC PO PRN (20:48)
[2020-01-10] MEDS ORDERED: BISMUTH SUBSALICYLATE PER ML OMNICELL CHARGE PO PRN (20:48)
[2020-01-10] MEDS ORDERED: SODIUM CHLORIDE 0.65% NA SOLN 45 ML (OCEAN) PRN (20:48)
[2020-01-10] MEDS ORDERED: PROPRANOLOL HCL 10 MG TAB PO PRN (20:51)
[2020-01-11] MEDS: lamoTRIgine 100 MG TAB PO SCH (08:19)
[2020-01-11] MEDS: LANSOPRAZOLE 15 MG SOLTAB PO SCH (08:19)
[2020-01-11] MEDS: NICOTINE POLACRILEX 2 MG GUM MT PRN ×5 (08:27→19:47)
--- NOTE | 2020-01-11 08:47 | History & Physical ---
Date of Service January 11, 2020 Impression / Recommendations Impression 39-year-old single male with a history of intellectual disability, schizoaffective disorder, anxiety, eating disorder, and borderline personality disorder who presents with 2 days of worsening paranoia, auditory hallu cinations, and suicidal thoughts. He has multiple stressors including his recent move to a new apartment, his girlfriend moved to a neighboring town, is living with her parents, so he does not see her as much, day programming is close due to the pandemic, and he thinks his new neighbors do not like him. He had been started on fluoxetine when hospitalized here 3 months ago, but it does not appear it was continued as an outpatient. He signed in voluntarily, but wants to ensure he can be discharged by Friday, as he has plans to go see his girlfriend. For now we will continue his home medications and monitor for psychotic symptoms, while gathering collateral information and coordinating with his outpatient clinician. Inpatient treatment is medically necessary due to the severity of his symptoms and risk for suicide if discharged. (1) Schizoaffective disorder: 01/10 -it is not clear to me if the patient truly has schizoaffective disorder, or if his psychotic symptoms are due BPD, or to ID and a way to communicate distress. He does not appear to be actively hallucinating, states the voices that he hears at home may be coming from his television or neighbors, and has not been on an antipsychotic for some time. Symptoms appear to be exacerbated when he is under stress. We will monitor here for evidence of psychosis. -Call placed to JACIEL Mac, at [facility] to coordinate care. -Patient does appear depressed, and had been started on fluoxetine when he was here several months ago, but it was not continued as an outpatient, and he is not sure why. Will discuss with his outpatient clinician when she calls back. -Encourage group attendance and participation, process stressors, work on healthy coping skills and discharge safety plan. -Patient would likely benefit from increased supports in the community, but currently unable to access clubhouse and psych rehab due to the pandemic. He does have a order management specialist and case consultant, and it would be helpful to involve them in discharge planning. -Continue voluntary hospitalization, suicide checks for safety. -Continue home dose of lamotrigine, which is for mood disorder and seizure disorder. Schizoaffective disorder type: unspecified Qualified Code(s): F25.9 - Schizoaffective disorder, unspecified (2) Generalized anxiety disorder: Continue home dose of propanolol as needed. (3) Seizure disorder: Continue home dose of lamotrigine. (4) Eating disorder: Patient is chronically underweight with poor p.o. intake. Monitor p.o. intake here and consider dietary consult. (5) Intellectual disability: Coordinate with outpatient ID case consultant, Zhen John. Risk Factors Assessment Male: Yes : Yes Do You Have Access To A Gun?: No Health Problems: No Mental Health Diagnoses: Yes Substance Use Disorders: No Previous Attempt: No Family History of Suicide: No Previous Psychiatric Hospitalization: Yes Hopelessness: Yes Smoker: Yes Protective Factors Assessment Yarsani Beliefs: No : No Responsible for Young Children: No Employed: No Stable Relationships: Yes Supportive Family: No Good Rapport with Provider: Yes Psychiatric History Identifying Data ALBAN DHILLON is a 39-year-old M who currently lives in [place], has a history of schizoaffective disorder and intellectual disability, and was admitted on 01/10/20 21:32 on a 201 voluntary commitment for suicidal ideation with a plan to cut himself. Chief Complaint " Paranoid, wanted to harm myself". History of Present Illness Patient in well known to us and was hospitalized on our unit for 3 days in 09/2019 for SI. He was continued on lamotrigine and fluoxetine was added for m ood. He had a meeting with his girlfriend, and declined recommendations for outpatient therapy, so was referred back to Leena GRISSOM at [facility]. He presented to the ER yesterday on referral from [facility], and presented with SI with thoughts to cut himself, AH of voices, paranoia, marijuana and nicotine use. He does not like his housing as the esparza are thin and he thinks he can hear other people through the esparza, and was fearful that someone was stalking him. He did not feel safe at home, thought he would hurt himself, and signed in voluntarily. Admission labs notable for normal CBC, CMP, TSH, UA, and UDS. He was continued on his home dose of lamotrigine 200 mg daily and propanolol 10 mg daily as needed. It appears fluoxetine was discontinued, as he only filled one prescription after discharge from the hospital in 10/15/2019. On my assessment, he reports worsening paranoia, auditory hallucinations and SI for the past 203 days. Denies acute stressor, but moved to a new apartment sometime in the past 1-2 months which has been stressful, as doesn't like it and doesn't know his neighbors, "I don't want to." He reports hearing AH of voices when he's in his apartment, but can't be sure if they are hallucinations or are coming from the TV or from his neighbors. He reports paranoia that "people are talking about me, want to harm me." He denies concerns about any specific person harming him, and denies thoughts of harming anyone else. He reports low mood, poor energy, and suicidal thoughts to cut himself. He denies significant anxiety, and says he has not been taking propanolol. He is not sure what happened to the fluoxetine that was started in the hospital in 09/2019, cannot remember when or why it was discontinued. He states he spends his days alone in his apartment, watching TV, and sometimes meets up with his credit collection specialist or goes downtown to hang out with his friends at the bus stop. He does not like spending a lot of time in his apartment, and would prefer to be out doing things. He asks if he can be discharged by Friday, as he has plans to go visit his girlfriend in [place] that day and go shopping at [facility]. Past Psychiatric History Previous Psych History: Outpatient records from [facility] reviewed: Seen 09/27/2019 and reported doing well, was staying with a friend in [place] temporarily while saving money to get his own place. His girlfriend had moved back in with her parents in [place], which briefly negatively impacted mood. He was attending community service group and spending time with friends, walking around town. He was continued on lamotrigine. He followed up after discharge from the hospital on 10/20/2019, was staying in a hotel while looking for his own apartment. He reported high anxiety due to his housing situation and requested to resume propanolol, and there was no mention of the fluoxetine that was started in the hospital. He followed up 11/03/2019 and reported propanolol was helpful for anxiety, and was preparing to move into a new apartment. His girlfriend's parents were not allowing him to visit her due to COVID-19. No med changes were made. His most recent appointment was 11/25/2019; he had just moved into his new apartment and liked it, as there are places to walk in the bus stop was nearby. Alf helped with his first month rent and security deposit. He denied depressive and anxiety symptoms, and his peers software support specialist attended and stated the patient was managing the transition well. He was continued on lamotrigine and propanolol. Current Psychiatric Diagnosis: schizoaffective disorder, bipolar type, ROSAURA, eating disorder, BPD, ID Outpatient Services: JACIEL Mac, at [facility] ID manager of finance: Zhen John No therapist Previous Psych Admissions: Numerous to multiple facilities; most recently here 10/15/2019 Do You Have Access To A Gun?: No History of Previous Suicide Attempt: No Past Medication Trials: Include but not limited to: Fluoxetine Lorazepam paxil zoloft remeron celexa cymbalta seroquel abilify zyprexa risperdal Past Head Trauma/Neuro History History of Concussion/Seizure: Yes (Seizure disorder) Allergies Allergy/AdvReac Type Severity Reaction Status Date / Time amoxicillin Allergy Severe HIVES,SEIZURE Verified 01/10/20 17:27 ACTIVITY. N/V guaifenesin [From Entex LA] Allergy Unknown Verified 01/10/20 17:27 phenylephrine [From Entex LA] Allergy Unknown Verified 01/10/20 17:27 phenylpropanolamine Allergy Unknown Verified 01/10/20 17:27 [From Entex LA] bacitracin AdvReac Mild ITCHY Verified 01/10/20 17:27 neomycin AdvReac Mild ITCHY Verified 01/10/20 17:27 polymyxin B AdvReac Mild ITCHY Verified 01/10/20 17:27 Home Medications Home Medications Medication Instructions Recorded Confirmed Type lamotrigine [Lamictal] 200 mg PO DAILY 01/22/19 01/10/20 History lansoprazole 15 mg capsule,delayed 15 mg PO DAILY #30 cap 01/05/20 01/10/20 Rx release sildenafil See Rx Instructions PO DAILY PRN 01/05/20 01/10/20 History propranolol 10 mg PO DAILY PRN 01/10/20 01/10/20 History Family History Family History of: Doesn't Know Alcohol History Hx of Alcohol Use Over the Past 12 Months: No AUDIT Total Score: 0 Smoking Use Have You Smoked or Used Tobacco Products in the Last 30 Days: Yes tobacco type: smokeless tobacco Smoking Status: Current every day smoker Smoking packs per day: 1 Substance History Hx of Prescription Med Misuse Over the Past 12 Months: No Hx of Over the Counter Med Misuse Over the Past 12 Months: No Hx of Inhalent Misuse Over the Past 12 Months: No Hx of Organic Substance Use Over the Past 12 Months: Yes (once a month or less) Hx of Illegal Substances/Street Drug Use Over Past 12 Months: No Problems as a Result of Past Substance Use: None Identified Personal History Living Arrangements: Apartment Living Arrangements Comments: Alone in an apartment in [place] Highest Grade Completed: High School Graduate Employment Status: Disabled Marital Status: Single Beliefs That Will Affect Care: None Current Legal Problems: No Patient History Medical History Asthma (Chronic) Depression (Chronic) Intellectual disability (Chronic) Schizoaffective disorder (Chronic) Surgical History History of tonsillectomy and adenoidectomy Hx of inguinal hernia repair Family History Father Pancreatic cancer Mother , passed in her 60's Lupus Sister Lupus Other Cancer Diabetes Hypertension Stroke Denies family history of Ovarian cancer Prostate cancer Myocardial infarction Breast cancer Social History Preferred Language: Citizen Of [place] Communication Ability: Effective Visual Impairment: No Limitations Hearing Ability: Normal Ross Furnace Operator Required: No Beliefs That Will Affect Care: None marital status: Single Current Living Situation: Alone current occupational status: disabled Feels Safe at Home: Yes Smoking Status: Current every day smoker Tobacco Type: smokeless tobacco ; Hx Alcohol Use: Yes Hx Substance Use: No Childhood Exposure to Second-Hand Smoke: Yes Dental Care, Regularly: No Physical Activity Frequency: Daily Seatbelt Use: always Sunscreen Use: No Review of Systems Review of Systems: All systems reviewed & are unremarkable except as noted in HPI & below Physical Exam Psychiatric: Orientation: alert, oriented x 3 and cooperative Apperance: appropriately dressed and appropriately groomed Thin male, casually dressed in baggy close. Bald, with large tattoo on his neck. Seated in no acute distress. Eye Contact: + fair eye contact Motor Behavior: steady gait and station and no abnormal motor movements Minimal, monotone. Affect: + depressed affect, + constricted affect and mood congruent with affect Mood: + depressed mood "Eh" Thought Process: + concrete thought process Thought Content: + paranoid and + persecution Suicidal Thoughts: + reports suicidal thoughts Homicidal Thoughts: denies homicidal thoughts Hallucinations: + auditory hallucinations Cognition: attention grossly intact and language grossly intact; + recent memory not intact and + remote memory not intact Estimated Intelligence: + below average estimated intelligence Insight: + limited insight Judgement: + limited judgement Vital Signs (Past 24 Hours): Last Vital Signs Temp 36.6 C 01/11/20 06:45 Pulse 82 01/11/20 06:46 Resp 18 01/11/20 06:45 BP 95/58 L 01/11/20 06:46 Pulse Ox 99 01/10/20 21:20 Exam Statement: A physical exam was performed in the ER prior to admission to the unit by Dr. Cardona. I accept that physical as correct/medical clearance for the inpatient physical exam. Results & Data ([facility]) Laboratory Results Laboratory Results - last 24 hr 01/10/20 01/10/20 01/10/20 17:00 17:00 17:44 WBC 5.81 RBC 4.97 Hgb 15.0 Hct 42.2 MCV 84.9 MCH 30.2 MCHC 35.5 RDW Std Deviation 37.5 RDW Coeff of Izzy 12.4 Plt Count 182 MPV 11.2 H Immature Gran % (Auto) 0.2 Neut % (Auto) 63.9 Lymph % (Auto) 28.4 [place] % (Auto) 6.9 Eos % (Auto) 0.3 Baso % (Auto) 0.3 Immature Gran # (Auto) 0.01 Neut # (Auto) 3.71 Lymph # (Auto) 1.65 [place] # (Auto) 0.40 Eos # (Auto) 0.02 Baso # (Auto) 0.02 Sodium Potassium Chloride Carbon Dioxide Anion Gap BUN Creatinine Est Cr Clr Drug Dosing Est GFR ( Amer) Est GFR (Non-Af Amer) BUN/Creatinine Ratio Glucose Calcium Total Bilirubin AST ALT Alkaline Phosphatase Total Protein Albumin Globulin Albumin/Globulin Ratio Lipase TSH Urine Color Yellow Urine Appearance Clear Urine pH 5.0 Ur Specific [place] 1.020 Urine Protein Negative Urine Glucose (UA) Negative Urine Ketones Negative Urine Blood Negative Urine Nitrite Negative Urine Bilirubin Negative Urine Urobilinogen Negative Ur Leukocyte Esterase Negative Salicylates Urine Opiates Screen Neg Ur Methadone, Qual Neg Acetaminophen Urine Barbiturates Neg Ur Phencyclidine (PCP) Neg U Amphetamin/Meth Scrn Neg MDMA (Ecstasy) Screen Neg U Benzodiazepines Scrn Neg Ur Cocaine Metabolite Neg U Marijuana (THC) Screen Neg Ethyl Alcohol mg/dL 01/10/20 01/10/20 01/10/20 17:44 17:44 17:44 WBC RBC Hgb Hct MCV MCH MCHC RDW Std Deviation RDW Coeff of Izzy Plt Count MPV Immature Gran % (Auto) Neut % (Auto) Lymph % (Auto) [place] % (Auto) Eos % (Auto) Baso % (Auto) Immature Gran # (Auto) Neut # (Auto) Lymph # (Auto) [place] # (Auto) Eos # (Auto) Baso # (Auto) Sodium 138 Potassium 3.8 Chloride 104 Carbon Dioxide 26 Anion Gap 8.0 BUN 17 Creatinine 0.90 Est Cr Clr Drug Dosing 84.2 Est GFR ( Amer) 122.5 Est GFR (Non-Af Amer) 105.7 BUN/Creatinine Ratio 18.4 Glucose 92 Calcium 9.3 Total Bilirubin 0.8 AST 8 L ALT 16 Alkaline Phosphatase 71 Total Protein 7.2 Albumin 4.2 Globulin 3.0 Albumin/Globulin Ratio 1.4 Lipase 92 TSH 1.500 Urine Color Urine Appearance Urine pH Ur Specific [place] Urine Protein Urine Glucose (UA) Urine Ketones Urine Blood Urine Nitrite Urine Bilirubin Urine Urobilinogen Ur Leukocyte Esterase Salicylates < 1.7 L Urine Opiates Screen Ur Methadone, Qual Acetaminophen < 2 L Urine Barbiturates Ur Phencyclidine (PCP) U Amphetamin/Meth Scrn MDMA (Ecstasy) Screen U Benzodiazepines Scrn Ur Cocaine Metabolite U Marijuana (THC) Screen Ethyl Alcohol mg/dL < 3.0 Current Inpatient Medications Current Inpatient Medications: Current Inpatient Medications Acetaminophen (Tylenol) 650 mg PO Q4H PRN PRN Reason: Headache or Minor Fever Stop: 02/09/20 20:47 Al Hydrox/Mg Hydrox/Simethicone (Maalox) 30 ml PO Q4H PRN PRN Reason: GI Upset Stop: 02/09/20 20:47 Bismuth Subsalicylate (Kaopectate) 15 ml PO PRN PRN PRN Reason: Loose Stool Stop: 02/09/20 20:47 Hydroxyzine HCl (Vistaril) 50 mg PO HSZ PRN PRN Reason: Insomnia Stop: 02/09/20 20:47 Hydroxyzine HCl (Vistaril) 25 mg PO Q4H PRN PRN Reason: Anxiety Stop: 02/09/20 20:47 Ioversol (Optiray 320 100ml) 95 ml IV ONCE PRN PRN Reason: Interaction Checking Stop: 01/14/20 19:08 Last Admin: 01/10/20 19:09 Dose: 95 ml Documented by: Lamotrigine (Lamictal) 200 mg PO DAILY LEONIE Stop: 02/10/20 08:59 Last Admin: 01/11/20 08:19 Dose: 200 mg Documented by: Lansoprazole (Prevacid) 15 mg PO DAILY LEONIE Stop: 02/10/20 08:59 Last Admin: 01/11/20 08:19 Dose: 15 mg Documented by: Magnesium Hydroxide (Milk Of Magnesia) 30 ml PO DAILY PRN PRN Reason: Constipation Stop: 02/09/20 20:47 Nicotine Polacrilex (Nicorette 2mg) 1 piece MT PRN PRN PRN Reason: nicotine craving Stop: 02/10/20 07:09 Last Admin: 01/11/20 08:27 Dose: 1 piece Documented by: Propranolol HCl (Inderal) 10 mg PO DAILY PRN PRN Reason: BP Stop: 02/09/20 20:50 Sodium Chloride ([place] Nasal) 1 - 2 sprays NA PRN PRN PRN Reason: Nasal Dryness/Congestion Stop: 02/09/20 20:47
[2020-01-11] MEDS: ACETAMINOPHEN 325 MG TAB PO PRN ×2 (17:32→23:04)
[2020-01-12] MEDS: NICOTINE POLACRILEX 2 MG GUM MT PRN ×8 (07:03→21:44)
[2020-01-12] MEDS: lamoTRIgine 100 MG TAB PO SCH (09:10)
[2020-01-12] MEDS: LANSOPRAZOLE 15 MG SOLTAB PO SCH (09:10)
[2020-01-12] MEDS: ACETAMINOPHEN 325 MG TAB PO PRN (09:11)
--- NOTE | 2020-01-12 09:52 | Psychiatric Progress Note ---
Date of Service January 12, 2020 Impression / Recommendations Impression 39-year-old single male with a history of intellectual disability, schizoaffective disorder, anxiety, eating disorder, and borderline personality disorder who presents with 2 days of worsening paranoia, auditory hallu cinations, and suicidal thoughts. He has multiple stressors including his recent move to a new apartment, his girlfriend moved to a neighboring town, is living with her parents, so he does not see her as much, day programming is close due to the pandemic, and he thinks his new neighbors do not like him. He had been started on fluoxetine when hospitalized here 3 months ago, but we were informed it was discontinued as an outpatient as patient admitted he had not been compliant with the medication. He signed in voluntarily, but wants to ensure he can be discharged by Friday, as he has plans to go see his girlfriend. He did submit a 72-hour notice which expires on 01/14 at 0715. As little has been done to mitigate factors contributing to his hospitalization, we are recommending ongoing inpatient psychiatric treatment. Patient's home medications have been continued, and plan is to monitor for psychotic symptoms, while gathering collateral information and coordinating with his outpatient clinician. Inpatient treatment is medically necessary due to the severity of his symptoms and risk for suicide if discharged prematurely. (1) Schizoaffective disorder: 01/10 -it is not clear to me if the patient truly has schizoaffective disorder, or if his psychotic symptoms are due BPD, or to ID and a way to communicate distress. He does not appear to be actively hallucinating, states the voices that he hears at home may be coming from his television or neighbors, and has not been on an antipsychotic for some time. Symptoms appear to be exac erbated when he is under stress. We will monitor here for evidence of psychosis. -Call placed to JACIEL Mac, at [facility] to coordinate care. -Patient does appear depressed, and had been started on fluoxetine when he was here several months ago, but it was not continued as an outpatient, and he is not sure why. Will discuss with his outpatient clinician when she calls back. -Encourage group attendance and participation, process stressors, work on healthy coping skills and discharge safety plan. -Patient would likely benefit from increased supports in the community, but currently unable to access clubhouse and psych rehab due to the pandemic. He does have a windows technical specialist and disease case manager, and it would be helpful to involve them in discharge planning. -Continue voluntary hospitalization, suicide checks for safety. -Continue home dose of lamotrigine, which is for mood disorder and seizure disorder. 01/11 - Continue current medication regimen. Decided not to resume fluoxetine, as patient had reported non-compliance with the medication after his 09/2019 hospitalization and it is believed the stressors contributing to low mood are largely situational at this time (moving into new apartment, further away from girlfriend, limited socialization related to COVID-19 restrications). - Pt did submit his 72-hour notice; however, as little has been done to mitigate his presenting factors ongoing psychiatric hospitalization is recommended. Will need to ensure patient has scheduled follow-up appointments and it is recommended that there be contact with his disease case manager during this hospitalization to discuss ways to improve socialization and ease the transition to his new apartment. Pt did verbalize willingness to consider day programming as a way to improve socialization on an outpatient basis. (2) Generalized anxiety disorder: Continue home dose of propanolol as needed. (3) Seizure disorder: Continue home dose of lamotrigine. (4) Eating disorder: Patient is chronically underweight with poor p.o. intake. Monitor p.o. intake here and consider dietary consult. (5) Intellectual disability: Coordinate with outpatient ID disease case manager, Zhen John. 01/11 - Planning to specifically discuss recommendations for exploration of day program opportunities for the patient - Assess options to assist with patient's transition to his new apartment Risk Factors Assessment Male: Yes : Yes Do You Have Access To A Gun?: No Health Problems: No Mental Health Diagnoses: Yes Substance Use Disorders: No Previous Attempt: No Family History of Suicide: No Previous Psychiatric Hospitalization: Yes Hopelessness: Yes Smoker: Yes Protective Factors Assessment Pentecostal Beliefs: No : No Responsible for Young Children: No Employed: No Stable Relationships: Yes Supportive Family: No Good Rapport with Provider: Yes Interval History Identifying Information ALBAN DHILLON is a 39-year-old M who currently lives in [place], has a history of schizoaffective disorder and intellectual disability, and was admitted on 01/10/20 21:32 on a 201 voluntary commitment for suicidal ideation with a plan to cut himself. Chief Complaint "Um, I need a little help with these headaches." Review of Systems Notes Constitutional: reports interrupted sleep last evening Cardiovascular: denied Respiratory: denied Gastrointestinal: denied Neurological: denied Psychiatric: denies symptoms other than stated above Total of at least 10 systems reviewed, pertinent positives as above and in HPI. Sleep Information Total Hours of Sleep: 6.25 Sleep Comments: pt on q-15 minute checks Meal Information Percent Meal Consumed - Breakfast: 60 Percent Meal Consumed - Lunch: 75 Percent Meal Consumed - Dinner: 0 Nutrition Comment: Boni stated that he did not want to eat but did agree for this counselor to safe his fruit off his tray. He had only ordered a small bowl of fruit and a roll for his meal. Subjective Subjective Patient was seen & assessed and interval progress reviewed with treatment team. Staff report the patient has been interactive with peers and attending groups regularly. He did reportedly submit his 72-hour notice, which expires on 01/14 at 0715. Pt was seen today to assess progress since admission. Pt states, "I need help with these headaches." He reports he has had a dull, persistent headache for several days now. He reports having tried several doses of Tylenol without much improvement. At first patient states he generally utilizes ibuprofen, but then says his doctors have discouraged regular use of "Tylenol, because of my kidneys." Based on available laboratory information, there does not seem to be significant abnormalities with kidney or liver function and patient was agreeable with a one-time dose of ibuprofen in attempt to resolve his headache. Pt states that his mood has been "so-so", claiming it is "pretty much the same" as it was when he was first admitted. We discussed the stressors contributing to this admission, with patient stating the move to his new apartment has been stressful. Pt states, "it's testing my psych issues. I have to keep guessing if I'm hearing things or if it's just the people next door." Pt states that generally he will call friends who often assist with reality test ing; however, the frustration has been more overwhelming recently. Pt does report that he does not believe he is hallucinating here in the hospital setting. We discussed various distraction techniques patient can utilize outside of the hospital setting, and he verbalized willingness to pursue day programming to encourage additional support. Pt did verbalize some ongoing paranoia in the hospital, stating he believes that "some staff don't like me, or they think I'm annoying. I'm trying to not be an ahole and make sure I'm going to all the groups." We discussed this feeling, with patient unable to cite any specific examples of this concern. Pt was reassured that staff has enjoyed his presence on the unit and that we are pleased with his participation in programming, which seemed to comfort the patient momentarily. Pt again expresses desire for discharge by Friday, as he states he is planning to spend time with his girlfriend and "I hardly every get to see her anymore." Pt denies other needs or concerns today. Physical Exam Psychiatric Orientation: alert, oriented x 3 and cooperative (and pleasant, but somewhat timid) Apperance: appropriately dressed (casually, in gym pants and a hoodie), appropriately groomed and appeared stated age Eye Contact: good eye contact Motor Behavior: no abnormal motor movements Speech: normal rate/rhythm/volume of speech (soft volume) Affect: + depressed affect, + constricted affect and mood congruent with affect Mood: + depressed mood ("so-so" and "pretty much the same") Thought Process: goal directed thought process and + concrete thought process Thought Content: + preoccupation (with belief that individuals don't like him), + cognitive distortions (hypervigilence, believe some staff do not like him) and + persecution; no hopelessness Suicidal Thoughts: denies suicidal thoughts and denies suicidal intent Homicidal Thoughts: denies homicidal thoughts Hallucinations: no auditory hallucinations and no visual hallucinations Denies hearing voices in the hospital setting, but continues to question if he is experiencing auditory hallucinations at home Cognition: recent memory grossly intact, attention grossly intact and language grossly intact Estimated Intelligence: + below average estimated intelligence Insight: + limited insight Judgement: + limited judgement Vital Signs (Past 24 Hours) Last Vital Signs Temp 36.4 C L 01/12/20 06:51 Pulse 96 H 01/12/20 06:51 Resp 18 01/12/20 06:51 BP 116/83 01/12/20 06:51 Pulse Ox 99 01/10/20 21:20 Results & Data ([facility]) Current Inpatient Medications Current Inpatient Medications: Current Inpatient Medications Acetaminophen (Tylenol) 650 mg PO Q4H PRN PRN Reason: Headache or Minor Fever Stop: 02/09/20 20:47 Last Admin: 01/12/20 09:11 Dose: 650 mg Documented by: Al Hydrox/Mg Hydrox/Simethicone (Maalox) 30 ml PO Q4H PRN PRN Reason: GI Upset Stop: 02/09/20 20:47 Bismuth Subsalicylate (Kaopectate) 15 ml PO PRN PRN PRN Reason: Loose Stool Stop: 02/09/20 20:47 Hydroxyzine HCl (Vistaril) 50 mg PO HSZ PRN PRN Reason: Insomnia Stop: 02/09/20 20:47 Hydroxyzine HCl (Vistaril) 25 mg PO Q4H PRN PRN Reason: Anxiety Stop: 02/09/20 20:47 Ioversol (Optiray 320 100ml) 95 ml IV ONCE PRN PRN Reason: Interaction Checking Stop: 01/14/20 19:08 Last Admin: 01/10/20 19:09 Dose: 95 ml Documented by: Lamotrigine (Lamictal) 200 mg PO DAILY LEONIE Stop: 02/10/20 08:59 Last Admin: 01/12/20 09:10 Dose: 200 mg Documented by: Lansoprazole (Prevacid) 15 mg PO DAILY LEONIE Stop: 02/10/20 08:59 Last Admin: 01/12/20 09:10 Dose: 15 mg Documented by: Magnesium Hydroxide (Milk Of Magnesia) 30 ml PO DAILY PRN PRN Reason: Constipation Stop: 02/09/20 20:47 Nicotine Polacrilex (Nicorette 2mg) 2 piece MT Q2H PRN PRN Reason: nicotine cravings Stop: 02/10/20 07:09 Last Admin: 01/12/20 09:24 Dose: 2 piece Documented by: Propranolol HCl (Inderal) 10 mg PO DAILY PRN PRN Reason: BP Stop: 02/09/20 20:50 Sodium Chloride ([place] Nasal) 1 - 2 sprays NA PRN PRN PRN Reason: Nasal Dryness/Congestion Stop: 02/09/20 20:47 Mental Health & Subst Abuse Tx Therapist Name of Therapist: none Manager Career Name of Manager Career: [employer] Post Discharge Appointments Primary Care Physician Name Of Family Doctor: Dr. Sosa [facility] (1) Schizoaffective disorder Schizoaffective disorder type: unspecified Qualified Code(s): F25.9 - Schizoaffective disorder, unspecified
[2020-01-12] MEDS ORDERED: IBUPROFEN 600 MG TAB PO ONE (11:00)
[2020-01-13] MEDS: lamoTRIgine 100 MG TAB PO SCH (08:48)
[2020-01-13] MEDS: LANSOPRAZOLE 15 MG SOLTAB PO SCH (08:50)
[2020-01-13] MEDS: NICOTINE POLACRILEX 2 MG GUM MT PRN ×5 (09:10→20:40)
--- NOTE | 2020-01-13 09:10 | Psychiatric Progress Note ---
Date of Service January 13, 2020 Impression / Recommendations Impression 39-year-old single male with a history of intellectual disability, schizoaffective disorder, anxiety, eating disorder, and borderline personality disorder who presents with 2 days of worsening paranoia, auditory hallu cinations, and suicidal thoughts. He has multiple stressors including his recent move to a new apartment, his girlfriend moved to a neighboring town, is living with her parents, so he does not see her as much, day programming is close due to the pandemic, and he thinks his new neighbors do not like him. He had been started on fluoxetine when hospitalized here 3 months ago, but we were informed it was discontinued as an outpatient as patient admitted he had not been compliant with the medication. He signed in voluntarily, but wants to ensure he can be discharged by Friday, as he has plans to go see his girlfriend. He did submit a 72-hour notice which expires on 01/14 at 0715. As little has been done to mitigate factors contributing to his hospitalization, we are recommending ongoing inpatient psychiatric treatment. Patient's home medications have been continued, and plan is to monitor for psychotic symptoms, while gathering collateral information and coordinating with his outpatient clinician. Inpatient treatment is medically necessary due to the severity of his symptoms and risk for suicide if discharged prematurely. (1) Schizoaffective disorder: 01/10 -it is not clear to me if the patient truly has schizoaffective disorder, or if his psychotic symptoms are due BPD, or to ID and a way to communicate distress. He does not appear to be actively hallucinating, states the voices that he hears at home may be coming from his television or neighbors, and has not been on an antipsychotic for some time. Symptoms appear to be exac erbated when he is under stress. We will monitor here for evidence of psychosis. -Call placed to JACIEL Mac, at [facility] to coordinate care. -Patient does appear depressed, and had been started on fluoxetine when he was here several months ago, but it was not continued as an outpatient, and he is not sure why. Will discuss with his outpatient clinician when she calls back. -Encourage group attendance and participation, process stressors, work on healthy coping skills and discharge safety plan. -Patient would likely benefit from increased supports in the community, but currently unable to access clubhouse and psych rehab due to the pandemic. He does have a hydraulic specialist and showcase trimmer, and it would be helpful to involve them in discharge planning. -Continue voluntary hospitalization, suicide checks for safety. -Continue home dose of lamotrigine, which is for mood disorder and seizure disorder. 01/11 - Continue current medication regimen. Decided not to resume fluoxetine, as patient had reported non-compliance with the medication after his 09/2019 hospitalization and it is believed the stressors contributing to low mood are largely situational at this time (moving into new apartment, further away from girlfriend, limited socialization related to COVID-19 restrications). - Pt did submit his 72-hour notice; however, as little has been done to mitigate his presenting factors ongoing psychiatric hospitalization is recommended. Will need to ensure patient has scheduled follow-up appointments and it is recommended that there be contact with his showcase trimmer during this hospitalization to discuss ways to improve socialization and ease the transition to his new apartment. Pt did verbalize willingness to consider day programming as a way to improve socialization on an outpatient basis. 01/12 - Continue current treatment plan - Continue attempts to coordinate discharge planning with patient's showcase trimmer to explore ways to assist with housing transition and refer for day programming - Anticipate discharge tomorrow, 72-hour notice expires 01/14 at 0715 (2) Generalized anxiety disorder: Continue home dose of propanolol as needed. (3) Seizure disorder: Continue home dose of lamotrigine. (4) Eating disorder: Patient is chronically underweight with poor p.o. intake. Monitor p.o. intake here and consider dietary consult. (5) Intellectual disability: Coordinate with outpatient ID showcase trimmer, Zhen John. 01/11 - Planning to specifically discuss recommendations for exploration of day program opportunities for the patient - Assess options to assist with patient's transition to his new apartment Risk Factors Assessment Male: Yes : Yes Do You Have Access To A Gun?: No Health Problems: No Mental Health Diagnoses: Yes Substance Use Disorders: No Previous Attempt: No Family History of Suicide: No Previous Psychiatric Hospitalization: Yes Hopelessness: Yes Smoker: Yes Protective Factors Assessment Latter-Day Beliefs: No : No Responsible for Young Children: No Employed: No Stable Relationships: Yes Supportive Family: No Good Rapport with Provider: Yes Interval History Identifying Information ALBAN DHILLON is a 39-year-old M who currently lives in [place], has a history of schizoaffective disorder and intellectual disability, and was admitted on 01/10/20 21:32 on a 201 voluntary commitment for suicidal ideation with a plan to cut himself. Chief Complaint "Good. Tired after I took the Vistaril." Review of Systems Notes Constitutional: denied Cardiovascular: denied Respiratory: denied Gastrointestinal: denied Neurological: denied Psychiatric: denies symptoms other than stated above Total of at least 10 systems reviewed, pertinent positives as above and in HPI. Sleep Information Total Hours of Sleep: 6 Sleep Comments: pt on q-15 minute checks Meal Information Percent Meal Consumed - Breakfast: 100 Percent Meal Consumed - Lunch: 50 Percent Meal Consumed - Dinner: 90 Nutrition Comment: . Subjective Subjective Patient was seen & assessed and interval progress reviewed with nursing and social work. Staff report the patient has continued to participate appropriately in group programming. Pt did report to staff that he was feeling "grumpy" yesterday morning, but stated mood improved after his headache resolved. Attempts were made to reach patient's showcase trimmer, but we have not yet been able to coordinate discharge/aftercare planning. Pt was seen today to assess progress since admission. Pt states he still had difficulty sleeping last evening, but believes this will improve once he returns to his own bed. Pt states his mood is "Good. Tired after I took the Vistaril." Pt clarifies that he requested Vistaril yesterday evening due to feeling "anxious and depressed, I don't really know why." Pt states it took "about 3-4 minutes" for these thoughts/feelings to resolve before his mood improved. He states attending self-awareness group at this time was also helpful. Pt rates his mood a 10/10 today. He was informed of our ongoing attempts to coordinate aftercare recommendations with his showcase trimmer. Pt claims they have already been discussing referrals for day programming and that the patient has already expressed desire to move to a new apartment, which he claims supports are helping him with. Pt denies SI today. Reviewed anticipated discharge tomorrow, which patient is agreeable with. He denied other needs or concerns today. Physical Exam Psychiatric Orientation: alert, oriented x 3 and cooperative Apperance: appropriately dressed (casually, in pajama pants and a hoodie), appropriately groomed and appeared stated age Eye Contact: + fair eye contact Motor Behavior: steady gait and station and no abnormal motor movements Speech: normal rate/rhythm/volume of speech (monotone, frequently mumbling) Affect: + blunted affect and + constricted affect Mood: no depressed mood ("Good or bad? A 10 I'd say") Thought Process: goal directed thought process and + concrete thought process Thought Content: + preoccupation (with hearing voices through the esparza, but does not seem as paranoid today) and + cognitive distortions; no hopelessness Suicidal Thoughts: denies suicidal thoughts and denies suicidal intent Homicidal Thoughts: denies homicidal thoughts Hallucinations: no auditory hallucinations and no visual hallucinations Cognition: attention grossly intact and language grossly intact Estimated Intelligence: + below average estimated intelligence Insight: + limited insight Judgement: + limited judgement Vital Signs (Past 24 Hours) Last Vital Signs Temp 36.4 C L 01/13/20 06:00 Pulse 89 01/13/20 06:32 Resp 16 01/13/20 06:00 BP 90/58 L 01/13/20 06:32 Pulse Ox 99 01/10/20 21:20 Results & Data ([facility]) Current Inpatient Medications Current Inpatient Medications: Current Inpatient Medications Acetaminophen (Tylenol) 650 mg PO Q4H PRN PRN Reason: Headache or Minor Fever Stop: 02/09/20 20:47 Last Admin: 01/12/20 09:11 Dose: 650 mg Documented by: Al Hydrox/Mg Hydrox/Simethicone (Maalox) 30 ml PO Q4H PRN PRN Reason: GI Upset Stop: 02/09/20 20:47 Bismuth Subsalicylate (Kaopectate) 15 ml PO PRN PRN PRN Reason: Loose Stool Stop: 02/09/20 20:47 Hydroxyzine HCl (Vistaril) 50 mg PO HSZ PRN PRN Reason: Insomnia Stop: 02/09/20 20:47 Hydroxyzine HCl (Vistaril) 25 mg PO Q4H PRN PRN Reason: Anxiety Stop: 02/09/20 20:47 Last Admin: 01/12/20 15:35 Dose: 25 mg Documented by: Ioversol (Optiray 320 100ml) 95 ml IV ONCE PRN PRN Reason: Interaction Checking Stop: 01/14/20 19:08 Last Admin: 01/10/20 19:09 Dose: 95 ml Documented by: Lamotrigine (Lamictal) 200 mg PO DAILY LEONIE Stop: 02/10/20 08:59 Last Admin: 01/13/20 08:48 Dose: 200 mg Documented by: Lansoprazole (Prevacid) 15 mg PO DAILY LEONIE Stop: 02/10/20 08:59 Last Admin: 01/13/20 08:50 Dose: 15 mg Documented by: Magnesium Hydroxide (Milk Of Magnesia) 30 ml PO DAILY PRN PRN Reason: Constipation Stop: 02/09/20 20:47 Nicotine Polacrilex (Nicorette 2mg) 2 piece MT Q2H PRN PRN Reason: nicotine cravings Stop: 02/10/20 07:09 Last Admin: 01/12/20 21:44 Dose: 2 piece Documented by: Propranolol HCl (Inderal) 10 mg PO DAILY PRN PRN Reason: BP Stop: 02/09/20 20:50 Sodium Chloride ([place] Nasal) 1 - 2 sprays NA PRN PRN PRN Reason: Nasal Dryness/Congestion Stop: 02/09/20 20:47 Mental Health & Subst Abuse Tx Psychiatrist Name of Psychiatrist: Jalen Kelly Psychiatrist's Date of Appointment with Psychiatrist: 01/24/20 Time of Appointment with Psychiatrist: 1:00pm Psychiatric Appointment Comment: [id number] [facility] Therapist Name of Therapist: . Slat Basket Maker Helper Machine Name of Slat Basket Maker Helper Machine: [facility] - IDD Support Zhen MELÉNDEZ Phone Number for Slat Basket Maker Helper Machine: [phone] Case Management Appointment Comment: [address] [facility], [address], [place] Post Discharge Appointments Primary Care Physician Name Of Family Doctor: CASSIE Dodson Primary Care Time of Appointment with PCP: Please follow up as needed Provider Appointment Comment: [address] [facility] [place] Contact Information Discharge Discharge [address]: [address] [place] [address], [address] [address] (1) Schizoaffective disorder Schizoaffective disorder type: unspecified Qualified Code(s): F25.9 - Schizoaffective disorder, unspecified
[2020-01-14] MEDS: lamoTRIgine 100 MG TAB PO SCH (08:13)
[2020-01-14] MEDS: LANSOPRAZOLE 15 MG SOLTAB PO SCH (08:13)
[2020-01-14] MEDS: NICOTINE POLACRILEX 2 MG GUM MT PRN (08:15)
--- NOTE | 2020-01-14 10:40 | Discharge Summary ---
Date of Service January 14, 2020 History of Present Illness Patient in well known to us and was hospitalized on our unit for 3 days in 09/2019 for SI. He was continued on lamotrigine and fluoxetine was added for mood. He had a meeting with his girlfriend, and declined recommendations for outpatient therapy, so was referred back to Leena GRISSOM at [facility]. He presented to the ER yesterday on referral from [facility], and presented with SI with thoughts to cut himself, AH of voices, paranoia, marijuana and nicotine use. He does not like his housing as the esparza are thin and he thinks he can hear other people through the esparza, and was fearful that someone was stalking him. He did not feel safe at home, thought he would hurt himself, and signed in voluntarily. Admission labs notable for normal CBC, CMP, TSH, UA, and UDS. He was continued on his home dose of lamotrigine 200 mg daily and propanolol 10 mg daily as needed. It appears fluoxetine was discontinued, as he only filled one prescription after discharge from the hospital in 10/15/2019. On my assessment, he reports worsening paranoia, auditory hallucinations and SI for the past 203 days. Denies acute stressor, but moved to a new apartment sometime in the past 1-2 months which has been stressful, as doesn't like it and doesn't know his neighbors, "I don't want to." He reports hearing AH of voices when he's in his apartment, but can't be sure if they are hallucinations or are coming from the TV or from his neighbors. He reports paranoia that "people are talking about me, want to harm me." He denies concerns about any specific person harming him, and denies thoughts of harming anyone else. He reports low mood, poor energy, and suicidal thoughts to cut himself. He denies significant anxiety, and says he has not been taking propanolol. He is not sure what happened to the fluoxetine that was started in the hospital in 09/2019, cannot remember when or why it was discontinued. He states he spends his days alone in his apartment, watching TV, and sometimes meets up with his home specialist or goes downtown to hang out with his friends at the bus stop. He does not like spending a lot of time in his apartment, and would prefer to be out doing things. He asks if he can be discharged by Friday, as he has plans to go visit his girlfriend in [place] that day and [facility]. Physical Exam Psychiatric Orientation: alert, oriented x 3 and cooperative Apperance: appropriately dressed, appropriately groomed and appeared stated age Eye Contact: + fair eye contact Motor Behavior: steady gait and station Spontaneous, but somewhat monotonous. Affect: + blunted affect "My mood is pretty good." Thought Process: linear/logical thought process and + concrete thought process Thought Content: reality based without delusions Suicidal Thoughts: denies suicidal thoughts Homicidal Thoughts: denies homicidal thoughts Hallucinations: no auditory hallucinations Confirms history of auditory hallucinations but says that he has not experienced any for several days. Cognition: recent memory grossly intact and remote memory grossly intact Estimated Intelligence: + below average estimated intelligence Insight: + fair insight Judgement: + fair judgement Vital Signs (Past 24 Hours) Last Vital Signs Temp 36.4 C L 01/14/20 09:37 Pulse 94 H 01/14/20 09:37 Resp 16 01/14/20 09:37 BP 110/72 01/14/20 09:37 Pulse Ox 99 01/14/20 09:37 Principal Diagnosis Schizoaffective disorder Psychiatric Data During the course of hospitalization the patient was offered various modalities of psychiatric treatment and education. These included individual, group, activity, and medication therapy. The patient acknowledges that prior to admission he had not been adherent with medications. We discussed with him various options, and he indicated that he would refuse the various antipsychotic medications that were offered, but he would accept lamotrigine and he agreed to be adherent with this medication following discharge. The patient had a limited ability to participate in group and activity therapies. As noted at the time of admission the patient was actually future oriented and indicated that he was hoping to be out of the hospital by the weekend so he could keep a date with his girlfriend. He was able to discuss his history of self cutting. He explains that the self cutting is a way that he has of coping with emotional distress, but he convincingly states that his intent when he self cuts is not suicide. Nevertheless, he has cut himself to the degree that the wounds have required suturing, and he was educated about the fact that this form of cutting can lead to unintended consequences including infections, tendon damage, and accidental . The patient indicated understanding. We focused on teaching the patient individual coping strategies that he can access when distressed, as an alternative to self cutting. It is also noted that the patient sometimes finds similar release from emotional distress through getting additional tattoos. Much of the focus of treatment centered around educating the patient about adherence with his medications and treatment. He reported that during the stay his auditory hallucinations stopped. All thoughts of self-harm stopped. He never had any thoughts of causing harm to other people. He continues to believe that his apartment is unsuitable, but he no longer describes it in terms that suggest a delusional belief. Instead, he explains his desire to move by saying, "I just never liked the place. I am hoping to find something nicer." Arrangements were made for aftercare and for the patient to participate in the [facility] program. He tells us that he enjoys the [facility] because he has a number of friends there and he enjoys the various activities that are provided there. The plan is to discharge the patient on his current psychiatric medication, namely lamotrigine 400 mg a day. Day of Discharge Assessment On the day of discharge the patient was found to be reasonably pleasant and fully cooperative. His speech was spontaneous, but was somewhat monotonous in tone and his vocabulary appears to be somewhat limited. He was appropriately dressed and groomed. The patient's thought processes were occasionally somewhat concrete but were tight goal oriented, with only the occasional tangential thought. The patient's thought content appeared to be devoid of any psychotic features. He acknowledges that he has periodically experienced auditory hallucinations over the years, and had been hearing voices prior to admission. However, he indicates that these voices stopped during the hospitalization once he was back on his medications. The patient states that although he has a history of intentional self cutting, he notes that he does not believe that he is ever been actually suicidal. Instead, he reports that his episodes of self cutting have represented an effort on his part to manage emotional distress, but his intent is never . He is also able to understand that he can accidentally seriously injure himself by self cutting, particularly given that he historically has sometimes cut fairly deeply. Patient is clearly future oriented and, for example, tells me that he is looking forward to seeing his girlfriend and adds, somewhat shyly, that he has a supply of Viagra. He also talks about a plan to eventually find a different place to live. He notes that the location of his current apartment has as a disadvantage of the fact that there "is not much to do nearby, and I do not drive." The patient also reports that he is not having any thoughts of causing physical harm to the person or property of others. His judgment and insight are both assessed as being fair. The patient's intelligence is estimated to be below average. Transition of Care Transition Of Care Record: was reviewed with the patient Advance Directives Advance Directives Information Provided: Yes Advance Directives: No Mental Health Advance Directive: No Advance Directives on File: No Living Will: No Power of Electro Tech: No Advance Directives Reason:: Declines as Mental Health Visit. Risk Factors Assessment History of mental illness. History of psychosis. Somewhat socially isolated. History of self cutting. Multiple psychiatric hospitalizations. History of auditory hallucinations. Mitigating factors include the fact that the patient accepts that he requires psychiatric treatment and commits to medication adherence and outpatient treatment. Male: Yes : Yes Do You Have Access To A Gun?: No Health Problems: No Mental Health Diagnoses: Yes Substance Use Disorders: No Previous Attempt: No Family History of Suicide: No Previous Psychiatric Hospitalization: Yes Hopelessness: Yes Smoker: Yes Protective Factors Assessment Synagogue Beliefs: No : No Responsible for Young Children: No Employed: No Stable Relationships: Yes Supportive Family: No Good Rapport with Provider: Yes Absence of Any Risk Factors Above: No Tobacco Cessation at Discharge Tobacco Cessation Medication Prescribed at Discharge: Offered & Pt Refused (The patient was repeatedly counseled about the serious risk associated with tobacco use. However, he states, "the first thing I am going to do when I leave here is buy some cigarettes.") Practical counseling provided including: recognizing danger situations, developing coping skills and providing basic information about quitting Tobacco Cessation Outpatient Followup: Referral for outpatient treatment offered and refused Total Time Total Time Spent: Greater Than 30 Minutes Total Time Includes: Examination of the patient, Discharge Planning, Medication Reconciliation and Communication with other providers Discharge Data Lab Results 01/10/20 01/10/20 01/10/20 17:00 17:00 17:44 WBC 5.81 RBC 4.97 Hgb 15.0 Hct 42.2 MCV 84.9 MCH 30.2 MCHC 35.5 RDW Std Deviation 37.5 RDW Coeff of Izzy 12.4 Plt Count 182 MPV 11.2 H Immature Gran % (Auto) 0.2 Neut % (Auto) 63.9 Lymph % (Auto) 28.4 Bulloch % (Auto) 6.9 Eos % (Auto) 0.3 Baso % (Auto) 0.3 Immature Gran # (Auto) 0.01 Neut # (Auto) 3.71 Lymph # (Auto) 1.65 Bulloch # (Auto) 0.40 Eos # (Auto) 0.02 Baso # (Auto) 0.02 Sodium Potassium Chloride Carbon Dioxide Anion Gap BUN Creatinine Est Cr Clr Drug Dosing Est GFR ( Amer) Est GFR (Non-Af Amer) BUN/Creatinine Ratio Glucose Calcium Total Bilirubin AST ALT Alkaline Phosphatase Total Protein Albumin Globulin Albumin/Globulin Ratio Lipase TSH Urine Color Yellow Urine Appearance Clear Urine pH 5.0 Ur Specific Gregory 1.020 Urine Protein Negative Urine Glucose (UA) Negative Urine Ketones Negative Urine Blood Negative Urine Nitrite Negative Urine Bilirubin Negative Urine Urobilinogen Negative Ur Leukocyte Esterase Negative Salicylates Urine Opiates Screen Neg Ur Methadone, Qual Neg Acetaminophen Urine Barbiturates Neg Ur Phencyclidine (PCP) Neg U Amphetamin/Meth Scrn Neg MDMA (Ecstasy) Screen Neg U Benzodiazepines Scrn Neg Ur Cocaine Metabolite Neg U Marijuana (THC) Screen Neg Ethyl Alcohol mg/dL 01/10/20 01/10/20 01/10/20 17:44 17:44 17:44 WBC RBC Hgb Hct MCV MCH MCHC RDW Std Deviation RDW Coeff of Izzy Plt Count MPV Immature Gran % (Auto) Neut % (Auto) Lymph % (Auto) Bulloch % (Auto) Eos % (Auto) Baso % (Auto) Immature Gran # (Auto) Neut # (Auto) Lymph # (Auto) Bulloch # (Auto) Eos # (Auto) Baso # (Auto) Sodium 138 Potassium 3.8 Chloride 104 Carbon Dioxide 26 Anion Gap 8.0 BUN 17 Creatinine 0.90 Est Cr Clr Drug Dosing 84.2 Est GFR ( Amer) 122.5 Est GFR (Non-Af Amer) 105.7 BUN/Creatinine Ratio 18.4 Glucose 92 Calcium 9.3 Total Bilirubin 0.8 AST 8 L ALT 16 Alkaline Phosphatase 71 Total Protein 7.2 Albumin 4.2 Globulin 3.0 Albumin/Globulin Ratio 1.4 Lipase 92 TSH 1.500 Urine Color Urine Appearance Urine pH Ur Specific Gregory Urine Protein Urine Glucose (UA) Urine Ketones Urine Blood Urine Nitrite Urine Bilirubin Urine Urobilinogen Ur Leukocyte Esterase Salicylates < 1.7 L Urine Opiates Screen Ur Methadone, Qual Acetaminophen < 2 L Urine Barbiturates Ur Phencyclidine (PCP) U Amphetamin/Meth Scrn MDMA (Ecstasy) Screen U Benzodiazepines Scrn Ur Cocaine Metabolite U Marijuana (THC) Screen Ethyl Alcohol mg/dL < 3.0 Hospital Course (1) Schizoaffective disorder: 01/10 -it is not clear to me if the patient truly has schizoaffective disorder, or if his psychotic symptoms are due BPD, or to ID and a way to communicate distress. He does not appear to be actively hallucinating, states the voices that he hears at home may be coming from his television or neighbors, and has not been on an antipsychotic for some time. Symptoms appear to be exacerbated when he is under stress. We will monitor here for evidence of psychosis. -Call placed to JACIEL Mac, at [facility] to coordinate care. -Patient does appear depressed, and had been started on fluoxetine when he was here several months ago, but it was not continued as an outpatient, and he is not sure why. Will discuss with his outpatient clinician when she calls back. -Encourage group attendance and participation, process stressors, work on healthy coping skills and discharge safety plan. -Patient would likely benefit from increased supports in the community, but cur rently unable to access [facility] due to the pandemic. He does have a grounds and nursery specialist and trimming caser, and it would be helpful to involve them in discharge planning. -Continue voluntary hospitalization, suicide checks for safety. -Continue home dose of lamotrigine, which is for mood disorder and seizure disorder. 01/11 - Continue current medication regimen. Decided not to resume fluoxetine, as patient had reported non-compliance with the medication after his 09/2019 hospitalization and it is believed the stressors contributing to low mood are largely situational at this time (moving into new apartment, further away from girlfriend, limited socialization related to COVID-19 restrications). - Pt did submit his 72-hour notice; however, as little has been done to mitigate his presenting factors ongoing psychiatric hospitalization is recommended. Will need to ensure patient has scheduled follow-up appointments and it is recommended that there be contact with his trimming caser during this hospitalization to discuss ways to improve socialization and ease the transition to his new apartment. Pt did verbalize willingness to consider day programming as a way to improve socialization on an outpatient basis. 01/12 - Continue current treatment plan - Continue attempts to coordinate discharge planning with patient's trimming caser to explore ways to assist with housing transition and refer for day programming - Anticipate discharge tomorrow, 72-hour notice expires 01/14 at 0715 01/13 -The patient's 72-hour notice expires tomorrow morning. At this point, he does not meet criteria for involuntary hospitalization. -The patient has been accepted for day programming at the [facility]. -He commits to medication adherence with lamotrigine, which in his case is being used both for mood stabilization and for control of seizure disorder. He will not consider taking other psychiatric medications such as any antipsychotic medication when recommended.. (2) Generalized anxiety disorder: Continue home dose of propanolol as needed. (3) Seizure disorder: Continue home dose of lamotrigine. (4) Eating disorder: Patient is chronically underweight with poor p.o. intake. Monitor p.o. intake here and consider dietary consult. (5) Intellectual disability: Coordinate with outpatient ID trimming caser, Zhen John. 01/11 - Planning to specifically discuss recommendations for exploration of day pro gram opportunities for the patient - Assess options to assist with patient's transition to his new apartment Mental Health & Subst Abuse Tx Psychiatrist Name of Psychiatrist: Jalen Kelly Psychiatrist's Date of Appointment with Psychiatrist: 01/24/20 Time of Appointment with Psychiatrist: 1:00pm Psychiatric Appointment Comment: [id number] [facility] Psychiatrist Release of Information: Obtained, Reviewed and Signed Therapist Name of Therapist: . Nursing Officer Name of Nursing Officer: [employer] [facility] - IDD Support Zhen MELÉNDEZ Phone Number for Nursing Officer: [phone] Time of Appointment with Nursing Officer: Will follow up with you regarding [facility] referral and added support Case Management Appointment Comment: [address], [address], [facility] yojana Nursing Officer Release of Information: Obtained, Reviewed and Signed Post Discharge Appointments Primary Care Physician Name Of Family Doctor: CASSIE Dodson [facility] Time of Appointment with PCP: Please follow up as needed Provider Appointment Comment: [address] [facility], [place], [place] Primary Care Release of Information: Obtained, Reviewed and Signed Smoking Cessation Counseling Tobacco Cessation Medication Prescribed at Discharge: Offered & Pt Refused (The patient was repeatedly counseled about the serious risk associated with tobacco use. However, he states, "the first thing I am going to do when I leave here is buy some cigarettes.") Contact Information Discharge Discharge Address: [address] [place] [id number] Discharge Plan Discharge Items Patient Disposition: Home - Self-Care Reason For Visit: SCHIZOAFFECTIVE DISORDER Discharge Diagnosis: Schizoaffective Disorder Condition on Discharge: Good Activity: Resume your previous activity Non-emergency contact: Primary Care Provider, Psychiatrist and Chief Of Service Call non-emergency contact if: you have any medication questions and your symptoms worsen Follow-up/Referrals: Marguerite Sosa CRNP [Primary Care Provider] - Diet: Regular Addtl Attending Provider Instructions: SPECIAL CARE INSTRUCTIONS: 1. Follow through with your scheduled aftercare appointments. If unable to keep an appointment, please call to reschedule. 2. Take your medication only as prescribed. Medication should not be changed or stopped without the approval of your doctor. In the event of worsening symptoms or concerns about side effects, contact your doctor immediately. 3. Utilize new healthy coping skills, anger management skills, and stress management skills learned during your hospitalization. Journal feelings and process them with a support person. Identify stressors or situations that may result in relapse, deterioration or inappropriate behaviors and develop a plan to deal with those issues. 4. If your coping skills are ineffective and you are in crisis, contact your outpatient providers for direction. If unable to reach your providers, please call the CAN HELP LINE AT or go to the closest Emergency Room. 5. Avoid alcohol and un-prescribed drugs. 6. You have been provided with the Mental Health Advance Directives Pamphlet for your review. AFTERCARE APPOINTMENTS: * Please call your insurance company prior to your scheduled appointment to confirm your aftercare providers are covered. Take your insurance information to your appointments. WHO TO CALL AND WHEN: Medical Emergencies: For questions or emergencies related to your hospital stay, please contact the Inpatient Behavioral Health Unit at [phone]. A access clinician is on-call 17/02 for the Behavioral Health Unit for emergencies At any time you feel your situation is an emergency, you may also call 911 immediately. Your Doctors Instructions noted above were prepared by provider Renny Ernst MD. Pending Studies at Discharge: No Stand-Alone Forms: My [facility], Smoking Cessation, Suicide Prevention Resources Medications and DC Order Prescriptions: New lansoprazole [Prevacid SoluTab] 15 mg Tablet,Disintegrat, Delay Rel 15 mg PO DAILY Qty: 30 RF: 0 Continued sildenafil See Rx Instructions PO DAILY PRN (Reason: intercourse) RF: 0 propranolol 10 mg tablet 10 mg PO DAILY PRN (Reason: BP) RF: 0 lamotrigine [Lamictal] 200 mg Tablet 200 mg PO DAILY RF: 0 Discontinued lansoprazole 15 mg capsule,delayed release(DR/EC) 15 mg PO DAILY Qty: 30 RF: 0 Discharge Orders: Discharge Order (Routine); Ordered 01/14/20 Ordered By: Renny Ernst Admission Data Admit Date/Time: 01/10/20 21:32 Attending Provider: Scarlett Tomlinson Admit Provider: Scarlett Tomlinson Primary Care Provider: Marguerite Sosa Other Interventions: Discharge Summary Assessment (RN) Last Done: 01/14/20 09:37 PSY Interdisciplinary Discharge Planning Last Done: 01/14/20 10:16 DC Date/Time DO NOT enter until pt leaves facility: 01/14/20 10:40 C[place] [address] D/C day mgmt > 30 min Patient Type Established Medical Decision Making Moderate Complexity Diagnoses Schizoaffective disorder F25.9 Schizoaffective disorder type: unspecified Generalized anxiety disorder F41.1 Seizure disorder G40.909 Eating disorder F50.9 Intellectual disability F79 Time Spent (min) 50
== END 2020-01-14 10:40 | disposition home or self-care (01) | DRG 885 ==
LOC: ED 16:39 → 3S 21:20

== ENCOUNTER 2025-07-22 21:10 | Inpatient (IN) ==
--- NOTE | 2025-07-22 21:39 | Emergency Department Note ---
Impression & Plan Depression with suicidal ideation, Self-injurious behavior ED Provider Note NAME: ALBAN DHILLON AGE: 44 SEX: M : 1980 ARRIVES VIA: Ambulance INFORMANT: Patient, ED PROVIDER(S): Drew Hamilton MD CHIEF COMPLAINT: Self-injurious behavior, SI MEDICAL DECISION MAKING: Patient presents due to concern for mental wellness concern along with self- injurious behavior. Tetanus last in 2016. This is updated today. Local wound care applied to the left upper extremity. No laceration repair required. Blood work was obtained patient was he medically cleared. Patient was seen and evaluated by psych case reviewer. Referrals made to 3 S. Patient was signed out to Dr. Mata pending disposition. Discussion w/ other healthcare providers: ED case management Prior /Outside records reviewed: None Differential diagnosis: Mood disorder, infection, hypoglycemia, electrolyte abnormalities, dehydration, medication side effect among others were considered. Diagnostics, as interpreted by me: ECG: None Medical decision rules: None Imaging studies: None HPI: Patient presents due to concern for suicidal ideation with plan to harm himself. The patient did cut his left arm. He is unsure as to whether his tetanus is up-to-date. He states that he feels stressed from today. No inciting event or cause that he can relate. The patient does follow with [place] [place]. He states that he is taking his medications. He does feel safe at home. He does have access to knives but no guns. He does admit to using tobacco and alcohol. No drugs. He last used alcohol last evening. He states that his sleep and appetite have been intermittent. PAST MEDICAL HISTORY: See Below PAST SURGICAL HISTORY: See Below SOCIAL HISTORY: See Below HOME MEDICATIONS: See Below ALLERGIES: See Below VITALS: See Below PHYSICAL EXAMINATION: GENERAL: NAD, non-toxic. EYE EXAM: Normal conjunctiva. PERRL, no anisocoria and EOM's grossly intact w/o pain. OROPHARYNX: Moist mucus membranes, grossly normal dentition. NECK: Trachea midline, no stridor. LUNGS: Clear to auscultation. Normal chest wall mechanics. HEART: NSR, no MRG. ABDOMEN: Abdomen soft, non-tender, no masses, no rebound or guarding. BACK: No CVA TTP. SKIN: Superficial cuts of the left forearm. No active bleeding. UPPER EXTREMITIES: Upper extremities are grossly normal. LOWER EXTREMITIES: Grossly normal, no edema. NEURO EXAM: Awake and alert, follows commands, no obvious facial asymmetry, normal speech, moves all 4 extremities. Past Med/Surg History Problem List Self-injurious behavior (Acute) Depression with suicidal ideation (Acute) Vitamin D deficiency Protein calorie malnutrition Eating disorder Generalized anxiety disorder Lower abdominal pain (Acute) Diarrhea (Acute) Right lower quadrant abdominal pain (Acute) Epigastric abdominal pain (Acute) Atypical chest pain Neck pain (Acute) Depression (Chronic) Asthma (Chronic) Seizure disorder (Chronic) Tremors of nervous system (Acute) Schizoaffective disorder (Chronic) Intellectual disability (Chronic) Alcohol abuse Surgical History Hx of inguinal hernia repair History of tonsillectomy and adenoidectomy Family History Father Pancreatic cancer Mother , passed in her 60's Lupus Sister Lupus Other Cancer Diabetes Hypertension Stroke Denies family history of Ovarian cancer Prostate cancer Myocardial infarction Breast cancer Social History Smoking Status: Current every day smoker Tobacco Type: Smokeless Tobacco (Dip or Chew) Hx Alcohol Use: Yes Hx Substance Use: No Preferred Language: Slovak Communication Ability: Effective Visual Impairment: No Limitations Hearing Ability: Normal Broommaker Required: No Beliefs That Will Affect Care: None marital status: Single Current Living Situation: Alone current occupational status: disabled Feels Safe at Home: Yes Childhood Exposure to Second-Hand Smoke: Yes Dental Care, Regularly: No Physical Activity Frequency: Daily Seatbelt Use: always Sunscreen Use: No Gender Identity: Male Assistive Devices: None Allergies Allergies Allergy/AdvReac Type Severity Reaction Status Date / Time amoxicillin Allergy Severe HIVES,SEIZURE Verified 05/17/25 08:38 ACTIVITY. N/V guaifenesin [From Entex LA] Allergy Unknown Unknown Verified 05/17/25 08:38 phenylephrine [From Entex LA] Allergy Unknown Unknown Verified 05/17/25 08:38 phenylpropanolamine Allergy Unknown Unknown Verified 05/17/25 08:38 [From Entex LA] bacitracin AdvReac Mild ITCHY Verified 05/17/25 08:38 neomycin AdvReac Mild ITCHY Verified 05/17/25 08:38 polymyxin B AdvReac Mild ITCHY Verified 05/17/25 08:38 Home Meds Home Medications Medication Instructions Recorded Confirmed aripiprazole 400 mg intramuscular 400 mg IM Q28D 01/10/23 07/22/25 suspension,extended release (Olgalikalpesh Maintena) Previous Rx's Medication Instructions Recorded lamotrigine 200 mg tablet 200 mg PO QAM #30 tabs 05/17/25 (Lamictal) Results & Data (ED) Vital Signs Vital Signs - 24 hr 07/22/25 21:31 07/22/25 21:31 Temperature 36.6 C 36.6 C Temperature Source Oral Oral Pulse Rate 99 H Pulse Rate [Finger] 99 H Pulse Rhythm Regular Pulse Rhythm [Finger] Regular Pulse Strength Normal Pulse Strength [Finger] Normal Respiratory Rate 18 18 Respiratory Effort / Characteristics Non-Labored Spontaneous Non-Labored Spontaneous Respiratory Depth Normal Normal Respiratory Pattern Regular Regular Blood Pressure 126/88 Blood Pressure [Left Arm] 126/88 Blood Pressure Mean 100 Blood Pressure Mean [Left Arm] 100 Pulse Oximetry 98 98 Oxygen Delivery Method Room Air Room Air Sepsis Recent Fever Within 48 Hours No Sepsis New/Unexplained Change in Mental Status No Sepsis Action Taken by Nursing No Action Required Home Medications Current Medication List: was personally reviewed by me Laboratory Data Attestation: I reviewed the patient's lab results. 07/22/25 21:34 07/22/25 21:34 Lab Results 07/22/25 07/22/25 Range/Units 21:20 21:34 WBC 7.28 (4.8-10.8) K/ul RBC 4.88 (4.70-6.10) M/uL Hgb 14.3 (14.0-18.0) g/dL Hct 41.8 L (42.0-52.0) % MCV 85.7 (80.0-100.0) fL MCH 29.3 (25.0-34.0) pg MCHC 34.2 (32.0-36.0) g/dL RDW Std Deviation 37.9 (36.4-46.3) fL RDW Coeff of Izzy 12.2 (11.5-14.5) % Plt Count 179 (130-400) K/uL MPV 10.7 (9.4-12.4) fL Immature Gran % (Auto) 0.1 % Neut % (Auto) 62.8 % Lymph % (Auto) 29.9 % Payne % (Auto) 5.4 % Eos % (Auto) 1.1 % Baso % (Auto) 0.7 % Neut # (Auto) 4.57 (1.40-6.50) K/uL Lymph # (Auto) 2.18 (1.20-3.40) K/uL Payne # (Auto) 0.39 (0.11-0.59) K/uL Eos # (Auto) 0.08 (0.00-0.50) K/uL Baso # (Auto) 0.05 (0.00-0.20) K/uL Immature Gran # (Auto) 0.01 (0.01-0.20) K/uL Sodium 140 (136-145) mmol/L Potassium 3.8 (3.5-5.1) mmol/L Chloride 105 (98-107) mmol/L Carbon Dioxide 28 (21-32) mmol/L Anion Gap 7 (3-11) BUN 16 (6-23) mg/dl Creatinine 0.82 (0.6-1.4) mg/dl Est Cr Clr Drug Dosing 87.6 ml/min eGFR 109.71 BUN/Creatinine Ratio 19.5 (10-20) Glucose 104 H (70-99(Fasting)) mg/dl Calcium 9.5 (8.6-10.3) mg/dl Total Bilirubin 0.4 (0.2-1.0) mg/dl AST 15 (13-39) U/L ALT 12 (7-52) U/L Alkaline Phosphatase 85 (34-104) U/L Total Protein 6.8 (6.0-8.3) gm/dl Albumin 4.4 (3.4-5.0) gm/dl Globulin 2.4 L (2.5-4.0) gm/dl Albumin/Globulin Ratio 1.8 (0.9-2) Urine Color Yellow Urine Appearance Clear (Clear) Urine pH 5.5 (4.5-7.5) Ur Specific [place] 1.007 (1.000-1.030) Urine Protein Negative (Negative) Urine Glucose (UA) Negative (Negative) Urine Ketones Negative (Negative) Urine Blood Negative (Negative) Urine Nitrite Negative (Negative) Urine Bilirubin Negative (Negative) Urine Urobilinogen Negative (Negative) Ur Leukocyte Esterase Negative (Negative) Urine Comment Salicylates < 3.0 L (3.0-30) mg/dl Acetaminophen < 3 L (10-30) ug/ml Ethyl Alcohol mg/dL < 10.0 (<10.0) mg/dl SARS-CoV-2, RNA, NAAT NEGATIVE (NEGATIVE) Discharge Plan Visit Data Chief Complaint: Mental Health Evaluation Stated Complaint: Mental Health Evaluation ED Provider: Zhen Mata Discharge Problem: Depression with suicidal ideation, Self-injurious behavior Patient Disposition: Still a Patient Condition: Good Forms Stand Alone Forms: [facility], Suicide Prevention Resources Prescriptions Prescriptions: No Action Abilify Maintena 400 mg suspension,extended rel recon 400 mg IM Q28D lamotrigine [Lamictal] 200 mg tablet 200 mg PO QAM Qty: 30 11RF Referrals Referrals: Lazara Rocha DO [Primary Care Provider] -
[2025-07-22 21:47] LABS: Appearance Urine Clear (Clear); Glucose Urine UA Negative (Negative)
[2025-07-22 21:59] LABS: Hematocrit (blood only) 41.8 % (42.0-52.0); Hemoglobin 14.3 g/dL (14.0-18.0); Immature Granulocytes # (auto) 0.01 K/uL (0.01-0.20); Immature Granulocytes % (auto) 0.1 %; Mean Corpuscular Hemoglobin 29.3 pg (25.0-34.0); Mean Corpuscular Volume 85.7 fL (80.0-100.0); Platelet Count 179 K/uL (130-400); RDW Standard Deviation 37.9 fL (36.4-46.3); Red Blood Count 4.88 M/uL (4.70-6.10); White Blood Count 7.28 K/ul (4.8-10.8)
[2025-07-22 22:17] LABS: Alanine Aminotransferase 12.0 U/L (7-52); Albumin Globulin Ratio 1.8 (0.9-2); Albumin Level 4.4 gm/dl (3.4-5.0); Alkaline Phosphatase 85.0 U/L (34-104); Anion Gap 7.0 (3-11); Bilirubin,Total 0.4 mg/dl (0.2-1.0); Blood Urea Nitrogen 16.0 mg/dl (6-23); Calcium 9.5 mg/dl (8.6-10.3); Carbon Dioxide 28.0 mmol/L (21-32); Chloride 105.0 mmol/L (98-107); Creatinine Clr Calc Pharmacy 87.6 ml/min; Globulin 2.4 gm/dl (2.5-4.0); Glucose 104.0 mg/dl (70-99(Fasting)); Potassium 3.8 mmol/L (3.5-5.1); Sodium 140.0 mmol/L (136-145); Total Protein 6.8 gm/dl (6.0-8.3)
[2025-07-22 22:21] LABS: Acetaminophen < 3 ug/ml (10-30); Salicylate < 3.0 mg/dl (3.0-30)
[2025-07-22 22:31] LABS: Amphetamines+Metham, Urine Neg (Neg); MDMA (Ecstacy), Urine Neg (Neg); Marijuana, Urine Neg (Neg)
[2025-07-22 22:31] LABS: Thyroid Stimulating Hormone 1.965 uIu/ml (0.300-4.500)
[2025-07-22] MEDS: DIPHTHER/TETAN/PERTUS Vaccine (Tdap, Adol/Adult) 0.5mL IM ONE (22:37)
[2025-07-22] MEDS: NICOTINE POLACRILEX 2 MG GUM MT STA (22:37)
--- NOTE | 2025-07-22 22:38 | Emergency Department Note ---
ED Visit Note Patient was signed out to me at change of shift Dr. Hamilton, patient is currently voluntary and bed search has been initiated for depression, patient has a history of cutting. Patient also admits to increased stress recently. During my shift patient was accepted for inpatient psychiatric care to S. Patient was transferred in stable condition. .
[2025-07-23] MEDS ORDERED: MAGNESIUM HYDROXIDE SUSP 30 ML UDC PO PRN (00:36)
[2025-07-23] MEDS ORDERED: ALUMINUM/MAGNESIUM SUSP 30 ML UDC PO PRN (00:36)
[2025-07-23] MEDS ORDERED: BISMUTH SUBSALICYLATE 262 MG CHEW PO PRN (00:36)
[2025-07-23] MEDS ORDERED: SODIUM CHLORIDE 0.65% NA SOLN 45 ML (OCEAN) PRN (00:36)
[2025-07-23] MEDS ORDERED: ARIPiprazole 5 MG TAB PO PRN (01:02)
[2025-07-23] MEDS: NICOTINE POLACRILEX 2 MG GUM MT PRN (08:51)
--- NOTE | 2025-07-23 09:36 | History & Physical ---
Date of Service July 23, 2025 Impression / Recommendations Impression ALBAN DHILLON is a 44-year-old M who currently lives in [place] alone, has a history of schizoaffective disorder, depression, anxiety, seizure disorder and intellectual disability, and was admitted on 07/23/25 00:10 on a 201 voluntary commitment for worsening depression and increased self-harm. Diagnostically consistent with schizoaffective disorder current depressive episode in context of recent housing transition and possible increase in paranoia due to increased noise from neighbors with possible thought blocking on examination today. Discussed medication treatment options in detail. Discussed risks, benefits and alternatives. Patient would like to start and consented to mirtazapine for insomnia, decreased appetite, depression and anxiety. Reviewed side effects including but not limited to: sedation, weight gain with mirtazapine; potential for fatal rash/SJS with lamictal, need for consistent adherence with lamictal. MNPR given possible paranoia, difficulty tolerating peers Overall I spent a total of 75 minutes for this admission including review of chart records, review of labwork, direct evaluation of the patient, counseling the patient, ordering medication, risk assessment, discussion with the psychiatric liason RN and documentation in the electronic health record. (1) Bipolar depression: (2) Self-injurious behavior: (3) Schizoaffective disorder, bipolar type: (4) Insomnia: Plan 07/23/2025: The patient was admitted to the [facility] ([facility]) on q15 min checks (behavioral with suicide precautions) for safety. The patient will participate in group, recreational, and milieu therapies and will be offered additional individual and family sessions as clinically appropriate. -Start mirtazapine 15mg HS -Continue lamictal 200mg daily -Request outpatient records from [facility] to confirm dosing schedule of Abilify JACKSON -Consider additional outpatient supports like Psych rehab for increased structure and support with new housing transition Inventory Assets Strengths: supportive relationships, willing to get treatment Needs: safety and stabilization, medication adjustment, additional coping skills, increased outpatient services Suicide Risk Level Suicide Risk Level: Moderate (q15 min suicide checks) (increased depression with new self-harm and SI prior to admission but reports feeling safe in the hospital and feels able to ask staff for support if needed ) Risk Factors Assessment Male: Yes : Yes Do You Have Access To A Gun?: No Health Problems: No Mental Health Diagnoses: Yes Substance Use Disorders: No Previous Attempt: No Family History of Suicide: No Previous Psychiatric Hospitalization: Yes Hopelessness: Yes Protective Factors Assessment Employed: No Stable Relationships: Yes Psychiatric History Identifying Data ALBAN DHILLON is a 44-year-old M who currently lives in [place] alone, has a history of schizoaffective disorder, depression, anxiety, seizure disorder and intellectual disability, and was admitted on 07/23/25 00:10 on a 201 voluntary commitment for worsening depression and increased self-harm. Chief Complaint "I did it to relieve pain". History of Present Illness He presents for psychiatric admission for worsening depression and increased self-harming in the context of recent move and increased depression. He states he self-harms "once in a blue acuña" but cut himself multiple times yesterday to deal with his stress, depression and pain and then called 911. He describes "feeling depressed, but, um, can't explain it." He confirms increased anhedonia, poor appetite, decreased sleep with frequent awakenings. He denies any suicidal ideation today but in the ED reported SI with plan of cutting himself yesterday prior to coming to the hospital. He describes having increased stress from a major life transition earlier this month in moving from [facility], where he had lived for 4 years, to a new apartment. The new apartment has thin esparza and he can hear his neighbors frequently talking. Boni has been adherent to his prescribed Lamictal 200mg daily, taken in the morning, and denies any recent medication non-compliance. He receives long- acting Abilify Asimptify injections at [facility]. Psychiatric ROS notable for depressed mood, decreased appetite, and sleep difficulties. Denies suicidal ideation, auditory hallucinations, visual hallucinations, thoughts of wanting to hurt others, and access to guns at home. 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 Previous Psych Admissions: Last [facility] in [facility] 2019 [place] in the past Do You Have Access To A Gun?: No History of Previous Suicide Attempt: No Past Medication Trials: he cannot recall past trials (per chart review hx of fluoxetine 20mg daily, paxil, zoloft, remeron, celexa, cymbalta, seroquel, abilify, zyprexa, risperdal, among others) He reports that previous antidepressant medications were not helpful, asked about trazodone he recalls this made him feel like a "zombie" due to being overtired Allergies Allergy/AdvReac Type Severity Reaction Status Date / Time amoxicillin Allergy Severe HIVES,SEIZURE Verified 05/17/25 08:38 ACTIVITY. N/V guaifenesin [From Entex LA] Allergy Unknown Unknown Verified 05/17/25 08:38 phenylephrine [From Entex LA] Allergy Unknown Unknown Verified 05/17/25 08:38 phenylpropanolamine Allergy Unknown Unknown Verified 05/17/25 08:38 [From Entex LA] bacitracin AdvReac Mild ITCHY Verified 05/17/25 08:38 neomycin AdvReac Mild ITCHY Verified 05/17/25 08:38 polymyxin B AdvReac Mild ITCHY Verified 05/17/25 08:38 Home Medications Medication Instructions Recorded Confirmed Type aripiprazole 400 mg intramuscular 400 mg IM Q28D 01/10/23 07/22/25 History suspension,extended release (Abilify Maintena) lamotrigine 200 mg tablet 200 mg PO QAM #30 tabs 05/17/25 07/22/25 Rx (Lamictal) Family History Family Mental Health History Comment: step sister - MH Alcohol History Hx of Alcohol Use Over the Past 12 Months: Yes (Occasionally. Approx. 2x per month, 2 drinks per occasion) AUDIT Total Score: 2 Smoking Use Have You Smoked or Used Tobacco Products in the Last 30 Days: Yes tobacco type: smokeless tobacco Substance History Hx of Prescription Med Misuse Over the Past 12 Months: No Hx of Over the Counter Med Misuse Over the Past 12 Months: No Hx of Inhalent Misuse Over the Past 12 Months: No Hx of Organic Substance Use Over the Past 12 Months: No Hx of Illegal Substances/Street Drug Use Over Past 12 Months: No Problems as a Result of Past Substance Use: None Identified Personal History Living Arrangements: Apartment Employment Status: Disabled Marital Status: Single Beliefs That Will Affect Care: None Patient History Surgical History Hx of inguinal hernia repair History of tonsillectomy and adenoidectomy Family History Father Pancreatic cancer Mother , passed in her 60's Lupus Sister Lupus Other Cancer Diabetes Hypertension Stroke Denies family history of Ovarian cancer Prostate cancer Myocardial infarction Breast cancer Social History Tobacco Type: Smokeless Tobacco (Dip or Chew) Hx Alcohol Use: Yes Hx Substance Use: No Preferred Language: Cambodian Communication Ability: Effective Visual Impairment: No Limitations Hearing Ability: Normal Distribution Engineer Required: No Beliefs That Will Affect Care: None marital status: Single Current Living Situation: Alone current occupational status: disabled Feels Safe at Home: Yes Childhood Exposure to Second-Hand Smoke: Yes Dental Care, Regularly: No Physical Activity Frequency: Daily Seatbelt Use: always Sunscreen Use: No Gender Identity: Male Assistive Devices: None Review of Systems Review of Systems: All systems reviewed & are unremarkable except as noted in HPI & below Physical Exam Psychiatric: Orientation: alert and oriented x 3 Apperance: appropriately dressed and appropriately groomed Eye Contact: + fair eye contact Motor Behavior: no abnormal motor movements Speech: normal rate/rhythm/volume of speech Affect: + flat affect Mood: + depressed mood and + anxious mood Thought Process: + concrete thought process (sparse) Thought Content: reality based without delusions Suicidal Thoughts: denies suicidal plan and denies suicidal intent; + reports suicidal thoughts (intermittent, denies today) Homicidal Thoughts: denies homicidal thoughts Hallucinations: no auditory hallucinations and no visual hallucinations Cognition: recent memory grossly intact, remote memory grossly intact, attention grossly intact and language grossly intact Estimated Intelligence: + below average estimated intelligence Insight: + limited insight Judgment: + limited judgement Vital Signs (Past 24 Hours): Last Vital Signs Temp 36.4 C 07/23/25 06:20 Pulse 90 07/23/25 06:21 Resp 20 07/23/25 06:20 BP 121/81 07/23/25 06:21 Pulse Ox 97 07/23/25 06:21 O2 Del Method Room Air 07/23/25 06:21 Exam Statement: A physical exam was performed in the ED by Dr. Hamilton for the purposes of medical clearance. I accept that physical as correct and adequate for the purposes of the inpatient physical exam. Results & Data (U) Laboratory Results Laboratory Results - last 24 hr 07/22/25 07/22/25 21:20 21:34 WBC 7.28 RBC 4.88 Hgb 14.3 Hct 41.8 L MCV 85.7 MCH 29.3 MCHC 34.2 RDW Std Deviation 37.9 RDW Coeff of Izzy 12.2 Plt Count 179 MPV 10.7 Immature Gran % (Auto) 0.1 Neut % (Auto) 62.8 Lymph % (Auto) 29.9 [place] % (Auto) 5.4 Eos % (Auto) 1.1 Baso % (Auto) 0.7 Neut # (Auto) 4.57 Lymph # (Auto) 2.18 [place] # (Auto) 0.39 Eos # (Auto) 0.08 Baso # (Auto) 0.05 Immature Gran # (Auto) 0.01 Sodium 140 Potassium 3.8 Chloride 105 Carbon Dioxide 28 Anion Gap 7 BUN 16 Creatinine 0.82 Est Cr Clr Drug Dosing 87.6 eGFR 109.71 BUN/Creatinine Ratio 19.5 Glucose 104 H Calcium 9.5 Total Bilirubin 0.4 AST 15 ALT 12 Alkaline Phosphatase 85 Total Protein 6.8 Albumin 4.4 Globulin 2.4 L Albumin/Globulin Ratio 1.8 TSH 1.965 Urine Color Yellow Urine Appearance Clear Urine pH 5.5 Ur Specific [place] 1.007 Urine Protein Negative Urine Glucose (UA) Negative Urine Ketones Negative Urine Blood Negative Urine Nitrite Negative Urine Bilirubin Negative Urine Urobilinogen Negative Ur Leukocyte Esterase Negative Urine Comment Salicylates < 3.0 L Urine Opiates Screen Neg Ur Methadone, Qual Neg Urine Fentanyl Screen Neg Acetaminophen < 3 L Urine Barbiturates Neg Ur Phencyclidine (PCP) Neg U Amphetamin/Meth Scrn Neg MDMA (Ecstasy) Screen Neg U Benzodiazepines Scrn Neg Ur Cocaine Metabolite Neg U Marijuana (THC) Screen Neg Ethyl Alcohol mg/dL < 10.0 SARS-CoV-2, RNA, NAAT NEGATIVE Current Inpatient Medications Current Inpatient Medications: Current Inpatient Medications Acetaminophen (Acetaminophen 325 Mg Tab) 650 mg PO Q4H PRN PRN Reason: Headache or Minor Fever Stop: 08/22/25 00:35 Al Hydrox/Mg Hydrox/Simethicone (Aluminum/Magnesium Susp 30 Ml Udc) 30 ml PO Q4H PRN PRN Reason: GI Upset Stop: 08/22/25 00:35 Aripiprazole (Aripiprazole 5 Mg Tab) 5 mg PO BID PRN PRN Reason: Psychosis/Agitation Stop: 08/22/25 01:01 Bismuth Subsalicylate (Bismuth Subsalicylate 262 Mg Chew) 2 tab PO Q30M PRN PRN Reason: Loose Stool/Diarrhea Stop: 08/22/25 00:35 Hydroxyzine HCl (Hydroxyzine Hcl 25 Mg Tab) 50 mg PO HSZ PRN PRN Reason: Insomnia Stop: 08/22/25 00:35 Last Admin: 07/23/25 01:02 Dose: 50 mg Hydroxyzine HCl (Hydroxyzine Hcl 25 Mg Tab) 25 mg PO Q4H PRN PRN Reason: Anxiety Stop: 08/22/25 00:35 Magnesium Hydroxide (Magnesium Hydroxide Susp 30 Ml Udc) 30 ml PO DAILY PRN PRN Reason: Constipation Stop: 08/22/25 00:35 Nicotine Polacrilex (Nicotine Polacrilex 2 Mg Gum) 2 piece MT Q2H PRN PRN Reason: Nicotine Withdrawal Symptoms Stop: 08/22/25 01:53 Last Admin: 07/23/25 08:51 Dose: 2 piece Sodium Chloride (Sodium Chloride 0.65% Na Soln 45 Ml ([place])) 1 - 2 sprays NA PRN PRN PRN Reason: Nasal Dryness/Congestion Stop: 08/22/25 00:35
[2025-07-23] MEDS: lamoTRIgine 100 MG TAB PO SCH (10:54)
[2025-07-23] MEDS: ACETAMINOPHEN 325 MG TAB PO PRN (14:29)
[2025-07-23] MEDS ORDERED: NEOMYCIN/POLYMYX/BACITR OINT 15 GM TUBE EXT PRN (17:30)
[2025-07-23] MEDS: diphenhydrAMINE 2%/ZINC 0.1% CREAM 28.4GM TUBE EXT PRN (18:44)
[2025-07-23] MEDS: MIRTAZAPINE TAB 15 MG TAB PO SCH (21:24)
--- NOTE | 2025-07-24 10:31 | Psychiatric Progress Note ---
Date of Service July 24, 2025 Impression / Recommendations Impression ALBAN DHILLON is a 44-year-old M who currently lives in [place] alone, has a history of schizoaffective disorder, depression, anxiety, seizure disorder and intellectual disability, and was admitted on 07/23/25 00:10 on a 201 voluntary commitment for worsening depression and increased self-harm. Diagnostically consistent with schizoaffective disorder current depressive episode in context of recent housing transition and possible increase in paranoia due to increased noise from neighbors with possible thought blocking on examination today. A: Today reports ongoing depression and anxiety and seems to be experiencing auditory hallucinations though he minimizes this when reality-testing is attempted. Suspect this is contributing to his distress in his new apartment as he vocalized concern of hearing things through the esparza there just as he did today. Once outpatient records have been reviewed will determine if additional po antipsychotic medication is warranted based on timing of last Abilify JACKSON vs option for dosing adjustment. He slept well overnight but after mirtazapine and prn Vistaril and today feels sedated so he prefers to stop mirtazapine. Will switch to prn as suspect Vistaril is contributing to daytime fatigue today. He consents to starting clonidine for off-label use for anxiety and sleep, reviewed risks/benefits/alternatives including low BP/syncope. Overall, I spent a total of 36 minutes on this case including meeting with the patient, reviewing the chart, nursing report, multidisciplinary team meeting, orders, and documentation. (1) Schizoaffective disorder, bipolar type: (2) Bipolar depression: (3) Self-injurious behavior: (4) Auditory hallucinations: (5) Insomnia: Plan 07/24/2025: -Switch mirtazapine to prn for insomnia (2nd choice) -Start clonidine 0.1mg HS -Start melatonin 3mg HS prn for insomnia (1st choice) 07/23/2025: The patient was admitted to the [facility] ([facility] health [facility]) on q15 min checks (behavioral with suicide precautions) for safety. The patient will participate in group, recreational, and milieu therapies and will be offered additional individual and family sessions as clinically appropriate. -Start mirtazapine 15mg HS -Continue lamictal 200mg daily -Request outpatient records from [place] to confirm dosing schedule of Abilify JACKSON -Consider additional outpatient supports like Psych rehab for increased structure and support with new housing transition Inventory Assets Strengths: supportive relationships, willing to get treatment Needs: safety and stabilization, medication adjustment, additional coping skills, increased outpatient services Suicide Risk Level Suicide Risk Level: Moderate (q15 min suicide checks) (increased depression with new self-harm and SI prior to admission but reports feeling safe in the hospital and feels able to ask staff for support if needed ) Risk Factors Assessment Male: Yes : Yes Do You Have Access To A Gun?: No Health Problems: No Mental Health Diagnoses: Yes Substance Use Disorders: No Previous Attempt: No Family History of Suicide: No Previous Psychiatric Hospitalization: Yes Hopelessness: Yes Protective Factors Assessment Employed: No Stable Relationships: Yes Interval History Identifying Information ALBAN DHILLON is a 44-year-old M who currently lives in [place] alone, has a history of schizoaffective disorder, depression, anxiety, seizure disorder and intellectual disability, and was admitted on 07/23/25 00:10 on a 201 voluntary commitment for worsening depression and increased self-harm. Chief Complaint "Ok". Review of Systems Sleep Information Total Hours of Sleep: 6.5 Meal Information Percent Meal Consumed - Breakfast: 95 Percent Meal Consumed - Lunch: 100 Percent Meal Consumed - Dinner: 95 Subjective Subjective Patient was seen & assessed and interval progress reviewed with nursing. Quiet but met with counselor last evening and did some artwork. No overt disorganized behaviors. Eating well. Rated his mood as "4" and "mellow". Todya he reports increased anxiety that "comes and goes" and he cannot identify any acute stressors or reasons for this. He feels sedated today, took mirtazapine and then prn Vistaril last night. He states he's "trying to socialize" here on the unit. Mid-interview tells me he heard me "yelling in your office, sounds like you were mad". Discussed that I hadn't been in my office yet today and tried to explore other potential explanations for the shouting he heard on the shared wall between his room and my office. He then dismissive this and stated he must have heard me yelling from the nurses station in the middle of the unit. He continues to deny that he is experiencing any hallucinations. Physical Exam Psychiatric Orientation: alert and oriented x 3 Apperance: appropriately dressed and appropriately groomed Eye Contact: + fair eye contact Motor Behavior: no abnormal motor movements Speech: normal rate/rhythm/volume of speech Affect: + flat affect Mood: + depressed mood and + anxious mood Thought Process: + concrete thought process (sparse) Thought Content: reality based without delusions Suicidal Thoughts: denies suicidal plan and denies suicidal intent; + reports suicidal thoughts (intermittent, denies today) Homicidal Thoughts: denies homicidal thoughts Hallucinations: + auditory hallucinations (he denies but reported yelling from provider office where no one had been); no visual hallucinations Cognition: recent memory grossly intact, remote memory grossly intact, attention grossly intact and language grossly intact Estimated Intelligence: + below average estimated intelligence Insight: + limited insight Judgment: + limited judgement Vital Signs (Past 24 Hours) Last Vital Signs Temp 36.5 C 07/24/25 06:13 Pulse 86 07/24/25 06:15 Resp 16 07/24/25 06:13 BP 103/72 07/24/25 06:15 Pulse Ox 97 07/24/25 06:13 O2 Del Method Room Air 07/24/25 06:13 Results & Data ([facility]) Current Inpatient Medications Current Inpatient Medications: Current Inpatient Medications Acetaminophen (Acetaminophen 325 Mg Tab) 650 mg PO Q4H PRN PRN Reason: Headache or Minor Fever Stop: 08/22/25 00:35 Last Admin: 07/23/25 14:29 Dose: 650 mg Al Hydrox/Mg Hydrox/Simethicone (Aluminum/Magnesium Susp 30 Ml Udc) 30 ml PO Q4H PRN PRN Reason: GI Upset Stop: 08/22/25 00:35 Aripiprazole (Aripiprazole 5 Mg Tab) 5 mg PO BID PRN PRN Reason: Psychosis/Agitation Stop: 08/22/25 01:01 Bismuth Subsalicylate (Bismuth Subsalicylate 262 Mg Chew) 2 tab PO Q30M PRN PRN Reason: Loose Stool/Diarrhea Stop: 08/22/25 00:35 Hydroxyzine HCl (Hydroxyzine Hcl 25 Mg Tab) 50 mg PO HSZ PRN PRN Reason: Insomnia Stop: 08/22/25 00:35 Last Admin: 07/23/25 01:02 Dose: 50 mg Hydroxyzine HCl (Hydroxyzine Hcl 25 Mg Tab) 25 mg PO Q4H PRN PRN Reason: Anxiety Stop: 08/22/25 00:35 Lamotrigine (Lamotrigine 100 Mg Tab) 200 mg PO QAM LEONIE; Protocol Stop: 08/22/25 10:59 Last Admin: 07/24/25 08:17 Dose: 200 mg Magnesium Hydroxide (Magnesium Hydroxide Susp 30 Ml Udc) 30 ml PO DAILY PRN PRN Reason: Constipation Stop: 08/22/25 00:35 Mirtazapine (Mirtazapine Tab 15 Mg Tab) 15 mg PO HS LEONIE Stop: 08/22/25 21:59 Last Admin: 07/23/25 21:24 Dose: 15 mg Nicotine Polacrilex (Nicotine Polacrilex 2 Mg Gum) 2 piece MT Q2H PRN PRN Reason: Nicotine Withdrawal Symptoms Stop: 08/22/25 01:53 Last Admin: 07/24/25 10:06 Dose: 2 piece Sodium Chloride (Sodium Chloride 0.65% Na Soln 45 Ml ([place])) 1 - 2 sprays NA PRN PRN PRN Reason: Nasal Dryness/Congestion Stop: 08/22/25 00:35 Zinc Acetate/Diphenhydramine (Diphenhydramine 2%/Zinc 0.1% Cream 28.4gm Tube) 1 appln EXT BID PRN PRN Reason: arm lacerations Stop: 08/22/25 17:32 Last Admin: 07/23/25 18:44 Dose: 1 appln Mental Health & Subst Abuse Tx Psychiatrist Date Of Appointment With Psychiatric Provider: July Therapist Name of Therapist: None Analysis Lead Name of Analysis Lead: Zhen Post Discharge Appointments Primary Care Physician Name Of Family Doctor/PCP: Josefina
[2025-07-24] MEDS ORDERED: NICOTINE 21 MG/24 HR TDSY TD PRN (12:23)
[2025-07-24] MEDS ORDERED: NICOTINE 21 MG/24 HR TDSY TD SCH (12:30)
[2025-07-24] MEDS ORDERED: MELATONIN 3 MG TAB PO PRN (13:20)
[2025-07-24] MEDS ORDERED: MIRTAZAPINE TAB 15 MG TAB PO PRN (13:21)
--- NOTE | 2025-07-25 08:58 | Psychiatric Progress Note ---
Date of Service July 25, 2025 Impression / Recommendations Impression ALBAN DHILLON is a 44-year-old M who currently lives in [place] alone, has a history of schizoaffective disorder, depression, anxiety, seizure disorder and intellectual disability, and was admitted on 07/23/25 00:10 on a 201 voluntary commitment for worsening depression and increased self-harm. Diagnostically consistent with schizoaffective disorder current depressive episode in context of recent housing transition and possible increase in paranoia due to increased noise from neighbors with possible thought blocking on examination today. A: Today reports improving mood and doesn't identify any hallucinations nor paranoia but he tends to be quite guarded in discussing any of these concerns. Encouragingly attending all groups. Unclear if clonidine contributed to nausea last evening vs somatic response but will discontinue per his request. Will restart scheduled mirtazapine which he consents to. [facility] records reviewed and he is on standard (highest) dose for Asimptufii with last dose on 06/20/2025. 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 He is not interested in a support meeting nor CSG/psych rehab for more daily structure nor for outpatient therapy. MNPR-paranoia and delusions yesterday and vocalized intermittently Overall, I spent a total of 35 minutes on this case including meeting with the patient, reviewing the chart, nursing report, multidisciplinary team meeting, orders, and documentation. (1) Schizoaffective disorder, bipolar type: (2) Bipolar depression: (3) Self-injurious behavior: (4) Auditory hallucinations: (5) Insomnia: Plan 07/25/2025: -Discontinue clonidine -Restart mirtazapine 15mg HS scheduled 07/24/2025: -Switch mirtazapine to prn for insomnia (2nd choice) -Start clonidine 0.1mg HS -Start melatonin 3mg HS prn for insomnia (1st choice) 07/23/2025: The patient was admitted to the [facility]) on q15 min checks (behavioral with suicide precautions) for safety. The patient will participate in group, recreational, and milieu therapies and will be offered additional individual and family sessions as clinically appropriate. -Start mirtazapine 15mg HS -Continue lamictal 200mg daily -Request outpatient records from [facility] to confirm dosing schedule of Abilify JACKSON -Consider additional outpatient supports like Psych rehab for increased structure and support with new housing transition Inventory Assets Strengths: supportive relationships, willing to get treatment Needs: safety and stabilization, medication adjustment, additional coping skills, increased outpatient services Suicide Risk Level Suicide Risk Level: Moderate (q15 min suicide checks) (increased depression with new self-harm and SI prior to admission but reports feeling safe in the hospital and feels able to ask staff for support if needed ) Risk Factors Assessment Male: Yes : Yes Do You Have Access To A Gun?: No Health Problems: No Mental Health Diagnoses: Yes Substance Use Disorders: No Previous Attempt: No Family History of Suicide: No Previous Psychiatric Hospitalization: Yes Hopelessness: Yes Protective Factors Assessment Employed: No Stable Relationships: Yes Interval History Identifying Information ALBAN DHILLON is a 44-year-old M who currently lives in [place] alone, has a history of schizoaffective disorder, depression, anxiety, seizure disorder and intellectual disability, and was admitted on 07/23/25 00:10 on a 201 voluntary commitment for worsening depression and increased self-harm. Chief Complaint "alright". Review of Systems Sleep Information Total Hours of Sleep: 7.25 Meal Information Percent Meal Consumed - Breakfast: 95 Percent Meal Consumed - Lunch: 50 Percent Meal Consumed - Dinner: 100 Subjective Subjective Patient was seen & assessed and interval progress reviewed with treatment team. Rated his mood "8" and "better" last evening. He did some guided meditation. Continues to have a flat affect. Today he reports feeling less anxious overall which he attributes to having "less stress". He's finding the groups helpful. He had no dizziness with clonidine but feels it caused nausea last night so he doesn't want to take it again. He'd like to try just the mirtazapine instead since combo with Vistaril previously caused some sedation. He slept ok, woke early at 4am which he reports is typical. He denies any SI. He feels he'd be ready to discharge in the next few days. He declines support meeting. Physical Exam Psychiatric Orientation: alert and oriented x 3 Apperance: appropriately dressed and appropriately groomed Eye Contact: + fair eye contact Motor Behavior: no abnormal motor movements Speech: normal rate/rhythm/volume of speech Affect: + flat affect Mood: + depressed mood and + anxious mood Thought Process: + concrete thought process (sparse) Thought Content: + paranoid Suicidal Thoughts: denies suicidal thoughts, denies suicidal plan and denies suicidal intent Homicidal Thoughts: denies homicidal thoughts Hallucinations: + auditory hallucinations (he denies but reported yelling from provider office where no one had been); no visual hallucinations Cognition: recent memory grossly intact, remote memory grossly intact, attention grossly intact and language grossly intact Estimated Intelligence: + below average estimated intelligence Insight: + limited insight Judgment: + limited judgement Vital Signs (Past 24 Hours) Last Vital Signs Temp 36.4 C 07/25/25 06:27 Pulse 86 07/25/25 06:28 Resp 20 07/25/25 06:27 BP 112/77 07/25/25 06:28 Pulse Ox 98 07/25/25 06:27 O2 Del Method Room Air 07/25/25 06:27 Results & Data ([facility]) Current Inpatient Medications Current Inpatient Medications: Current Inpatient Medications Acetaminophen (Acetaminophen 325 Mg Tab) 650 mg PO Q4H PRN PRN Reason: Headache or Minor Fever Stop: 08/22/25 00:35 Last Admin: 07/23/25 14:29 Dose: 650 mg Al Hydrox/Mg Hydrox/Simethicone (Aluminum/Magnesium Susp 30 Ml Udc) 30 ml PO Q4H PRN PRN Reason: GI Upset Stop: 08/22/25 00:35 Aripiprazole (Aripiprazole 5 Mg Tab) 5 mg PO BID PRN PRN Reason: Psychosis/Agitation Stop: 08/22/25 01:01 Bismuth Subsalicylate (Bismuth Subsalicylate 262 Mg Chew) 2 tab PO Q30M PRN PRN Reason: Loose Stool/Diarrhea Stop: 08/22/25 00:35 Clonidine HCl (Clonidine Hcl 0.1 Mg Tab) 0.1 mg PO HS LEONIE Stop: 08/23/25 21:59 Last Admin: 07/24/25 20:45 Dose: 0.1 mg Hydroxyzine HCl (Hydroxyzine Hcl 25 Mg Tab) 50 mg PO HSZ PRN PRN Reason: Insomnia Stop: 08/22/25 00:35 Last Admin: 07/23/25 01:02 Dose: 50 mg Hydroxyzine HCl (Hydroxyzine Hcl 25 Mg Tab) 25 mg PO Q4H PRN PRN Reason: Anxiety Stop: 08/22/25 00:35 Lamotrigine (Lamotrigine 100 Mg Tab) 200 mg PO QAM LEONIE; Protocol Stop: 08/22/25 10:59 Last Admin: 07/25/25 08:39 Dose: 200 mg Magnesium Hydroxide (Magnesium Hydroxide Susp 30 Ml Udc) 30 ml PO DAILY PRN PRN Reason: Constipation Stop: 08/22/25 00:35 Melatonin (Melatonin 3 Mg Tab) 3 mg PO HS PRN PRN Reason: Sleep Stop: 08/23/25 13:19 Mirtazapine (Mirtazapine Tab 15 Mg Tab) 15 mg PO HS PRN PRN Reason: insomnia Stop: 08/22/25 21:59 Nicotine Polacrilex (Nicotine Polacrilex 2 Mg Gum) 2 piece MT Q2H PRN PRN Reason: Nicotine Withdrawal Symptoms Stop: 08/22/25 01:53 Last Admin: 07/25/25 08:43 Dose: 2 piece Sodium Chloride (Sodium Chloride 0.65% Na Soln 45 Ml ([place])) 1 - 2 sprays NA PRN PRN PRN Reason: Nasal Dryness/Congestion Stop: 08/22/25 00:35 Zinc Acetate/Diphenhydramine (Diphenhydramine 2%/Zinc 0.1% Cream 28.4gm Tube) 1 appln EXT BID PRN PRN Reason: arm lacerations Stop: 08/22/25 17:32 Last Admin: 07/23/25 18:44 Dose: 1 appln Mental Health & Subst Abuse Tx Psychiatrist Date Of Appointment With Psychiatric Provider: July Therapist Name of Therapist: None Automobile Service Advisor Name of Automobile Service Advisor: Zhen Post Discharge Appointments Primary Care Physician Name Of Family Doctor/PCP: Josefina
[2025-07-25] MEDS ORDERED: REMOVE NICODERM PATCH SCH (08:59)
[2025-07-25] MEDS: REMOVE NICODERM PATCH SCH (11:24)
[2025-07-25] MEDS: NICOTINE 14 MG/24 HR PATCH TD SCH (11:24)
[2025-07-25] MEDS: MIRTAZAPINE TAB 15 MG TAB PO SCH (21:45)
--- NOTE | 2025-07-26 08:57 | Psychiatric Progress Note ---
Date of Service July 26, 2025 Impression / Recommendations Impression ALBAN DHILLON is a 44-year-old M who currently lives in [place] alone, has a history of schizoaffective disorder, depression, anxiety, seizure disorder and intellectual disability, and was admitted on 07/23/25 00:10 on a 201 voluntary commitment for worsening depression and increased self-harm. Diagnostically consistent with schizoaffective disorder current depressive episode in context of recent housing transition and possible increase in paranoia due to increased noise from neighbors with possible thought blocking on examination today. A: Mood improving, denies SI and no evidence for paranoia or delusions. Working on coping skills and interacting well with peers. No further self-harm urges. MNPR-prone to paranoia Overall, I spent a total of 30 minutes on this case including meeting with the patient, reviewing the chart, nursing report, orders, and documentation. (1) Schizoaffective disorder, bipolar type: (2) Bipolar depression: (3) Self-injurious behavior: Plan 07/26/2025: -Continue current medications and tx plan 07/25/2025: -Discontinue clonidine -Restart mirtazapine 15mg HS scheduled 07/24/2025: -Switch mirtazapine to prn for insomnia (2nd choice) -Start clonidine 0.1mg HS -Start melatonin 3mg HS prn for insomnia (1st choice) 07/23/2025: The patient was admitted to the [facility] ([facility] unit) on q15 min checks (behavioral with suicide precautions) for safety. The patient will participate in group, recreational, and milieu therapies and will be offered additional individual and family sessions as clinically appropriate. -Start mirtazapine 15mg HS -Continue lamictal 200mg daily -Request outpatient records from [facility] to confirm dosing schedule of Abilify JACKSON -Consider additional outpatient supports like Psych rehab for increased structure and support with new housing transition Inventory Assets Strengths: supportive relationships, willing to get treatment Needs: safety and stabilization, medication adjustment, additional coping skills, increased outpatient services Suicide Risk Level Suicide Risk Level: Moderate (q15 min suicide checks) (increased depression with new self-harm and SI prior to admission but reports feeling safe in the hospital and feels able to ask staff for support if needed ) Risk Factors Assessment Male: Yes : Yes Do You Have Access To A Gun?: No Health Problems: No Mental Health Diagnoses: Yes Substance Use Disorders: No Previous Attempt: No Family History of Suicide: No Previous Psychiatric Hospitalization: Yes Hopelessness: Yes Protective Factors Assessment Employed: No Stable Relationships: Yes Interval History Identifying Information ALBAN DHILLON is a 44-year-old M who currently lives in [place] alone, has a history of schizoaffective disorder, depression, anxiety, seizure disorder and intellectual disability, and was admitted on 07/23/25 00:10 on a 201 voluntary commitment for worsening depression and increased self-harm. Chief Complaint "Good". Review of Systems Sleep Information Total Hours of Sleep: 7.25 Meal Information Percent Meal Consumed - Breakfast: 100 Percent Meal Consumed - Lunch: 50 Percent Meal Consumed - Dinner: 100 Subjective Subjective Patient was seen & assessed and interval progress reviewed with nursing and social work. Discharge focused, no evidence of paranoia last evening. Slept well overnight. His peer support is visiting this afternoon. Rated his mood "10/10" and "happy" last evening. Feels his mood is improving. Slept well with mirtazapine, brief hand shaking this morning but it resolved and no sedation. He wants to continue with this. Denies SI. Denies any other concerns. Enjoyed playing cards with a peer today. Physical Exam Psychiatric Orientation: alert and oriented x 3 Apperance: appropriately dressed and appropriately groomed Eye Contact: good eye contact Motor Behavior: no abnormal motor movements Speech: normal rate/rhythm/volume of speech Affect: euthymic affect (smiles at times) Mood: no depressed mood and no anxious mood Thought Process: + concrete thought process Thought Content: reality based without delusions Suicidal Thoughts: denies suicidal thoughts, denies suicidal plan and denies suicidal intent Homicidal Thoughts: denies homicidal thoughts Hallucinations: no auditory hallucinations and no visual hallucinations Cognition: recent memory grossly intact, remote memory grossly intact, attention grossly intact and language grossly intact Estimated Intelligence: + below average estimated intelligence Insight: + limited insight Judgment: + limited judgement Vital Signs (Past 24 Hours) Last Vital Signs Temp 36.7 C 07/26/25 06:45 Pulse 99 H 07/26/25 06:45 Resp 18 07/26/25 06:45 BP 98/54 L 07/26/25 06:47 Pulse Ox 95 07/26/25 06:45 O2 Del Method Room Air 07/26/25 06:45 Results & Data ([facility]) Current Inpatient Medications Current Inpatient Medications: Current Inpatient Medications Acetaminophen (Acetaminophen 325 Mg Tab) 650 mg PO Q4H PRN PRN Reason: Headache or Minor Fever Stop: 08/22/25 00:35 Last Admin: 07/23/25 14:29 Dose: 650 mg Al Hydrox/Mg Hydrox/Simethicone (Aluminum/Magnesium Susp 30 Ml Udc) 30 ml PO Q4H PRN PRN Reason: GI Upset Stop: 08/22/25 00:35 Aripiprazole (Aripiprazole 5 Mg Tab) 5 mg PO BID PRN PRN Reason: Psychosis/Agitation Stop: 08/22/25 01:01 Bismuth Subsalicylate (Bismuth Subsalicylate 262 Mg Chew) 2 tab PO Q30M PRN PRN Reason: Loose Stool/Diarrhea Stop: 08/22/25 00:35 Hydroxyzine HCl (Hydroxyzine Hcl 25 Mg Tab) 50 mg PO HSZ PRN PRN Reason: Insomnia Stop: 08/22/25 00:35 Last Admin: 07/23/25 01:02 Dose: 50 mg Hydroxyzine HCl (Hydroxyzine Hcl 25 Mg Tab) 25 mg PO Q4H PRN PRN Reason: Anxiety Stop: 08/22/25 00:35 Lamotrigine (Lamotrigine 100 Mg Tab) 200 mg PO [facility]; Protocol Stop: 08/22/25 10:59 Last Admin: 07/26/25 08:31 Dose: 200 mg Magnesium Hydroxide (Magnesium Hydroxide Susp 30 Ml Udc) 30 ml PO DAILY PRN PRN Reason: Constipation Stop: 08/22/25 00:35 Melatonin (Melatonin 3 Mg Tab) 3 mg PO HS PRN PRN Reason: Sleep Stop: 08/23/25 13:19 Mirtazapine (Mirtazapine Tab 15 Mg Tab) 15 mg PO HS [facility] Stop: 08/24/25 21:59 Last Admin: 07/25/25 21:45 Dose: 15 mg Miscellaneous (Remove Nicoderm Patch) 1 each N/A DAILY@0859 [facility] Stop: 08/24/25 10:13 Last Admin: 07/26/25 08:33 Dose: 1 each Nicotine (Nicotine 14 Mg/24 Hr Patch) 1 patch TD QAM [facility] Stop: 08/24/25 10:14 Last Admin: 12/30/25 08:31 Dose: 1 patch Nicotine Polacrilex (Nicotine Polacrilex 2 Mg Gum) 2 piece MT Q2H PRN PRN Reason: Nicotine Withdrawal Symptoms Stop: 08/22/25 01:53 Last Admin: 07/26/25 08:33 Dose: 2 piece Sodium Chloride (Sodium Chloride 0.65% Na Soln 45 Ml ([place])) 1 - 2 sprays NA PRN PRN PRN Reason: Nasal Dryness/Congestion Stop: 08/22/25 00:35 Zinc Acetate/Diphenhydramine (Diphenhydramine 2%/Zinc 0.1% Cream 28.4gm Tube) 1 appln EXT BID PRN PRN Reason: arm lacerations Stop: 08/22/25 17:32 Last Admin: 07/23/25 18:44 Dose: 1 appln Mental Health & Subst Abuse Tx Psychiatrist Name of Psychiatrist: Jalen Psychiatrist's Date Of Appointment With Psychiatric Provider: 08/22/25 Time of Appointment with Psychiatrist: 2:15PM Psychiatric Appointment Comment: In person. [address], [place] [address] Therapist Name of Therapist: Refused referral Print Production Coordinator Name of Print Production Coordinator: Zhen Chinchilla ([facility] service unit) Phone Number for Print Production Coordinator: [phone] Case Management Appointment Comment: sales team manager will contact you directly to schedule next visit in community Post Discharge Appointments Primary Care Physician Name Of Family Doctor/PCP: Josefina Partial or Psych Rehab Name of Partial or Psych Rehab: Refused referral Admission Nurse Name of Admission Nurse: Jose through [facility] Phone Number of Admission Nurse: [phone] Admission Nurse Appointment Comment: Jose will contact you directly to schedule follow up visit in community Contact Information Discharge Discharge Address: [address] [place] [address]
[2025-07-27 06:57] VITALS: BP 95/49; PULSE 82; RESP 16; TEMP 97.5; O2SAT 96
--- NOTE | 2025-07-27 09:00 | Discharge Summary ---
Date of Service July 27, 2025 History of Present Illness He presents for psychiatric admission for worsening depression and increased self-harming in the context of recent move and increased depression. He states he self-harms "once in a blue acuña" but cut himself multiple times yesterday to deal with his stress, depression and pain and then called 911. He describes "feeling depressed, but, um, can't explain it." He confirms increased anhedonia, poor appetite, decreased sleep with frequent awakenings. He denies any suicidal ideation today but in the ED reported SI with plan of cutting himself yesterday prior to coming to the hospital. He describes having increased stress from a major life transition earlier this month in moving from [facility], where he had lived for 4 years, to a new apartment. The new apartment has thin esparza and he can hear his neighbors frequently talking. Boni has been adherent to his prescribed Lamictal 200mg daily, taken in the morning, and denies any recent medication non-compliance. He receives long- acting Abilify Asimptify injections at [facility]. Psychiatric ROS notable for depressed mood, decreased appetite, and sleep difficulties. Denies suicidal ideation, auditory hallucinations, visual hallucinations, thoughts of wanting to hurt others, and access to guns at home. Physical Exam Vital Signs (Past 24 Hours) Last Vital Signs Temp 36.4 C L 07/27/25 06:55 Pulse 82 07/27/25 06:56 Resp 16 07/27/25 06:55 BP 95/49 L 07/27/25 06:56 Pulse Ox 96 07/27/25 06:55 O2 Del Method Room Air 07/27/25 06:55 Principal Diagnosis Schizoaffective Disorder, depressive episode Psychiatric Data See daily stay summary. In short, patient was engaged with the social/therapeutic milieu of the unit, safety was maintained and the patient was cooperative with care. Medication changes included initiation of mirtazapine for depression, anxiety, insomnia and they tolerated this well. He declined a support session but safety plan was completed prior to discharge. They participated in safety planning and in discussions about ways to seek support and recognizing warning signs and utilizing coping skills. Reviewed ways to have their safety plan and contacts easily available should thoughts of SI re-emerge in the future. Reviewed importance of seeking emergency care should SI intensify, worsen or should they feel unsafe in the future which they agree to do. On the day of discharge they stated their mood was "good" and remained future-oriented including spending time with friends, eating good food to celebrate HANSA, avoiding alcohol use and engaging in aftercare appointments for psychiatry, case management and peer support. Day of Discharge Assessment Today the patient voices readiness for discharge. They note improvement in mood and anxiety. They deny thoughts of harm to self or others. Thoughts are organized and they are clinically improved from admission. There is no evidence of psychosis. They improved in the hospital with support and medication adjustments. They agree to take medications as prescribed and keep follow-up appointments. At the time of the discharge they are deemed to be stable and appropriate for outpatient level of care. They are not deemed to be at imminent risk of harm to self or others. They are aware of emergency and crisis services. Knows to call 911 or go to nearest emergency care center if in a crisis which cannot be handled as an outpatient. Suicide risk assessment: Acute risk is low given improvement in mood and denial of SI, lack of access to lethal means, plan to avoid substance use, improvement in sleep, hopefulness and improvement in psychosis. Chronic risk is moderate to high given some non- modifiable risk factors: psychiatric co-morbid diagnoses, periods of impulsivity, hx self-harm, prior psychiatric hospitalizations, limited social support, mood disorder/schizophrenia, but also with protective factors including sense of responsibility to social supports, outpatient care in place, positive coping skills, positive problem solving, willingness to engage with treatment and some self-observation. Counseled on ways to reduce acute and chronic risk including engaging with outpatient providers, using safety plan if needed, utilizing supports, taking medication, and using coping skills. Modifiable risk factors of SI, anxiety, insomnia and depression were addressed during hospitalization through development of new coping skills, safety planning, and medication adjustments. Discharge physical exam: See admission H&P, MSE per above and day of discharge summary. Overall, I spent a total of 35 minutes on this case including meeting with the patient, reviewing the chart, nursing report, multidisciplinary team meeting, discharge orders, anticipatory planning, safety planning, risk assessment and documentation. Transition of Care Transition Of Care Record: was reviewed with the patient Advance Directives Advance Directives Information Provided: Yes Advance Directives: No Mental Health Advance Directive: No Advance Directives on File: No Living Will: No Power of Hydrometeorological Technician: No Advance Directives Reason:: Declines as Mental Health Visit. Suicide Risk Level Suicide Risk Level Comments: see assessment above Risk Factors Assessment Male: Yes : Yes Do You Have Access To A Gun?: No Health Problems: No Mental Health Diagnoses: Yes Substance Use Disorders: No Previous Attempt: No Family History of Suicide: No Previous Psychiatric Hospitalization: Yes Hopelessness: No Protective Factors Assessment Employed: No Stable Relationships: Yes Discharge Data Lab Results 07/22/25 07/22/25 21:20 21:34 WBC 7.28 RBC 4.88 Hgb 14.3 Hct 41.8 L MCV 85.7 MCH 29.3 MCHC 34.2 RDW Std Deviation 37.9 RDW Coeff of Izzy 12.2 Plt Count 179 MPV 10.7 Immature Gran % (Auto) 0.1 Neut % (Auto) 62.8 Lymph % (Auto) 29.9 [place] % (Auto) 5.4 Eos % (Auto) 1.1 Baso % (Auto) 0.7 Neut # (Auto) 4.57 Lymph # (Auto) 2.18 [place] # (Auto) 0.39 Eos # (Auto) 0.08 Baso # (Auto) 0.05 Immature Gran # (Auto) 0.01 Sodium 140 Potassium 3.8 Chloride 105 Carbon Dioxide 28 Anion Gap 7 BUN 16 Creatinine 0.82 Est Cr Clr Drug Dosing 87.6 eGFR 109.71 BUN/Creatinine Ratio 19.5 Glucose 104 H Calcium 9.5 Total Bilirubin 0.4 AST 15 ALT 12 Alkaline Phosphatase 85 Total Protein 6.8 Albumin 4.4 Globulin 2.4 L Albumin/Globulin Ratio 1.8 TSH 1.965 Urine Color Yellow Urine Appearance Clear Urine pH 5.5 Ur Specific [place] 1.007 Urine Protein Negative Urine Glucose (UA) Negative Urine Ketones Negative Urine Blood Negative Urine Nitrite Negative Urine Bilirubin Negative Urine Urobilinogen Negative Ur Leukocyte Esterase Negative Urine Comment Salicylates < 3.0 L Urine Opiates Screen Neg Ur Methadone, Qual Neg Urine Fentanyl Screen Neg Acetaminophen < 3 L Urine Barbiturates Neg Ur Phencyclidine (PCP) Neg U Amphetamin/Meth Scrn Neg MDMA (Ecstasy) Screen Neg U Benzodiazepines Scrn Neg Ur Cocaine Metabolite Neg U Marijuana (THC) Screen Neg Ethyl Alcohol mg/dL < 10.0 SARS-CoV-2, RNA, NAAT NEGATIVE Hospital Course (1) Schizoaffective disorder, bipolar type: (2) Bipolar depression: (3) Self-injurious behavior: Plan 07/27/2025: -he feels safe and desires discharge 07/26/2025: -Continue current medications and tx plan 07/25/2025: -Discontinue clonidine -Restart mirtazapine 15mg HS scheduled 07/24/2025: -Switch mirtazapine to prn for insomnia (2nd choice) -Start clonidine 0.1mg HS -Start melatonin 3mg HS prn for insomnia (1st choice) 07/23/2025: The patient was admitted to the [facility] ([facility] health unit) on q15 min checks (behavioral with suicide precautions) for safety. The patient will participate in group, recreational, and milieu therapies and will be offered additional individual and family sessions as clinically appropriate. -Start mirtazapine 15mg HS -Continue lamictal 200mg daily -Request outpatient records from [facility] to confirm dosing schedule of Abilify JACKSON -Consider additional outpatient supports like Psych rehab for increased structure and support with new housing transition Mental Health & Subst Abuse Tx Psychiatrist Name of Psychiatrist: [facility]rist's Date Of Appointment With Psychiatric Provider: 08/08/25 Time of Appointment with Psychiatrist: 11:30 AM Psychiatric Appointment Comment: In person. [address], [place] [address] Therapist Name of Therapist: Refused referral Dollyman Name of Dollyman: Zhen Chinchilla ([facility] service unit) Phone Number for Dollyman: [phone] Case Management Appointment Comment: reconciliation manager will contact you directly to schedule next visit in community Post Discharge Appointments Primary Care Physician Name Of Family Doctor/PCP: Josefina Partial or Psych Rehab Name of Partial or Psych Rehab: Refused referral Overcoil Stepper Name of Overcoil Stepper: Jose through [facility] Phone Number of Overcoil Stepper: [phone] Overcoil Stepper Appointment Comment: Jose will contact you directly to schedule follow up visit in community Contact Information Discharge Discharge Address: [address] [place] [address] Discharge Plan Discharge Items Patient Disposition: Home - Self-Care Reason For Visit: UNSPECIFIED MOOD DISORDER Discharge Diagnosis: Schizoaffective disorder, current depressive episode Condition on Discharge: Good Activity: Resume your previous activity Non-emergency contact: Primary Care Provider, Psychiatrist and Vibrator Operator Call non-emergency contact if: you have any medication questions and your symptoms worsen Follow-up/Referrals: Lazara Rocha DO [Primary Care Provider] - Diet: Regular Addtl Attending Provider Instructions: SPECIAL CARE INSTRUCTIONS: 1. Follow through with your scheduled aftercare appointments. If unable to keep an appointment, please call to reschedule. 2. Take your medication only as prescribed. Medication should not be changed or stopped without the approval of your doctor. In the event of worsening symptoms or concerns about side effects, contact your doctor immediately. 3. Utilize new healthy coping skills, anger management skills, and stress management skills learned during your hospitalization. Journal feelings and process them with a support person. Identify stressors or situations that may result in relapse, deterioration or inappropriate behaviors and develop a plan to deal with those issues. 4. If your coping skills are ineffective and you are in crisis, contact your outpatient providers for direction. If unable to reach your providers, please call the [facility] CRISIS LINE AT , go to the [facility] walk-in center at [address], [address], [place], or go to the closest Emergency Room. 5. Avoid alcohol and un-prescribed drugs. 6. You have been provided with the Mental Health Advance Directives Pamphlet for your review. 7. Your condition is stable for discharge to outpatient level of care, but recovery is an ongoing process. Ifthoughts to harm yourself or others return, follow the safety plan developed during your stay. Planning for a safe return home includes securing weapons. Our treatment team recommends weaponsbe removed from the home until your outpatient provider reassesses your progress. In rare cases where the items themselvescannot be removed, guns and ammunitionshould be secured separatelyand keys stored by a reliable personoutside of the home. If you were admitted on an involuntary commitment, the police or other legal authorities may be involved in this process. AFTERCARE APPOINTMENTS: * Please call your insurance company prior to your scheduled appointment to confirm your aftercare providers are covered. Take your insurance information to your appointments. WHO TO CALL AND WHEN: Medical Emergencies: For questions or emergencies related to your hospital stay, please contact the Inpatient Behavioral Health Unit at [phone]. A fishing manager is on-call 17/02 for the Behavioral Health Unit for emergencies At any time you feel your situation is an emergency, you may also call 911 immediately. National Crisis Hotline: 117 Pending Studies at Discharge: No Stand-Alone Forms: My [facility], Smoking Cessation Medications and DC Order Prescriptions: New Abilify Asimtufii 960 mg/3.2 mL suspension,extended rel syring 960 mg IM ONCE 60 Days Qty: 192 0RF mirtazapine 15 mg Tablet 15 mg PO HS 30 Days Qty: 30 0RF Continued lamotrigine [Lamictal] 200 mg tablet 200 mg PO QAM Qty: 30 11RF Discontinued Abilify Maintena 400 mg suspension,extended rel recon 400 mg IM Q28D Discharge Orders: Discharge Order (Routine); Ordered 07/27/25 Ordered By: Rubi Redd Admission Data Admit Date/Time: 07/23/25 00:10 Attending Provider: Rubi Redd Admit Provider: Rubi Redd Primary Care Provider: Lazara Rocha Other Interventions: Discharge Summary Assessment (RN) Last Done: 07/27/25 11:27 Coding Level of Care Code 28730 D/C day mgmt > 30 min Diagnoses Schizoaffective disorder, bipolar type F25.0 Bipolar depression F31.9 Self-injurious behavior Z72.89
== END 2025-07-27 13:08 | disposition home or self-care (01) | DRG 885 ==
LOC: ED 21:10 → 3S 07-23 00:10